=== PATIENT | male | born 1950 | race Caucasian/White ===

== ENCOUNTER 2017-07-15 14:45 | Inpatient (IN) ==
[2017-07-15] MEDS ORDERED: 0.9 % Sodium Chloride 1,000 ML IVC ONE (15:07)
[2017-07-15 15:27] LABS: Basophils % 0.2 %; Eosinophils % 0.3 %; Immature Granulocytes % 1.1 % (0-4); Lymphocytes % 7.1 %; Mean Corpuscular HGB Conc 30.9 g/dL (31.6-35.5); Mean Corpuscular Hemoglobin 27.1 pg (28.0-33.3); Mean Corpuscular Volume 87.8 fL (83.0-100.0); Monocytes % 4.8 %; Platelet Count 250 K/mcL (140-400); Red Blood Count 2.62 M/mcL (4.19-5.50); Red Cell Distribution Width 17.2 % (11.5-14.5); Segmented Neutrophils % 86.5 %
[2017-07-15 15:28] LABS: Lymphocytes # 0.9 K/mcL (0.6-4.6); Monocytes # 0.6 K/mcL (0.0-1.3); Neutrophils # 10.6 K/mcL (1.6-8.9)
[2017-07-15 15:43] LABS: Albumin/Globulin Ratio 0.3 (1.1-2.2); Bilirubin,Direct 0.5 mg/dL (0.0-0.5); Bilirubin,Indirect 0.4 mg/dL (0.0-1.2); Bilirubin,Total 0.9 mg/dL (0.2-1.2); Globulin 4.5 g/dL (2.4-3.5); Magnesium 1.4 mg/dL (1.6-2.6); Phosphorous 5.3 mg/dL (2.3-4.7); Total Protein 5.9 g/dL (6.0-8.3)
[2017-07-15 15:45] LABS: Albumin 1.4 g/dL (3.5-5.0)
[2017-07-15 15:52] LABS: Hemoglobin 7.1 g/dL (12.9-16.9)
[2017-07-15 15:53] LABS: Prothrombin Time 59.4 Seconds (9.4-12.1)
[2017-07-15 15:54] LABS: INR 5.3
[2017-07-15] MEDS ORDERED: *HR* Phytonadione 10 MG/ML AMPUL SQ ONE (16:07)
[2017-07-15] MEDS ORDERED: *HR* Phytonadione 5 MG TABLET PO ONE (16:12)
--- NOTE | 2017-07-15 16:27 | Emergency Department Note ---
Disposition Clinical Impression: [id number] (acute kidney injury), HCC (hepatocellular carcinoma), Elevated INR Hypotension Qualifiers: Hypotension type: other hypotension type Qualified Code(s): I95.89 - Other hypotension Anemia Qualifiers: Anemia type: unspecified type Qualified Code(s): D64.9 - Anemia, unspecified Disposition: Admitted As Inpatient Condition: Fair Time of Disposition: 18:34 General Adult HPI - General Chief complaint: ED General Medical Stated complaint: Hypotension Time Seen by Provider: 07/15/17 14:51 Source: patient, family, EMS Mode of arrival: EMS Limitations: no limitations Nursing Notes Reviewed: Yes Vital Signs Reviewed: Yes - History of Present Illness HPI Narrative: 66-year-old male presented to the emergency department complaining of hypotension. Patient was recently discharged from [facility] after being in [facility] ICU for 3 weeks of being transferred there for follow-up care for hepatocellular carcinoma. When patient was originally admitted he had acute renal failure and dialysis was started and he currently has a port on the right side. He has multiple healing sacral decubiti as well. This morning he was at home and had taken his lisinopril. He noticed he felt somewhat weak and his blood pressure was taken and systolic was in the upper 80s and low 90s. He spoke with his physician who told him to come to the emergency department. Patient denies any complaints including shortness of breath, chest pain or abdominal pain. Patient denies any fevers at home. According to family at bedside his blood pressure was 130 systolic the other day when he was discharged from [facility]. Patient was scheduled to have a paracentesis but was unable to due to an increased INR greater than 3. Pain Scale: 0 - Related Data Home Medications Medication Instructions Recorded Confirmed Lisinopril [Zestril] 40 mg PO DAILY 02/17/17 07/15/17 Simvastatin [Zocor] 40 mg PO 1800 02/17/17 07/15/17 Ascorbic Acid [Vitamin C] 500 mg PO BID 07/15/17 07/15/17 B Complex W-C No.20/Folic Acid 1 mg PO DAILY 07/15/17 07/15/17 [Nephrocaps Softgel] Calcium Carbonate 650 - 1,300 mg PO QID PRN 07/15/17 07/15/17 Docusate [Colace] 100 mg PO BID PRN 07/15/17 07/15/17 Loperamide [Imodium] 2 mg PO PER PKG DI PRN MDD 16 mg 07/15/17 07/15/17 Nystatin POWDER [Nystop] 1 appl TP QID 07/15/17 07/15/17 Oxycodone HCl 10 - 20 tab PO Q4H PRN 07/15/17 07/15/17 Rifaximin [Xifaxan] 550 mg PO BID 07/15/17 07/15/17 Saliva Stimulant [Biotene 5 ml MM Q2H PRN 07/15/17 07/15/17 Moisturizing Rinse] Sennosides [Senna] 8.6 mg PO DAILY PRN 07/15/17 07/15/17 Triamcinolone Acet 0.1% CRM 1 appl TP BID 07/15/17 07/15/17 [Kenalog] Warfarin [Coumadin] 7.5 mg PO 1800 07/15/17 07/15/17 Zinc Sulfate 220 mg PO QAM 07/15/17 07/15/17 Previous Rx's Medication Instructions Recorded Promethazine [Phenergan] 25 mg PO Q6HR PRN #60 tablet 05/19/17 Allergies Allergy/AdvReac Type Severity Reaction Status Date / Time Hydromorphone [From Dilaudid] Allergy Itching Verified 07/15/17 14:47 heparin AdvReac See Verified 07/15/17 14:51 Comments All systems ED: reviewed and negative except as stated. Constitutional: Denies: fever, chills Eyes: Reports: as per HPI ENT ED: Reports: as per HPI Cardiovascular: Denies: chest pain, palpitations Respiratory: Denies: cough, dyspnea, wheezes Gastrointestinal: Reports: as per HPI Genitourinary: Reports: as per HPI Musculoskeletal: Reports: as per HPI Integumentary: Reports: other (Sacral decubiti) Neurological: Reports: as per HPI Psychiatric: Reports: as per HPI Endocrine: Reports: as per HPI Hematological/Lymphatic: Reports: as per HPI Allergic/Immunologic: Reports: as per HPI Past Medical History - Past Medical History Attestation: Yes The following information was validated with the patient. Medical history: Reports: cancer, diabetes, dialysis, other Surgical history: Reports: hip replacement, other (liver biopsy. hepatic artery embolization) Psychiatric history: Reports: no psych history - Social History Smoking Status: Former smoker Smokeless Tobacco Status: No Alcohol use: Reports: none Drug use: Reports: none Physical Exam - General Limitations: no limitations General appearance: alert, in no apparent distress - Head Head exam: atraumatic, normocephalic, normal inspection - Eye Eye exam: Present: normal appearance. Absent: scleral icterus, conjunctival injection - ENT ENT exam: mucous membranes dry - Chest Chest inspection: Present: normal inspection, symmetric chest wall rise. Absent : tenderness, rash - Respiratory Respiratory exam: Present: other (Decreased breath sounds bilaterally) - Cardiovascular Cardiovascular exam: Present: regular rate, normal rhythm, normal heart sounds - Abdominal Exam Abdominal exam: Present: distention. Absent: tenderness, guarding, rebound, rigidity - Rectal Exam Lead C Developer present during exam: Yes Rectal exam: Present: normal inspection, normal rectal tone, heme (+) stool. Absent: fecal impaction, hemorrhoids, tenderness - Extremities Exam Extremities exam: Present: normal inspection, full ROM - Neurological Exam Neurological exam: Present: alert, oriented X3 - Psychiatric Psychiatric exam: Present: normal affect, normal mood - Skin Skin exam: Present: warm Course Course Narrative: 66-year-old male presenting to the emergency department with chief complaint of hypotension. He has no other complaints at this time. He patient most likely hypotensive due to the blood pressure medication given to him. We will perform a sepsis workup and fluid bolus him with 1 L. At the fluid bolus does not increase his Mavik to [address] a central line and start pressors. Disposition will be admission to the ICU. Patient's alert and oriented 3 in room. He is hypotensive. Systolic in the upper 80s and lower 90s but otherwise vital signs are stable at this time. Family is at bedside. - Reevaluation(s) Reevaluation #1: Patient around 60 at this time. After fluid bolus. We will place a right femoral line at this time and begin his admission to the ICU. Multiple abnormalities noted on blood work and hyponatremia and chronic kidney disease. Patient's INR is elevated greater than 5. Patient's lactic acid is within normal limits. White count 12. Femoral line was placed in no significant complications. The will admit the patient to the hospitalist Dr. Sanders who accepts the patient at this time. Spoke with family who agrees with this plan. Patient is hypotensive with systolic in the mid 90s at this time otherwise stable. Time: 18:33 Vital Signs Temperature 97.4 F L 07/15/17 14:47 Pulse Rate 85 07/15/17 14:47 Respiratory Rate 20 07/15/17 14:47 Blood Pressure 95/57 07/15/17 14:47 O2 Sat by Pulse Oximetry 95 07/15/17 14:47 Temperature 97.6 F 07/15/17 20:08 Pulse Rate 86 07/15/17 20:08 Respiratory Rate 16 07/15/17 20:08 Blood Pressure 126/56 07/15/17 20:08 O2 Sat by Pulse Oximetry 98 07/15/17 20:08 Oxygen Delivery Oxygen Delivery Nasal Cannula Procedures - Central Line Placement Right Femoral Central Line Inserted*: Yes Central Line Catheter Replacement*: No Central Line Insertion: emergent Consent Obtained: verbal consent Procedural Pause: verify patient name and date of , timeout performed per policy, jared and assess the site, assemble equipment and verify supplies, perform hand hygiene Patient Placed on Monitor/Pulse Ox: Yes During the Procedure: clinician is wearing sterile gloves, cap, mask,& gown during insertion, sterile field and sterile technique are maintained, patient's face is covered with drape or mask and wearing a cap, everyone in room is wearing a mask Central Line Prep: Chlorhexidine scrub Prep the Procedure Site: apply chloraprep to the skin using a back and forth scrubbing motion, apply chloraprep for 30 seconds (upper body), 1-2 min ( femoral sites), allow prep to dry, drape the patient with a full body drape Local Anesthetic: lidocaine 1% Amount of anesthesia used (mL): 5 Ultrasound Used for Placement: Yes Central Line Lumen Inserted: triple Post Procedure: sutured in place, good blood return, all ports aspirated, flushed, capped, sterile dressing applied, guide wire removed and visualized, dressing is dated Patient Tolerated Procedure: well Complications: none Medical Decision Making - Lab Data Result diagrams: 07/15/17 15:21 07/15/17 15:21 Lab Results 07/15/17 07/15/17 07/15/17 Range/Units 15:21 15:21 15:21 WBC 12.3 H (4.3-11.1) K/mcL RBC 2.62 L (4.19-5.50) M/mcL Hgb 7.1 L (12.9-16.9) g/dL Hct 23.0 L (37.5-50.1) % MCV 87.8 D (83.0-100.0) fL MCH 27.1 L (28.0-33.3) pg MCHC 30.9 L (31.6-35.5) g/dL RDW 17.2 H (11.5-14.5) % Plt Count 250 (140-400) K/mcL MPV 9.0 L (9.4-12.4) fL Immature Gran % 1.1 (0-4) % Seg Neutrophils % 86.5 % Lymphocytes % 7.1 % Monocytes % 4.8 % Eosinophils % 0.3 % Basophils % 0.2 % Neutrophils # 10.6 H (1.6-8.9) K/mcL Lymphocytes # 0.9 (0.6-4.6) K/mcL Monocytes # 0.6 (0.0-1.3) K/mcL Eosinophils # 0.0 (0.0-0.6) K/mcL Basophils # 0.0 (0.0-0.2) K/mcL PT 59.4 H* (9.4-12.1) Seconds INR 5.3 H* VBG pH (7.32-7.42) pH Units VBG pCO2 (41-51) mmHg VBG pO2 (25-50) mmHg VBG HCO3 (21-27) mEq/L Sodium 130 L (136-145) mEq/L Potassium 4.0 (3.5-4.5) mEq/L Chloride 97 L (98-109) mEq/L Carbon Dioxide 21 (19-29) mEq/L BUN 37 H (8-26) mg/dL Creatinine 3.90 H (0.72-1.25) mg/dL Est GFR ( Amer) 19 L (> 60) Est GFR (Non-Af Amer) 16 L (> 60) BUN/Creatinine Ratio 9 (6-26) Glucose 163 H (70-99) mg/dL Calculated Osmolality 282 (280-300) Lactic Acid (0.5-2.2) mmol/L Calcium 8.0 L (8.6-10.8) mg/dL Phosphorus 5.3 H (2.3-4.7) mg/dL Magnesium 1.4 L (1.6-2.6) mg/dL Total Bilirubin 0.9 (0.2-1.2) mg/dL Direct Bilirubin 0.5 (0.0-0.5) mg/dL Indirect Bilirubin 0.4 (0.0-1.2) mg/dL AST 44 H (5-34) Units/L ALT 20 (0-55) Units/L Alkaline Phosphatase 159 H (38-126) Units/L Troponin I (0-0.03) ng/mL Serum Total Protein 5.9 L (6.0-8.3) g/dL Albumin 1.4 L (3.5-5.0) g/dL Globulin 4.5 H (2.4-3.5) g/dL Albumin/Globulin Ratio 0.3 L (1.1-2.2) 07/15/17 07/15/17 07/15/17 Range/Units 15:21 15:21 18:54 WBC (4.3-11.1) K/mcL RBC (4.19-5.50) M/mcL Hgb (12.9-16.9) g/dL Hct (37.5-50.1) % MCV (83.0-100.0) fL MCH (28.0-33.3) pg MCHC (31.6-35.5) g/dL RDW (11.5-14.5) % Plt Count (140-400) K/mcL MPV (9.4-12.4) fL Immature Gran % (0-4) % Seg Neutrophils % % Lymphocytes % % Monocytes % % Eosinophils % % Basophils % % Neutrophils # (1.6-8.9) K/mcL Lymphocytes # (0.6-4.6) K/mcL Monocytes # (0.0-1.3) K/mcL Eosinophils # (0.0-0.6) K/mcL Basophils # (0.0-0.2) K/mcL PT (9.4-12.1) Seconds INR VBG pH 7.34 (7.32-7.42) pH Units VBG pCO2 40 L (41-51) mmHg VBG pO2 75 H (25-50) mmHg VBG HCO3 22 (21-27) mEq/L Sodium (136-145) mEq/L Potassium (3.5-4.5) mEq/L Chloride (98-109) mEq/L Carbon Dioxide (19-29) mEq/L BUN (8-26) mg/dL Creatinine (0.72-1.25) mg/dL Est GFR ( Amer) (> 60) Est GFR (Non-Af Amer) (> 60) BUN/Creatinine Ratio (6-26) Glucose (70-99) mg/dL Calculated Osmolality (280-300) Lactic Acid 1.7 (0.5-2.2) mmol/L Calcium (8.6-10.8) mg/dL Phosphorus (2.3-4.7) mg/dL Magnesium (1.6-2.6) mg/dL Total Bilirubin (0.2-1.2) mg/dL Direct Bilirubin (0.0-0.5) mg/dL Indirect Bilirubin (0.0-1.2) mg/dL AST (5-34) Units/L ALT (0-55) Units/L Alkaline Phosphatase (38-126) Units/L Troponin I 0.00 (0-0.03) ng/mL Serum Total Protein (6.0-8.3) g/dL Albumin (3.5-5.0) g/dL Globulin (2.4-3.5) g/dL Albumin/Globulin Ratio (1.1-2.2) Attestation Statement - Attestation Attestation: I, Yaw Tijerina, examined this patient and my medical decision-making was reviewed with the CONCRETE SWIMMING POOL INSTALLER/PA/Advanced Practice Nurse/Resident Physician. I agree with the documented findings, disposition and treatment plan as described except to the extent set forth below. 66-year-old male presents emergency Department with concerns of hypotension. Patient had a complicated hospital history over the past 2 months in that he originally had a an embolized, became septic while in [facility], was then transferred to [facility] for treatment of sepsis while in the ICU as well as for evaluation of liver cancer. Patient was then transferred to [facility] upon patient requests for further treatment as it was closer for family to be able to visit. Patient was discharged yesterday and was told to have his first outpatient dialysis performed today. Family restarted home medications upon request of discharge paperwork from [facility]. Daughter then noticed patient was hypotensive. Patient feels well although he had significant amount of bilateral pedal edema. Patient's abdomen is distended upon exam and they state that he has had a need for paracentesis in the past secondary to his liver disease. I am patient exam the abdomen is distended but is not taut. Patient given a liter of IV fluids but his BP did not improve significantly. A right for moral central venous catheter was placed after a discussion of the risks and benefits and written and verbal consent obtained. The placement of the central venous catheter was performed by myself and the resident and was technically difficult. Manuel who will admit to the ICU for further care and evaluation. Please oppressive agents were about to be started however patient's repeat blood pressures were now improving. Patient is comfortable with the plan for admission to the hospital for further care and evaluation
[2017-07-15 18:57] LABS: VBG HCO3 22 mEq/L (21-27); VBG PCO2 40 mmHg (41-51); VBG PH 7.34 pH Units (7.32-7.42); VBG PO2 75 mmHg (25-50)
[2017-07-15] MEDS ORDERED: *HR* Morphine 2 MG/ML SYRINGE IVP PRN (19:48)
[2017-07-15] MEDS ORDERED: Ondansetron 4 MG/2 ML VIAL IVP PRN (19:48)
[2017-07-15] MEDS ORDERED: Naloxone 0.4 MG/ML INJ IVP PRN ×2 (19:48)
[2017-07-15] MEDS ORDERED: Acetaminophen 325 MG TABLET PO PRN ×2 (19:48)
[2017-07-15] MEDS ORDERED: Levofloxacin 750 MG/150 ML 750 MG/150 ML BAG IVPB SCH (20:00)
[2017-07-15] MEDS ORDERED: Cefepime HCl 1,000 MG in D5% in Water (Mini-Bag+) 100 ML IVPB SCH (20:00)
--- NOTE | 2017-07-15 20:00 | Internal Med History&Physical ---
Date of Encounter: 07/15/17 Time of Encounter: 19:58 Assessment and Plan (1) Shock Current visit: Yes Status: Acute Possible hypovolemic shock, consider retroperitoneal hematoma, possible septic shock/bibasilar airspace disease with possible healthcare associated pneumonia present upon admission Reverse INR with FFP, vitamin K given Order 2 units of blood, may continue IV fluids. Order CT scan of the abdomen and pelvis stat. Start Levaquin and cefepime, consider starting vancomycin Protonix IV for GI prophylaxis and sequential compression devices for DVT prophylaxis. The patient will be admitted as inpatient, expected to stay more than 2 minutes. Full code. Time spent on this critical care assessment: 40 minutes. (2) Hepatocellular carcinoma Current visit: No Status: Acute (3) Type 2 diabetes mellitus Current visit: No Status: Chronic Insulin sliding scale Qualifiers: Diabetes mellitus complication status: with unspecified complications Diabetes mellitus longterm insulin use: with termite control servicer use Qualified Code(s) : E11.8 - Type 2 diabetes mellitus with unspecified complications; Z79.4 - terminal clerk (current) use of insulin (4) Cirrhosis of liver with ascites Current visit: No Status: Chronic Could not have paracentesis today Qualifiers: Hepatic cirrhosis type: unspecified hepatic cirrhosis Qualified Code(s): K74.60 - Unspecified cirrhosis of liver (5) Hypotension Current visit: Yes Status: Acute Consider pressors, hold lisinopril Nephrology will be consulted for dialysis Qualifiers: Hypotension type: other hypotension type Qualified Code(s): I95.89 - Other hypotension (6) Elevated INR Current visit: Yes Status: Acute (7) Anemia Current visit: Yes Status: Acute Possible acute blood loss anemia, Hemoccult is negative, continue Protonix IV, await report of CT scan of the abdomen and pelvis Qualifiers: Anemia type: unspecified type Qualified Code(s): D64.9 - Anemia, unspecified Internal Medicine - H&P: HPI Chief complaint: Low blood pressure Admitted From: Emergency Dept History of present illness: Mr. Dixon is a 66 year old male with a past medical history of hepatocellular carcinoma status post right embolization of the hepatic artery, A. fib on Coumadin, diastolic CHF, diabetes type 2 insulin-dependent, cirrhosis, ascites, prior septic shock, came to the emergency room complaining of severe weakness and low blood pressure, she is blood pressure dropped down to 54/42, it was noticed that his hemoglobin has dropped from 10.3 down to 7.1 since the last measurement. White blood cell count is 12.3 INR is 5.3, heart rate is increased at 110, sodium was 130s creatinine 3.9, the patient did not have dialysis today. Hemoccult was negative in the emergency room. Chest x-ray shows bilateral airspace disease possibly atelectases, the patient is very poor historian, denies any abdominal pain or other complaints other than weakness. He received vitamin K and had a central line placed in the right femoral vein. Past Med Surg Social Fam HX - Past Medical History Medical history: cancer (Hepatocellular carcinoma status post right hepatic artery embolization, UTI with pseudomonas in the past which was pansensitive, A. fib on Coumadin, septic shock, diastolic dysfunction, cirrhosis and ascites, diabetes type 2 insulin-dependent, GERD, neuropathy, depression, heparin- induced thrombocytopenia ), diabetes, dialysis, other Psychiatric history: no psych history - Past Surgical History Surgical History: cholecystectomy, hip replacement, other (liver biopsy. hepatic artery embolization, cardioversion) - Social History Smoking Status: Former smoker Smokeless Tobacco Status: No Alcohol use: none Drug use: none - Family History Father Living Status: Hx Family Cardiac Disorders: Yes Mother Living Status: Hx Family Cancer: Yes - Additional Family History Additional family history: Father and mother with heart disease Internal Medicine - H&P: Meds Lisinopril [Zestril] 40 mg PO DAILY 02/17/17 [History] Simvastatin [Zocor] 40 mg PO 1800 02/17/17 [History] Promethazine [Phenergan] 25 mg PO Q6HR PRN #60 tablet 05/19/17 [Rx] Ascorbic Acid [Vitamin C] 500 mg PO BID 07/15/17 [History] B Complex W-C No.20/Folic Acid [Nephrocaps Softgel] 1 mg PO DAILY 07/15/17 [ History] Calcium Carbonate 650 - 1,300 mg PO QID PRN 07/15/17 [History] Docusate [Colace] 100 mg PO BID PRN 07/15/17 [History] Loperamide [Imodium] 2 mg PO PER PKG DI PRN MDD 16 mg 07/15/17 [History] Nystatin POWDER [Nystop] 1 appl TP QID 07/15/17 [History] Oxycodone HCl 10 - 20 tab PO Q4H PRN 07/15/17 [History] Rifaximin [Xifaxan] 550 mg PO BID 07/15/17 [History] Saliva Stimulant [Biotene Moisturizing Rinse] 5 ml MM Q2H PRN 07/15/17 [History] Sennosides [Senna] 8.6 mg PO DAILY PRN 07/15/17 [History] Triamcinolone Acet 0.1% CRM [Kenalog] 1 appl TP BID 07/15/17 [History] Warfarin [Coumadin] 7.5 mg PO 1800 07/15/17 [History] Zinc Sulfate 220 mg PO QAM 07/15/17 [History] 3 Allergy/AdvReac Type Severity Reaction Status Date / Time Hydromorphone [From Dilaudid] Allergy Itching Verified 07/15/17 14:47 heparin AdvReac See Verified 07/15/17 14:51 Comments All Systems PM: A 10-system review of systems was performed and is negative for pertinent findings except as documented above in the HPI. Review of systems: No chest pain, no shortness of breath, complains of abdominal discomfort due to severe ascites, other systems out of the 10 reviewed were negative - Constitutional Vitals: Temp Pulse Resp BP Pulse Ox 97.4 F L 87 20 93/47 99 07/15/17 14:47 07/15/17 18:15 07/15/17 18:45 07/15/17 18:45 07/15/17 18:15 General appearance: Present: A&O X 3 - Head Head exam: Present: atraumatic, normocephalic - Eye Eye exam: Present: PERRL, conjuntiva pink, sclera anicteric Pupils: Present: PERRL - Neck Neck exam general surgery: Present: supple, trachea midline. Absent: lymphadenopathy - Respiratory Respiratory exam: Present: CTAB. Absent: accessory muscle use, rales, rhonchi, wheezes - Cardiovascular Cardiovascular exam: Present: RRR, +S1, +S2. Absent: diastolic murmur, gallop, rubs, systolic murmur - GI/Abdominal GI/Abdominal exam: Present: distended (Severe ascites), normal bowel sounds, soft, no peritoneal signs. Absent: tenderness - Extremities Exam Extremities exam: Present: pedal edema, warm, radial pulses palpable and symmetrical. Absent: calf tenderness, cyanotic - Neurological Exam Neurological exam: Present: CN II-XII intact, oriented X3, no focal deficits. Absent: pronater drift, facial droop, speech deficit Additional comments: +2 pitting edema in both lower extremities, right femoral central line - Skin Skin exam: Present: dry, intact Internal Med - H&P Results - Labs CBC & Chem 7: 07/15/17 15:21 07/15/17 15:21 - ABG Interpretation ABG results: 07/15/17 18:54 VBG pH 7.34 VBG pCO2 40 L VBG pO2 75 H VBG HCO3 22
[2017-07-15] MEDS ORDERED: RIFAXIMIN 550 MG PO SCH (21:00)
[2017-07-15] MEDS: Pantoprazole 40 MG VIAL IVPB SCH (21:51)
[2017-07-15] MEDS: Cefepime HCl 1,000 MG in Water for inj. (sterile) 10 ML IVP SCH (21:53)
[2017-07-15] MEDS ORDERED: 0.9 % Sodium Chloride 500 ML ONE (22:04)
[2017-07-15] MEDS ORDERED: 0.9 % Sodium Chloride 2,000 ML IVC ONE (22:31)
[2017-07-15] MEDS ORDERED: 0.9 % Sodium Chloride 1,000 ML ONE (22:35)
[2017-07-15] MEDS: Phenylephrine 10 MG in D5% in Water 250 ML IVC SCH (22:44)
[2017-07-15 23:22] LABS: Bilirubin,Urine Small (Negative); Blood,Urine Moderate (Negative); Clarity,Urine Cloudy (Clear); Color,Urine Yellow (Yellow); Glucose,Urine (UA) Normal (Normal); Ketones,Urine Trace mg/dL (Negative); Leukocyte Esterase,Urine Large (Negative); Nitrite,Urine Negative (Negative); PH,Urine 6.5 pH Units (5.0-8.0); Protein,Urine >=300 mg/dL (Neg-Trace); Specific Gravity,Urine >= 1.030 (1.010-1.025)
[2017-07-15 23:28] LABS: RBC,Urine 30-50 per hpf (0-3); WBC,Urine TNTC per hpf (0-3)
[2017-07-15 23:29] LABS: Bacteria,Urine Moderate per hpf (None-Few); Yeast,Urine Many per hpf (None Seen)
[2017-07-16] MEDS ORDERED: *HR* Dextrose 50 % in Water (Syg) 50 ML SYRINGE IVP PRN (01:43)
[2017-07-16] MEDS ORDERED: Dextrose Gel 15 GM PO PRN ×2 (01:43)
[2017-07-16] MEDS ORDERED: D5% in Water 1,000 ML IVC PRN (01:43)
[2017-07-16] MEDS: Phenylephrine 10 MG in D5% in Water 250 ML IVC SCH (01:47)
[2017-07-16] MEDS: Insulin LISPRO 300 UNITS/3 ML VIAL SQ SCH ×4 (02:09→16:09)
[2017-07-16] MEDS: Phenylephrine 50 MG in D5% in Water 250 ML IVC SCH ×4 (03:05→21:10)
[2017-07-16 04:02] LABS: Hematocrit 27.5 % (37.5-50.1); Hemoglobin 8.6 g/dL (12.9-16.9); Mean Corpuscular HGB Conc 31.3 g/dL (31.6-35.5); Mean Platelet Volume 8.4 fL (9.4-12.4); Platelet Count 230 K/mcL (140-400); Red Blood Count 3.19 M/mcL (4.19-5.50); Red Cell Distribution Width 17.2 % (11.5-14.5)
[2017-07-16 04:06] LABS: Mean Corpuscular Volume 86.2 fL (83.0-100.0)
[2017-07-16 04:07] LABS: INR 2.9; Prothrombin Time 32.1 Seconds (9.4-12.1)
[2017-07-16 04:23] LABS: Albumin/Globulin Ratio 0.4 (1.1-2.2); Calcium 7.9 mg/dL (8.6-10.8); Globulin 4.2 g/dL (2.4-3.5); Potassium 3.8 mEq/L (3.5-4.5); Total Protein 5.7 g/dL (6.0-8.3)
[2017-07-16 04:26] LABS: Albumin 1.5 g/dL (3.5-5.0)
[2017-07-16] MEDS: Pantoprazole 40 MG VIAL IVPB SCH (05:36)
[2017-07-16] MEDS: Cefepime HCl 1,000 MG in Water for inj. (sterile) 10 ML IVP SCH (09:27)
--- NOTE | 2017-07-16 09:42 | Pulmonology Consult Note ---
Date of Encounter: 07/16/17 Time of Encounter: 09:42 Assessment and Plan (1) Septic shock Current Visit: No Status: Acute Labs, radiology, chart personally reviewed. Management was reviewed during multidisciplinary critical care rounds. In conclusion this is a 66-year-old gentleman with a past medical history of recently diagnosed hepatocellular carcinoma status post RFA complicated by septic shock and respiratory failure along with acute kidney injury who presented with evidence of vasodilatory shock likely secondary to sepsis of unclear etiology he is being monitored in the ICU for need of vasopressors and has a high risk of clinical deterioration and hypoperfusion. Neuropsych: Awake and alert follows all commands no focal neurological deficit we will continue to monitor this Pulm: Mild hypoxemia that has improved with 2 L nasal cannula this is likely secondary to pulmonary edema and atelectasis no clear evidence of respiratory infection based upon chest x-ray Cards: Vasodilatory shock which is likely secondary to sepsis complicated by end -stage renal disease and possible recent readmission of antihypertensives. He is being maintained on phenylephrine since this was started overnight and has been able to be titrated down I do not see an acute need to transition to leave that especially given underlying history of supraventricular tachyarrhythmias and this is being titrated down for goal map of 65. Troponin normal A. fib rate controlled. FEN-GI: Advance diet as tolerated after speech and swallow evaluation. History of cirrhosis with ascites he has evidence of abdominal distention and dullness which is likely secondary to ascites but is not tense and he is not describing any abdominal pain. Could consider therapeutic paracentesis as needed. There are no significant change in his liver function tests. Given the severity of anasarca I will schedule albumin every 8 hours today and effort to mobilize fluid and potentially increase intravascular volume Renal: ESRD on dialysis nephrology has been consulted consider dialysis today for volume management starting Midrin for some component of hypotension related to ESRD ID: Sepsis with shock of unclear etiology possible intra-abdominal source of the CT scan was not notable for any acute changes versus UTI versus much less likely pneumonia although patient is at aspiration risk. We are covering broadly for healthcare associated organisms including gram-negative and gram- positive (including MRSA and Pseudomonas) he is also at risk for CLABSI. We will de-escalate antimicrobials based upon culture sensitivities as able Heme/Onc: Atrial fibrillation anticoagulated on warfarin supratherapeutic INR chronic anemia do not feel he has evidence of acute hemorrhage was transfused overnight repeat H&H showed near appropriate increment. Repeat H&H pending he was given FFP INR now is at 2.0 I feel that the risk of further administration of FFP given tenuous volume status is not warranted at this time guaiac stool was negative. There is no evidence of thrombocytopenia Endo: Glucose Monitored and stable Integ/MSK: Skin Care per routine ICU Nursing Protocol to prevent ulcers. Lines: All lines examined without evidence of infection Dispo: Remain in the ICU for vasopressor requirements CODE: I spent 25 minutes in aggregate speaking with the patient and his family regarding overall goals of care given prior poor prognosis from liver cancer along with prolonged hospitalization and other multiple medical comorbidities including end-stage renal disease and hepatic cirrhosis. The patient was very clear that he did not want to be in the hospital setting any longer wanted to transition to comfort measures only understanding that that would result in his demise. His main goals were to "go home and watch the animals outside of his window" and "i dont want to be in any more pain" the family (including his his adult children his brother and their spouses) was accepting of his decision and I have contacted the on-call hospice nurse for further evaluation. Patient's CODE STATUS was changed to reflect this DNR CC (2) Goals of care, counseling/discussion Current Visit: Yes Status: Acute (3) ESRD (end stage renal disease) on dialysis Current Visit: Yes Status: Acute (4) Hepatocellular carcinoma Current Visit: No Status: Acute (5) DVT prophylaxis Current Visit: No Status: Acute (6) Cirrhosis of liver with ascites Current Visit: No Status: Chronic Qualifiers: Hepatic cirrhosis type: unspecified hepatic cirrhosis Qualified Code(s): K74.60 - Unspecified cirrhosis of liver (7) HCC (hepatocellular carcinoma) Current Visit: Yes Status: Chronic (8) Elevated INR Current Visit: Yes Status: Acute (9) Anemia Current Visit: Yes Status: Acute Qualifiers: Anemia type: unspecified type Qualified Code(s): D64.9 - Anemia, unspecified (10) Atrial fibrillation Current Visit: Yes Status: Acute Qualifiers: Atrial fibrillation type: paroxysmal Qualified Code(s): I48.0 - Paroxysmal atrial fibrillation History of Present Illness Consult date: 07/16/17 Requesting physician: Boone Castillo Reason for consult: other (Septic Shock ) Chief complaint: Low blood pressure History of present illness: This 66-year-old gentleman with a past medical history of hepatocellular carcinoma recently diagnosed as his advanced age and incurable. He is well known to me as I had the privilege of taking care of him at last hospitalization and [facility] in May or he presented with septic shock leading to multiple organ system failure. On that admission he was transferred to [facility] for further evaluation of hepatocellular carcinoma and was told her that we will prognosis is poor. After discharge from [facility] he went to [facility] for convalescence he was discharged from there the day before yesterday to home yesterday felt weak and home health nurse took his blood pressure and it was quite low and he went to the ED as a result. In the ED systolic blood pressures are consistently in the 80s lactate was normal but despite central line placement and fluid resuscitation blood pressure did not increase he was treated for septic shock started on broad-spectrum antimicrobials after obtaining blood cultures as well as culture from dialysis catheter.. Additionally patient is noted to have elevated INR greater than 5 in the context of use of warfarin for atrial fibrillation. H&H showed chronic anemia not too far from baseline guaiac stool was negative no overt clinical evidence of bleeding despite this the patient was transfused 2 units PRBCs and 2 units FFP. There has been no other clinical evidence of hemorrhage. A CT scan of the abdomen and pelvis was performed which was notable for moderate to large volume ascites and multiple low attenuation lesions throughout the liver which had progressed since he was here previously consistent with known hepatocellular carcinoma. Chest x-ray did not show any clear evidence of new infiltrate. Overnight the patient has done relatively well his first requiring persistent infusion of vasopressor in this case phenylephrine was restarted by the overnight hospitalist service presumably for concern of underlying atrial fibrillation and use of norepinephrine although initially at high doses as has been able to be weaned down over the course of the morning. Past Med Surg Social Fam HX - Past Medical History Medical history: cancer, diabetes, dialysis, other Psychiatric history: no psych history - Past Surgical History Surgical History: hip replacement, other (liver biopsy. hepatic artery embolization) - Social History Smoking Status: Former smoker Smokeless Tobacco Status: No Alcohol use: none Drug use: none - Family History Father Living Status: Hx Family Cardiac Disorders: Yes Mother Living Status: Hx Family Cancer: Yes Medications and Allergies Lisinopril [Zestril] 40 mg PO DAILY 02/17/17 [History] Simvastatin [Zocor] 40 mg PO 1800 02/17/17 [History] Promethazine [Phenergan] 25 mg PO Q6HR PRN #60 tablet 05/19/17 [Rx] Ascorbic Acid [Vitamin C] 500 mg PO BID 07/15/17 [History] B Complex W-C No.20/Folic Acid [Nephrocaps Softgel] 1 mg PO DAILY 07/15/17 [ History] Calcium Carbonate 650 - 1,300 mg PO QID PRN 07/15/17 [History] Docusate [Colace] 100 mg PO BID PRN 07/15/17 [History] Loperamide [Imodium] 2 mg PO PER PKG DI PRN MDD 16 mg 07/15/17 [History] Nystatin POWDER [Nystop] 1 appl TP QID 07/15/17 [History] Oxycodone HCl 10 - 20 tab PO Q4H PRN 07/15/17 [History] Rifaximin [Xifaxan] 550 mg PO BID 07/15/17 [History] Saliva Stimulant [Biotene Moisturizing Rinse] 5 ml MM Q2H PRN 07/15/17 [History] Sennosides [Senna] 8.6 mg PO DAILY PRN 07/15/17 [History] Triamcinolone Acet 0.1% CRM [Kenalog] 1 appl TP BID 07/15/17 [History] Warfarin [Coumadin] 7.5 mg PO 1800 07/15/17 [History] Zinc Sulfate 220 mg PO QAM 07/15/17 [History] 3 Allergy/AdvReac Type Severity Reaction Status Date / Time Hydromorphone [From Dilaudid] Allergy Itching Verified 07/15/17 14:47 heparin AdvReac See Verified 07/15/17 14:51 Comments All Systems: A 10-system review of systems was performed and is negative for pertinent findings except as documented above in the HPI. Physical Examination Vital Signs: Vital Signs, Last 4 Hours Temp Pulse Resp BP Pulse Ox 07/16/17 09:00 86 18 113/58 95 07/16/17 08:00 97.7 F 88 18 121/58 96 07/16/17 07:00 97.7 F 88 14 118/61 95 07/16/17 06:00 88 14 139/63 95 General appearance: no acute distress Eyes: nonicteric ENT: oropharynx moist Neck: supple Effort: normal Auscultation: bilateral: diminished breath sounds, rales Cardiovascular: irregular rhythm Gastrointestinal: normoactive bowel sounds (The abdomen is distended and dull to percussion with fluid wave form positive consistent with known ascites the bili is not tense bowel sounds are present but reduced) Integumentary: normal Extremities: no cyanosis, no clubbing, anasarca normal mental status, non-focal exam, pupils equal and round, CN II-XII normal mood appropriate Results - Laboratory Findings CBC and BMP: 07/16/17 03:48 07/16/17 03:48 PT/INR, D-dimer PT 32.1 Seconds (9.4-12.1) H 07/16/17 03:48 Abnormal lab findings: Abnormal lab results WBC 16.5 K/mcL (4.3-11.1) H 07/16/17 03:48 RBC 3.19 M/mcL (4.19-5.50) L 07/16/17 03:48 Hgb 8.6 g/dL (12.9-16.9) L D 07/16/17 03:48 Hct 27.5 % (37.5-50.1) L 07/16/17 03:48 MCH 27.0 pg (28.0-33.3) L 07/16/17 03:48 MCHC 31.3 g/dL (31.6-35.5) L 07/16/17 03:48 RDW 17.2 % (11.5-14.5) H 07/16/17 03:48 MPV 8.4 fL (9.4-12.4) L 07/16/17 03:48 Neutrophils # 10.6 K/mcL (1.6-8.9) H 07/15/17 15:21 PT 32.1 Seconds (9.4-12.1) H 07/16/17 03:48 VBG pCO2 40 mmHg (41-51) L 07/15/17 18:54 VBG pO2 75 mmHg (25-50) H 07/15/17 18:54 Sodium 129 mEq/L (136-145) L 07/16/17 03:48 Chloride 97 mEq/L (98-109) L 07/16/17 03:48 BUN 39 mg/dL (8-26) H 07/16/17 03:48 Creatinine 3.99 mg/dL (0.72-1.25) H 07/16/17 03:48 Est GFR ( Amer) 18 (> 60) L 07/16/17 03:48 Est GFR (Non-Af Amer) 15 (> 60) L 07/16/17 03:48 Glucose 170 mg/dL (70-99) H 07/16/17 03:48 POC Glucose 141 (58-89) H 07/16/17 07:08 Calcium 7.9 mg/dL (8.6-10.8) L 07/16/17 03:48 Phosphorus 5.3 mg/dL (2.3-4.7) H 07/15/17 15:21 Magnesium 1.4 mg/dL (1.6-2.6) L 07/15/17 15:21 AST 45 Units/L (5-34) H 07/16/17 03:48 Alkaline Phosphatase 147 Units/L (38-126) H 07/16/17 03:48 Serum Total Protein 5.7 g/dL (6.0-8.3) L 07/16/17 03:48 Albumin 1.5 g/dL (3.5-5.0) L 07/16/17 03:48 Globulin 4.2 g/dL (2.4-3.5) H 07/16/17 03:48 Albumin/Globulin Ratio 0.4 (1.1-2.2) L 07/16/17 03:48 Ur Specimen Adequacy See below A 07/15/17 23:04 Urine Clarity Cloudy (Clear) A 07/15/17 23:04 Ur Specific [place] >= 1.030 (1.010-1.025) H 07/15/17 23:04 Urine Protein >=300 mg/dL (Neg-Trace) H 07/15/17 23:04 Urine Ketones Trace mg/dL (Negative) H 07/15/17 23:04 Urine Blood Moderate (Negative) H 07/15/17 23:04 Urine Bilirubin Small (Negative) H 07/15/17 23:04 Urine Urobilinogen 2.0 mg/dL (Normal) H 07/15/17 23:04 Ur Leukocyte Esterase Large (Negative) H 07/15/17 23:04 Urine Microscopic RBC 30-50 per hpf (0-3) H 07/15/17 23:04 Urine Microscopic WBC TNTC per hpf (0-3) H 07/15/17 23:04 Urine Bacteria Moderate per hpf (None-Few) H 07/15/17 23:04 Urine Yeast Many per hpf (None Seen) H 07/15/17 23:04 Ur Culture Indicated? YES (NO) A 07/15/17 23:04 - Diagnostic Findings Chest x-ray: report reviewed, image reviewed (CT abdomen/pelvis) - Clinical Findings Intake & Output: Intake & Output 07/15/17 07/16/17 07/16/17 23:59 07:59 15:59 Intake Total 160 / 1160 2987.0 / 2987.0 105 / 105 Output Total 3 / 3 Balance 160 / 1160 2984.0 / 2984.0 105 / 105 Weight 185.5 kg Consult Discharge Plan - Plan Referrals: Alicia Pastrana MD [Primary Care Provider] -
[2017-07-16] MEDS ORDERED: Vancomycin 2,000 MG in D5% in Water 250 ML IVPB SCH (10:00)
--- NOTE | 2017-07-16 10:50 | Nephrology Consult Note ---
Date of Encounter: 07/16/17 Time of Encounter: 10:10 Assessment and Plan (1) KRZYSZTOF (acute kidney injury) Current Visit: Yes Status: Acute KRZYSZTOF without recovery, now ESRD in setting of hepatcellular carcinoma, hypotension. Will attempt HD today having missed treatment yesterday, noting on one pressor and liver cancer/disease and ascites and tendency to run low BP in general. Orders given. (2) HCC (hepatocellular carcinoma) Current Visit: Yes Status: Chronic History of Present Illness - Reason for Consult Acute Kidney Injury - History of Present Illness Mr. Dixon is a 66 year old male with history of hepatocellular carcinoma. S/P right embolization of hepatic artery. Other PMH-A. fib on Coumadin, diastolic CHF, diabetes type 2 insulin-dependent, cirrhosis, ascites, prior septic shock. Mr. Dixon is known from a prior admission in May in setting of hepatocellular carcinoma. S/P right embolization of hepatic artery that developed prerenal KRZYSZTOF/ATN in the setting of poor intake, lasix, aldactone, lisinopril, NSAIDS and contrast. Renal US at that time showed no evidence of hydronephosis. At that time he was intubated, on pressors and CVVH was started. Renal fct normal prior to this admission creat 1.12-1.15. He was subsequently transferred to [facility] for further hepatic workup and then transferred to [facility] for greater convenience of family to be able to visit. He was discharged home for one day when BP became low and presented to [facility]. Currently is in the ICU, alert and oriented. O2 per NC, on one pressor, Sys BP 110. Mr. Dixon states continueed on with HD on MWF schedule. This was confirmed with his . He was to dialyze at [facility] per [facility] home discharge, but did not realize not same Nephrology group and requested Dr. Gaitan to remain Sales Project Coordinator. The patient and state he missed HD yesterday. He is quite edematous/anasarca. Positive ascites. Oliguric. Creat 3.99 today. Past Med Surg Social Fam HX - Past Medical History Medical history: cancer, diabetes, dialysis, other Psychiatric history: no psych history - Past Surgical History Surgical History: hip replacement, other (liver biopsy. hepatic artery embolization) - Social History Smoking Status: Former smoker Smokeless Tobacco Status: No Alcohol use: none Drug use: none - Family History Father Living Status: Hx Family Cardiac Disorders: Yes Mother Living Status: Hx Family Cancer: Yes Medications and Allergies Lisinopril [Zestril] 40 mg PO DAILY 02/17/17 [History] Simvastatin [Zocor] 40 mg PO 1800 02/17/17 [History] Promethazine [Phenergan] 25 mg PO Q6HR PRN #60 tablet 05/19/17 [Rx] Ascorbic Acid [Vitamin C] 500 mg PO BID 07/15/17 [History] B Complex W-C No.20/Folic Acid [Nephrocaps Softgel] 1 mg PO DAILY 07/15/17 [ History] Calcium Carbonate 650 - 1,300 mg PO QID PRN 07/15/17 [History] Docusate [Colace] 100 mg PO BID PRN 07/15/17 [History] Loperamide [Imodium] 2 mg PO PER PKG DI PRN MDD 16 mg 07/15/17 [History] Nystatin POWDER [Nystop] 1 appl TP QID 07/15/17 [History] Oxycodone HCl 10 - 20 tab PO Q4H PRN 07/15/17 [History] Rifaximin [Xifaxan] 550 mg PO BID 07/15/17 [History] Saliva Stimulant [Biotene Moisturizing Rinse] 5 ml MM Q2H PRN 07/15/17 [History] Sennosides [Senna] 8.6 mg PO DAILY PRN 07/15/17 [History] Triamcinolone Acet 0.1% CRM [Kenalog] 1 appl TP BID 07/15/17 [History] Warfarin [Coumadin] 7.5 mg PO 1800 07/15/17 [History] Zinc Sulfate 220 mg PO QAM 07/15/17 [History] 3 Allergy/AdvReac Type Severity Reaction Status Date / Time Hydromorphone [From Dilaudid] Allergy Itching Verified 07/15/17 14:47 heparin AdvReac See Verified 07/15/17 14:51 Comments Review of Systems All Systems: reviewed and no additional remarkable complaints except as stated Exam - Vital Signs Vital signs: Initial Vital Signs Temp Pulse Resp BP Pulse Ox 97.4 F L 85 20 95/57 95 07/15/17 14:47 07/15/17 14:47 07/15/17 14:47 07/15/17 14:47 07/15/17 14:47 Vital Signs - Last 8 Hours Temp Pulse Resp BP Pulse Ox 07/16/17 10:00 90 18 106/63 96 07/16/17 09:00 86 18 113/58 95 07/16/17 08:00 97.7 F 89 18 121/58 96 07/16/17 07:00 97.7 F 88 14 118/61 95 07/16/17 06:00 88 14 139/63 95 07/16/17 05:00 87 16 131/69 94 07/16/17 04:46 97.7 F 89 17 132/58 94 07/16/17 04:20 97.8 F 16 133/62 95 07/16/17 04:00 88 12 110/61 95 07/16/17 03:31 97.7 F 07/16/17 03:25 89 16 80/54 94 Intake and Output 07/15/17 07/16/17 07/16/17 23:59 07:59 15:59 Intake Total 160 / 1160 2987.0 / 2987.0 105 / 105 Output Total 3 / 3 Balance 160 / 1160 2984.0 / 2984.0 105 / 105 Intake: IV Fluids 160 / 160 1662.0 / 1662.0 105 / 105 0.9 % Sodium Chloride 2,000 ML 1000 / 1000 @ 500 mls/hr IVC .Q4H ONE Rx#: [id number] Phenylephrine 50 MG In Dextrose 662.0 / 662.0 95 / 95 5% 250 ML @ 40 MCG/MIN 12.24 mls/hr IVC CONT [facility]A Rx#: [id number] Maxipime 1,000 MG In Water for inj. (sterile) 10 ML @ 150 mls/ hr IVP Q12H [facility] Rx#:[id number] Levaquin Premix 750mg/150 mL 150 / 150 750 mg In 150 ml @ 100 mls/hr IVPB Q24H [facility] Rx#:[id number] Blood Product 0 / 0 1325 / 1325 Plasma Unit [id number] 0 / 0 250 / 250 Plasma Unit [id number] 375 / 375 Rbcs Leuko Poor As-3 2nd Unit 350 / 350 [id number] Rbcs Leuko Poor As-3 2nd Unit 0 / 0 350 / 350 [id number] Output: Catheter 3 / 3 Other: Stool Size Small Stool Consistency soft Stool Color Brown Weight 185.5 kg Blood Glucose* 141 Patient Weight 07/16/17 23:59 Weight 185.5 kg - General Appearance General appearance: well-developed, well-nourished, appears started age, obese EENT: mucous membranes moist Neck: no JVD, no carotid bruit Respiratory: clear Cardiology: edema, regular rate, regular rhythm Additional Comments: anasarca, ascites - Dialysis Access Dialysis Vascular Access: Venous Catheter Gastrointestinal: normoactive bowel sounds, distended Integumentary: warm and dry Neurologic: alert and oriented x3 Psychiatric: mood/affect appropriate, cooperative Results - Lab Results 07/16/17 03:48 07/16/17 03:48 Most recent lab results Calcium 7.9 mg/dL (8.6-10.8) L 07/16/17 03:48 Phosphorus 5.3 mg/dL (2.3-4.7) H 07/15/17 15:21 Magnesium 1.4 mg/dL (1.6-2.6) L 07/15/17 15:21 Consult Discharge Plan - Plan Referrals: Alicia Pastrana MD [Primary Care Provider] -
[2017-07-16] MEDS ORDERED: Vancomycin 2,000 MG in D5% in Water 500 ML IVPB ONE (11:00)
[2017-07-16] MEDS ORDERED: Vancomycin 1 EACH in EMPTY BAG 1 EACH IVPB SCH (11:00)
[2017-07-16] MEDS ORDERED: 0.9 % Sodium Chloride 250 ML IVC PRN (11:49)
[2017-07-16] MEDS ORDERED: 0.9 % Sodium Chloride 1,000 ML PRIME SCH (12:00)
[2017-07-16] MEDS ORDERED: *HR* OxyCODONE/APAP 5/325 TABLET PO PRN (13:39)
[2017-07-16] MEDS: *HR* OxyCODONE Immed Rel 5 MG TABLET PO PRN ×2 (14:26→21:18)
[2017-07-16] MEDS: Levofloxacin 500 MG/100 ML 500 MG/100 ML BAG IVPB SCH (14:30)
[2017-07-16] MEDS: Albumin 25% 25gram/100mL 25 GM/100 ML IV.SOLN IVPB SCH ×2 (16:12→23:49)
[2017-07-16 16:25] LABS: Hematocrit 27.5 % (37.5-50.1); Mean Corpuscular HGB Conc 32.7 g/dL (31.6-35.5); Mean Corpuscular Hemoglobin 27.4 pg (28.0-33.3); Mean Corpuscular Volume 83.6 fL (83.0-100.0); Mean Platelet Volume 8.3 fL (9.4-12.4); Platelet Count 247 K/mcL (140-400); Red Blood Count 3.29 M/mcL (4.19-5.50); Red Cell Distribution Width 17.6 % (11.5-14.5)
[2017-07-16 16:58] LABS: Hepatitis B Surface Antigen Nonreactive (Nonreactive)
[2017-07-17] MEDS: *HR* OxyCODONE Immed Rel 5 MG TABLET PO PRN ×3 (03:26→20:03)
[2017-07-17] MEDS: Phenylephrine 50 MG in D5% in Water 250 ML IVC SCH ×2 (03:55→16:54)
[2017-07-17] MEDS: Pantoprazole 40 MG VIAL IVPB SCH (06:02)
--- NOTE | 2017-07-17 07:39 | Palliative - Consult Note ---
<Kp Mccauley - Last Filed: 07/17/17 08:02> Date of Encounter: 07/17/17 Time of Encounter: 07:30 - Assessment and Plan (1) Shock Current Visit: Yes Status: Acute Assessment and plan: 61-year-old male with history of hepatocellular carcinoma, cirrhosis with ascites, atrial fibrillation presented after being found to have a blood pressure 5442 by home health nurse. On presentation patient's blood pressure was in the systolic 80s, and patient's hemoglobin had dropped from 10.3 to 7.1 Patient was started on phenylephrine He did not require aggressive respiratory support and was not intubated. Patient is on 2 L oxygen. Shock secondary to unknown etiology: Patient is treated for hypovolemic shock and septic shock. Received 2 PBRC, and INR which is often too was reversed with FFP and vitamin K. Currently patient blood pressure continues to require pressors. (2) Goals of care, counseling/discussion Current Visit: Yes Status: Acute Assessment and plan: This patient has history of ulcer carcinoma, cirrhosis with ascites Patient a previous admission in May for septic shock with multiorgan failure. Patient stated that he would like to go home and transition to comfort care. He understands that without aggressive measures including continue pressors is likely to pass. Patient family and the same page. Currently patient is requiring pressors to maintain adequate blood pressure. Furthermore, patient would like to continue dialysis with hospice. Plan will be to discuss this with family. (3) Acute respiratory failure with hypoxia Current Visit: Yes Status: Acute Assessment and plan: Patient denies shortness of breath. Requiring 2 L oxygen and maintaining adequate oxygenation. Continue supplemental oxygen. (4) Anemia Current Visit: Yes Status: Acute Assessment and plan: Patient presented with a 3 g drop in his hemoglobin. INR was also elevated. Stool occult blood was negative. Currently ideologies unknown. Status post 2 PBRC hgb 9.0 today Qualifiers: Anemia type: unspecified type Qualified Code(s): D64.9 - Anemia, unspecified; D63.1 - Anemia in chronic kidney disease; D63.1 - Anemia in chronic kidney disease; Z99.2 - Dependence on renal dialysis; Z99.2 - Dependence on renal dialysis; Z99.2 - Dependence on renal dialysis; Z99.2 - Dependence on renal dialysis (5) Cirrhosis of liver with ascites Current Visit: Yes Status: Chronic Qualifiers: Hepatic cirrhosis type: unspecified hepatic cirrhosis Qualified Code(s): K74.60 - Unspecified cirrhosis of liver (6) ESRD (end stage renal disease) on dialysis Current Visit: Yes Status: Acute Assessment and plan: dialysis dependent at this point patient would like to transition to hospice and also continue dialysis. (7) HCC (hepatocellular carcinoma) Current Visit: Yes Status: Chronic Palliative-CN HPI - Data of Consult Patient: new to practice Consult date: 07/17/17 Requesting Physician: Jamir Sanders MD Primary Care Provider: Alicia Pastrana, - Consult Narrative Palliative Care/Comfort Measures: Hospice care Reason for consult: transition to hospice History of present illness: Mr. Dixon is a 66 year old male presented to ER with cc of weakness and low blood pressure measured by home health nurse. Patient has hx of hepatocelluar carcinoma and was admitted to [facility] in may for septic shock. Patients BP was in the 80s systolic. His hgb had decreased from 10.3 to 7.1. He had b/l airspace disease seen on cxr. Patient had INR of 5.3 (on Coumadin for afib). Patient was admittd fro shock. Started on vasopressor and transfused 2 units PBRC. His respiratory status is stable and did not require intubation. He has ESRD and on dialysis. Hx of cirrhosis as well. Patient stated that he did not want to be in the hospital and wanted to transition to comfort care. CC: Jamir Sanders MD Past Med Surg Social Fam HX - Past Medical History Medical history: cancer, diabetes, dialysis, other Psychiatric history: no psych history - Past Surgical History Surgical History: hip replacement, other (liver biopsy. hepatic artery embolization) - Social History Smoking Status: Former smoker Smokeless Tobacco Status: No Alcohol use: none Drug use: none - Family History Father Living Status: Hx Family Cardiac Disorders: Yes Mother Living Status: Hx Family Cancer: Yes Medications and Allergies Lisinopril [Zestril] 40 mg PO DAILY 02/17/17 [History] Simvastatin [Zocor] 40 mg PO 1800 02/17/17 [History] Promethazine [Phenergan] 25 mg PO Q6HR PRN #60 tablet 05/19/17 [Rx] Ascorbic Acid [Vitamin C] 500 mg PO BID 07/15/17 [History] B Complex W-C No.20/Folic Acid [Nephrocaps Softgel] 1 mg PO DAILY 07/15/17 [ History] Calcium Carbonate 650 - 1,300 mg PO QID PRN 07/15/17 [History] Docusate [Colace] 100 mg PO BID PRN 07/15/17 [History] Loperamide [Imodium] 2 mg PO PER PKG DI PRN MDD 16 mg 07/15/17 [History] Nystatin POWDER [Nystop] 1 appl TP QID 07/15/17 [History] Oxycodone HCl 10 - 20 tab PO Q4H PRN 07/15/17 [History] Rifaximin [Xifaxan] 550 mg PO BID 07/15/17 [History] Saliva Stimulant [Biotene Moisturizing Rinse] 5 ml MM Q2H PRN 07/15/17 [History] Sennosides [Senna] 8.6 mg PO DAILY PRN 07/15/17 [History] Triamcinolone Acet 0.1% CRM [Kenalog] 1 appl TP BID 07/15/17 [History] Warfarin [Coumadin] 7.5 mg PO 1800 07/15/17 [History] Zinc Sulfate 220 mg PO QAM 07/15/17 [History] 3 Allergy/AdvReac Type Severity Reaction Status Date / Time Hydromorphone [From Dilaudid] Allergy Itching Verified 07/15/17 14:47 heparin AdvReac See Verified 07/15/17 14:51 Comments Review of systems: Constitutional: Denies fever, chills. Reports weakness HEENT: Denies headache, vision changes, neck pain, sore throat, rhinorrhea Heart: Denies chest pain palpitations Lungs: Shortness of breath, denies cough. Abdomen: Denies abdominal pain nausea vomiting diarrhea Back: Denies back pain Kidney: Denies dysuria, hematuria Skin: warm and dry Extremities: Reports lower extremity swelling, denies pain Neuro: Denies numbness, and tingling Palliative Care-Exam - Constitutional Vitals: Temp Pulse Resp BP Pulse Ox 98.3 F 80 20 95/55 98 07/17/17 03:00 07/17/17 06:00 07/17/17 06:00 07/17/17 06:00 07/17/17 06:00 - Other Additional findings: General: Pleasant without distress HEENT: Head atraumatic, normocephalic, EOMI, PERRL, neck nontender to palpation , absent lymphadenopathy, Moist Mucous Membranes, Heart: Regular rate and rhythm with no murmur Lungs: Clear to auscultation anteriorly, bilaterally Abdomen: Soft nontender, distended, positive fluid wave distant bowel sounds Skin: warm and dry Extremities: 3+ pedal edema Neuro: Alert and oriented 3 Vascular: Pedal and radial pulses 2 out of 4 Internal Medicine - CN: Reslt - Labs CBC & Chem 7: 07/16/17 16:18 07/16/17 03:48 Labs: Short CBC 07/16/17 Range/Units 16:18 WBC 19.6 H (4.3-11.1) K/mcL Hgb 9.0 L (12.9-16.9) g/dL Hct 27.5 L (37.5-50.1) % Plt Count 247 (140-400) K/mcL - ABG Interpretation ABG results: PT/INR, D-dimer PT 32.1 Seconds (9.4-12.1) H 07/16/17 03:48 Consult Discharge Plan - Plan Referrals: Alicia Pastrana MD [Primary Care Provider] - Palliative Quality Palliative Quality: Screen for Code Status: Yes, Screen for Goals of Care: Yes, Screen for Pain: Yes, If Pain Regimen Started, Initiate Bowel Regimen: Yes, Screen for Nausea/Vomitting: Yes Code Status: 07/16/17 12:50 CODE [Resuscitation Status: Active] [RES] Routine Comment: Resuscitation Status: DNR-Comfort Care <Harry Barron - Last Filed: 07/17/17 08:42> Date of Encounter: 07/17/17 Palliative-CN HPI - Data of Consult Requesting Physician: Jamir Sanders MD Primary Care Provider: Alicia Pastrana, - Consult Narrative History of present illness: Mr. Dixon is a 66 year old male CC: Jamir Sanders MD Palliative Care-Exam - Constitutional Vitals: Temp Pulse Resp BP Pulse Ox 97.8 F 86 20 89/46 95 07/17/17 07:50 07/17/17 07:50 07/17/17 07:50 07/17/17 07:50 07/17/17 07:50 Internal Medicine - CN: Reslt - Labs CBC & Chem 7: 07/16/17 16:18 07/16/17 03:48 Labs: Short CBC 07/16/17 Range/Units 16:18 WBC 19.6 H (4.3-11.1) K/mcL Hgb 9.0 L (12.9-16.9) g/dL Hct 27.5 L (37.5-50.1) % Plt Count 247 (140-400) K/mcL - ABG Interpretation ABG results: PT/INR, D-dimer PT 32.1 Seconds (9.4-12.1) H 07/16/17 03:48 - Attending Attestation I examined this patient and my medical decision-making was reviewed with the Resident Physician. I agree with the documented findings, disposition and treatment plan as described except to the extent set forth below. On my discussion with patient initially ascribes stopping "everything" and then just comfort medications. And I did tell the patient this included dialysis. At point the patient did tell me that he wished to continue his dialysis and then we had a further discussion area during this discussion I emphasized to him if he wanted to keep his dialysis that he should do so but that would not be compatible with hospice. At this moment the patient would like to have his dialysis. We are trying to find a way for him to be a little go home and still have his dialysis. However I do not believe this is appropriate with hospice care. I believe this in that I believe his kidneys and his liver are tied together, do not in full conscience believe it is CTI could be written out the 2. I further believe the patient's prognosis is horrible with or without dialysis. Further conversation with family and with die finisher forging is to be taking place shortly. If the patient decides ultimately he does want hospice then dialysis will be discontinued, and we transition to 2A 45 get him signed up and will see about getting him home. If the patient does not wish to have hospice at this time and palliative we will continue to follow. Palliative Quality Code Status: 07/16/17 12:50 CODE [Resuscitation Status: Active] [RES] Routine Comment: Resuscitation Status: DNR-Comfort Care
[2017-07-17] MEDS: Insulin LISPRO 300 UNITS/3 ML VIAL SQ SCH ×3 (07:57→17:55)
[2017-07-17] MEDS: Albumin 25% 25gram/100mL 25 GM/100 ML IV.SOLN IVPB SCH ×2 (09:53→16:01)
[2017-07-17] MEDS: Cefepime HCl 1,000 MG in Water for inj. (sterile) 10 ML IVP SCH (09:54)
--- NOTE | 2017-07-17 09:58 | Pulmonology Progress Note ---
Date of Encounter: 07/17/17 Time of Encounter: 09:58 Assessment and Plan (1) Septic shock Current Visit: No Status: Acute Vasodiliatory secondary to sepsis complicated by cirrhosis and ESRD remains on phenylephrine at a intermediate dose this is being titrated down he is receiving albumin to help him improve oncotic pressure antimicrobials have been administered source of sepsis remains occult cultures pending de-escalate antibiotics as able (2) ESRD (end stage renal disease) on dialysis Current Visit: Yes Status: Acute Underwent dialysis yesterday no plan to resume dialysis until tomorrow continue Midodrine (3) Hepatocellular carcinoma Current Visit: No Status: Acute This is advanced and incurable palliative measures have been instituted (4) DVT prophylaxis Current Visit: No Status: Acute He is supratherapeutic on warfarin at present (5) Cirrhosis of liver with ascites Current Visit: Yes Status: Chronic Plan for therapeutic paracentesis when INR below 2.0 vitamin k given today Qualifiers: Hepatic cirrhosis type: unspecified hepatic cirrhosis Qualified Code(s): K74.60 - Unspecified cirrhosis of liver (6) HCC (hepatocellular carcinoma) Current Visit: Yes Status: Chronic (7) Elevated INR Current Visit: Yes Status: Acute vitamin K given holding warfarin (8) Anemia Current Visit: Yes Status: Acute chronic in nature recieved PRBcs yesterday Qualifiers: Anemia type: due to chronic kidney disease Chronic kidney disease stage: on chronic dialysis Qualified Code(s): N18.6 - End stage renal disease; D63.1 - Anemia in chronic kidney disease; D63.1 - Anemia in chronic kidney disease; Z99.2 - Dependence on renal dialysis; Z99.2 - Dependence on renal dialysis; Z99.2 - Dependence on renal dialysis; Z99.2 - Dependence on renal dialysis (9) Atrial fibrillation Current Visit: Yes Status: Acute PAF rate controlled Qualifiers: Atrial fibrillation type: paroxysmal Qualified Code(s): I48.0 - Paroxysmal atrial fibrillation (10) Goals of care, counseling/discussion Current Visit: Yes Status: Acute I spent 20 minutes if time in aggregate discussing goals of care again with the family today this time with the help of the palliative care service in the family meeting at which the patient his daughter and brother were all present and the consensus was to continue current therapies for the next 24 hours as it would not likely be unsafe for him to travel home with blood pressure off vasopressors lows it is with the possibility of an ambulance transport. Plan as it is right now is no escalation of care continue current therapies plan to wean vasopressors as able vitamin K given for therapeutic. Paracentesis planned for tomorrow dialysis tomorrow and hopefully home with hospice subsequently I change the patient's CODE STATUS to more clearly reflect this and the most appropriate appropriate CODE STATUS at this time would be the DNAR/DNI. Subjective Principal diagnosis: Vasodilatory Shock Interval history: Mr. Howard remained on phenylephrine overnight although there was able to be cut in half. Pressure is noted to drop when this is removed. His abdomen is more taught today and is complaining of more abdominal pain asking to have a paracentesis performed. Objective PUL Vital signs: Last Vital Signs Temp 97.8 F 07/17/17 07:50 Pulse 87 07/17/17 09:00 Resp 20 07/17/17 09:00 BP 106/54 07/17/17 09:00 Pulse Ox 98 07/17/17 09:00 General appearance: no acute distress Auscultation: bilateral: diminished breath sounds (in lung bases ) Cardiovascular: regular rate and rhythm Gastrointestinal: tender (Distended and dull to percussion) Extremities: anasarca normal mental status, non-focal exam Results - Laboratory Findings CBC and BMP: 07/16/17 16:18 07/16/17 03:48 PT/INR, D-dimer PT 32.1 Seconds (9.4-12.1) H 07/16/17 03:48 Abnormal lab findings: Abnormal lab results WBC 19.6 K/mcL (4.3-11.1) H 07/16/17 16:18 RBC 3.29 M/mcL (4.19-5.50) L 07/16/17 16:18 Hgb 9.0 g/dL (12.9-16.9) L 07/16/17 16:18 Hct 27.5 % (37.5-50.1) L 07/16/17 16:18 MCH 27.4 pg (28.0-33.3) L 07/16/17 16:18 RDW 17.6 % (11.5-14.5) H 07/16/17 16:18 MPV 8.3 fL (9.4-12.4) L 07/16/17 16:18 Neutrophils # 10.6 K/mcL (1.6-8.9) H 07/15/17 15:21 PT 32.1 Seconds (9.4-12.1) H 07/16/17 03:48 VBG pCO2 40 mmHg (41-51) L 07/15/17 18:54 VBG pO2 75 mmHg (25-50) H 07/15/17 18:54 Sodium 129 mEq/L (136-145) L 07/16/17 03:48 Chloride 97 mEq/L (98-109) L 07/16/17 03:48 BUN 39 mg/dL (8-26) H 07/16/17 03:48 Creatinine 3.99 mg/dL (0.72-1.25) H 07/16/17 03:48 Est GFR ( Amer) 18 (> 60) L 07/16/17 03:48 Est GFR (Non-Af Amer) 15 (> 60) L 07/16/17 03:48 Glucose 170 mg/dL (70-99) H 07/16/17 03:48 POC Glucose 172 (58-89) H 07/16/17 20:12 Calcium 7.9 mg/dL (8.6-10.8) L 07/16/17 03:48 Phosphorus 5.3 mg/dL (2.3-4.7) H 07/15/17 15:21 Magnesium 1.4 mg/dL (1.6-2.6) L 07/15/17 15:21 AST 45 Units/L (5-34) H 07/16/17 03:48 Alkaline Phosphatase 147 Units/L (38-126) H 07/16/17 03:48 Serum Total Protein 5.7 g/dL (6.0-8.3) L 07/16/17 03:48 Albumin 1.5 g/dL (3.5-5.0) L 07/16/17 03:48 Globulin 4.2 g/dL (2.4-3.5) H 07/16/17 03:48 Albumin/Globulin Ratio 0.4 (1.1-2.2) L 07/16/17 03:48 Ur Specimen Adequacy See below A 07/15/17 23:04 Urine Clarity Cloudy (Clear) A 07/15/17 23:04 Ur Specific [place] >= 1.030 (1.010-1.025) H 07/15/17 23:04 Urine Protein >=300 mg/dL (Neg-Trace) H 07/15/17 23:04 Urine Ketones Trace mg/dL (Negative) H 07/15/17 23:04 Urine Blood Moderate (Negative) H 07/15/17 23:04 Urine Bilirubin Small (Negative) H 07/15/17 23:04 Urine Urobilinogen 2.0 mg/dL (Normal) H 07/15/17 23:04 Ur Leukocyte Esterase Large (Negative) H 07/15/17 23:04 Urine Microscopic RBC 30-50 per hpf (0-3) H 07/15/17 23:04 Urine Microscopic WBC TNTC per hpf (0-3) H 07/15/17 23:04 Urine Bacteria Moderate per hpf (None-Few) H 07/15/17 23:04 Urine Yeast Many per hpf (None Seen) H 07/15/17 23:04 Ur Culture Indicated? YES (NO) A 07/15/17 23:04 - Microbiology Findings Microbiology Findings: Microbiology, Last 48 Hours 07/15/17 23:04 Urine Culture - Preliminary Urine,[place] Yeast Species - Clinical Findings Intake & Output: Intake & Output 07/17/17 07/17/17 07/17/17 00:59 07:59 15:59 Intake Total Output Total Balance Weight Consult Discharge Plan - Plan Referrals: Alicia Pastrana MD [Primary Care Provider] -
--- NOTE | 2017-07-17 10:25 | Nephrology Progress Note ---
Date of Encounter: 07/17/17 Time of Encounter: 09:00 - Assessment and Plan (1) KRZYSZTOF (acute kidney injury) Current Visit: Yes Status: Acute KRZYSZTOF without recovery, now ESRD in setting of hepatcellular carcinoma, hypotension. No HD today. (2) HCC (hepatocellular carcinoma) Current Visit: Yes Status: Chronic Subjective Interval history: Family/patient conference with Flume Worker, Palliative care and Myself. Patient wishes to go home on hospice but wants to continue dailysis. All options given and poor prognosis reviewed. Ultimately patient decided to stay for additional day with the thought of HD tomorrow, with possible therapeutic paracentesis and then discharged home under hospice care. Objective - Vital Signs Vital signs: Vital Signs Temp Pulse Resp BP Pulse Ox 07/17/17 10:00 90 16 93/53 98 07/17/17 09:00 87 20 106/54 98 07/17/17 07:50 97.8 F 86 20 89/46 95 07/17/17 07:00 97.8 F 90 20 82/46 98 07/17/17 06:00 80 20 95/55 98 07/17/17 05:00 78 18 92/48 97 07/17/17 04:38 89 22 99/49 96 07/17/17 03:45 93 07/17/17 03:00 98.3 F 91 16 103/50 96 07/17/17 02:00 93 20 109/56 95 07/17/17 01:00 EDT 79 12 88/46 97 07/17/17 00:00 90 18 102/53 95 07/16/17 23:49 98.1 F 07/16/17 23:00 90 21 102/71 95 07/16/17 22:00 87 16 85/49 96 07/16/17 21:30 91 18 85/45 96 07/16/17 20:30 101 20 108/56 95 07/16/17 20:00 98.1 F 07/16/17 19:45 101 20 107/67 95 07/16/17 18:40 98.1 F 20 121/54 07/16/17 18:20 113/60 07/16/17 18:05 117/64 07/16/17 18:00 92 16 121/54 97 07/16/17 17:50 115/63 07/16/17 17:35 115/59 07/16/17 17:20 109/64 07/16/17 17:05 118/68 07/16/17 17:00 92 16 115/69 97 07/16/17 16:50 105/57 07/16/17 16:35 103/57 07/16/17 16:20 91/52 07/16/17 16:05 115/61 07/16/17 16:00 98.4 F 89 16 115/61 96 07/16/17 15:50 116/61 07/16/17 15:35 121/63 07/16/17 15:20 92/67 07/16/17 15:05 106/50 07/16/17 15:00 93 16 114/60 96 07/16/17 14:55 114/60 07/16/17 14:40 97.7 F 20 109/66 07/16/17 14:00 93 16 119/60 95 07/16/17 13:00 93 16 74/53 95 07/16/17 12:00 97.4 F L 93 16 93/53 95 Intake and Output 07/17/17 07/17/17 07/17/17 00:59 07:59 15:59 Intake Total Output Total Balance Intake: IV Fluids Phenylephrine 50 MG In Dextrose 5% 250 ML @ 40 MCG/MIN 12.24 mls/hr IVC CONT [facility]OLA Rx#: [id number] Flexbumin 25 gm In 100 ml @ 60 mls/hr IVPB Q8HR [facility] Rx#: [id number] Oral Output: Urine Total Dialysis (HD) Output Catheter Other: Stool Size Stool Consistency Stool Characteristics Stool Color # Bowel Movements Weight Blood Glucose* Hemodialysis Net Fluid Removed (mL) Patient Weight 07/17/17 22:59 Weight 185.4 kg - General Appearance General appearance: Present: well-developed, well-nourished, appears started age EENT: Present: mucous membranes moist Neck: Present: no JVD Respiratory: Present: clear Cardiology: Present: edema, regular rate, regular rhythm Additional Comments: anasarca Dialysis Vascular Access: Venous Catheter Gastrointestinal: Present: hypoactive bowel sounds, distended Integumentary: Present: warm and dry Neurologic: Present: alert and oriented x3 Psychiatric: Present: mood/affect appropriate, cooperative - Lab 07/16/17 16:18 07/16/17 03:48 Most recent lab results Calcium 7.9 mg/dL (8.6-10.8) L 07/16/17 03:48 Phosphorus 5.3 mg/dL (2.3-4.7) H 07/15/17 15:21 Magnesium 1.4 mg/dL (1.6-2.6) L 07/15/17 15:21 Consult Discharge Plan - Plan Referrals: Alicia Pastrana MD [Primary Care Provider] -
[2017-07-17 13:07] LABS: Basophils % 0.2 %; Eosinophils # 0.1 K/mcL (0.0-0.6); Eosinophils % 0.5 %; Hematocrit 25.2 % (37.5-50.1); Hemoglobin 8.1 g/dL (12.9-16.9); Immature Granulocytes % 1.5 % (0-4); Lymphocytes # 0.7 K/mcL (0.6-4.6); Lymphocytes % 5.6 %; Mean Corpuscular HGB Conc 32.1 g/dL (31.6-35.5); Mean Corpuscular Hemoglobin 27.6 pg (28.0-33.3); Mean Corpuscular Volume 85.7 fL (83.0-100.0); Mean Platelet Volume 7.9 fL (9.4-12.4); Monocytes # 0.6 K/mcL (0.0-1.3); Monocytes % 4.6 %; Neutrophils # 11.4 K/mcL (1.6-8.9); Platelet Count 167 K/mcL (140-400); Red Blood Count 2.94 M/mcL (4.19-5.50); Red Cell Distribution Width 17.5 % (11.5-14.5); Segmented Neutrophils % 87.6 %
[2017-07-17 13:22] LABS: Albumin 2.2 g/dL (3.5-5.0); Albumin/Globulin Ratio 0.6 (1.1-2.2); Bilirubin,Total 1.1 mg/dL (0.2-1.2); Calcium 8.1 mg/dL (8.6-10.8); Potassium 3.5 mEq/L (3.5-4.5); Total Protein 6.2 g/dL (6.0-8.3)
[2017-07-17] MEDS ORDERED: Vancomycin 1,500 MG in D5% in Water 250 ML IVPB ONE (15:00)
[2017-07-17] MEDS: Ipratropium/Albuterol Neb 3 ML IH PRN (17:45)
[2017-07-18] MEDS: Phenylephrine 50 MG in D5% in Water 250 ML IVC SCH ×2 (00:53→09:29)
[2017-07-18] MEDS: Albumin 25% 25gram/100mL 25 GM/100 ML IV.SOLN IVPB SCH ×3 (00:56→15:52)
[2017-07-18] MEDS: *HR* OxyCODONE Immed Rel 5 MG TABLET PO PRN ×2 (00:56→15:51)
[2017-07-18] MEDS: Ipratropium/Albuterol Neb 3 ML IH PRN (01:12)
[2017-07-18 04:31] LABS: INR 1.6; Prothrombin Time 17.7 Seconds (9.4-12.1)
[2017-07-18] MEDS: Pantoprazole 40 MG VIAL IVPB SCH (06:00)
--- NOTE | 2017-07-18 06:48 | Electrocardiograph Report ---
[address] [place], [place] [address] Test Date: 2017-07-15 Pat Name: John Paul Dixon Department: 103 Room: 01 Gender: M Electrotype Molder: EKP : 1950 Requested By: Dilma Barlow Order Number: [id number] Reading MD: Giacomo Shirley DO Measurements Intervals [place] Rate: 82 P: 67 AL: 184 QRS: 6 QRSD: 117 T: 44 QT: 393 QTc: 432 Interpretive Statements SINUS RHYTHM LOW QRS VOLTAGE IN PRECORDIAL LEADS POSSIBLE INFERIOR MYOCARDIAL INFARCTION, PROBABLY OLD Electronically Signed On 07-18-2017 6:46:56 EST by Giacomo Shirley DO
--- NOTE | 2017-07-18 08:10 | Pulmonology Progress Note ---
Date of Encounter: 07/18/17 Time of Encounter: 08:08 Assessment and Plan (1) Septic shock Current Visit: No Status: Acute (2) ESRD (end stage renal disease) on dialysis Current Visit: Yes Status: Acute (3) Hepatocellular carcinoma Current Visit: No Status: Acute (4) Cirrhosis of liver with ascites Current Visit: Yes Status: Chronic Qualifiers: Hepatic cirrhosis type: unspecified hepatic cirrhosis Qualified Code(s): K74.60 - Unspecified cirrhosis of liver (5) Elevated INR Current Visit: Yes Status: Acute (6) Anemia Current Visit: Yes Status: Acute Qualifiers: Anemia type: due to chronic kidney disease Chronic kidney disease stage: on chronic dialysis Qualified Code(s): N18.6 - End stage renal disease; D63.1 - Anemia in chronic kidney disease; D63.1 - Anemia in chronic kidney disease; Z99.2 - Dependence on renal dialysis; Z99.2 - Dependence on renal dialysis; Z99.2 - Dependence on renal dialysis; Z99.2 - Dependence on renal dialysis (7) Atrial fibrillation Current Visit: Yes Status: Acute Qualifiers: Atrial fibrillation type: paroxysmal Qualified Code(s): I48.0 - Paroxysmal atrial fibrillation Subjective Principal diagnosis: Vasodilatory Shock Objective PUL Vital signs: Last Vital Signs Temp 98.0 F 07/18/17 07:00 Pulse 90 07/18/17 07:00 Resp 24 07/18/17 07:00 BP 103/50 07/18/17 07:00 Pulse Ox 96 07/18/17 07:00 Results - Laboratory Findings CBC and BMP: 07/17/17 12:53 07/17/17 12:53 PT/INR, D-dimer PT 17.7 Seconds (9.4-12.1) H 07/18/17 04:10 Abnormal lab findings: Abnormal lab results WBC 12.9 K/mcL (4.3-11.1) H 07/17/17 12:53 RBC 2.94 M/mcL (4.19-5.50) L 07/17/17 12:53 Hgb 8.1 g/dL (12.9-16.9) L 07/17/17 12:53 Hct 25.2 % (37.5-50.1) L 07/17/17 12:53 MCH 27.6 pg (28.0-33.3) L 07/17/17 12:53 RDW 17.5 % (11.5-14.5) H 07/17/17 12:53 MPV 7.9 fL (9.4-12.4) L 07/17/17 12:53 Neutrophils # 11.4 K/mcL (1.6-8.9) H 07/17/17 12:53 PT 17.7 Seconds (9.4-12.1) H 07/18/17 04:10 VBG pCO2 40 mmHg (41-51) L 07/15/17 18:54 VBG pO2 75 mmHg (25-50) H 07/15/17 18:54 Sodium 130 mEq/L (136-145) L 07/17/17 12:53 Chloride 95 mEq/L (98-109) L 07/17/17 12:53 BUN 29 mg/dL (8-26) H D 07/17/17 12:53 Creatinine 3.46 mg/dL (0.72-1.25) H 07/17/17 12:53 Est GFR ( Amer) 22 (> 60) L 07/17/17 12:53 Est GFR (Non-Af Amer) 18 (> 60) L 07/17/17 12:53 Glucose 158 mg/dL (70-99) H 07/17/17 12:53 POC Glucose 137 (58-89) H 07/17/17 23:08 Calculated Osmolality 279 (280-300) L 07/17/17 12:53 Calcium 8.1 mg/dL (8.6-10.8) L 07/17/17 12:53 Phosphorus 5.3 mg/dL (2.3-4.7) H 07/15/17 15:21 Magnesium 1.4 mg/dL (1.6-2.6) L 07/15/17 15:21 AST 36 Units/L (5-34) H 07/17/17 12:53 Alkaline Phosphatase 143 Units/L (38-126) H 07/17/17 12:53 Albumin 2.2 g/dL (3.5-5.0) L D 07/17/17 12:53 Globulin 4.0 g/dL (2.4-3.5) H 07/17/17 12:53 Albumin/Globulin Ratio 0.6 (1.1-2.2) L 07/17/17 12:53 Ur Specimen Adequacy See below A 07/15/17 23:04 Urine Clarity Cloudy (Clear) A 07/15/17 23:04 Ur Specific [place] >= 1.030 (1.010-1.025) H 07/15/17 23:04 Urine Protein >=300 mg/dL (Neg-Trace) H 07/15/17 23:04 Urine Ketones Trace mg/dL (Negative) H 07/15/17 23:04 Urine Blood Moderate (Negative) H 07/15/17 23:04 Urine Bilirubin Small (Negative) H 07/15/17 23:04 Urine Urobilinogen 2.0 mg/dL (Normal) H 07/15/17 23:04 Ur Leukocyte Esterase Large (Negative) H 07/15/17 23:04 Urine Microscopic RBC 30-50 per hpf (0-3) H 07/15/17 23:04 Urine Microscopic WBC TNTC per hpf (0-3) H 07/15/17 23:04 Urine Bacteria Moderate per hpf (None-Few) H 07/15/17 23:04 Urine Yeast Many per hpf (None Seen) H 07/15/17 23:04 Ur Culture Indicated? YES (NO) A 07/15/17 23:04 - Microbiology Findings Microbiology Findings: Microbiology, Last 48 Hours 07/15/17 23:04 Urine Culture - Preliminary Urine,[place] Yeast Species - Clinical Findings Intake & Output: Intake & Output 07/17/17 07/18/17 07/18/17 23:59 07:59 15:59 Intake Total 974.7 / 974.7 477.5 / 477.5 Output Total Balance 949.7 / 949.7 462.5 / 462.5 Weight 194.9 kg Consult Discharge Plan - Plan Referrals: Alicia Pastrana MD [Primary Care Provider] -
[2017-07-18] MEDS: Cefepime HCl 1,000 MG in Water for inj. (sterile) 10 ML IVP SCH (08:29)
[2017-07-18] MEDS: Insulin LISPRO 300 UNITS/3 ML VIAL SQ SCH ×3 (08:30→17:04)
[2017-07-18 09:01] LABS: Hepatitis B Surface Antibody 1.38 mIU/mL
--- NOTE | 2017-07-18 09:14 | Nephrology Progress Note ---
Date of Encounter: 07/18/17 Time of Encounter: 09:12 - Assessment and Plan (1) ESRD (end stage renal disease) on dialysis Current Visit: Yes Status: Acute The patient has a clinical picture of acute kidney injury related to septic shock. The acute kidney injury has not improved and he is now dialysis dependent and end-stage renal disease. The patient and the family requests that they be able to continue outpatient dialysis as well as being rolled into a hospice program. I have taken the liberty of getting the smooth and burr worker composites involved as well. Since the patient is going to undergo a paracentesis today and since his blood pressure remains marginal we will postpone dialysis until tomorrow in an effort to prevent worsening of his hypotension. (2) Hepatocellular carcinoma Current Visit: No Status: Acute (3) Cirrhosis of liver with ascites Current Visit: Yes Status: Chronic Qualifiers: Hepatic cirrhosis type: unspecified hepatic cirrhosis Qualified Code(s): K74.60 - Unspecified cirrhosis of liver Subjective Principal diagnosis: Vasodilatory Shock Interval history: Patient's main complaint is that of abdominal distention and discomfort related to ascites from his hepatocellular carcinoma. He remains virtually anuric and dialysis dependent. He is scheduled for paracentesis later today. I had a long discussion with the patient and family. Their wishes are that the patient be entered into a hospice program but also continue outpatient dialysis. Objective - Vital Signs Vital signs: Vital Signs Temp Pulse Resp BP Pulse Ox 07/18/17 08:00 82 20 72/41 97 07/18/17 07:00 98.0 F 90 24 103/50 96 07/18/17 06:00 89 22 112/57 95 07/18/17 05:30 87 20 106/54 94 07/18/17 04:45 98.1 F 90 16 111/56 94 07/18/17 03:15 86 18 108/55 95 07/18/17 02:15 91 16 97/48 93 07/18/17 01:12 18 93 07/18/17 01:00 93 18 93/54 94 07/18/17 00:15 92 22 87/53 92 07/17/17 23:45 97.6 F 07/17/17 23:00 96 18 85/46 94 07/17/17 22:00 96 20 91/58 94 07/17/17 21:30 92 18 92/56 95 07/17/17 20:33 98.0 F 07/17/17 20:00 101 22 126/68 95 07/17/17 19:45 91 20 121/66 95 07/17/17 18:00 98.3 F 98 20 131/60 94 07/17/17 17:45 20 94 07/17/17 17:00 100 16 121/61 96 07/17/17 16:00 99 16 114/57 96 07/17/17 15:00 93 16 101/57 96 07/17/17 14:00 97 16 99/61 96 07/17/17 13:00 97 16 97/57 94 07/17/17 12:00 98.3 F 102 16 122/63 94 07/17/17 11:00 100 16 111/95 94 07/17/17 10:00 90 16 93/53 98 Intake and Output 07/17/17 07/18/17 07/18/17 23:59 07:59 15:59 Intake Total 974.7 / 974.7 477.5 / 477.5 Output Total Balance 949.7 / 949.7 462.5 / 462.5 Intake: IV Fluids 704.7 / 704.7 207.5 / 207.5 Phenylephrine 50 MG In Dextrose 354.7 / 354.7 107.5 / 107.5 5% 250 ML @ 40 MCG/MIN 12.24 mls/hr IVC CONT [facility] Rx#: [id number] Flexbumin 25 gm In 100 ml @ 60 100 / 100 100 / 100 mls/hr IVPB Q8HR [facility] Rx#: [id number] Vancocin 1,500 MG In Dextrose 5 250 / 250 % 250 ML @ 166.667 mls/hr IVPB ONCE ONE Rx#:[id number] Oral 270 / 270 270 / 270 Output: Urine Catheter 0 / 0 Other: Stool Size Moderate Stool Consistency loose Stool Characteristics Normal for Patient Stool Color Brown # Bowel Movements 2 Weight 194.9 kg Blood Glucose* 137 157 - General Appearance Exam: Patient is alert and oriented. He is in no acute distress. He does confirm that he would like to continue with outpatient dialysis as well as be in the hospice program. Lungs symmetric breath sounds. Heart regular rate and rhythm. Abdomen is distended from ascites. This 4+ lower extremity swelling. A tunneled dialysis catheters in place. A [place] catheter is in place. - Lab 07/17/17 12:53 07/17/17 12:53 Most recent lab results Calcium 8.1 mg/dL (8.6-10.8) L 07/17/17 12:53 Phosphorus 5.3 mg/dL (2.3-4.7) H 07/15/17 15:21 Magnesium 1.4 mg/dL (1.6-2.6) L 07/15/17 15:21 Consult Discharge Plan - Plan Referrals: Alicia Pastrana MD [Primary Care Provider] -
--- NOTE | 2017-07-18 09:30 | Pulmonology Progress Note ---
Date of Encounter: 07/18/17 Time of Encounter: 09:30 Assessment and Plan (1) Septic shock Current Visit: No Status: Acute Vasodiliatory secondary to sepsis complicated by cirrhosis and ESRD remains on phenylephrine at a relatively low dose this is being titrated down he is receiving albumin to help him improve oncotic pressure antimicrobials have been administered source of sepsis remains occult cultures pending de-escalate antibiotics as able (2) ESRD (end stage renal disease) on dialysis Current Visit: Yes Status: Acute Underwent dialysis yesterday no plan to resume dialysis (for comfort) per Nephrology Recs. We will continue Midodrine (3) Hepatocellular carcinoma Current Visit: No Status: Acute This is advanced and incurable palliative measures have been instituted (4) DVT prophylaxis Current Visit: No Status: Acute He is supratherapeutic on warfarin at present (5) Cirrhosis of liver with ascites Current Visit: Yes Status: Chronic Plan for therapeutic paracentesis today with IR Qualifiers: Hepatic cirrhosis type: unspecified hepatic cirrhosis Qualified Code(s): K74.60 - Unspecified cirrhosis of liver (6) HCC (hepatocellular carcinoma) Current Visit: Yes Status: Chronic (7) Elevated INR Current Visit: Yes Status: Acute vitamin K given now INR is 1.5. (8) Anemia Current Visit: Yes Status: Acute chronic in nature recheck CBC today may benefit from PRBC transfusion if low for comfort prior to d/c to hospice. Qualifiers: Anemia type: due to chronic kidney disease Chronic kidney disease stage: on chronic dialysis Qualified Code(s): N18.6 - End stage renal disease; D63.1 - Anemia in chronic kidney disease; D63.1 - Anemia in chronic kidney disease; Z99.2 - Dependence on renal dialysis; Z99.2 - Dependence on renal dialysis; Z99.2 - Dependence on renal dialysis; Z99.2 - Dependence on renal dialysis (9) Atrial fibrillation Current Visit: Yes Status: Acute PAF rate controlled Qualifiers: Atrial fibrillation type: paroxysmal Qualified Code(s): I48.0 - Paroxysmal atrial fibrillation (10) Goals of care, counseling/discussion Current Visit: Yes Status: Acute Spoke with Patient and daughter (Susan) along with attending Lens Inspector at bedside. Plan to transition to comfort measures patient would ideally like to go home there are logistical concerns with his size of making sure that he has the physical apparatus at home to be comfortable during this transition the palliative care service and hospice have been consulted to further evaluate this along with the social service staff. There is some question whether or not for comfort measures patient could receive dialysis nephrology and social sciences research scientist are also investigating this. From our standpoint he remains too unstable to transfer given low blood pressure with the removal of vasopressors we are working at improving his blood pressure status while trying to minimize blood draws and invasive procedures/care that may cause discomfort without being absolutely necessary to promote the goal of along the patient to return home. Code= DNAR/DNI. Subjective Principal diagnosis: Vasodilatory Shock Interval history: Mr. Howard remained on phenylephrine overnight at a low dose but BP noted to drop significantly and he becomes symptomatic when he is off of it. He was able to eat pasta last night but feels he may have "eaten too much" and felt full and had difficulty breathing. He feels better today although is abdomen is more distended. Objective PUL Vital signs: Last Vital Signs Temp 98.0 F 07/18/17 07:00 Pulse 92 07/18/17 09:00 Resp 20 07/18/17 09:00 BP 99/53 07/18/17 09:00 Pulse Ox 94 07/18/17 09:00 General appearance: no acute distress Eyes: nonicteric ENT: oropharynx moist Neck: supple Auscultation: bilateral: diminished breath sounds Cardiovascular: regular rate and rhythm Extremities: anasarca normal mental status, non-focal exam mood appropriate Results - Laboratory Findings CBC and BMP: 07/17/17 12:53 07/17/17 12:53 PT/INR, D-dimer PT 17.7 Seconds (9.4-12.1) H 07/18/17 04:10 Abnormal lab findings: Abnormal lab results WBC 12.9 K/mcL (4.3-11.1) H 07/17/17 12:53 RBC 2.94 M/mcL (4.19-5.50) L 07/17/17 12:53 Hgb 8.1 g/dL (12.9-16.9) L 07/17/17 12:53 Hct 25.2 % (37.5-50.1) L 07/17/17 12:53 MCH 27.6 pg (28.0-33.3) L 07/17/17 12:53 RDW 17.5 % (11.5-14.5) H 07/17/17 12:53 MPV 7.9 fL (9.4-12.4) L 07/17/17 12:53 Neutrophils # 11.4 K/mcL (1.6-8.9) H 07/17/17 12:53 PT 17.7 Seconds (9.4-12.1) H 07/18/17 04:10 VBG pCO2 40 mmHg (41-51) L 07/15/17 18:54 VBG pO2 75 mmHg (25-50) H 07/15/17 18:54 Sodium 130 mEq/L (136-145) L 07/17/17 12:53 Chloride 95 mEq/L (98-109) L 07/17/17 12:53 BUN 29 mg/dL (8-26) H D 07/17/17 12:53 Creatinine 3.46 mg/dL (0.72-1.25) H 07/17/17 12:53 Est GFR ( Amer) 22 (> 60) L 07/17/17 12:53 Est GFR (Non-Af Amer) 18 (> 60) L 07/17/17 12:53 Glucose 158 mg/dL (70-99) H 07/17/17 12:53 POC Glucose 137 (58-89) H 07/17/17 23:08 Calculated Osmolality 279 (280-300) L 07/17/17 12:53 Calcium 8.1 mg/dL (8.6-10.8) L 07/17/17 12:53 Phosphorus 5.3 mg/dL (2.3-4.7) H 07/15/17 15:21 Magnesium 1.4 mg/dL (1.6-2.6) L 07/15/17 15:21 AST 36 Units/L (5-34) H 07/17/17 12:53 Alkaline Phosphatase 143 Units/L (38-126) H 07/17/17 12:53 Albumin 2.2 g/dL (3.5-5.0) L D 07/17/17 12:53 Globulin 4.0 g/dL (2.4-3.5) H 07/17/17 12:53 Albumin/Globulin Ratio 0.6 (1.1-2.2) L 07/17/17 12:53 Ur Specimen Adequacy See below A 07/15/17 23:04 Urine Clarity Cloudy (Clear) A 07/15/17 23:[address] [place] [address] [place] >= 1.030 (1.010-1.025) H 07/15/17 23:04 Urine Protein >=300 mg/dL (Neg-Trace) H 07/15/17 23:04 Urine Ketones Trace mg/dL (Negative) H 07/15/17 23:04 Urine Blood Moderate (Negative) H 07/15/17 23:04 Urine Bilirubin Small (Negative) H 07/15/17 23:04 Urine Urobilinogen 2.0 mg/dL (Normal) H 07/15/17 23:04 Ur Leukocyte Esterase Large (Negative) H 07/15/17 23:04 Urine Microscopic RBC 30-50 per hpf (0-3) H 07/15/17 23:04 Urine Microscopic WBC TNTC per hpf (0-3) H 07/15/17 23:04 Urine Bacteria Moderate per hpf (None-Few) H 07/15/17 23:04 Urine Yeast Many per hpf (None Seen) H 07/15/17 23:04 Ur Culture Indicated? YES (NO) A 07/15/17 23:04 - Microbiology Findings Microbiology Findings: Microbiology, Last 48 Hours 07/15/17 23:04 Urine Culture - Preliminary Urine,[place] Yeast Species - Clinical Findings Intake & Output: Intake & Output 07/17/17 07/18/17 07/18/17 23:59 07:59 15:59 Intake Total 974.7 / 974.7 477.5 / 477.5 Output Total Balance 949.7 / 949.7 462.5 / 462.5 Weight 194.9 kg Consult Discharge Plan - Plan Referrals: Alicia Pastrana MD [Primary Care Provider] -
[2017-07-18 09:43] LABS: Basophils % 0.2 %; Eosinophils # 0.1 K/mcL (0.0-0.6); Eosinophils % 0.6 %; Hemoglobin 7.9 g/dL (12.9-16.9); Lymphocytes # 0.7 K/mcL (0.6-4.6); Lymphocytes % 5.7 %; Mean Corpuscular HGB Conc 31.6 g/dL (31.6-35.5); Mean Corpuscular Hemoglobin 27.2 pg (28.0-33.3); Mean Corpuscular Volume 86.2 fL (83.0-100.0); Mean Platelet Volume 7.7 fL (9.4-12.4); Monocytes # 0.5 K/mcL (0.0-1.3); Monocytes % 4.5 %; Neutrophils # 10.2 K/mcL (1.6-8.9); Platelet Count 153 K/mcL (140-400); Red Cell Distribution Width 17.2 % (11.5-14.5)
--- NOTE | 2017-07-18 10:59 | IR Procedure Note ---
Date of procedure: 07/18/17 Consent Obtained: Written consent Timeout: Correct patient and procedure verified, Correct site verified, Time out performed, Skin prep completed Indications: ascites Procedure Performed: paracentesis Site/Technique: left abdomen Results/Findings: moderate ascites Estimated blood loss (cc): 0 Complications: None; Tolerated procedure well Post Procedure Treatment Plan: recovery
[2017-07-18] MEDS ORDERED: Albumin 25% 25gram/100mL 50 GM/200 ML IV.SOLN IVPB ONE (11:45)
[2017-07-18] MEDS ORDERED: 0.9 % Sodium Chloride 250 ML ONE (12:33)
--- NOTE | 2017-07-18 12:34 | Palliative Progress Note ---
Date of Encounter: 07/18/17 Time of Encounter: 09:45 - Assessment and plan (1) Cirrhosis of liver with ascites Current Visit: Yes Status: Chronic Assessment and plan: Patient with hepatocellular carcinoma with end stage ascites. Patient had paracentesis today with removal of 6L. Catheter left in place for future use. Patient tolerated well. Patient enrolled on [facility] and will continue dialysis upon DC. Patient given albumin and PRBCs today. Qualifiers: Hepatic cirrhosis type: unspecified hepatic cirrhosis Qualified Code(s): K74.60 - Unspecified cirrhosis of liver (2) Goals of care, counseling/discussion Current Visit: Yes Status: Acute Assessment and plan: Family meeting with patient and family. Patient enrolled in [facility] care for home DC. Patient still requiring vasopressor support today. Goals is wean off and transition home. Home meds reviewed with pharmacists and family. (3) Hepatocellular carcinoma Current Visit: No Status: Acute (4) ESRD (end stage renal disease) on dialysis Current Visit: Yes Status: Acute - Time Spent With Patient Total time spent is greater than 50% in coordination of care (as documented) at patient's floor/unit and/or counseling patient: Greater than 35 minutes - Subjective Interval history: Patient awake and denies complaints. Awaiting paracentesis later today. Family at bedside. Discussed options for [facility] care and the possibility of continuing dialysis. Family agrees to [facility] care and discussed desires with Dr. Gaitan. - Constitutional Vitals: Abnormal lab results WBC 11.6 K/mcL (4.3-11.1) H 07/18/17 09:20 RBC 2.90 M/mcL (4.19-5.50) L 07/18/17 09:20 Hgb 7.9 g/dL (12.9-16.9) L 07/18/17 09:20 Hct 25.0 % (37.5-50.1) L 07/18/17 09:20 MCH 27.2 pg (28.0-33.3) L 07/18/17 09:20 RDW 17.2 % (11.5-14.5) H 07/18/17 09:20 MPV 7.7 fL (9.4-12.4) L 07/18/17 09:20 Neutrophils # 10.2 K/mcL (1.6-8.9) H 07/18/17 09:20 PT 17.7 Seconds (9.4-12.1) H 07/18/17 04:10 VBG pCO2 40 mmHg (41-51) L 07/15/17 18:54 VBG pO2 75 mmHg (25-50) H 07/15/17 18:54 Sodium 130 mEq/L (136-145) L 07/17/17 12:53 Chloride 95 mEq/L (98-109) L 07/17/17 12:53 BUN 29 mg/dL (8-26) H D 07/17/17 12:53 Creatinine 3.46 mg/dL (0.72-1.25) H 07/17/17 12:53 Est GFR ( Amer) 22 (> 60) L 07/17/17 12:53 Est GFR (Non-Af Amer) 18 (> 60) L 07/17/17 12:53 Glucose 158 mg/dL (70-99) H 07/17/17 12:53 POC Glucose 137 (58-89) H 07/17/17 23:08 Calculated Osmolality 279 (280-300) L 07/17/17 12:53 Calcium 8.1 mg/dL (8.6-10.8) L 07/17/17 12:53 Phosphorus 5.3 mg/dL (2.3-4.7) H 07/15/17 15:21 Magnesium 1.4 mg/dL (1.6-2.6) L 07/15/17 15:21 AST 36 Units/L (5-34) H 07/17/17 12:53 Alkaline Phosphatase 143 Units/L (38-126) H 07/17/17 12:53 Albumin 2.2 g/dL (3.5-5.0) L D 07/17/17 12:53 Globulin 4.0 g/dL (2.4-3.5) H 07/17/17 12:53 Albumin/Globulin Ratio 0.6 (1.1-2.2) L 07/17/17 12:53 Ur Specimen Adequacy See below A 07/15/17 23:04 Urine Clarity Cloudy (Clear) A 07/15/17 23:04 Ur Specific [place] >= 1.030 (1.010-1.025) H 07/15/17 23:04 Urine Protein >=300 mg/dL (Neg-Trace) H 07/15/17 23:04 Urine Ketones Trace mg/dL (Negative) H 07/15/17 23:04 Urine Blood Moderate (Negative) H 07/15/17 23:04 Urine Bilirubin Small (Negative) H 07/15/17 23:04 Urine Urobilinogen 2.0 mg/dL (Normal) H 07/15/17 23:04 Ur Leukocyte Esterase Large (Negative) H 07/15/17 23:04 Urine Microscopic RBC 30-50 per hpf (0-3) H 07/15/17 23:04 Urine Microscopic WBC TNTC per hpf (0-3) H 07/15/17 23:04 Urine Bacteria Moderate per hpf (None-Few) H 07/15/17 23:04 Urine Yeast Many per hpf (None Seen) H 07/15/17 23:04 Ur Culture Indicated? YES (NO) A 07/15/17 23:04 - Head Head exam: Present: atraumatic, normal inspection, normocephalic - Eye Eye exam: Present: PERRL Pupils: Present: PERRL - ENT ENT exam: Present: mucous membranes moist - Neck Neck exam: Present: full ROM - Respiratory Respiratory exam: Present: decreased breath sounds - Expanded Respiratory Exam Location: decreased breath sounds: Left, Right, Lower - Cardiovascular Cardiovascular exam: Present: RRR, +S1, +S2 - Expanded Cardiovascular Exam Peripheral pulses: 1+: Femoral (L) PM, Femoral (R) PM, Posterior Tibialis (L), Posterior Tibialis (R), 2+: Carotid (L) PM, Carotid (R) PM, Radial (L), Radial ( R), Dorsalis Pedis (L) PM, Dorsalis Pedis (R) PM - GI/Abdominal GI/Abdominal exam: Present: distended, firm, hypoactive bowel sounds - Extremities Exam Extremities exam: Present: pedal edema - Neurological Exam Neurological exam: Present: alert, oriented X3 - Psychiatric Psychiatric exam: Present: normal affect - Skin Skin exam: Present: pallor, warm Palliative Quality Palliative Quality: Screen for Code Status: Yes, Screen for Goals of Care: Yes, Screen for Pain: Yes, If Pain Regimen Started, Initiate Bowel Regimen: Yes, Screen for Nausea/Vomitting: Yes Code Status: 07/16/17 12:50 CODE [Resuscitation Status: Active] [RES] Routine Comment: Resuscitation Status: DNR-Comfort Care 07/17/17 10:03 CODE [Resuscitation Status: Active] [RES] Routine Comment: Resuscitation Status: [id number] - Labs CBC & Chem 7: 07/18/17 09:20 07/17/17 12:53 Labs: Laboratory Results - last 24 hr 07/15/17 07/16/17 07/17/17 20:06 16:18 07:14 WBC RBC Hgb Hct MCV MCH MCHC RDW Plt Count MPV Immature Gran % Seg Neutrophils % Lymphocytes % Monocytes % Eosinophils % Basophils % Neutrophils # Lymphocytes # Monocytes # Eosinophils # Basophils # PT INR Sodium Potassium Chloride Carbon Dioxide BUN Creatinine Est GFR ( Amer) Est GFR (Non-Af Amer) BUN/Creatinine Ratio Glucose POC Glucose 173 H Calculated Osmolality Calcium Total Bilirubin AST ALT Alkaline Phosphatase Serum Total Protein Albumin Globulin Albumin/Globulin Ratio Random Cortisol Random Vancomycin Hep Bs Antibody 1.38 Blood Type O POSITIVE Antibody Screen NEGATIVE Crossmatch See Detail 07/17/17 07/17/17 07/17/17 11:18 12:53 12:53 WBC 12.9 H RBC 2.94 L Hgb 8.1 L Hct 25.2 L MCV 85.7 MCH 27.6 L MCHC 32.1 RDW 17.5 H Plt Count 167 MPV 7.9 L Immature Gran % 1.5 Seg Neutrophils % 87.6 Lymphocytes % 5.6 Monocytes % 4.6 Eosinophils % 0.5 Basophils % 0.2 Neutrophils # 11.4 H Lymphocytes # 0.7 Monocytes # 0.6 Eosinophils # 0.1 Basophils # 0.0 PT INR Sodium Potassium Chloride Carbon Dioxide BUN Creatinine Est GFR ( Amer) Est GFR (Non-Af Amer) BUN/Creatinine Ratio Glucose POC Glucose 257 H Calculated Osmolality Calcium Total Bilirubin AST ALT Alkaline Phosphatase Serum Total Protein Albumin Globulin Albumin/Globulin Ratio Random Cortisol Random Vancomycin 12.4 Hep Bs Antibody Blood Type Antibody Screen Crossmatch 07/17/17 07/17/17 07/17/17 12:53 17:53 23:08 WBC RBC Hgb Hct MCV MCH MCHC RDW Plt Count MPV Immature Gran % Seg Neutrophils % Lymphocytes % Monocytes % Eosinophils % Basophils % Neutrophils # Lymphocytes # Monocytes # Eosinophils # Basophils # PT INR Sodium 130 L Potassium 3.5 Chloride 95 L Carbon Dioxide 21 BUN 29 H D Creatinine 3.46 H Est GFR ( Amer) 22 L Est GFR (Non-Af Amer) 18 L BUN/Creatinine Ratio 8 Glucose 158 H POC Glucose 184 H 137 H Calculated Osmolality 279 L Calcium 8.1 L Total Bilirubin 1.1 AST 36 H ALT 23 Alkaline Phosphatase 143 H Serum Total Protein 6.2 Albumin 2.2 L D Globulin 4.0 H Albumin/Globulin Ratio 0.6 L Random Cortisol Random Vancomycin Hep Bs Antibody Blood Type Antibody Screen Crossmatch 07/18/17 07/18/17 07/18/17 04:10 09:20 11:15 WBC 11.6 H RBC 2.90 L Hgb 7.9 L Hct 25.0 L MCV 86.2 MCH 27.2 L MCHC 31.6 RDW 17.2 H Plt Count 153 MPV 7.7 L Immature Gran % 1.0 Seg Neutrophils % 88.0 Lymphocytes % 5.7 Monocytes % 4.5 Eosinophils % 0.6 Basophils % 0.2 Neutrophils # 10.2 H Lymphocytes # 0.7 Monocytes # 0.5 Eosinophils # 0.1 Basophils # 0.0 PT 17.7 H INR 1.6 Sodium Potassium Chloride Carbon Dioxide BUN Creatinine Est GFR ( Amer) Est GFR (Non-Af Amer) BUN/Creatinine Ratio Glucose POC Glucose Calculated Osmolality Calcium Total Bilirubin AST ALT Alkaline Phosphatase Serum Total Protein Albumin Globulin Albumin/Globulin Ratio Random Cortisol 11.7 Random Vancomycin Hep Bs Antibody Blood Type Antibody Screen Crossmatch - Impressions Impressions Paracentesis Ultrasound 07/18/17 06:46 IMPRESSION: Successful ultrasound guided paracentesis. D/ / Bushra Parham MD / Bushra Parham MD Interpreting Provider: Bushra Parham MD - ABG Interpretation ABG results: PT/INR, D-dimer PT 17.7 Seconds (9.4-12.1) H 07/18/17 04:10 Consult Discharge Plan - Plan Referrals: Alicia Pastrana MD [Primary Care Provider] -
[2017-07-18] MEDS ORDERED: Aminoglycoside Consult 1 EACH MC ONE (13:59)
--- NOTE | 2017-07-18 15:39 | Event Note ---
Date of Encounter: 07/18/17 Time of Encounter: 15:00 Conducted bedside discussion of goals of care and home medications. Medication list clarified and reviewed with daughter Susan. Provided copy to chela Chino for DC planning and hospice list.
[2017-07-18] MEDS: Levofloxacin 500 MG/100 ML 500 MG/100 ML BAG IVPB SCH (15:51)
[2017-07-19] MEDS: Albumin 25% 25gram/100mL 25 GM/100 ML IV.SOLN IVPB SCH ×2 (00:07→09:53)
[2017-07-19] MEDS: Pantoprazole 40 MG VIAL IVPB SCH (05:53)
[2017-07-19] MEDS ORDERED: 0.9 % Sodium Chloride 250 ML IVC PRN (08:04)
--- NOTE | 2017-07-19 08:04 | Nephrology Progress Note ---
Date of Encounter: 07/19/17 Time of Encounter: 08:02 - Assessment and Plan (1) ESRD (end stage renal disease) on dialysis Current Visit: Yes Status: Acute The patient has a clinical picture of acute kidney injury related to septic shock. The acute kidney injury has not improved and he is now dialysis dependent and end-stage renal disease. The patient will undergo dialysis today. Volume removal is limited by his blood pressure. Following hospital discharge she will continue with outpatient dialysis in [place]. (2) Hepatocellular carcinoma Current Visit: No Status: Acute (3) Cirrhosis of liver with ascites Current Visit: Yes Status: Chronic Qualifiers: Hepatic cirrhosis type: unspecified hepatic cirrhosis Qualified Code(s): K74.60 - Unspecified cirrhosis of liver Subjective Principal diagnosis: Vasodilatory Shock Interval history: Patient reports she is feeling better since undergoing paracentesis yesterday. His blood pressures improved as well. He remains oliguric. Arrangements have been made for hospice care as well as outpatient dialysis following hospital discharge. Patient will undergo dialysis today. Objective - Vital Signs Vital signs: Vital Signs Temp Pulse Resp BP Pulse Ox 07/19/17 06:06 92 24 111/60 94 07/19/17 05:05 98.0 F 07/19/17 05:00 97 28 133/64 96 07/19/17 04:39 96 07/19/17 04:00 96 39 118/62 94 07/19/17 03:00 88 12 94/47 95 07/19/17 02:00 89 19 141/61 95 07/19/17 01:15 101 19 130/57 94 07/19/17 00:20 98.1 F 07/19/17 00:00 92 19 101/66 95 07/18/17 23:00 97 26 101/62 95 07/18/17 22:00 93 19 116/57 95 07/18/17 21:00 98 19 123/62 92 07/18/17 20:00 101 16 129/62 93 07/18/17 19:40 99 07/18/17 19:00 101 21 121/58 93 07/18/17 18:00 97.7 F 103 22 115/57 93 07/18/17 17:00 96 22 102/43 93 07/18/17 16:06 97.6 F 07/18/17 16:04 97.6 F 102 22 115/57 92 07/18/17 16:00 97.6 F 97 20 105/45 94 07/18/17 15:47 97.7 F 100 20 105/45 94 07/18/17 15:46 97.7 F 96 20 110/47 94 07/18/17 15:00 100 20 107/60 94 07/18/17 14:00 94 20 115/56 93 07/18/17 13:57 97.7 F 94 20 115/56 93 07/18/17 13:42 97.7 F 94 20 100/49 07/18/17 13:00 98.0 F 93 20 104/92 93 07/18/17 12:00 97.7 F 93 20 93/40 93 07/18/17 11:00 84 20 115/40 95 07/18/17 10:00 86 20 102/52 96 07/18/17 09:00 92 20 99/53 94 Intake and Output 07/18/17 07/19/17 07/19/17 23:59 07:59 15:59 Intake Total 465 / 465 130 / 130 Output Total Balance 442 / 442 130 / 130 Intake: IV Fluids 100 / 100 100 / 100 Flexbumin 25 gm In 100 ml @ 60 100 / 100 100 / 100 mls/hr IVPB Q8HR [facility] Rx#: [id number] Oral 30 / 30 Blood Product 365 / 365 Rbcs Leuko Poor As-1 Unit 365 / 365 [id number] Output: Catheter Other: Stool Size Large Stool Consistency soft Stool Color Brown # Bowel Movements 1 Weight 186.2 kg Blood Glucose* 159 Patient Weight 07/19/17 23:59 Weight 186.2 kg - General Appearance Exam: Patient is alert and oriented. He is in no acute distress. Lungs manage breath sounds otherwise clear. Heart regular rate and rhythm. Abdomen is distended from ascites. There is no tenderness. There is 4+ lower extremity swelling. There is a tunnel dialysis catheter present. - Lab 07/18/17 09:20 07/17/17 12:53 Most recent lab results Calcium 8.1 mg/dL (8.6-10.8) L 07/17/17 12:53 Phosphorus 5.3 mg/dL (2.3-4.7) H 07/15/17 15:21 Magnesium 1.4 mg/dL (1.6-2.6) L 07/15/17 15:21 Consult Discharge Plan - Plan Referrals: Alicia Pastrana MD [Primary Care Provider] -
[2017-07-19] MEDS ORDERED: Renal Vitamin 1 MG CAPSULE PO SCH (09:00)
--- NOTE | 2017-07-19 09:25 | Discharge Summary ---
<Benji Mota - Last Filed: 07/19/17 09:19> Date of Encounter: 07/19/17 Time of Encounter: 09:19 - Discharge Diagnosis (1) Septic shock Priority: Primary Status: Acute (2) ESRD (end stage renal disease) on dialysis Priority: Secondary Status: Acute (3) Hepatocellular carcinoma Priority: Primary Status: Acute (4) Cirrhosis of liver with ascites Priority: Primary Status: Chronic Qualifiers: Hepatic cirrhosis type: unspecified hepatic cirrhosis Qualified Code(s): K74.60 - Unspecified cirrhosis of liver (5) Elevated INR Priority: Primary Status: Resolved (6) Anemia Priority: Primary Status: Chronic Qualifiers: Anemia type: due to chronic kidney disease Chronic kidney disease stage: on chronic dialysis Qualified Code(s): N18.6 - End stage renal disease; D63.1 - Anemia in chronic kidney disease; D63.1 - Anemia in chronic kidney disease; Z99.2 - Dependence on renal dialysis; Z99.2 - Dependence on renal dialysis; Z99.2 - Dependence on renal dialysis; Z99.2 - Dependence on renal dialysis (7) Atrial fibrillation Priority: Primary Status: Acute Qualifiers: Atrial fibrillation type: paroxysmal Qualified Code(s): I48.0 - Paroxysmal atrial fibrillation - Discharge Medications Prescriptions: OxyCODONE Immed Rel [Roxicodone 5 MG] 5 mg PO Q4HR PRN #120 tablet PRN Reason: Pain Ammonium Lactate [Lac-Hydrin Five] 113 gm TP DAILY #1 lotion Omeprazole [PriLOSEC] 40 mg PO DAILY #30 cap Ranitidine HCl [Zantac] 150 mg PO BID #60 tablet Home Medications: Promethazine [Phenergan] 25 mg PO Q6HR PRN #60 tablet 05/19/17 [Rx] Ascorbic Acid [Vitamin C] 500 mg PO BID 07/15/17 [History] B Complex W-C No.20/Folic Acid [Nephrocaps Softgel] 1 mg PO DAILY 07/15/17 [ History] Rifaximin [Xifaxan] 550 mg PO BID 07/15/17 [History] Triamcinolone Acet 0.1% CRM [Kenalog] 1 appl TP BID 07/15/17 [History] Ammonium Lactate [Lac-Hydrin Five] 113 gm TP DAILY #1 lotion 07/19/17 [Rx] Omeprazole [PriLOSEC] 40 mg PO DAILY #30 cap 07/19/17 [Rx] OxyCODONE Immed Rel [Roxicodone 5 MG] 5 mg PO Q4HR PRN #120 tablet 07/19/17 [Rx] Ranitidine HCl [Zantac] 150 mg PO BID #60 tablet 07/19/17 [Rx] Allergies/Adverse Reactions: 3 Allergy/AdvReac Type Severity Reaction Status Date / Time Hydromorphone [From Dilaudid] Allergy Itching Verified 07/15/17 14:47 heparin AdvReac See Verified 07/15/17 14:51 Comments Labs on day of discharge: Labs from last 24 hours 07/18/17 07/18/17 07/18/17 19:55 15:58 13:23 WBC RBC Hgb Hct MCV MCH MCHC RDW Plt Count MPV Immature Gran % Seg Neutrophils % Lymphocytes % Monocytes % Eosinophils % Basophils % Neutrophils # Lymphocytes # Monocytes # Eosinophils # Basophils # POC Glucose 159 H 161 H 159 H Random Cortisol Blood Type Antibody Screen Crossmatch 07/18/17 07/18/17 07/18/17 11:15 09:20 07:36 WBC 11.6 H RBC 2.90 L Hgb 7.9 L Hct 25.0 L MCV 86.2 MCH 27.2 L MCHC 31.6 RDW 17.2 H Plt Count 153 MPV 7.7 L Immature Gran % 1.0 Seg Neutrophils % 88.0 Lymphocytes % 5.7 Monocytes % 4.5 Eosinophils % 0.6 Basophils % 0.2 Neutrophils # 10.2 H Lymphocytes # 0.7 Monocytes # 0.5 Eosinophils # 0.1 Basophils # 0.0 POC Glucose 157 H Random Cortisol 11.7 Blood Type Antibody Screen Crossmatch 07/15/17 20:06 WBC RBC Hgb Hct MCV MCH MCHC RDW Plt Count MPV Immature Gran % Seg Neutrophils % Lymphocytes % Monocytes % Eosinophils % Basophils % Neutrophils # Lymphocytes # Monocytes # Eosinophils # Basophils # POC Glucose Random Cortisol Blood Type O POSITIVE Antibody Screen NEGATIVE Crossmatch See Detail Preliminary micro results at discharge 07/15/17 23:04 Urine Culture - Preliminary Urine,[place] Yeast Species - Impressions ITS Impressions Abdomen/Pelvis CT 07/15/17 19:54 IMPRESSION: Moderate to large volume ascites, increased. Multiple low-attenuation lesions throughout the liver, progressed since previous exam. Previously visualized air in the right hepatic lobe has resolved. D/ / Franchesca Tavera MD / Franchesca Tavera MD Interpreting Provider: Franchesca Tavera MD Paracentesis Ultrasound 07/18/17 06:46 IMPRESSION: Successful ultrasound guided paracentesis. D/ / Bushra Parham MD / Bushra Parham MD Interpreting Provider: Bushra Parham MD Date of admission: 07/15/17 19:48 Primary care physician: Alicia Pastrana, Consults: 07/15/17 19:56 Consult to Nephrology [CONS] Routine Consulting Provider: Darell Gaitan Reason for Consult: End-stage renal disease Call Completed: No 07/16/17 12:00 Consult to Dialysis [CONS] ONCE 07/17/17 07:30 Consult to Palliative Care [CONS] Routine Comment: Consulting Provider: Palliative Care [place] Reason for Consult: Debility Time Notified: 07:30 Call Completed: Yes 07/19/17 08:15 Consult to Dialysis [CONS] ONCE Discharging clinician: Benji Mota Anticipated date of discharge: 07/19/17 - Patient Status Disposition: Hospice - Home Condition: Fair Functional capacity at discharge: bed bound Overall status at discharge: patient is not back to baseline - Discharge Instructions Follow Up With: Alicia Pastrana MD [Primary Care Provider] - Additional Instructions: Please continue with hospice care through [facility]. Please continue dialysis. Please continue your medications as directed. Please return for any new or worsening symptoms. - Diet and Activity Activity: increase activity as tolerated Diet: regular diet - Hospital Course Hospital course: Mr. Dixon is a 66 year old male with history of hepatocellular carcinoma, cirrhosis presented with significant hypotension. He was treated for septic shock with presumed intra-abdominal source. Discussion with patient and the family revealed that they are interested in pursuing hospice care. Referral was made and patient was evaluated by [facility] for which she will continue with at home. Patient underwent therapeutic paracentesis while admitted and had great relief from this. Further measures were not escalated at the patient's wishes. He will be discharged home with [facility] and continue dialysis. - Time Spent with Patient Total time spent providing and/or coordinating discharge services: Physical Examination Vital Signs: Vital Signs, Last 4 Hours Temp Pulse Resp BP Pulse Ox 07/19/17 08:27 97.8 F 07/19/17 06:06 92 24 111/60 94 General appearance: no acute distress ENT: oropharynx moist Effort: normal Auscultation: bilateral: diminished breath sounds Cardiovascular: regular rate and rhythm Gastrointestinal: soft, non-tender Extremities: no cyanosis, no clubbing, edema (4+ pitting edema bilaterally) normal mental status, non-focal exam <Miko Calderón - Last Filed: 07/19/17 12:15> Date of Encounter: 07/19/17 - Discharge Diagnosis (1) Septic shock Status: Acute (2) ESRD (end stage renal disease) on dialysis Status: Acute (3) Hepatocellular carcinoma Status: Acute (4) DVT prophylaxis Status: Acute (5) Cirrhosis of liver with ascites Status: Chronic Qualifiers: Hepatic cirrhosis type: unspecified hepatic cirrhosis Qualified Code(s): K74.60 - Unspecified cirrhosis of liver (6) HCC (hepatocellular carcinoma) Status: Chronic (7) Elevated INR Status: Resolved (8) Anemia Status: Chronic Qualifiers: Anemia type: due to chronic kidney disease Chronic kidney disease stage: on chronic dialysis Qualified Code(s): N18.6 - End stage renal disease; D63.1 - Anemia in chronic kidney disease; D63.1 - Anemia in chronic kidney disease; Z99.2 - Dependence on renal dialysis; Z99.2 - Dependence on renal dialysis; Z99.2 - Dependence on renal dialysis; Z99.2 - Dependence on renal dialysis (9) Atrial fibrillation Status: Acute Qualifiers: Atrial fibrillation type: paroxysmal Qualified Code(s): I48.0 - Paroxysmal atrial fibrillation (10) Goals of care, counseling/discussion Status: Acute Labs on day of discharge: Labs from last 24 hours 07/18/17 07/18/17 07/18/17 19:55 15:58 13:23 POC Glucose 159 H 161 H 159 H Blood Type Antibody Screen Crossmatch 07/18/17 07/15/17 07:36 20:06 POC Glucose 157 H Blood Type O POSITIVE Antibody Screen NEGATIVE Crossmatch See Detail Preliminary micro results at discharge 07/15/17 23:04 Urine Culture - Preliminary Urine,[place] Yeast Species - Impressions ITS Impressions Abdomen/Pelvis CT 07/15/17 19:54 IMPRESSION: Moderate to large volume ascites, increased. Multiple low-attenuation lesions throughout the liver, progressed since previous exam. Previously visualized air in the right hepatic lobe has resolved. D/ / Franchesca Tavera MD / Franchesca Tavera MD Interpreting Provider: Franchesca Tavera MD Paracentesis Ultrasound 07/18/17 06:46 IMPRESSION: Successful ultrasound guided paracentesis. D/ / Bushra Parham MD / Bushra Parham MD Interpreting Provider: Bushra Parham MD Date of admission: 07/15/17 19:48 Primary care physician: Alicia Pastrana, Consults: 07/15/17 19:56 Consult to Nephrology [CONS] Routine Consulting Provider: Darell Gaitan Reason for Consult: End-stage renal disease Call Completed: No 07/16/17 12:00 Consult to Dialysis [CONS] ONCE 07/17/17 07:30 Consult to Palliative Care [CONS] Routine Comment: Consulting Provider: Palliative Care [place] Reason for Consult: Debility Time Notified: 07:30 Call Completed: Yes 07/19/17 08:15 Consult to Dialysis [CONS] ONCE 07/19/17 11:50 Consult to Interventional Radiology [CONS] Routine Consulting Provider: Radiology Interventional [place] Reason for Consult: Indwelling abdominal catheter Call Completed: Yes - Hospital Course Hospital course: Mr. Dixon is a 66 year old male - Time Spent with Patient Total time spent providing and/or coordinating discharge services: Physical Examination Vital Signs: Vital Signs, Last 4 Hours Temp Pulse Resp BP Pulse Ox 07/19/17 11:35 20 97 07/19/17 11:00 92 16 117/53 100 07/19/17 09:00 93 22 132/61 94 07/19/17 08:27 97.8 F - Attending Attestation I examined this patient and my medical decision-making was reviewed with the Resident Physician. I agree with the documented findings, disposition and treatment plan as described except to the extent set forth below. We independently had [id number] contact with the patient Patient to transfer to home hospice today blood pressure has normalized All questions from family and patient answered at bedside
--- NOTE | 2017-07-19 09:34 | Physician Discharge Referral ---
<Benji Mota - Last Filed: 07/19/17 09:33> Home Health/Hosp Referral Info Transfer to: Hospice Provider in Charge Post Discharge: Screed Operator - Diagnosis (1) Septic shock Priority: Primary Status: Acute (2) ESRD (end stage renal disease) on dialysis Priority: Primary Status: Acute (3) Hepatocellular carcinoma Priority: Primary Status: Acute (4) Cirrhosis of liver with ascites Priority: Primary Status: Chronic (5) Elevated INR Priority: Primary Status: Resolved (6) Anemia Priority: Primary Status: Chronic (7) Atrial fibrillation Priority: Primary Status: Acute - Respiratory Orders Oxygen / L per min (4) Smoking Cessation: Smoking cessation has been advised. For more information, call the [employer] Tobacco Quit Line at 8-959-ZWEP-NOW. - Diet/Nutrition Diet/Nutrition Orders: Regular - Activity Activity Orders: Bedrest - Services Needed Following services are medically necessary services: Nursing, Home Health Aide, Med Social Work - Transfer Medications Prescriptions: OxyCODONE Immed Rel [Roxicodone 5 MG] 5 mg PO Q4HR PRN #120 tablet PRN Reason: Pain Ammonium Lactate [Lac-Hydrin Five] 113 gm TP DAILY #1 lotion Omeprazole [PriLOSEC] 40 mg PO DAILY #30 cap Ranitidine HCl [Zantac] 150 mg PO BID #60 tablet Home Medications: Promethazine [Phenergan] 25 mg PO Q6HR PRN #60 tablet 05/19/17 [Rx] Ascorbic Acid [Vitamin C] 500 mg PO BID 07/15/17 [History] B Complex W-C No.20/Folic Acid [Nephrocaps Softgel] 1 mg PO DAILY 07/15/17 [ History] Rifaximin [Xifaxan] 550 mg PO BID 07/15/17 [History] Triamcinolone Acet 0.1% CRM [Kenalog] 1 appl TP BID 07/15/17 [History] Ammonium Lactate [Lac-Hydrin Five] 113 gm TP DAILY #1 lotion 07/19/17 [Rx] Omeprazole [PriLOSEC] 40 mg PO DAILY #30 cap 07/19/17 [Rx] OxyCODONE Immed Rel [Roxicodone 5 MG] 5 mg PO Q4HR PRN #120 tablet 07/19/17 [Rx] Ranitidine HCl [Zantac] 150 mg PO BID #60 tablet 07/19/17 [Rx] Allergies/Adverse Reactions: 3 Allergy/AdvReac Type Severity Reaction Status Date / Time Hydromorphone [From Dilaudid] Allergy Itching Verified 07/15/17 14:47 heparin AdvReac See Verified 07/15/17 14:51 Comments Certification: Further, I certify that my clinical findings support that this patient is homebound (i.e. absences from home require considerable and taxing effort and are for medical reasons or confucianist services or infrequently or short duration when for other reasons) because: Homebound Reason: Absences from home are contraindicated except to recieve medical care, Leaving home requires considerable and taxing effort due to condition, Severity of cardiac or pulmonary status limits activity tolerance Attestation: My signature below is to certify that this patient is under my care and that I, or nurse practitioner, or a physician's enrichment assistant working with me, has a face-to -face encounter with this patient. <Miko Calderón W - Last Filed: 07/19/17 12:15> - Diagnosis (1) Septic shock Status: Acute (2) ESRD (end stage renal disease) on dialysis Status: Acute (3) Hepatocellular carcinoma Status: Acute (4) DVT prophylaxis Status: Acute (5) Cirrhosis of liver with ascites Status: Chronic (6) HCC (hepatocellular carcinoma) Status: Chronic (7) Elevated INR Status: Resolved (8) Anemia Status: Chronic (9) Atrial fibrillation Status: Acute (10) Goals of care, counseling/discussion Status: Acute - Respiratory Orders Smoking Cessation: Smoking cessation has been advised. For more information, call the [place] Tobacco Quit Line at 7-641-FLTB-NOW. Certification: Further, I certify that my clinical findings support that this patient is homebound (i.e. absences from home require considerable and taxing effort and are for medical reasons or confucianist services or infrequently or short duration when for other reasons) because: Attestation: My signature below is to certify that this patient is under my care and that I, or nurse practitioner, or a physician's enrichment assistant working with me, has a face-to -face encounter with this patient.
[2017-07-19] MEDS: Cefepime HCl 1,000 MG in Water for inj. (sterile) 10 ML IVP SCH (09:52)
[2017-07-19] MEDS: Insulin LISPRO 300 UNITS/3 ML VIAL SQ SCH ×2 (09:55→12:24)
[2017-07-19] MEDS: Ipratropium/Albuterol Neb 3 ML IH PRN (11:33)
[2017-07-19 12:21] VITALS: BP 132/77
== END 2017-07-19 14:00 | disposition hospice, home (50) | DRG 871 ==
LOC: EMEROO 14:45 → ICNU 14:45
PROVIDERS: ADMIT Hospitalist; ATTEND Hospitalist

== ENCOUNTER 2017-07-22 17:26 | Inpatient (IN) ==
--- NOTE | 2017-07-22 17:34 | Emergency Department Note ---
Disposition Clinical Impression: ESRD (end stage renal disease) on dialysis, HCC (hepatocellular carcinoma) Fluid overload Qualifiers: Hypervolemia type: unspecified Qualified Code(s): E87.70 - Fluid overload, unspecified Ascites Qualifiers: Ascites type: other type Qualified Code(s): R18.8 - Other ascites Sacral decubitus ulcer Qualifiers: Pressure ulcer stage: unspecified pressure ulcer stage Qualified Code(s): L89.159 - Pressure ulcer of sacral region, unspecified stage Disposition: Admitted As Inpatient General Adult HPI - General Chief complaint: ED General Medical Stated complaint: needs paracentesis Time Seen by Provider: 07/22/17 17:31 Nursing Notes Reviewed: Yes Vital Signs Reviewed: Yes - History of Present Illness HPI Narrative: 66-year-old male past medical history of liver cirrhosis and hepatocellular carcinoma requiring paracentesis was sent here to the emergency department for paracentesis as this patient is having abdominal swelling. Patient is complaining of having shortness of breath that he has had before when his abdomen gets distended. Patient does not report any abdominal pain, just swelling and distention. Patient denies any fever. Patient is currently on hospice for his end-stage renal disease and end-stage hepatocellular carcinoma. Patient has had to receive recent blood transfusions. Patient also has sacral decubiti that is being managed outpatient. - Related Data Home Medications Medication Instructions Recorded Confirmed Ascorbic Acid [Vitamin C] 500 mg PO BID 07/15/17 07/22/17 B Complex W-C No.20/Folic Acid 1 mg PO DAILY 07/15/17 07/22/17 [Nephrocaps Softgel] Rifaximin [Xifaxan] 550 mg PO BID 07/15/17 07/22/17 Previous Rx's Medication Instructions Recorded Promethazine [Phenergan] 25 mg PO Q6HR PRN #60 tablet 05/19/17 Omeprazole [PriLOSEC] 40 mg PO DAILY #30 cap 07/19/17 OxyCODONE Immed Rel [Roxicodone 5 5 mg PO Q4HR PRN #120 tablet 07/19/17 MG] Ranitidine HCl [Zantac] 150 mg PO BID #60 tablet 07/19/17 Allergies Allergy/AdvReac Type Severity Reaction Status Date / Time Hydromorphone [From Dilaudid] Allergy Itching Verified 07/15/17 14:47 heparin AdvReac See Verified 07/15/17 14:51 Comments All systems ED: reviewed and negative except as stated. Review of Systems: As Per HPI Constitutional: Denies: fever Cardiovascular: Reports: dyspnea on exertion. Denies: chest pain Respiratory: Reports: dyspnea Gastrointestinal: Denies: abdominal pain, nausea, vomiting Past Medical History - Past Medical History Medical history: Reports: cancer, diabetes, dialysis, other Surgical history: Reports: hip replacement, other (liver biopsy. hepatic artery embolization) Psychiatric history: Reports: no psych history - Social History Smoking Status: Former smoker Smokeless Tobacco Status: No Alcohol use: Reports: none Drug use: Reports: none Physical Exam General: Well Appearing, in no acute distress Head: autraumatic, EOMI, conjunctival pallor, scleral icterus, Mouth: oral mucous membranes moist Neck: neck soft, trachea midline Chest:: Equal chest wall rise Lungs: Normal lungs sounds bilaterally, no wheezes, no respiratory distress Heart: normal heart sounds, normal rate and rhythm, Abdomen: Distended, non-tender, positive fluid wave Sacrum: Sacral decubiti with packing in place, in no obvious erythema. No drainage Lower Extremities: no pedal edema, calves non-tender Integumentary: Skin warm, dry, and intact Neuro: Alert and oriented to person and place, GCS 15, no focal neurologic deficits Psych: normal affect, normal mood Course Vital Signs Temperature 97.6 F 07/22/17 17:31 Pulse Rate 105 07/22/17 17:31 Respiratory Rate 22 07/22/17 17:31 Blood Pressure 95/52 07/22/17 17:31 O2 Sat by Pulse Oximetry 95 07/22/17 17:31 Temperature 98.6 F 07/23/17 09:10 Pulse Rate 88 07/23/17 11:00 Respiratory Rate 18 07/23/17 11:00 Blood Pressure 85/57 07/23/17 11:00 O2 Sat by Pulse Oximetry 100 07/23/17 11:00 Oxygen Delivery Oxygen Delivery Nasal Cannula Medical Decision Making - MDM Narrative Medical decision making narrative: 66-year-old male presents to the emergency department because he requests a therapeutic paracentesis. This is a patient with hepatocellular carcinoma and is on hospice care. He was sent here from his skilled nursing. Patient's family states that there was planned to place a drain in his abdomen. The patient is currently reporting symptoms of shortness of breath and abdominal distention. On physical exam, there was no evidence of fever as temperature here was 97.6 degrees Fahrenheit. Abdomen is distended, but does not have any tenderness to palpation that would make me suspect spontaneous bacterial peritonitis. We obtained a chest x-ray of the patient and the sonogram revealed possible trace bilateral pleural effusions. This x-ray as no different from her previous study performed. At this time, we plan to admit this patient for further evaluation of interventional radiology tomorrow. Patient family agreed with the plan. Spoke with the hospitalist about admission of the patient he agreed to accept the admission. Patient's hemoglobin is higher than it was previously. I suspect that is due to recent blood transfusion. Patient's INR here is 1.4. Platelets are 154. At this time, patient does have sacral decubiti that are evident on exam. They have packing in place. I do not see any signs of infection at this time. Patient does have an elevated ESR. I would suggest further observation of the sacral decubiti after admission. Chest X-Ray 07/22/17 18:34 IMPRESSION: No significant change compared to prior study. Low lung volume study with possible trace bilateral pleural effusions with associated atelectasis or consolidation. D/ / 07/22/2017 18:55:57 Glenn Zendejas MD / [email or web address] Interpreting Provider: Glenn Zendejas MD Vital Signs Temperature 97.6 F 07/22/17 17:31 Pulse Rate 105 07/22/17 17:31 Respiratory Rate 22 07/22/17 17:31 Blood Pressure 95/52 07/22/17 17:31 O2 Sat by Pulse Oximetry 95 07/22/17 17:31 Temperature 97.6 F 07/22/17 17:31 Pulse Rate 105 07/22/17 17:31 Respiratory Rate 18 07/22/17 20:10 Blood Pressure 119/65 07/22/17 20:10 O2 Sat by Pulse Oximetry 96 07/22/17 17:48 Oxygen Delivery Oxygen Delivery Nasal Cannula - Medical Records Medical records reviewed: Yes I reviewed the patient's medical records. - Lab Data Lab results reviewed: Yes I reviewed the patient's lab results. Result diagrams: 07/23/17 05:08 07/23/17 05:08 Lab Results 07/22/17 07/22/17 07/22/17 Range/Units 17:58 17:58 17:58 WBC 10.7 (4.3-11.1) K/mcL RBC 3.42 L (4.19-5.50) M/mcL Hgb 9.4 L D (12.9-16.9) g/dL Hct 29.6 L (37.5-50.1) % MCV 86.5 (83.0-100.0) fL MCH 27.5 L (28.0-33.3) pg MCHC 31.8 (31.6-35.5) g/dL RDW 16.7 H (11.5-14.5) % Plt Count 152 (140-400) K/mcL MPV 8.9 L (9.4-12.4) fL Immature Gran % 0.7 (0-4) % Seg Neutrophils % 85.1 % Lymphocytes % 6.2 % Monocytes % 6.6 % Eosinophils % 1.1 % Basophils % 0.3 % Neutrophils # 9.1 H (1.6-8.9) K/mcL Lymphocytes # 0.7 (0.6-4.6) K/mcL Monocytes # 0.7 (0.0-1.3) K/mcL Eosinophils # 0.1 (0.0-0.6) K/mcL Basophils # 0.0 (0.0-0.2) K/mcL ESR (0-10) mm/hr PT 14.7 H (9.4-12.1) Seconds INR 1.4 APTT 36.1 H (26.0-36.0) Seconds Sodium 135 L (136-145) mEq/L Potassium 3.9 (3.5-4.5) mEq/L Chloride 100 (98-109) mEq/L Carbon Dioxide 23 (19-29) mEq/L BUN 24 (8-26) mg/dL Creatinine 3.10 H (0.72-1.25) mg/dL Est GFR ( Amer) 25 L (> 60) Est GFR (Non-Af Amer) 20 L (> 60) BUN/Creatinine Ratio 8 (6-26) Glucose 122 H (70-99) mg/dL Calculated Osmolality 285 (280-300) Calcium 8.3 L (8.6-10.8) mg/dL Total Bilirubin 1.1 (0.2-1.2) mg/dL AST 44 H (5-34) Units/L ALT 18 (0-55) Units/L Alkaline Phosphatase 142 H (38-126) Units/L C-Reactive Protein (Less than 5) mg/L Serum Total Protein 5.9 L (6.0-8.3) g/dL Albumin 2.0 L (3.5-5.0) g/dL Globulin 3.9 H (2.4-3.5) g/dL Albumin/Globulin Ratio 0.5 L (1.1-2.2) Lipase 31 (8-78) Units/L 07/22/17 07/22/17 Range/Units 17:58 17:58 WBC (4.3-11.1) K/mcL RBC (4.19-5.50) M/mcL Hgb (12.9-16.9) g/dL Hct (37.5-50.1) % MCV (83.0-100.0) fL MCH (28.0-33.3) pg MCHC (31.6-35.5) g/dL RDW (11.5-14.5) % Plt Count (140-400) K/mcL MPV (9.4-12.4) fL Immature Gran % (0-4) % Seg Neutrophils % % Lymphocytes % % Monocytes % % Eosinophils % % Basophils % % Neutrophils # (1.6-8.9) K/mcL Lymphocytes # (0.6-4.6) K/mcL Monocytes # (0.0-1.3) K/mcL Eosinophils # (0.0-0.6) K/mcL Basophils # (0.0-0.2) K/mcL ESR >= 130 H (0-10) mm/hr PT (9.4-12.1) Seconds INR APTT (26.0-36.0) Seconds Sodium (136-145) mEq/L Potassium (3.5-4.5) mEq/L Chloride (98-109) mEq/L Carbon Dioxide (19-29) mEq/L BUN (8-26) mg/dL Creatinine (0.72-1.25) mg/dL Est GFR ( Amer) (> 60) Est GFR (Non-Af Amer) (> 60) BUN/Creatinine Ratio (6-26) Glucose (70-99) mg/dL Calculated Osmolality (280-300) Calcium (8.6-10.8) mg/dL Total Bilirubin (0.2-1.2) mg/dL AST (5-34) Units/L ALT (0-55) Units/L Alkaline Phosphatase (38-126) Units/L C-Reactive Protein 177 H (Less than 5) mg/L Serum Total Protein (6.0-8.3) g/dL Albumin (3.5-5.0) g/dL Globulin (2.4-3.5) g/dL Albumin/Globulin Ratio (1.1-2.2) Lipase (8-78) Units/L - Radiology Data Radiology results reviewed: Yes I reviewed the patient's radiology results. - EKG Data EKG #1 EKG attestation: Yes I reviewed and interpreted this EKG. EKG results narrative: 17:52 Ventricular rate 104 bpm, para 167 ms, QRS duration 87 segs, QT 323 ms, QTC 384 ms, normal axis. Sinus tachycardia with a ventricular rate of 104 bpm. There is no evidence of any ischemic ST changes noted on this electrocardiogram. This study was compared to one performed on July 15, 2017 Attestation Statement - Attestation Attestation: I, Anselmo Villalobos DO, examined this patient [id number] and my medical decision-making was reviewed with Dr. Arturo Nino, Resident Physician. I agree with the documented findings, disposition and treatment plan as described except to the extent set forth below. Please see my progress notes for details. 66-year-old male presents emergency room with complaint of difficulty with breathing while lying flat and standing up. Patient has known liver cancer with metastases. He has progressive ascites in the abdomen. On 07/18/17 patient had approximately 10 L of fluid taken off his abdomen. Since then denying fevers chills nausea vomiting diarrhea. Denies chest pain shortness of breath headache or vision change. Presentation here is for orthopnea and abdominal discomfort and pain. Bedside ultrasound complete showing large volume of fluid in the abdomen. No signs of pericardial effusion. Laboratory workup ordered at this time. Patient did require interventional radiology paracentesis during last treatment course. Patient will screening labs completed at this time. He is currently in hospice and was sent here from the nursing staff with that facility. No other changes in symptoms or presentation this time. Patient will have screening laboratory workup looking for infection chest x-ray and urinalysis ordered. Patient will then be admitted for therapeutic paracentesis at a later date. Clinically no other acute issues now this time. Patient was sent here with the preconceived call process of having a paracentesis performed in the emergency room. No other concerns or issues noted this point. See detailed augmentation and physical exam, medical intervention, medical decision-making and disposition of the resident physician' s note. Patient will most likely admission Patient found a stable laboratory workup. Clinically do not feel comfortable doing the paracentesis here in the emergency room secondary to the patient's medical issues including cancer as well as coagulopathy secondary to liver failure. Patient will be admitted for interventional radiology to complete paracentesis and symptomatic resolution. Patient to require hospitalization and definitive management.
[2017-07-22 18:10] LABS: Basophils % 0.3 %; Eosinophils # 0.1 K/mcL (0.0-0.6); Eosinophils % 1.1 %; Hematocrit 29.6 % (37.5-50.1); Hemoglobin 9.4 g/dL (12.9-16.9); Immature Granulocytes % 0.7 % (0-4); Lymphocytes # 0.7 K/mcL (0.6-4.6); Lymphocytes % 6.2 %; Mean Corpuscular HGB Conc 31.8 g/dL (31.6-35.5); Mean Corpuscular Hemoglobin 27.5 pg (28.0-33.3); Mean Corpuscular Volume 86.5 fL (83.0-100.0); Mean Platelet Volume 8.9 fL (9.4-12.4); Monocytes # 0.7 K/mcL (0.0-1.3); Monocytes % 6.6 %; Neutrophils # 9.1 K/mcL (1.6-8.9); Platelet Count 152 K/mcL (140-400); Red Blood Count 3.42 M/mcL (4.19-5.50); Red Cell Distribution Width 16.7 % (11.5-14.5); Segmented Neutrophils % 85.1 %
[2017-07-22 18:15] LABS: INR 1.4; Prothrombin Time 14.7 Seconds (9.4-12.1)
[2017-07-22 18:18] LABS: Activated Partial Thrombo Time 36.1 Seconds (26.0-36.0)
[2017-07-22 18:23] LABS: Potassium 3.9 mEq/L (3.5-4.5)
[2017-07-22 18:24] LABS: Albumin/Globulin Ratio 0.5 (1.1-2.2); Bilirubin,Total 1.1 mg/dL (0.2-1.2); Calcium 8.3 mg/dL (8.6-10.8); Globulin 3.9 g/dL (2.4-3.5); Total Protein 5.9 g/dL (6.0-8.3)
[2017-07-22 22:04] LABS: ABG Base Excess 0 mEq/L (-2 to 3); ABG HCO3 26 mEq/L (21-27); ABG Oxygen Saturation 98 % (95-98); ABG PCO2 51 mmHg (35-45); ABG PH 7.32 pH Units (7.32-7.45); ABG PO2 120 mmHg (85-104); ABG TCO2 28 mEq/L (20-26); Blood Gas PEEP 6 cm H2O
--- NOTE | 2017-07-22 22:51 | Emergency Department Note ---
Disposition Clinical Impression: ESRD (end stage renal disease) on dialysis, HCC (hepatocellular carcinoma) Fluid overload Qualifiers: Hypervolemia type: unspecified Qualified Code(s): E87.70 - Fluid overload, unspecified Ascites Qualifiers: Ascites type: other type Qualified Code(s): R18.8 - Other ascites Sacral decubitus ulcer Qualifiers: Pressure ulcer stage: unspecified pressure ulcer stage Qualified Code(s): L89.159 - Pressure ulcer of sacral region, unspecified stage Disposition: Admitted As Inpatient General Adult HPI - General Chief complaint: ED General Medical Stated complaint: needs paracentesis Time Seen by Provider: 07/22/17 17:31 Source: EMS Limitations: altered mental status, physical limitation - History of Present Illness Pain Scale: 0 - Related Data Home Medications Medication Instructions Recorded Confirmed Ascorbic Acid [Vitamin C] 500 mg PO BID 07/15/17 07/22/17 B Complex W-C No.20/Folic Acid 1 mg PO DAILY 07/15/17 07/22/17 [Nephrocaps Softgel] Rifaximin [Xifaxan] 550 mg PO BID 07/15/17 07/22/17 Previous Rx's Medication Instructions Recorded Promethazine [Phenergan] 25 mg PO Q6HR PRN #60 tablet 05/19/17 Omeprazole [PriLOSEC] 40 mg PO DAILY #30 cap 07/19/17 OxyCODONE Immed Rel [Roxicodone 5 5 mg PO Q4HR PRN #120 tablet 07/19/17 MG] Ranitidine HCl [Zantac] 150 mg PO BID #60 tablet 07/19/17 Allergies Allergy/AdvReac Type Severity Reaction Status Date / Time Hydromorphone [From Dilaudid] Allergy Itching Verified 07/15/17 14:47 heparin AdvReac See Verified 07/15/17 14:51 Comments Constitutional: Denies: fever Cardiovascular: Reports: dyspnea on exertion. Denies: chest pain Respiratory: Reports: dyspnea Gastrointestinal: Denies: abdominal pain, nausea, vomiting Past Medical History - Past Medical History Medical history: Reports: cancer, diabetes, dialysis, other Surgical history: Reports: hip replacement, other (liver biopsy. hepatic artery embolization) Psychiatric history: Reports: no psych history - Social History Smoking Status: Former smoker Smokeless Tobacco Status: No Alcohol use: Reports: none Drug use: Reports: none Physical Exam - General Limitations: altered mental status, physical limitation General appearance: alert, in no apparent distress Course Course Narrative: Patient was seen in conjunction with Dr. Villalobos and Dr. David at the beginning of his presentation. Patient was complaining of dyspnea with exertion but was not acutely dyspneic while in the emergency department. His stay was uneventful and please see Dr. Villalobos and Dr. David's note for further details. He initially did not receive paracentesis secondary to no respiratory distress as well as history of liver disease and concern for bleading. During reevaluation by the hospitalist he is to Make with a pulse ox of 88%. He states that he is trying to cough something up which is similar to previous mucous plug that caused him to be reintubated during an ICU stay. At this point and bleeding patient cannot cough appropriately secondary to decreased lung volumes from increased intra-abdominal pressure. With his pressure increasing to this point will benefit from an emergent paracentesis. This has been discussed with him and family in regards to the risk and benefits. They understand and are able to verbalize back. Standard paracentesis kit was used. 1% lidocaine, 5 mL used. Z track technique. Ultrasound guidance. Lots of fluid without concern for common location. Site marked. Scalpel used to incise the skin. Needle advanced with clear fluid. Catheter advanced and 4 L of fluid were drained. Not Cloudy. Not bloody. 4 L removed. Catheter removed. Pressure held on site. Band-Aid applied. Patient tolerated the procedure well without complication. The hospitalist was called back and the patient is stable to be transferred to the floor. Vital Signs Temperature 97.6 F 07/22/17 17:31 Pulse Rate 105 07/22/17 17:31 Respiratory Rate 22 07/22/17 17:31 Blood Pressure 95/52 07/22/17 17:31 O2 Sat by Pulse Oximetry 95 07/22/17 17:31 Temperature 97.6 F 07/22/17 17:31 Pulse Rate 105 07/22/17 17:31 Respiratory Rate 37 07/22/17 21:51 Blood Pressure 119/65 07/22/17 20:10 O2 Sat by Pulse Oximetry 99 07/22/17 21:51 Oxygen Delivery Oxygen Delivery Nasal Cannula Procedures - Paracentesis Consent Obtained: verbal consent Time Out Performed: Yes Indication: Ascites Procedure: therapeutic paracentesis Location: RLQ Local Anesthetic: lidocaine 1% Amount of anesthesia used (mL): 5 Bedside Ultrasound Used: yes, Ascites confirmed and location marked Preparation: sterile prep and drape Amount of Fluid Obtained: 4 Fluid: clear Post Procedure Exam: awake, alert, normal BP, normal HR Patient Tolerated Procedure: well, no complications Complications: none Medical Decision Making - Lab Data Result diagrams: 07/22/17 17:58 07/22/17 17:58 Lab Results 07/22/17 07/22/17 07/22/17 Range/Units 17:58 17:58 17:58 WBC 10.7 (4.3-11.1) K/mcL RBC 3.42 L (4.19-5.50) M/mcL Hgb 9.4 L D (12.9-16.9) g/dL Hct 29.6 L (37.5-50.1) % MCV 86.5 (83.0-100.0) fL MCH 27.5 L (28.0-33.3) pg MCHC 31.8 (31.6-35.5) g/dL RDW 16.7 H (11.5-14.5) % Plt Count 152 (140-400) K/mcL MPV 8.9 L (9.4-12.4) fL Immature Gran % 0.7 (0-4) % Seg Neutrophils % 85.1 % Lymphocytes % 6.2 % Monocytes % 6.6 % Eosinophils % 1.1 % Basophils % 0.3 % Neutrophils # 9.1 H (1.6-8.9) K/mcL Lymphocytes # 0.7 (0.6-4.6) K/mcL Monocytes # 0.7 (0.0-1.3) K/mcL Eosinophils # 0.1 (0.0-0.6) K/mcL Basophils # 0.0 (0.0-0.2) K/mcL ESR (0-10) mm/hr PT 14.7 H (9.4-12.1) Seconds INR 1.4 APTT 36.1 H (26.0-36.0) Seconds Sodium 135 L (136-145) mEq/L Potassium 3.9 (3.5-4.5) mEq/L Chloride 100 (98-109) mEq/L Carbon Dioxide 23 (19-29) mEq/L BUN 24 (8-26) mg/dL Creatinine 3.10 H (0.72-1.25) mg/dL Est GFR ( Amer) 25 L (> 60) Est GFR (Non-Af Amer) 20 L (> 60) BUN/Creatinine Ratio 8 (6-26) Glucose 122 H (70-99) mg/dL Calculated Osmolality 285 (280-300) Calcium 8.3 L (8.6-10.8) mg/dL Total Bilirubin 1.1 (0.2-1.2) mg/dL AST 44 H (5-34) Units/L ALT 18 (0-55) Units/L Alkaline Phosphatase 142 H (38-126) Units/L C-Reactive Protein (Less than 5) mg/L Serum Total Protein 5.9 L (6.0-8.3) g/dL Albumin 2.0 L (3.5-5.0) g/dL Globulin 3.9 H (2.4-3.5) g/dL Albumin/Globulin Ratio 0.5 L (1.1-2.2) Lipase 31 (8-78) Units/L 07/22/17 07/22/17 Range/Units 17:58 17:58 WBC (4.3-11.1) K/mcL RBC (4.19-5.50) M/mcL Hgb (12.9-16.9) g/dL Hct (37.5-50.1) % MCV (83.0-100.0) fL MCH (28.0-33.3) pg MCHC (31.6-35.5) g/dL RDW (11.5-14.5) % Plt Count (140-400) K/mcL MPV (9.4-12.4) fL Immature Gran % (0-4) % Seg Neutrophils % % Lymphocytes % % Monocytes % % Eosinophils % % Basophils % % Neutrophils # (1.6-8.9) K/mcL Lymphocytes # (0.6-4.6) K/mcL Monocytes # (0.0-1.3) K/mcL Eosinophils # (0.0-0.6) K/mcL Basophils # (0.0-0.2) K/mcL ESR >= 130 H (0-10) mm/hr PT (9.4-12.1) Seconds INR APTT (26.0-36.0) Seconds Sodium (136-145) mEq/L Potassium (3.5-4.5) mEq/L Chloride (98-109) mEq/L Carbon Dioxide (19-29) mEq/L BUN (8-26) mg/dL Creatinine (0.72-1.25) mg/dL Est GFR ( Amer) (> 60) Est GFR (Non-Af Amer) (> 60) BUN/Creatinine Ratio (6-26) Glucose (70-99) mg/dL Calculated Osmolality (280-300) Calcium (8.6-10.8) mg/dL Total Bilirubin (0.2-1.2) mg/dL AST (5-34) Units/L ALT (0-55) Units/L Alkaline Phosphatase (38-126) Units/L C-Reactive Protein 177 H (Less than 5) mg/L Serum Total Protein (6.0-8.3) g/dL Albumin (3.5-5.0) g/dL Globulin (2.4-3.5) g/dL Albumin/Globulin Ratio (1.1-2.2) Lipase (8-78) Units/L
--- NOTE | 2017-07-22 23:54 | Internal Med History&Physical ---
Date of Encounter: 07/23/17 Time of Encounter: 22:00 Assessment and Plan (1) Ascites Current visit: Yes Status: Acute -Paracentesis was performed by ER physician and respiratory distress resolved. -Will consult interventional radiology for consideration of placement of abdominal catheter for recurrent ascites secondary to end-stage hepatocellular carcinoma. Qualifiers: Ascites type: other type Qualified Code(s): R18.8 - Other ascites (2) Acute respiratory failure with hypoxia Current visit: No Status: Acute -Resolved; secondary to the above. -Continue to monitor in the stepdown ICU as patient is a full code. (3) HCC (hepatocellular carcinoma) Current visit: Yes Status: Chronic -Patient managed at [facility] and has a poor prognosis. -Patient has been made hospice and will obtain abdominal catheter for drainage of recurrent ascites due to liver cirrhosis for supportive care. (4) ESRD (end stage renal disease) on dialysis Current visit: Yes Status: Acute -Continue hemodialysis per nephrology. (5) Anemia Current visit: No Status: Chronic -Stable; secondary to end-stage renal disease. Qualifiers: Anemia type: due to chronic kidney disease Chronic kidney disease stage: on chronic dialysis Qualified Code(s): N18.6 - End stage renal disease; D63.1 - Anemia in chronic kidney disease; D63.1 - Anemia in chronic kidney disease; Z99.2 - Dependence on renal dialysis; Z99.2 - Dependence on renal dialysis; Z99.2 - Dependence on renal dialysis; Z99.2 - Dependence on renal dialysis (6) Sacral decubitus ulcer Current visit: Yes Status: Acute -Will consult wound care for treatment. Qualifiers: Pressure ulcer stage: unspecified pressure ulcer stage Qualified Code(s): L89.159 - Pressure ulcer of sacral region, unspecified stage (7) Goals of care, counseling/discussion Current visit: No Status: Acute Discussed with family at great length about goals of care and family/patient would like to proceed with having an abdominal catheter placed for recurrent drainage for supportive care of recurrent ascites due to end-stage hepatocellular carcinoma. (8) DVT prophylaxis Current visit: No Status: Acute -Subcutaneous heparin. Internal Medicine - H&P: HPI Admitted From: Home Plans for Post Hospital Care: Hospice - Home History of present illness: Patient is a 66-year-old male with past medical history significant for end- stage hepatocellular carcinoma with liver cirrhosis, end-stage renal disease and chronic anemia who presents to the ER on 07/22/17 with shortness of breath secondary to ascites. Per family, since patient was in respiratory distress at time of evaluation in the ER, patient has had his ascites drain at least 2 other times. Apparently, patient has been seen at [facility] and given a poor prognosis for his end-stage hepatocellular carcinoma. Patient has been made hospice but family states that it is an aggressive hospice care. In addition patient also receives hemodialysis for end-stage renal disease. In the ER, patient was found to be in respiratory distress. Discussed with ER physician and paracentesis of ascites was drained in the ER and patients respiratory distress resolved. Discussed with family at great length about goals of care and family/patient would like to proceed with having an abdominal catheter placed for recurrent drainage for supportive care of recurrent ascites due to end-stage hepatocellular carcinoma. Patient will be admitted to the stepdown unit for closer observation, as he is a full code per family request. Interventional radiology will be consulted for placement of abdominal catheter. Past Med Surg Social Fam HX - Past Medical History Medical history: cancer, diabetes, dialysis, other Psychiatric history: no psych history - Past Surgical History Surgical History: hip replacement, other (liver biopsy. hepatic artery embolization) - Social History Smoking Status: Former smoker Smokeless Tobacco Status: No Alcohol use: none Drug use: none - Family History Father Living Status: Hx Family Cardiac Disorders: Yes Mother Living Status: Hx Family Cancer: Yes Internal Medicine - H&P: Meds Promethazine [Phenergan] 25 mg PO Q6HR PRN #60 tablet 05/19/17 [Rx] Ascorbic Acid [Vitamin C] 500 mg PO BID 07/15/17 [History] B Complex W-C No.20/Folic Acid [Nephrocaps Softgel] 1 mg PO DAILY 07/15/17 [ History] Rifaximin [Xifaxan] 550 mg PO BID 07/15/17 [History] Omeprazole [PriLOSEC] 40 mg PO DAILY #30 cap 07/19/17 [Rx] OxyCODONE Immed Rel [Roxicodone 5 MG] 5 mg PO Q4HR PRN #120 tablet 07/19/17 [Rx] Ranitidine HCl [Zantac] 150 mg PO BID #60 tablet 07/19/17 [Rx] 3 Allergy/AdvReac Type Severity Reaction Status Date / Time Hydromorphone [From Dilaudid] Allergy Itching Verified 07/15/17 14:47 heparin AdvReac See Verified 07/15/17 14:51 Comments All Systems PM: A 10-system review of systems was performed and is negative for pertinent findings except as documented above in the HPI. - Constitutional Vitals: Temp Pulse Resp BP Pulse Ox 97.6 F 105 37 119/65 99 07/22/17 17:31 07/22/17 17:31 07/22/17 21:51 07/22/17 20:10 07/22/17 21:51 General appearance: Present: mild distress, A&O X 3 - Head Head exam: Present: atraumatic, normocephalic - Eye Eye exam: Present: scleral icterus - ENT ENT exam: Present: mucous membranes dry - Respiratory Respiratory exam: Present: accessory muscle use, respiratory distress - Cardiovascular Cardiovascular exam: Present: RRR, +S1, +S2. Absent: diastolic murmur, gallop, rubs, systolic murmur - GI/Abdominal GI/Abdominal exam: Present: distended - Expanded Lower Extremities Exam Lower Leg exam: Present: swelling - Neurological Exam Neurological exam: Present: alert - Psychiatric Psychiatric exam: Present: flat affect Internal Med - H&P Results - Labs CBC & Chem 7: 07/22/17 17:58 07/22/17 17:58 - ABG Interpretation ABG results: 07/22/17 22:01 ABG pH 7.32 ABG pCO2 51 H ABG pO2 120 H ABG HCO3 26 ABG Total CO2 28 H ABG O2 Saturation 98 ABG Base Excess 0
[2017-07-23] MEDS ORDERED: Naloxone 0.4 MG/ML INJ IVP PRN (00:08)
[2017-07-23] MEDS ORDERED: *HR* OxyCODONE Immed Rel 5 MG TABLET PO PRN (00:17)
[2017-07-23 04:04] LABS: Basophils % 0.2 %; Eosinophils # 0.1 K/mcL (0.0-0.6); Eosinophils % 0.7 %; Hematocrit 27.7 % (37.5-50.1); Hemoglobin 8.7 g/dL (12.9-16.9); Immature Granulocytes % 0.9 % (0-4); Lymphocytes # 0.6 K/mcL (0.6-4.6); Lymphocytes % 6.4 %; Mean Corpuscular HGB Conc 31.4 g/dL (31.6-35.5); Mean Corpuscular Hemoglobin 27.7 pg (28.0-33.3); Mean Corpuscular Volume 88.2 fL (83.0-100.0); Mean Platelet Volume 8.6 fL (9.4-12.4); Monocytes # 0.6 K/mcL (0.0-1.3); Monocytes % 6.5 %; Platelet Count 133 K/mcL (140-400); Red Blood Count 3.14 M/mcL (4.19-5.50); Red Cell Distribution Width 16.7 % (11.5-14.5); Segmented Neutrophils % 85.3 %
[2017-07-23] MEDS ORDERED: 0.9 % Sodium Chloride 500 ML ONE (04:04)
[2017-07-23 04:19] LABS: Calcium 8.3 mg/dL (8.6-10.8)
[2017-07-23 04:39] LABS: ABG Base Excess -1 mEq/L (-2 to 3); ABG HCO3 26 mEq/L (21-27); ABG Oxygen Saturation 59 % (95-98); ABG PCO2 54 mmHg (35-45); ABG PO2 35 mmHg (85-104); ABG TCO2 28 mEq/L (20-26); Blood Gas Modality BiPAP
[2017-07-23] MEDS ORDERED: *HR* Midazolam HCl 5 MG/5 ML VIAL IVP ONE (05:05)
[2017-07-23] MEDS ORDERED: 0.9 % Sodium Chloride 500 ML IVC ONE (05:05)
--- NOTE | 2017-07-23 05:08 | Event Note ---
Date of Encounter: 07/23/17 Time of Encounter: 04:00 -Rapid response was called at 405. -Upon arriving at the bedside, patient was found to be in respiratory distress by/acute on chronic hypoxic respiratory failure -Blood pressure within normal limits and stat EKG with no acute ST/T-wave changes. -Patient was placed on BiPAP with no improvement in oxygenation; blood gases revealed a pH of 7.29, PCO2 of 54 and PaO2 of 34.8. -A decision was made to intubate the patient and place on ventilator; chest x- ray and labs pending. -A V/Q scan ordered as patient has ESRD. -Patient was then transferred to the ICU for further medical management.
[2017-07-23 05:17] LABS: Basophils % 0.2 %; Eosinophils # 0.1 K/mcL (0.0-0.6); Eosinophils % 0.8 %; Hematocrit 32.2 % (37.5-50.1); Immature Granulocytes % 1.1 % (0-4); Lymphocytes # 0.8 K/mcL (0.6-4.6); Lymphocytes % 6.2 %; Mean Corpuscular HGB Conc 31.1 g/dL (31.6-35.5); Mean Corpuscular Hemoglobin 27.4 pg (28.0-33.3); Mean Corpuscular Volume 88.2 fL (83.0-100.0); Mean Platelet Volume 8.9 fL (9.4-12.4); Monocytes # 0.9 K/mcL (0.0-1.3); Monocytes % 6.5 %; Neutrophils # 11.2 K/mcL (1.6-8.9); Platelet Count 175 K/mcL (140-400); Red Blood Count 3.65 M/mcL (4.19-5.50); Red Cell Distribution Width 16.8 % (11.5-14.5); Segmented Neutrophils % 85.2 %
[2017-07-23 05:24] LABS: INR 1.3; Prothrombin Time 14.5 Seconds (9.4-12.1)
[2017-07-23 05:26] LABS: Activated Partial Thrombo Time 33.7 Seconds (26.0-36.0)
[2017-07-23 05:32] LABS: Albumin/Globulin Ratio 0.5 (1.1-2.2); Bilirubin,Total 0.9 mg/dL (0.2-1.2); Calcium 8.4 mg/dL (8.6-10.8); Globulin 3.9 g/dL (2.4-3.5); Magnesium 1.5 mg/dL (1.6-2.6); Phosphorous 4.9 mg/dL (2.3-4.7); Total Protein 5.8 g/dL (6.0-8.3)
[2017-07-23 05:34] LABS: Albumin 1.9 g/dL (3.5-5.0)
[2017-07-23] MEDS ORDERED: *HR* Midazolam HCl 2 MG/2 ML VIAL IVP ONE (05:47)
[2017-07-23] MEDS: FentaNYL (PF) 1,000 MCG in 0.9 % Sodium Chloride 80 ML IVC SCH ×4 (05:57→20:45)
[2017-07-23] MEDS: Norepinephrine 4 MG in D5% in Water 250 ML IVC SCH ×5 (06:48→21:25)
[2017-07-23] MEDS: (Rifaximin [Xifaxan] 550 MG) PO SCH ×2 (07:26→20:04)
[2017-07-23] MEDS: Renal Vitamin 1 MG CAPSULE PO SCH (07:27)
[2017-07-23] MEDS ORDERED: Lacri-Lube 3.5 GM TUBE BOTH EYES PRN (07:35)
[2017-07-23] MEDS ORDERED: Vancomycin 1,500 MG in D5% in Water 250 ML IVPB ONE (08:00)
[2017-07-23] MEDS ORDERED: Vancomycin 2,000 MG in D5% in Water 500 ML IVPB ONE (08:11)
--- NOTE | 2017-07-23 08:22 | Pulmonology Consult Note ---
<Lolis Ruiz - Last Filed: 07/23/17 12:59> Date of Encounter: 07/23/17 Time of Encounter: 08:22 Assessment and Plan (1) Acute respiratory failure with hypoxia Current Visit: No Status: Acute Pt remains ventilated. Repeat ABG drawn this morning and reviewed with attending. Vent settings adjusted by attending this AM. Patient desatured this AM, with FIO2 now titrated to 40%. CXR demonstrates multifocal airspace consolidation, worse on right, most consistent with multifocal pneumonia. Initiated on broad-specrum Abx. Timed Vanc through ordered. (2) ARDS (adult respiratory distress syndrome) Current Visit: Yes Status: Acute pH 7.36/pCO2 40/pO2 75/HCO3 23/94%. PaO2/FIO2 ratio 150 with bilateral opacities , PEEP currently at 10. Significantly elevated A-a gradient consistent with ARDS. Vent settings: Low-TV strategy and continue adequately high PEEP. (3) HCC (hepatocellular carcinoma) Current Visit: Yes Status: Chronic Pt previous ICU hospitalization Code= DNAR/DNI. Now Full Code, per family's wishes while pt in ED (4) Ascites Current Visit: Yes Status: Acute Paracentesis done in ER IR on consult for placement of abdominal catheter Qualifiers: Ascites type: malignant Qualified Code(s): R18.0 - Malignant ascites (5) ESRD (end stage renal disease) on dialysis Current Visit: Yes Status: Acute Pt had full HD yesterday. Nephro on consult, recommend UF today with midodrine TID. Patient re-evaluated at bedside following initiation of UF, with improved parameters seen on with dialysis. (6) Sacral decubitus ulcer Current Visit: Yes Status: Chronic Stage 3 ulcer seen when re-adjusting patient this AM. RN at bedside appropriately addressed ulcer Wound consult placed Qualifiers: Pressure ulcer stage: stage 3 Qualified Code(s): L89.153 - Pressure ulcer of sacral region, stage 3 History of Present Illness Consult date: 07/23/17 Requesting physician: Calderon Escamilla Reason for consult: dyspnea, other (Acute respiratory failure requiring intubation ) Chief complaint: SOB History of present illness: 66 year old male with hepatocellular carcinoma, chronic ascites with therapeutic scheduled paracentesis and anasarca with ESRD requiring dialysis. Other PMH-A. fib on Coumadin, diastolic CHF, diabetes type 2 insulin-dependent, cirrhosis, ascites, prior septic shock, right embolization of hepatic artery. Patient presented to ER on 07/22/17 with shortness of breath secondary to ascites. The daughter states patient improved and was to be kept overnight for permanent pleural cath to peritoneum so family would be able to drain ascitic fluid at home. Patient was found to be in respiratory distress at approx 4 AM. He was placed on BiPAP with no improvement in oxygenation, with blood gases of pH of 7.29, PCO2 of 54 and PaO2 of 34.8. Patient was subsequently intubated and placed on mechanical ventilation, transferred to ICU. Past Med Surg Social Fam HX - Past Medical History Medical history: cancer, diabetes, dialysis, hyperlipidemia, other Psychiatric history: no psych history - Past Surgical History Surgical History: hip replacement, other - Social History Smoking Status: Former smoker Smokeless Tobacco Status: No Alcohol use: none Drug use: none - Family History Father Living Status: Hx Family Cardiac Disorders: Yes Mother Living Status: Hx Family Cancer: Yes Medications and Allergies Promethazine [Phenergan] 25 mg PO Q6HR PRN #60 tablet 05/19/17 [Rx] Ascorbic Acid [Vitamin C] 500 mg PO BID 07/15/17 [History] B Complex W-C No.20/Folic Acid [Nephrocaps Softgel] 1 mg PO DAILY 07/15/17 [ History] Rifaximin [Xifaxan] 550 mg PO BID 07/15/17 [History] Omeprazole [PriLOSEC] 40 mg PO DAILY #30 cap 07/19/17 [Rx] OxyCODONE Immed Rel [Roxicodone 5 MG] 5 mg PO Q4HR PRN #120 tablet 07/19/17 [Rx] Ranitidine HCl [Zantac] 150 mg PO BID #60 tablet 07/19/17 [Rx] 3 Allergy/AdvReac Type Severity Reaction Status Date / Time Hydromorphone [From Dilaudid] Allergy Itching Verified 07/15/17 14:47 heparin AdvReac See Verified 07/15/17 14:51 Comments ROS unobtainable: due to endotracheal tube Physical Examination Vital Signs: Vital Signs, Last 4 Hours Temp Pulse Resp BP Pulse Ox 07/23/17 08:00 78 18 78/43 98 07/23/17 07:48 98.6 F 07/23/17 07:30 80 07/23/17 07:00 79 18 78/43 98 07/23/17 06:31 18 43/26 91 07/23/17 06:00 103 18 76/40 91 07/23/17 05:00 107 07/23/17 04:41 19 139/57 81 07/23/17 04:38 98.6 F 112 23 139/57 80 General appearance: other (sedated, obese ) Neck: other (Central venous catheter in place, no oozing or marked erythema apreciated ) Auscultation: bilateral: diminished breath sounds Cardiovascular: regular rate and rhythm Gastrointestinal: hypoactive bowel sounds, soft, non-tender, other (obese) Integumentary: other (Stage 4 sacral ulcer, seen at ) Extremities: edema unable to assess due to mental status lines examined, with no evidence for infection appreciated. R permacath in place. Ventilator Settings Ventilator Settings: Ventilator Settings, Last 8 Hours Ventilator Mode VC+ Ventilator Mode VC+ Ventilator Mode VC+ Ventilator Mode VC+ Ventilator Mode VC+ Ventilator Mode VC+ Ventilator Tidal Volume 650 Setting Ventilator Tidal Volume 650 Setting Ventilator Tidal Volume 650 Setting Ventilator Tidal Volume 650 Setting Ventilator Tidal Volume 550 Setting Ventilator Tidal Volume 550 Setting Ventilator Respiratory Rate 18 Setting Ventilator Respiratory Rate 18 Setting Ventilator Respiratory Rate 18 Setting Ventilator Respiratory Rate 18 Setting Ventilator Respiratory Rate 14 Setting Ventilator Respiratory Rate 14 Setting Actual Respiratory Rate 18 Actual Respiratory Rate 18 Actual Respiratory Rate 18 Actual Respiratory Rate 18 Actual Respiratory Rate 19 Actual Respiratory Rate 14 Positive End Expiratory 10 Pressure Positive End Expiratory 10 Pressure Positive End Expiratory 5 Pressure Positive End Expiratory 15 Pressure Positive End Expiratory 10 Pressure Positive End Expiratory 10 Pressure Peak Inspiratory Airway 43 Pressure Peak Inspiratory Airway 45 Pressure Peak Inspiratory Airway 40 Pressure Peak Inspiratory Airway 41 Pressure Peak Inspiratory Airway 37 Pressure Peak Inspiratory Airway 34 Pressure Results - Laboratory Findings CBC and BMP: 07/23/17 05:08 07/23/17 05:08 ABG ABG pH 7.30 pH Units (7.32-7.45) L 07/23/17 04:32 ABG pCO2 54 mmHg (35-45) H 07/23/17 04:32 ABG pO2 35 mmHg (85-104) L* 07/23/17 04:32 ABG O2 Saturation 59 % (95-98) L 07/23/17 04:32 PT/INR, D-dimer PT 14.5 Seconds (9.4-12.1) H 07/23/17 05:08 Abnormal lab findings: Abnormal lab results WBC 13.2 K/mcL (4.3-11.1) H 07/23/17 05:08 RBC 3.65 M/mcL (4.19-5.50) L 07/23/17 05:08 Hgb 10.0 g/dL (12.9-16.9) L 07/23/17 05:08 Hct 32.2 % (37.5-50.1) L 07/23/17 05:08 MCH 27.4 pg (28.0-33.3) L 07/23/17 05:08 MCHC 31.1 g/dL (31.6-35.5) L 07/23/17 05:08 RDW 16.8 % (11.5-14.5) H 07/23/17 05:08 MPV 8.9 fL (9.4-12.4) L 07/23/17 05:08 Neutrophils # 11.2 K/mcL (1.6-8.9) H 07/23/17 05:08 ESR >= 130 mm/hr (0-10) H 07/22/17 17:58 PT 14.5 Seconds (9.4-12.1) H 07/23/17 05:08 ABG pH 7.30 pH Units (7.32-7.45) L 07/23/17 04:32 ABG pCO2 54 mmHg (35-45) H 07/23/17 04:32 ABG pO2 35 mmHg (85-104) L* 07/23/17 04:32 ABG Total CO2 28 mEq/L (20-26) H 07/23/17 04:32 ABG O2 Saturation 59 % (95-98) L 07/23/17 04:32 Sodium 133 mEq/L (136-145) L 07/23/17 05:08 BUN 29 mg/dL (8-26) H 07/23/17 05:08 Creatinine 3.68 mg/dL (0.72-1.25) H 07/23/17 05:08 Est GFR ( Amer) 20 (> 60) L 07/23/17 05:08 Est GFR (Non-Af Amer) 17 (> 60) L 07/23/17 05:08 Glucose 181 mg/dL (70-99) H 07/23/17 05:08 POC Glucose 165 (58-89) H 07/23/17 04:38 Calcium 8.4 mg/dL (8.6-10.8) L 07/23/17 05:08 Ionized Calcium 1.10 mmol/L (1.15-1.35) L 07/23/17 05:08 Phosphorus 4.9 mg/dL (2.3-4.7) H 07/23/17 05:08 Magnesium 1.5 mg/dL (1.6-2.6) L 07/23/17 05:08 AST 71 Units/L (5-34) H 07/23/17 05:08 Alkaline Phosphatase 172 Units/L (38-126) H 07/23/17 05:08 C-Reactive Protein 177 mg/L (Less than 5) H 07/22/17 17:58 Serum Total Protein 5.8 g/dL (6.0-8.3) L 07/23/17 05:08 Albumin 1.9 g/dL (3.5-5.0) L 07/23/17 05:08 Globulin 3.9 g/dL (2.4-3.5) H 07/23/17 05:08 Albumin/Globulin Ratio 0.5 (1.1-2.2) L 07/23/17 05:08 - Diagnostic Findings Chest x-ray: report reviewed, image reviewed Additional studies: KUB X-Ray 07/23/17 04:49 IMPRESSION: The orogastric tube tip is located in the gastric antrum. D/ / Ramírez Vines MD / Ramírez Vines MD Interpreting Provider: Ramírez Vines MD Chest X-Ray 07/23/17 06:32 IMPRESSION: 1. Interval placement of a right internal jugular central venous catheter, in proper position, without evidence of a pneumothorax. 2. Stable appropriate positions of endotracheal tube, orogastric tube, and right internal jugular dialysis catheter. 3. No significant change in appearance of bilateral pleural effusions, right greater than left, with multifocal airspace consolidation, also worse on the right, most consistent with multifocal pneumonia. D/ / 07/23/2017 09:27:19 Leandro Proctor MD / raquel Interpreting Provider: Leandro Proctor MD - Clinical Findings Intake & Output: Intake & Output 07/22/17 07/23/17 07/23/17 23:59 07:59 15:59 Intake Total 46 / 46 Output Total 0 / 0 Balance 46 / 46 Weight 181.3 kg Consult Discharge Plan - Plan Referrals: Alicia Pastrana MD [Primary Care Provider] - <Nixon Cardozo - Last Filed: 07/23/17 19:50> Date of Encounter: 07/23/17 All Systems: A 10-system review of systems was performed and is negative for pertinent findings except as documented above in the HPI. Physical Examination Vital Signs: Vital Signs, Last 4 Hours Pulse Resp BP Pulse Ox 07/23/17 18:36 18 97 07/23/17 18:00 84 18 92/46 97 07/23/17 17:00 80 18 75/41 97 07/23/17 16:17 18 98 07/23/17 16:00 82 18 93/56 98 Ventilator Settings Ventilator Settings: Ventilator Settings, Last 8 Hours Ventilator Mode VC+ Ventilator Mode VC+ Ventilator Mode VC+ Ventilator Mode VC+ Ventilator Mode VC+ Ventilator Mode VC+ Ventilator Mode VC+ Ventilator Mode VC+ Ventilator Mode VC+ Ventilator Mode VC+ Ventilator Tidal Volume 650 Setting Ventilator Tidal Volume 650 Setting Ventilator Tidal Volume 650 Setting Ventilator Tidal Volume 650 Setting Ventilator Tidal Volume 650 Setting Ventilator Tidal Volume 650 Setting Ventilator Tidal Volume 650 Setting Ventilator Tidal Volume 650 Setting Ventilator Tidal Volume 650 Setting Ventilator Tidal Volume 650 Setting Ventilator Respiratory Rate 18 Setting Ventilator Respiratory Rate 18 Setting Ventilator Respiratory Rate 18 Setting Ventilator Respiratory Rate 18 Setting Ventilator Respiratory Rate 18 Setting Ventilator Respiratory Rate 18 Setting Ventilator Respiratory Rate 18 Setting Ventilator Respiratory Rate 18 Setting Ventilator Respiratory Rate 18 Setting Ventilator Respiratory Rate 18 Setting Actual Respiratory Rate 18 Actual Respiratory Rate 18 Actual Respiratory Rate 18 Actual Respiratory Rate 18 Actual Respiratory Rate 18 Actual Respiratory Rate 18 Actual Respiratory Rate 18 Actual Respiratory Rate 18 Actual Respiratory Rate 18 Actual Respiratory Rate 18 Positive End Expiratory 10 Pressure Positive End Expiratory 10 Pressure Positive End Expiratory 10 Pressure Positive End Expiratory 10 Pressure Positive End Expiratory 10 Pressure Positive End Expiratory 10 Pressure Positive End Expiratory 10 Pressure Positive End Expiratory 10 Pressure Positive End Expiratory 10 Pressure Positive End Expiratory 10 Pressure Peak Inspiratory Airway 35 Pressure Peak Inspiratory Airway 35 Pressure Peak Inspiratory Airway 34 Pressure Peak Inspiratory Airway 36 Pressure Peak Inspiratory Airway 36 Pressure Peak Inspiratory Airway 37 Pressure Peak Inspiratory Airway 39 Pressure Peak Inspiratory Airway 32 Pressure Peak Inspiratory Airway 32 Pressure Peak Inspiratory Airway 32 Pressure Results - Laboratory Findings CBC and BMP: 07/23/17 14:25 07/23/17 14:25 ABG ABG pH 7.36 pH Units (7.32-7.45) 07/23/17 08:58 ABG pCO2 40 mmHg (35-45) 07/23/17 08:58 ABG pO2 75 mmHg (85-104) L D 07/23/17 08:58 ABG O2 Saturation 94 % (95-98) L 07/23/17 08:58 PT/INR, D-dimer PT 14.5 Seconds (9.4-12.1) H 07/23/17 05:08 Abnormal lab findings: Abnormal lab results WBC 18.7 K/mcL (4.3-11.1) H 07/23/17 14:25 RBC 3.68 M/mcL (4.19-5.50) L 07/23/17 14:25 Hgb 10.1 g/dL (12.9-16.9) L 07/23/17 14:25 Hct 31.6 % (37.5-50.1) L 07/23/17 14:25 MCH 27.4 pg (28.0-33.3) L 07/23/17 14:25 RDW 16.6 % (11.5-14.5) H 07/23/17 14:25 MPV 8.6 fL (9.4-12.4) L 07/23/17 14:25 Neutrophils # 16.2 K/mcL (1.6-8.9) H 07/23/17 14:25 ESR >= 130 mm/hr (0-10) H 07/22/17 17:58 PT 14.5 Seconds (9.4-12.1) H 07/23/17 05:08 ABG pO2 75 mmHg (85-104) L D 07/23/17 08:58 ABG O2 Saturation 94 % (95-98) L 07/23/17 08:58 ABG Base Excess -3 mEq/L (-2 to 3) L 07/23/17 08:58 Sodium 133 mEq/L (136-145) L 07/23/17 14:25 BUN 31 mg/dL (8-26) H 07/23/17 14:25 Creatinine 3.57 mg/dL (0.72-1.25) H 07/23/17 14:25 Est GFR ( Amer) 21 (> 60) L 07/23/17 14:25 Est GFR (Non-Af Amer) 17 (> 60) L 07/23/17 14:25 Glucose 226 mg/dL (70-99) H 07/23/17 14:25 POC Glucose 194 (58-89) H 07/23/17 17:16 Calcium 8.2 mg/dL (8.6-10.8) L 07/23/17 14:25 Ionized Calcium 1.12 mmol/L (1.15-1.35) L 07/23/17 14:25 Phosphorus 4.9 mg/dL (2.3-4.7) H 07/23/17 05:08 Magnesium 1.3 mg/dL (1.6-2.6) L 07/23/17 14:25 AST 62 Units/L (5-34) H 07/23/17 14:25 Alkaline Phosphatase 167 Units/L (38-126) H 07/23/17 14:25 C-Reactive Protein 177 mg/L (Less than 5) H 07/22/17 17:58 Serum Total Protein 5.7 g/dL (6.0-8.3) L 07/23/17 14:25 Albumin 1.8 g/dL (3.5-5.0) L 07/23/17 14:25 Globulin 3.9 g/dL (2.4-3.5) H 07/23/17 14:25 Albumin/Globulin Ratio 0.5 (1.1-2.2) L 07/23/17 14:25 - Clinical Findings Intake & Output: Intake & Output 07/23/17 07/23/17 07/23/17 07:59 15:59 23:59 Intake Total 658 / 2584 332 / 332 Output Total 2600 / 2600 Balance -1942 / -16 332 / 332 - Attending Attestation I reviewed the documentation i agree with documentation regarding history and physical examination with some additional points , patient is in a nut shell is a end stage Hepatocellular Ca with ascites due to Cirrhosis causing V/Q mismatch due to bilateral pleural effusion and bilateral pneumonia which was present in the CT abdomen and pelvis which was done earlier part of this week. Labs and radiology was reviewed the latest CXR showed all lines in place with bilateral pleural effusion , with bilateral lower lobe consolidative opacity. SURGICAL INSTRUMENT REPAIR SPECIALIST : Patient is intubated and sedated not following commands. RS: Patient has severe hypoxic respiratory failure secondary to V/Q mismatch due to bilateral pleural effusion due to end stage liver and renal disease , ascites causing this bilateral pleural effusion , patient initially had refractory hypoxia required higher PEEP within matter of 2 hours his O2 requirements dropped down to 40% with PEEP of 10 with this ascites and obesity he will need atleast 8 of PEEP , patient lung mechanics was getting better as he was having session of ultrafiltration. CVS : Hemodynamically stable secondary to ?septic shock vs Sedation , patient has new baseline blood pressure due to his advanced end stage liver disease . To continue vasopressors . GI : NPO/PPI , has end stage liver disease with Cirrhosis and Advanced HCC as evidenced by CT abdomen and pelvis which was done earlier this week. Will add midodrine ID : Seymour cultured will continue broad spectrum antibiotics Renal : ESRD has a permacath had a ultrafiltration session. Code status : According to family patient changed to Full code from [id number] when he had the respiratory distress Family : POA daughter spoke with all family progressing in their grief reaction from denial to anger , family stated that this intubation patient wanted it as he is not ready for supportive measures only. I spent 50 minutes of Critical care time in making medical decisions to prevent further decline of his vital organ function and support the care of his vital organs .
[2017-07-23] MEDS ORDERED: 0.9 % Sodium Chloride 2,000 ML ONE (08:38)
[2017-07-23] MEDS: Piperacillin/Tazobactam 3.375 GM in D5% in Water 50 ML IVPB SCH ×2 (08:40→17:00)
[2017-07-23] MEDS: Lacri-Lube 3.5 GM TUBE BOTH EYES SCH ×5 (08:58→23:36)
[2017-07-23] MEDS: Pantoprazole 40 MG VIAL IVP SCH (08:59)
[2017-07-23] MEDS: Chlorhexidine Rinse 15 ML MOUTHWASH MM SCH ×2 (08:59→20:04)
[2017-07-23] MEDS ORDERED: Famotidine 20 MG TABLET PO SCH (09:00)
[2017-07-23 09:01] LABS: ABG Base Excess -3 mEq/L (-2 to 3); ABG HCO3 23 mEq/L (21-27); ABG Oxygen Saturation 94 % (95-98); ABG PCO2 40 mmHg (35-45); ABG PH 7.36 pH Units (7.32-7.45); ABG PO2 75 mmHg (85-104); ABG TCO2 24 mEq/L (20-26); Blood Gas Modality ASSIST CONTROL; Blood Gas PEEP 10 cm H2O; Blood Gas Respiration Rate 18; Blood Gas VT 650 cc
[2017-07-23] MEDS ORDERED: 0.9 % Sodium Chloride 250 ML IVC PRN (09:01)
--- NOTE | 2017-07-23 09:09 | Nephrology Consult Note ---
Date of Encounter: 07/23/17 Time of Encounter: 08:05 Assessment and Plan (1) ESRD (end stage renal disease) on dialysis Current Visit: Yes Status: Acute Had full HD yesterday. Will do UF today for anasarca/ascites/fluid overload, as tolerated given on pressor/midodrine for blood pressure support. Orders given. Will monitor History of Present Illness - Reason for Consult end stage renal disease - History of Present Illness Mr. Dixon is a 66 year old male with hepatocellular carcinoma, chronic ascites with therapeutic scheduled paracentesis and anasarca with ESRD requiring dialysis. Other PMH-A. fib on Coumadin, diastolic CHF, diabetes type 2 insulin-dependent, cirrhosis, ascites, prior septic shock, right embolization of hepatic artery. Mr Dixon was recently discharged from [place] to home with [facility]. Mr. Dixon was to continue outpatient HD which he received his full treatment yesterday and was transferred to [place] following for scheduled paracentesis. Mr. Dixon is currently intubated, sedated and on one pressor. Following events obtained from daughter at bedside. IR was not available for paracentesis, patient subsequently having increased shortness of breath and had paracentesis in ER times 4 liters. The daughter states patient improved and was to be kept overnight for permanent pleural cath to peritoneum so family would be able to drain ascitic fluid at home. During the night patient became SOB and increased distress. Daughter states patient wanted everything done and hospice protocol relinquished, patient intubated and placed in ICU. Past Med Surg Social Fam HX - Past Medical History Medical history: cancer, diabetes, dialysis, hyperlipidemia, other Psychiatric history: no psych history - Past Surgical History Surgical History: hip replacement, other - Social History Smoking Status: Former smoker Smokeless Tobacco Status: No Alcohol use: none Drug use: none - Family History Father Living Status: Hx Family Cardiac Disorders: Yes Mother Living Status: Hx Family Cancer: Yes Medications and Allergies Promethazine [Phenergan] 25 mg PO Q6HR PRN #60 tablet 05/19/17 [Rx] Ascorbic Acid [Vitamin C] 500 mg PO BID 07/15/17 [History] B Complex W-C No.20/Folic Acid [Nephrocaps Softgel] 1 mg PO DAILY 07/15/17 [ History] Rifaximin [Xifaxan] 550 mg PO BID 07/15/17 [History] Omeprazole [PriLOSEC] 40 mg PO DAILY #30 cap 07/19/17 [Rx] OxyCODONE Immed Rel [Roxicodone 5 MG] 5 mg PO Q4HR PRN #120 tablet 07/19/17 [Rx] Ranitidine HCl [Zantac] 150 mg PO BID #60 tablet 07/19/17 [Rx] 3 Allergy/AdvReac Type Severity Reaction Status Date / Time Hydromorphone [From Dilaudid] Allergy Itching Verified 07/15/17 14:47 heparin AdvReac See Verified 07/15/17 14:51 Comments Review of Systems All Systems: reviewed and no additional remarkable complaints except as stated Exam - Vital Signs Vital signs: Initial Vital Signs Temp Pulse Resp BP Pulse Ox 97.6 F 105 22 95/52 95 07/22/17 17:31 07/22/17 17:31 07/22/17 17:31 07/22/17 17:31 07/22/17 17:31 Vital Signs - Last 8 Hours Temp Pulse Resp BP Pulse Ox 07/23/17 08:00 78 18 78/43 98 07/23/17 07:48 98.6 F 07/23/17 07:30 80 07/23/17 07:00 79 18 78/43 98 07/23/17 06:31 18 43/26 91 07/23/17 06:00 103 18 76/40 91 07/23/17 05:00 107 07/23/17 04:41 19 139/57 81 07/23/17 04:38 98.6 F 112 23 139/57 80 07/23/17 03:47 97.6 F 99 19 74/42 96 Intake and Output 07/22/17 07/23/17 07/23/17 23:59 07:59 15:59 Intake Total Output Total 0 / 0 Balance Intake: IV Fluids Levophed 4 MG In Dextrose 5% 250 ML @ 5 MCG/MIN 19.05 mls/hr IVC CONT [facility] Rx#:[id number] Oral 0 / 0 Output: Urine 0 / 0 Other: Weight 181.3 kg Blood Glucose* 165 Patient Weight 07/23/17 23:59 Weight 181.3 kg - General Appearance General appearance: well-developed, well-nourished, appears started age, obese, sedated on ventilator, intubated EENT: mucous membranes moist Neck: no JVD Respiratory: course breath sounds Cardiology: regular rate, regular rhythm Additional Comments: anasarca/ascites - Dialysis Access Dialysis Vascular Access: Venous Catheter Gastrointestinal: hypoactive bowel sounds Integumentary: warm and dry Results - Lab Results 07/23/17 05:08 07/23/17 05:08 Most recent lab results ABG pH 7.30 pH Units (7.32-7.45) L 07/23/17 04:32 ABG pCO2 54 mmHg (35-45) H 07/23/17 04:32 ABG pO2 35 mmHg (85-104) L* 07/23/17 04:32 ABG HCO3 26 mEq/L (21-27) 07/23/17 04:32 ABG O2 Saturation 59 % (95-98) L 07/23/17 04:32 Calcium 8.4 mg/dL (8.6-10.8) L 07/23/17 05:08 Phosphorus 4.9 mg/dL (2.3-4.7) H 07/23/17 05:08 Magnesium 1.5 mg/dL (1.6-2.6) L 07/23/17 05:08 Consult Discharge Plan - Plan Referrals: Alicia Pastrana MD [Primary Care Provider] -
[2017-07-23] MEDS ORDERED: 0.9 % Sodium Chloride 1,000 ML PRIME SCH (09:15)
[2017-07-23 14:35] LABS: Basophils # 0.1 K/mcL (0.0-0.2); Basophils % 0.3 %; Eosinophils # 0.1 K/mcL (0.0-0.6); Eosinophils % 0.4 %; Hematocrit 31.6 % (37.5-50.1); Hemoglobin 10.1 g/dL (12.9-16.9); Immature Granulocytes % 1.2 % (0-4); Lymphocytes # 1.1 K/mcL (0.6-4.6); Lymphocytes % 6.1 %; Mean Corpuscular Hemoglobin 27.4 pg (28.0-33.3); Mean Corpuscular Volume 85.9 fL (83.0-100.0); Mean Platelet Volume 8.6 fL (9.4-12.4); Monocytes # 1.1 K/mcL (0.0-1.3); Monocytes % 5.8 %; Neutrophils # 16.2 K/mcL (1.6-8.9); Platelet Count 196 K/mcL (140-400); Red Blood Count 3.68 M/mcL (4.19-5.50); Red Cell Distribution Width 16.6 % (11.5-14.5); Segmented Neutrophils % 86.2 %
[2017-07-23 14:48] LABS: Albumin/Globulin Ratio 0.5 (1.1-2.2); Bilirubin,Total 0.8 mg/dL (0.2-1.2); Calcium 8.2 mg/dL (8.6-10.8); Globulin 3.9 g/dL (2.4-3.5); Magnesium 1.3 mg/dL (1.6-2.6); Potassium 3.7 mEq/L (3.5-4.5); Total Protein 5.7 g/dL (6.0-8.3)
[2017-07-23 14:49] LABS: Albumin 1.8 g/dL (3.5-5.0)
[2017-07-23] MEDS ORDERED: Dextrose Gel 15 GM PO PRN ×2 (14:54)
[2017-07-23] MEDS ORDERED: *HR* Dextrose 50 % in Water (Syg) 50 ML SYRINGE IVP PRN (14:54)
[2017-07-23] MEDS ORDERED: D5% in Water 1,000 ML IVC PRN (14:54)
[2017-07-23 14:55] LABS: Ionized Calcium 1.12 mmol/L (1.15-1.35)
[2017-07-23] MEDS ORDERED: Potassium Chloride 40 MEQ/200 ML BAG IVPB PRN (14:56)
[2017-07-23] MEDS ORDERED: Potassium Phosphate 44 MEQ in 0.9 % Sodium Chloride 250 ML IVPB PRN (14:56)
[2017-07-23] MEDS: Insulin LISPRO 300 UNITS/3 ML VIAL SQ SCH ×2 (17:18→23:36)
[2017-07-24] MEDS: Norepinephrine 4 MG in D5% in Water 250 ML IVC SCH ×5 (01:42→17:09)
[2017-07-24] MEDS: FentaNYL (PF) 1,000 MCG in 0.9 % Sodium Chloride 80 ML IVC SCH ×4 (02:45→22:32)
[2017-07-24] MEDS: Lacri-Lube 3.5 GM TUBE BOTH EYES SCH ×6 (03:27→23:40)
[2017-07-24 03:58] LABS: ABG Base Excess -2 mEq/L (-2 to 3); ABG HCO3 22 mEq/L (21-27); ABG Oxygen Saturation 96 % (95-98); ABG PCO2 31 mmHg (35-45); ABG PH 7.45 pH Units (7.32-7.45); ABG PO2 77 mmHg (85-104); ABG TCO2 23 mEq/L (20-26); Blood Gas Modality VC; Blood Gas PEEP 10 cm H2O; Blood Gas Respiration Rate 18; Blood Gas VT 650 cc
[2017-07-24 05:43] LABS: Magnesium 1.9 mg/dL (1.6-2.6); Phosphorous 4.6 mg/dL (2.3-4.7); Potassium 3.7 mEq/L (3.5-4.5)
[2017-07-24] MEDS: Piperacillin/Tazobactam 3.375 GM in D5% in Water 50 ML IVPB SCH ×2 (06:17→17:01)
[2017-07-24] MEDS: Insulin LISPRO 300 UNITS/3 ML VIAL SQ SCH ×4 (06:23→23:40)
[2017-07-24] MEDS: Pantoprazole 40 MG VIAL IVP SCH (07:03)
[2017-07-24] MEDS: Renal Vitamin 1 MG CAPSULE PO SCH (07:04)
[2017-07-24] MEDS: (Rifaximin [Xifaxan] 550 MG) PO SCH ×2 (07:04→20:15)
[2017-07-24] MEDS: Chlorhexidine Rinse 15 ML MOUTHWASH MM SCH ×2 (07:04→20:15)
--- NOTE | 2017-07-24 07:34 | Pulmonology Progress Note ---
<JosephLolis - Last Filed: 07/24/17 10:46> Date of Encounter: 07/24/17 Time of Encounter: 07:34 Assessment and Plan (1) Acute respiratory failure with hypoxia Current Visit: No Status: Acute Severe hypoxic respiratory failure secondary to V/Q mismatch due to bilateral pleural effusion, with ESRD and end stage liver disease. ABG and vent settings adjusted with attending. Goal to wean down levophed, goal MAP 50 due to patient's ESRD CXR,ABG in AM (2) HCC (hepatocellular carcinoma) Current Visit: Yes Status: Chronic End stage liver disease. Pt previous ICU hospitalization Code a few days ago= DNAR/DNI. Now Full Code, per family's wishes while pt in ED. (3) Ascites Current Visit: Yes Status: Acute IR consult for palliative permanent catheher placement Nephrology on consult, removed 2 L of fluid via UF yesterday for anasarca/ ascites/fluid overload. Continue On pressor/midodrine TID for blood pressure support. Qualifiers: Ascites type: malignant Qualified Code(s): R18.0 - Malignant ascites (4) ESRD (end stage renal disease) on dialysis Current Visit: Yes Status: Acute Poor urine output, none this AM. Nephrology on consult, completed Ultrafiltration yesterday. (5) Sacral decubitus ulcer Current Visit: Yes Status: Chronic Sacral decubitis ulcer re-examined this morning. Noted appropriate wound care this morning with multiple RNs for care. Pt was additionally re-positioned. Qualifiers: Pressure ulcer stage: stage 3 Qualified Code(s): L89.153 - Pressure ulcer of sacral region, stage 3 (6) DVT prophylaxis Current Visit: No Status: Acute History of thrombocytpenia with heparin administration Intermittent compression devices Subjective Principal diagnosis: Severe hypoxic respiratory failure Interval history: Pt remains intubated, Arouses following movement during changing of re- dressing of sacral ulcer. Objective PUL Vital signs: Last Vital Signs Temp 99.4 F 07/24/17 04:00 Pulse 96 07/24/17 07:15 Resp 18 07/24/17 07:00 BP 84/45 07/24/17 07:00 Pulse Ox 97 07/24/17 07:00 General appearance: other (morbidly obese, remains sedated ) Eyes: nonicteric (opened eyes during re-positioning,) ENT: other (endotracheal tube in place) Neck: supple Auscultation: bilateral: other (coarse breath sounds ) Cardiovascular: regular rate and rhythm Gastrointestinal: hypoactive bowel sounds, soft, other (obese) Extremities: edema (bilateral LE pitting edema, stasis dermatitis on both LE ) unable to assess due to mental status lines reviewed, no evidence of infection Ventilator Settings Ventilator Settings: Ventilator Settings, Last 8 Hours Ventilator Mode VC+ Ventilator Mode VC+ Ventilator Mode VC+ Ventilator Mode VC+ Ventilator Mode VC+ Ventilator Mode VC+ Ventilator Mode VC+ Ventilator Mode VC+ Ventilator Mode VC+ Ventilator Mode VC+ Ventilator Mode VC+ Ventilator Mode VC+ Ventilator Mode VC+ Ventilator Tidal Volume 650 Setting Ventilator Tidal Volume 650 Setting Ventilator Tidal Volume 650 Setting Ventilator Tidal Volume 650 Setting Ventilator Tidal Volume 650 Setting Ventilator Tidal Volume 650 Setting Ventilator Tidal Volume 650 Setting Ventilator Tidal Volume 650 Setting Ventilator Tidal Volume 650 Setting Ventilator Tidal Volume 650 Setting Ventilator Tidal Volume 650 Setting Ventilator Tidal Volume 650 Setting Ventilator Tidal Volume 650 Setting Ventilator Respiratory Rate 18 Setting Ventilator Respiratory Rate 18 Setting Ventilator Respiratory Rate 18 Setting Ventilator Respiratory Rate 18 Setting Ventilator Respiratory Rate 18 Setting Ventilator Respiratory Rate 18 Setting Ventilator Respiratory Rate 18 Setting Ventilator Respiratory Rate 18 Setting Ventilator Respiratory Rate 18 Setting Ventilator Respiratory Rate 18 Setting Ventilator Respiratory Rate 18 Setting Ventilator Respiratory Rate 18 Setting Ventilator Respiratory Rate 18 Setting Actual Respiratory Rate 18 Actual Respiratory Rate 18 Actual Respiratory Rate 18 Actual Respiratory Rate 18 Actual Respiratory Rate 18 Actual Respiratory Rate 18 Actual Respiratory Rate 18 Actual Respiratory Rate 18 Actual Respiratory Rate 18 Actual Respiratory Rate 18 Actual Respiratory Rate 18 Positive End Expiratory 10 Pressure Positive End Expiratory 10 Pressure Positive End Expiratory 10 Pressure Positive End Expiratory 10 Pressure Positive End Expiratory 10 Pressure Positive End Expiratory 10 Pressure Positive End Expiratory 10 Pressure Positive End Expiratory 10 Pressure Positive End Expiratory 10 Pressure Positive End Expiratory 10 Pressure Positive End Expiratory 10 Pressure Positive End Expiratory 10 Pressure Positive End Expiratory 10 Pressure Peak Inspiratory Airway 33 Pressure Peak Inspiratory Airway 33 Pressure Peak Inspiratory Airway 33 Pressure Peak Inspiratory Airway 33 Pressure Peak Inspiratory Airway 35 Pressure Peak Inspiratory Airway 35 Pressure Peak Inspiratory Airway 37 Pressure Peak Inspiratory Airway 33 Pressure Peak Inspiratory Airway 34 Pressure Peak Inspiratory Airway 33 Pressure Peak Inspiratory Airway 32 Pressure Peak Inspiratory Airway 32 Pressure Results - Laboratory Findings CBC and BMP: 07/24/17 07:40 07/24/17 07:40 ABG ABG pH 7.45 pH Units (7.32-7.45) 07/24/17 03:53 ABG pCO2 31 mmHg (35-45) L 07/24/17 03:53 ABG pO2 77 mmHg (85-104) L 07/24/17 03:53 ABG O2 Saturation 96 % (95-98) 07/24/17 03:53 PT/INR, D-dimer PT 14.5 Seconds (9.4-12.1) H 07/23/17 05:08 Abnormal lab findings: Abnormal lab results WBC 18.7 K/mcL (4.3-11.1) H 07/23/17 14:25 RBC 3.68 M/mcL (4.19-5.50) L 07/23/17 14:25 Hgb 10.1 g/dL (12.9-16.9) L 07/23/17 14:25 Hct 31.6 % (37.5-50.1) L 07/23/17 14:25 MCH 27.4 pg (28.0-33.3) L 07/23/17 14:25 RDW 16.6 % (11.5-14.5) H 07/23/17 14:25 MPV 8.6 fL (9.4-12.4) L 07/23/17 14:25 Neutrophils # 16.2 K/mcL (1.6-8.9) H 07/23/17 14:25 ESR >= 130 mm/hr (0-10) H 07/22/17 17:58 PT 14.5 Seconds (9.4-12.1) H 07/23/17 05:08 ABG pCO2 31 mmHg (35-45) L 07/24/17 03:53 ABG pO2 77 mmHg (85-104) L 07/24/17 03:53 Sodium 132 mEq/L (136-145) L 07/24/17 05:28 BUN 34 mg/dL (8-26) H 07/24/17 05:28 Creatinine 3.82 mg/dL (0.72-1.25) H 07/24/17 05:28 Est GFR ( Amer) 19 (> 60) L 07/24/17 05:28 Est GFR (Non-Af Amer) 16 (> 60) L 07/24/17 05:28 Glucose 183 mg/dL (70-99) H 07/24/17 05:28 POC Glucose 184 (58-89) H 07/23/17 23:23 Calcium 8.0 mg/dL (8.6-10.8) L 07/24/17 05:28 Ionized Calcium 1.11 mmol/L (1.15-1.35) L 07/24/17 05:28 AST 62 Units/L (5-34) H 07/23/17 14:25 Alkaline Phosphatase 167 Units/L (38-126) H 07/23/17 14:25 C-Reactive Protein 177 mg/L (Less than 5) H 07/22/17 17:58 Serum Total Protein 5.7 g/dL (6.0-8.3) L 07/23/17 14:25 Albumin 1.8 g/dL (3.5-5.0) L 07/23/17 14:25 Globulin 3.9 g/dL (2.4-3.5) H 07/23/17 14:25 Albumin/Globulin Ratio 0.5 (1.1-2.2) L 07/23/17 14:25 - Microbiology Findings Microbiology Findings: Microbiology, Last 48 Hours 07/23/17 16:50 Sputum Culture - Preliminary Sputum - Clinical Findings Intake & Output: Intake & Output 07/23/17 07/23/17 07/24/17 15:59 23:59 07:59 Intake Total 658 / 2584 932 / 932 1023 / 1023 Output Total 2600 / 2600 0 / 0 0 / 0 Balance -1942 / -16 932 / 932 1023 / 1023 Weight 183.4 kg Consult Discharge Plan - Plan Referrals: Alicia Pastrana MD [Primary Care Provider] - <Nixon Cardozo - Last Filed: 07/24/17 15:18> Date of Encounter: 07/24/17 Objective PUL Vital signs: Last Vital Signs Temp 98.4 F 07/24/17 11:00 Pulse 86 07/24/17 14:00 Resp 18 07/24/17 14:00 BP 64/36 07/24/17 14:00 Pulse Ox 99 07/24/17 14:00 Ventilator Settings Ventilator Settings: Ventilator Settings, Last 8 Hours Ventilator Mode VC+ Ventilator Mode VC+ Ventilator Mode VC+ Ventilator Mode VC+ Ventilator Mode VC+ Ventilator Mode VC+ Ventilator Mode VC+ Ventilator Mode VC+ Ventilator Tidal Volume 600 Setting Ventilator Tidal Volume 600 Setting Ventilator Tidal Volume 600 Setting Ventilator Tidal Volume 600 Setting Ventilator Tidal Volume 18 Setting Ventilator Tidal Volume 600 Setting Ventilator Tidal Volume 600 Setting Ventilator Tidal Volume 600 Setting Ventilator Respiratory Rate 18 Setting Ventilator Respiratory Rate 18 Setting Ventilator Respiratory Rate 18 Setting Ventilator Respiratory Rate 19 Setting Ventilator Respiratory Rate 600 Setting Ventilator Respiratory Rate 18 Setting Ventilator Respiratory Rate 18 Setting Ventilator Respiratory Rate 18 Setting Actual Respiratory Rate 18 Actual Respiratory Rate 18 Actual Respiratory Rate 18 Actual Respiratory Rate 21 Actual Respiratory Rate 617 Actual Respiratory Rate 19 Actual Respiratory Rate 18 Actual Respiratory Rate 18 Positive End Expiratory 8 Pressure Positive End Expiratory 8 Pressure Positive End Expiratory 8 Pressure Positive End Expiratory 8 Pressure Positive End Expiratory 8 Pressure Positive End Expiratory 8 Pressure Positive End Expiratory 8 Pressure Positive End Expiratory 10 Pressure Peak Inspiratory Airway 30 Pressure Peak Inspiratory Airway 30 Pressure Peak Inspiratory Airway 30 Pressure Peak Inspiratory Airway 29 Pressure Peak Inspiratory Airway 29 Pressure Peak Inspiratory Airway 31 Pressure Peak Inspiratory Airway 31 Pressure Peak Inspiratory Airway 29 Pressure Results - Laboratory Findings CBC and BMP: 07/24/17 07:40 07/24/17 07:40 ABG ABG pH 7.45 pH Units (7.32-7.45) 07/24/17 03:53 ABG pCO2 31 mmHg (35-45) L 07/24/17 03:53 ABG pO2 77 mmHg (85-104) L 07/24/17 03:53 ABG O2 Saturation 96 % (95-98) 07/24/17 03:53 PT/INR, D-dimer PT 14.5 Seconds (9.4-12.1) H 07/23/17 05:08 Abnormal lab findings: Abnormal lab results WBC 14.9 K/mcL (4.3-11.1) H 07/24/17 07:40 RBC 3.53 M/mcL (4.19-5.50) L 07/24/17 07:40 Hgb 9.7 g/dL (12.9-16.9) L 07/24/17 07:40 Hct 30.0 % (37.5-50.1) L 07/24/17 07:40 MCH 27.5 pg (28.0-33.3) L 07/24/17 07:40 RDW 16.8 % (11.5-14.5) H 07/24/17 07:40 MPV 8.5 fL (9.4-12.4) L 07/24/17 07:40 Neutrophils # 12.1 K/mcL (1.6-8.9) H 07/24/17 07:40 ESR >= 130 mm/hr (0-10) H 07/22/17 17:58 PT 14.5 Seconds (9.4-12.1) H 07/23/17 05:08 ABG pCO2 31 mmHg (35-45) L 07/24/17 03:53 ABG pO2 77 mmHg (85-104) L 07/24/17 03:53 Sodium 130 mEq/L (136-145) L 07/24/17 07:40 Chloride 96 mEq/L (98-109) L 07/24/17 07:40 BUN 34 mg/dL (8-26) H 07/24/17 07:40 Creatinine 3.89 mg/dL (0.72-1.25) H 07/24/17 07:40 Est GFR ( Amer) 19 (> 60) L 07/24/17 07:40 Est GFR (Non-Af Amer) 16 (> 60) L 07/24/17 07:40 Glucose 190 mg/dL (70-99) H 07/24/17 07:40 POC Glucose 168 (58-89) H 07/24/17 10:52 Calcium 7.9 mg/dL (8.6-10.8) L 07/24/17 07:40 Ionized Calcium 1.11 mmol/L (1.15-1.35) L 07/24/17 05:28 AST 62 Units/L (5-34) H 07/23/17 14:25 Alkaline Phosphatase 167 Units/L (38-126) H 07/23/17 14:25 C-Reactive Protein 177 mg/L (Less than 5) H 07/22/17 17:58 Serum Total Protein 5.7 g/dL (6.0-8.3) L 07/23/17 14:25 Albumin 1.8 g/dL (3.5-5.0) L 07/23/17 14:25 Globulin 3.9 g/dL (2.4-3.5) H 07/23/17 14:25 Albumin/Globulin Ratio 0.5 (1.1-2.2) L 07/23/17 14:25 Vancomycin Trough 22.9 mcg/mL (10-20) H* 07/24/17 07:40 - Microbiology Findings Microbiology Findings: Microbiology, Last 48 Hours 07/23/17 16:50 Sputum Culture - Preliminary Sputum - Clinical Findings Intake & Output: Intake & Output 07/23/17 07/24/17 07/24/17 23:59 07:59 15:59 Intake Total 932 / 932 1183 / 1183 692 / 692 Output Total 0 / 0 0 / 0 Balance 932 / 932 1183 / 1183 692 / 692 Weight 183.4 kg - Attending Attestation I reviewed the documentation i agree with documentation regarding history and physical examination with some additional points , patient is in a nut shell is a end stage Hepatocellular Ca with ascites due to Cirrhosis causing V/Q mismatch due to bilateral pleural effusion and bilateral pneumonia which was present in the CT abdomen and pelvis which was done earlier part of this week. Labs and radiology was reviewed the latest CXR showed all lines in place with bilateral pleural effusion , with bilateral lower lobe consolidative opacity. 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 RS: Patient has hypoxic respiratory failure secondary to V/Q mismatch due to bilateral pleural effusion due to end stage liver and renal disease , ascites causing this bilateral pleural effusion , after yesterday ultrafiltration session O2 requirements stable coming down on PEEP . Will bring down TV for lung protective strategy , gas exchange adequate. CVS : Hemodynamically stable secondary to ?septic shock vs Sedation , patient has new baseline blood pressure due to his advanced end stage liver disease . To continue vasopressors and liberate it with a MAP goal of 50 GI : NPO/PPI , has end stage liver disease with Cirrhosis and Advanced HCC as evidenced by CT abdomen and pelvis which was done earlier this week. Will add midodrine ID : Seymour cultured to follow cultures will continue broad spectrum antibiotics Renal : ESRD has a permacath had a ultrafiltration session yesterday appreciate Nephrology input Code status : According to family patient changed to Full code from DNRADNI when he had the respiratory distress Family : POA daughter spoke with all family progressing in their grief reaction from denial to anger , family stated that this intubation patient wanted it as he is not ready for supportive measures only. Spent 40 minutes of critical care time in making medical decision making to maintain vital organ function and preventing further decline.
[2017-07-24 07:49] LABS: Basophils % 0.2 %; Eosinophils # 0.1 K/mcL (0.0-0.6); Eosinophils % 0.7 %; Hemoglobin 9.7 g/dL (12.9-16.9); Immature Granulocytes % 1.1 % (0-4); Lymphocytes # 1.4 K/mcL (0.6-4.6); Lymphocytes % 9.5 %; Mean Corpuscular HGB Conc 32.3 g/dL (31.6-35.5); Mean Corpuscular Hemoglobin 27.5 pg (28.0-33.3); Mean Platelet Volume 8.5 fL (9.4-12.4); Monocytes % 6.8 %; Neutrophils # 12.1 K/mcL (1.6-8.9); Platelet Count 208 K/mcL (140-400); Red Blood Count 3.53 M/mcL (4.19-5.50); Red Cell Distribution Width 16.8 % (11.5-14.5); Segmented Neutrophils % 81.7 %
[2017-07-24 08:01] LABS: Calcium 7.9 mg/dL (8.6-10.8); Potassium 3.6 mEq/L (3.5-4.5)
[2017-07-24] MEDS: Albumin 25% 25gram/100mL 25 GM/100 ML IV.SOLN IVC SCH ×2 (08:18→08:26)
--- NOTE | 2017-07-24 08:55 | Nephrology Progress Note ---
Date of Encounter: 07/24/17 Time of Encounter: 08:40 - Assessment and Plan (1) ESRD (end stage renal disease) on dialysis Current Visit: Yes Status: Acute UF yesterday for anasarca/ascites/fluid overload. On pressor/midodrine for blood pressure support. No immediate need for HD/UF today. Will monitor Subjective Interval history: Intubated, slightly sedated, on one pressor. Arouses when name called, nods head appropriately to questions. Objective - Vital Signs Vital signs: Vital Signs Temp Pulse Resp BP Pulse Ox 07/24/17 08:04 100.3 F H 07/24/17 07:39 18 97 07/24/17 07:15 96 07/24/17 07:00 98 18 84/45 97 07/24/17 06:00 98 18 96/47 98 07/24/17 05:21 18 83/42 96 07/24/17 05:00 93 18 80/38 96 07/24/17 04:00 99.4 F 96 18 78/48 97 07/24/17 03:37 18 83/48 96 07/24/17 03:00 86 18 80/46 96 07/24/17 02:00 93 18 86/50 95 07/24/17 01:32 18 91/50 96 07/24/17 01:00 91 18 92/46 96 07/24/17 00:00 98.9 F 86 18 85/49 96 07/23/17 23:45 18 76/42 95 07/23/17 23:29 85 07/23/17 23:00 86 18 84/45 94 07/23/17 22:00 83 18 81/39 94 07/23/17 21:45 18 97 07/23/17 21:00 85 18 87/45 97 07/23/17 20:15 18 87/45 98 07/23/17 20:00 83 18 88/45 98 07/23/17 19:46 84 07/23/17 19:00 85 18 89/49 98 07/23/17 18:36 18 97 07/23/17 18:00 84 18 92/46 97 07/23/17 17:00 80 18 75/41 97 07/23/17 16:17 18 98 07/23/17 16:00 82 18 93/56 98 07/23/17 15:00 84 18 82/49 97 07/23/17 13:47 18 91 07/23/17 13:00 86 18 90/51 97 07/23/17 12:20 97.9 F 16 106/50 07/23/17 12:10 82/40 07/23/17 12:00 90 18 92/42 95 07/23/17 11:55 89/41 07/23/17 11:47 18 95 07/23/17 11:40 81/41 07/23/17 11:25 85/43 Intake and Output 07/23/17 07/24/17 07/24/17 23:59 07:59 15:59 Intake Total 932 / 932 1183 / 1183 281 / 281 Output Total 0 / 0 0 / 0 Balance 932 / 932 1183 / 1183 281 / 281 Intake: IV Fluids 932 / 932 1183 / 1183 281 / 281 Flexbumin 25 gm In 100 ml @ 60 200 / 200 mls/hr IVC .Q1H40M [facility] Rx#: [id number] FentaNYL (PF) 1,000 MCG In 0.9 100 / 100 175 / 175 25 / 25 % Sodium Chloride 80 ML @ 50 MCG/HR 5 mls/hr IVC CONT [facility] Rx #:[id number] Levophed 4 MG In Dextrose 5% 432 / 432 758 / 758 56 / 56 250 ML @ 5 MCG/MIN 19.05 mls/hr IVC CONT [facility] Rx#:[id number] Diprivan 1,000 mg In 100 ml @ 300 / 300 200 / 200 10 MCG/KG/MIN 10.878 mls/hr IVC .Q9H12M [facility] Rx#:[id number] Magnesium Sulfate Premix 2gm/ 50 / 50 50 / 50 50mL 2 gm In 50 ml @ 50 mls/hr IVPB Q6H PRN Rx#:[id number] Zosyn 3.375 GM In Dextrose 5% ( 50 / 50 ADD-Henry) 50 ML @ 12.5 mls/ hr IVPB Q12HR [facility] Rx#: [id number] Oral 0 / 0 0 / 0 Output: Urine 0 / 0 0 / 0 Other: Stool Size Large Stool Consistency loose Stool Color Brown # Bowel Movements 1 Weight 183.4 kg Blood Glucose* 184 Patient Weight 07/24/17 23:59 Weight 183.4 kg - General Appearance General appearance: Present: well-developed, well-nourished, appears started age EENT: Present: mucous membranes moist Neck: Present: no JVD Respiratory: Present: clear Cardiology: Present: edema, regular rate, regular rhythm Additional Comments: anasarca, ascites Dialysis Vascular Access: Venous Catheter Gastrointestinal: Present: normoactive bowel sounds, distended Integumentary: Present: warm and dry Psychiatric: Present: mood/affect appropriate, cooperative - Lab 07/24/17 07:40 07/24/17 07:40 Most recent lab results ABG pH 7.45 pH Units (7.32-7.45) 07/24/17 03:53 ABG pCO2 31 mmHg (35-45) L 07/24/17 03:53 ABG pO2 77 mmHg (85-104) L 07/24/17 03:53 ABG HCO3 22 mEq/L (21-27) 07/24/17 03:53 ABG O2 Saturation 96 % (95-98) 07/24/17 03:53 Calcium 7.9 mg/dL (8.6-10.8) L 07/24/17 07:40 Phosphorus 4.6 mg/dL (2.3-4.7) 07/24/17 05:28 Magnesium 1.9 mg/dL (1.6-2.6) 07/24/17 05:28 Consult Discharge Plan - Plan Referrals: Alicia Pastrana MD [Primary Care Provider] -
--- NOTE | 2017-07-24 17:41 | Electrocardiograph Report ---
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
--- NOTE | 2017-07-24 17:53 | Electrocardiograph Report ---
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
[2017-07-25] MEDS: Norepinephrine 4 MG in D5% in Water 250 ML IVC SCH ×5 (01:04→19:24)
[2017-07-25 03:51] LABS: Basophils % 0.4 %; Eosinophils # 0.2 K/mcL (0.0-0.6); Eosinophils % 1.9 %; Hematocrit 26.4 % (37.5-50.1); Hemoglobin 8.5 g/dL (12.9-16.9); Immature Granulocytes % 1.8 % (0-4); Lymphocytes # 1.2 K/mcL (0.6-4.6); Lymphocytes % 10.3 %; Mean Corpuscular HGB Conc 32.2 g/dL (31.6-35.5); Mean Corpuscular Hemoglobin 27.7 pg (28.0-33.3); Mean Platelet Volume 8.7 fL (9.4-12.4); Monocytes # 0.9 K/mcL (0.0-1.3); Neutrophils # 8.9 K/mcL (1.6-8.9); Platelet Count 164 K/mcL (140-400); Red Blood Count 3.07 M/mcL (4.19-5.50); Red Cell Distribution Width 16.7 % (11.5-14.5); Segmented Neutrophils % 77.6 %
[2017-07-25 03:56] LABS: INR 1.4; Prothrombin Time 15.5 Seconds (9.4-12.1)
[2017-07-25 04:01] LABS: Magnesium 1.8 mg/dL (1.6-2.6)
[2017-07-25 04:02] LABS: Potassium 3.8 mEq/L (3.5-4.5)
[2017-07-25 04:03] LABS: Calcium 7.9 mg/dL (8.6-10.8)
[2017-07-25 04:05] LABS: Ionized Calcium 1.08 mmol/L (1.15-1.35)
[2017-07-25] MEDS: Insulin LISPRO 300 UNITS/3 ML VIAL SQ SCH ×3 (04:19→18:15)
[2017-07-25] MEDS: Lacri-Lube 3.5 GM TUBE BOTH EYES SCH ×5 (04:19→19:23)
[2017-07-25 04:51] LABS: ABG Base Excess -3 mEq/L (-2 to 3); ABG HCO3 22 mEq/L (21-27); ABG Oxygen Saturation 95 % (95-98); ABG PCO2 40 mmHg (35-45); ABG PH 7.36 pH Units (7.32-7.45); ABG PO2 77 mmHg (85-104); ABG TCO2 23 mEq/L (20-26); Blood Gas Modality ASSIST CONTROL; Blood Gas PEEP 8 cm H2O; Blood Gas Respiration Rate 18; Blood Gas VT 530 cc
[2017-07-25] MEDS: Piperacillin/Tazobactam 3.375 GM in D5% in Water 50 ML IVPB SCH ×2 (05:04→18:21)
[2017-07-25] MEDS: FentaNYL (PF) 1,000 MCG in 0.9 % Sodium Chloride 80 ML IVC SCH ×3 (05:26→20:18)
[2017-07-25] MEDS ORDERED: *HR* Midazolam HCl 2 MG/2 ML VIAL IV ONE (07:41)
[2017-07-25] MEDS ORDERED: *HR* Succinylcholine 200 MG/10 ML VIAL IVP ONE (07:41)
[2017-07-25] MEDS ORDERED: Aminoglycoside Consult 1 EACH MC ONE (08:06)
[2017-07-25] MEDS: Pantoprazole 40 MG VIAL IVP SCH (08:24)
[2017-07-25] MEDS: Chlorhexidine Rinse 15 ML MOUTHWASH MM SCH ×2 (08:24→19:29)
[2017-07-25] MEDS: (Rifaximin [Xifaxan] 550 MG) PO SCH (08:26)
[2017-07-25] MEDS: Renal Vitamin 1 MG CAPSULE PO SCH (08:29)
--- NOTE | 2017-07-25 08:33 | Pulmonology Progress Note ---
<RussBenji kramer - Last Filed: 07/25/17 11:39> Date of Encounter: 07/25/17 Time of Encounter: 08:33 Assessment and Plan (1) Acute respiratory failure with hypoxia Current Visit: No Status: Acute Etiology unclear at this time however likely multifactorial given his diffuse edema and anasarca on dialysis as well as intra-abdominal pressure due to large volume ascites. Continue mechanical ventilation. Meeting today with family to discuss ultimate goals of care. (2) HCC (hepatocellular carcinoma) Current Visit: Yes Status: Chronic (3) ESRD (end stage renal disease) on dialysis Current Visit: Yes Status: Acute Patient is due for dialysis today however given his hemodynamic instability we will hold off on dialysis at this time. Given the advanced nature of his cancer and poor prognosis as well as his instability it is unclear if the patient would tolerate further dialysis in the future. We will have discussions with family as well as the slip cover estimator regarding future dialysis. (4) Ascites Current Visit: Yes Status: Acute Patient had large-volume paracentesis in the ER on admission. Respiratory status appeared to improve for a short period of time. We will continue to monitor for need of repeat paracentesis or possible indwelling catheter for palliative relief of his ascites at home. Qualifiers: Ascites type: malignant Qualified Code(s): R18.0 - Malignant ascites (5) Sacral decubitus ulcer Current Visit: Yes Status: Chronic Present on admission. Continue daily wound care. Judicious use of patient positioning to prevent worsening of decubitus ulcer. Qualifiers: Pressure ulcer stage: stage 3 Qualified Code(s): L89.153 - Pressure ulcer of sacral region, stage 3 Subjective Principal diagnosis: Severe hypoxic respiratory failure Interval history: Patient seen and examined at bedside. Patient remains intubated and sedated. He does not appear to be in any acute distress. Objective PUL Vital signs: Last Vital Signs Temp 98.5 F 07/25/17 08:00 Pulse 93 07/25/17 08:00 Resp 18 07/25/17 08:00 BP 70/37 07/25/17 08:00 Pulse Ox 99 07/25/17 08:00 General appearance: no acute distress ENT: oropharynx moist Auscultation: bilateral: rhonchi Cardiovascular: regular rate and rhythm Gastrointestinal: hypoactive bowel sounds, soft, non-tender, other (Mildly distended) Extremities: no cyanosis, no clubbing, anasarca unable to assess due to mental status Ventilator Settings Ventilator Settings: Ventilator Settings, Last 8 Hours Ventilator Mode VC+ Ventilator Mode VC+ Ventilator Mode VC+ Ventilator Mode VC+ Ventilator Mode VC+ Ventilator Mode VC+ Ventilator Mode VC+ Ventilator Mode VC+ Ventilator Mode VC+ Ventilator Mode VC+ Ventilator Mode VC+ Ventilator Mode VC+ Ventilator Mode VC+ Ventilator Tidal Volume 530 Setting Ventilator Tidal Volume 530 Setting Ventilator Tidal Volume 530 Setting Ventilator Tidal Volume 530 Setting Ventilator Tidal Volume 530 Setting Ventilator Tidal Volume 530 Setting Ventilator Tidal Volume 530 Setting Ventilator Tidal Volume 530 Setting Ventilator Tidal Volume 530 Setting Ventilator Tidal Volume 530 Setting Ventilator Tidal Volume 530 Setting Ventilator Tidal Volume 530 Setting Ventilator Tidal Volume 530 Setting Ventilator Respiratory Rate 18 Setting Ventilator Respiratory Rate 18 Setting Ventilator Respiratory Rate 18 Setting Ventilator Respiratory Rate 18 Setting Ventilator Respiratory Rate 18 Setting Ventilator Respiratory Rate 18 Setting Ventilator Respiratory Rate 18 Setting Ventilator Respiratory Rate 18 Setting Ventilator Respiratory Rate 18 Setting Ventilator Respiratory Rate 18 Setting Ventilator Respiratory Rate 18 Setting Ventilator Respiratory Rate 18 Setting Ventilator Respiratory Rate 18 Setting Actual Respiratory Rate 18 Actual Respiratory Rate 18 Actual Respiratory Rate 18 Actual Respiratory Rate 18 Actual Respiratory Rate 18 Actual Respiratory Rate 18 Actual Respiratory Rate 18 Actual Respiratory Rate 18 Actual Respiratory Rate 18 Actual Respiratory Rate 18 Actual Respiratory Rate 18 Actual Respiratory Rate 18 Positive End Expiratory 8 Pressure Positive End Expiratory 8 Pressure Positive End Expiratory 8 Pressure Positive End Expiratory 8 Pressure Positive End Expiratory 8 Pressure Positive End Expiratory 8 Pressure Positive End Expiratory 8 Pressure Positive End Expiratory 8 Pressure Positive End Expiratory 8 Pressure Positive End Expiratory 8 Pressure Positive End Expiratory 8 Pressure Positive End Expiratory 8 Pressure Positive End Expiratory 8 Pressure Peak Inspiratory Airway 30 Pressure Peak Inspiratory Airway 31 Pressure Peak Inspiratory Airway 31 Pressure Peak Inspiratory Airway 31 Pressure Peak Inspiratory Airway 31 Pressure Peak Inspiratory Airway 31 Pressure Peak Inspiratory Airway 32 Pressure Peak Inspiratory Airway 34 Pressure Peak Inspiratory Airway 32 Pressure Peak Inspiratory Airway 32 Pressure Peak Inspiratory Airway 32 Pressure Peak Inspiratory Airway 38 Pressure Results - Laboratory Findings CBC and BMP: 07/25/17 03:40 07/25/17 03:40 ABG ABG pH 7.36 pH Units (7.32-7.45) 07/25/17 04:48 ABG pCO2 40 mmHg (35-45) 07/25/17 04:48 ABG pO2 77 mmHg (85-104) L 07/25/17 04:48 ABG O2 Saturation 95 % (95-98) 07/25/17 04:48 PT/INR, D-dimer PT 15.5 Seconds (9.4-12.1) H 07/25/17 03:40 Abnormal lab findings: Abnormal lab results WBC 11.4 K/mcL (4.3-11.1) H 07/25/17 03:40 RBC 3.07 M/mcL (4.19-5.50) L 07/25/17 03:40 Hgb 8.5 g/dL (12.9-16.9) L 07/25/17 03:40 Hct 26.4 % (37.5-50.1) L 07/25/17 03:40 MCH 27.7 pg (28.0-33.3) L 07/25/17 03:40 RDW 16.7 % (11.5-14.5) H 07/25/17 03:40 MPV 8.7 fL (9.4-12.4) L 07/25/17 03:40 ESR >= 130 mm/hr (0-10) H 07/22/17 17:58 PT 15.5 Seconds (9.4-12.1) H 07/25/17 03:40 ABG pO2 77 mmHg (85-104) L 07/25/17 04:48 ABG Base Excess -3 mEq/L (-2 to 3) L 07/25/17 04:48 Sodium 130 mEq/L (136-145) L 07/25/17 03:40 Chloride 96 mEq/L (98-109) L 07/25/17 03:40 BUN 36 mg/dL (8-26) H 07/25/17 03:40 Creatinine 4.31 mg/dL (0.72-1.25) H 07/25/17 03:40 Est GFR ( Amer) 17 (> 60) L 07/25/17 03:40 Est GFR (Non-Af Amer) 14 (> 60) L 07/25/17 03:40 Glucose 122 mg/dL (70-99) H 07/25/17 03:40 POC Glucose 147 (58-89) H 07/24/17 23:39 Calcium 7.9 mg/dL (8.6-10.8) L 07/25/17 03:40 Ionized Calcium 1.08 mmol/L (1.15-1.35) L 07/25/17 03:40 Phosphorus 6.0 mg/dL (2.3-4.7) H 07/25/17 03:40 AST 62 Units/L (5-34) H 07/23/17 14:25 Alkaline Phosphatase 167 Units/L (38-126) H 07/23/17 14:25 C-Reactive Protein 177 mg/L (Less than 5) H 07/22/17 17:58 Serum Total Protein 5.7 g/dL (6.0-8.3) L 07/23/17 14:25 Albumin 1.8 g/dL (3.5-5.0) L 07/23/17 14:25 Globulin 3.9 g/dL (2.4-3.5) H 07/23/17 14:25 Albumin/Globulin Ratio 0.5 (1.1-2.2) L 07/23/17 14:25 Vancomycin Trough 20.9 mcg/mL (10-20) H* 07/25/17 08:00 - Microbiology Findings Microbiology Findings: Microbiology, Last 48 Hours 07/23/17 16:50 Sputum Culture - Preliminary Sputum - Clinical Findings Intake & Output: Intake & Output 07/24/17 07/25/17 07/25/17 23:59 07:59 15:59 Intake Total 627 / 627 863 / 863 100 / 100 Output Total 0 / 0 0 / 0 Balance 627 / 627 863 / 863 100 / 100 Weight 184.2 kg Consult Discharge Plan - Plan Referrals: Alicia Pastrana MD [Primary Care Provider] - <Miko Calderón - Last Filed: 07/25/17 13:29> Date of Encounter: 07/25/17 Objective PUL Vital signs: Last Vital Signs Temp 98.5 F 07/25/17 08:00 Pulse 93 07/25/17 08:00 Resp 18 07/25/17 08:00 BP 70/37 07/25/17 08:00 Pulse Ox 99 07/25/17 08:00 Ventilator Settings Ventilator Settings: Ventilator Settings, Last 8 Hours Ventilator Mode VC+ Ventilator Mode VC+ Ventilator Mode VC+ Ventilator Mode VC+ Ventilator Mode VC+ Ventilator Mode VC+ Ventilator Mode VC+ Ventilator Mode VC+ Ventilator Mode VC+ Ventilator Mode VC+ Ventilator Mode VC+ Ventilator Mode VC+ Ventilator Tidal Volume 530 Setting Ventilator Tidal Volume 530 Setting Ventilator Tidal Volume 530 Setting Ventilator Tidal Volume 530 Setting Ventilator Tidal Volume 530 Setting Ventilator Tidal Volume 530 Setting Ventilator Tidal Volume 530 Setting Ventilator Tidal Volume 530 Setting Ventilator Tidal Volume 530 Setting Ventilator Tidal Volume 530 Setting Ventilator Tidal Volume 530 Setting Ventilator Tidal Volume 530 Setting Ventilator Respiratory Rate 18 Setting Ventilator Respiratory Rate 18 Setting Ventilator Respiratory Rate 18 Setting Ventilator Respiratory Rate 18 Setting Ventilator Respiratory Rate 18 Setting Ventilator Respiratory Rate 18 Setting Ventilator Respiratory Rate 18 Setting Ventilator Respiratory Rate 18 Setting Ventilator Respiratory Rate 18 Setting Ventilator Respiratory Rate 18 Setting Ventilator Respiratory Rate 18 Setting Ventilator Respiratory Rate 18 Setting Actual Respiratory Rate 18 Actual Respiratory Rate 18 Actual Respiratory Rate 18 Actual Respiratory Rate 18 Actual Respiratory Rate 18 Actual Respiratory Rate 18 Actual Respiratory Rate 18 Actual Respiratory Rate 18 Actual Respiratory Rate 18 Actual Respiratory Rate 18 Actual Respiratory Rate 18 Positive End Expiratory 8 Pressure Positive End Expiratory 8 Pressure Positive End Expiratory 8 Pressure Positive End Expiratory 8 Pressure Positive End Expiratory 8 Pressure Positive End Expiratory 8 Pressure Positive End Expiratory 8 Pressure Positive End Expiratory 8 Pressure Positive End Expiratory 8 Pressure Positive End Expiratory 8 Pressure Positive End Expiratory 8 Pressure Positive End Expiratory 8 Pressure Peak Inspiratory Airway 30 Pressure Peak Inspiratory Airway 31 Pressure Peak Inspiratory Airway 31 Pressure Peak Inspiratory Airway 31 Pressure Peak Inspiratory Airway 31 Pressure Peak Inspiratory Airway 31 Pressure Peak Inspiratory Airway 32 Pressure Peak Inspiratory Airway 34 Pressure Peak Inspiratory Airway 32 Pressure Peak Inspiratory Airway 32 Pressure Peak Inspiratory Airway 32 Pressure Results - Laboratory Findings CBC and BMP: 07/25/17 03:40 07/25/17 03:40 ABG ABG pH 7.36 pH Units (7.32-7.45) 07/25/17 04:48 ABG pCO2 40 mmHg (35-45) 07/25/17 04:48 ABG pO2 77 mmHg (85-104) L 07/25/17 04:48 ABG O2 Saturation 95 % (95-98) 07/25/17 04:48 PT/INR, D-dimer PT 15.5 Seconds (9.4-12.1) H 07/25/17 03:40 Abnormal lab findings: Abnormal lab results WBC 11.4 K/mcL (4.3-11.1) H 07/25/17 03:40 RBC 3.07 M/mcL (4.19-5.50) L 07/25/17 03:40 Hgb 8.5 g/dL (12.9-16.9) L 07/25/17 03:40 Hct 26.4 % (37.5-50.1) L 07/25/17 03:40 MCH 27.7 pg (28.0-33.3) L 07/25/17 03:40 RDW 16.7 % (11.5-14.5) H 07/25/17 03:40 MPV 8.7 fL (9.4-12.4) L 07/25/17 03:40 ESR >= 130 mm/hr (0-10) H 07/22/17 17:58 PT 15.5 Seconds (9.4-12.1) H 07/25/17 03:40 ABG pO2 77 mmHg (85-104) L 07/25/17 04:48 ABG Base Excess -3 mEq/L (-2 to 3) L 07/25/17 04:48 Sodium 130 mEq/L (136-145) L 07/25/17 03:40 Chloride 96 mEq/L (98-109) L 07/25/17 03:40 BUN 36 mg/dL (8-26) H 07/25/17 03:40 Creatinine 4.31 mg/dL (0.72-1.25) H 07/25/17 03:40 Est GFR ( Amer) 17 (> 60) L 07/25/17 03:40 Est GFR (Non-Af Amer) 14 (> 60) L 07/25/17 03:40 Glucose 122 mg/dL (70-99) H 07/25/17 03:40 POC Glucose 147 (58-89) H 07/24/17 23:39 Calcium 7.9 mg/dL (8.6-10.8) L 07/25/17 03:40 Ionized Calcium 1.08 mmol/L (1.15-1.35) L 07/25/17 03:40 Phosphorus 6.0 mg/dL (2.3-4.7) H 07/25/17 03:40 AST 62 Units/L (5-34) H 07/23/17 14:25 Alkaline Phosphatase 167 Units/L (38-126) H 07/23/17 14:25 C-Reactive Protein 177 mg/L (Less than 5) H 07/22/17 17:58 Serum Total Protein 5.7 g/dL (6.0-8.3) L 07/23/17 14:25 Albumin 1.8 g/dL (3.5-5.0) L 07/23/17 14:25 Globulin 3.9 g/dL (2.4-3.5) H 07/23/17 14:25 Albumin/Globulin Ratio 0.5 (1.1-2.2) L 07/23/17 14:25 Vancomycin Trough 20.9 mcg/mL (10-20) H* 07/25/17 08:00 - Microbiology Findings Microbiology Findings: Microbiology, Last 48 Hours 07/23/17 16:50 Sputum Culture - Preliminary Sputum - Clinical Findings Intake & Output: Intake & Output 07/24/17 07/25/17 07/25/17 23:59 07:59 15:59 Intake Total 627 / 627 863 / 863 100 / 100 Output Total 0 / 0 0 / 0 Balance 627 / 627 863 / 863 100 / 100 Weight 184.2 kg - Attending Attestation I examined this patient and my medical decision-making was reviewed with the Resident Physician. I agree with the documented findings, disposition and treatment plan as described except to the extent set forth below. We independently had [id number] contact with the patient I spent 35min of Critical Care time with this patient. It involved decision making of high complexity to assess, manipulate, and support vital organ system failure and/or to prevent further life threatening deterioration of the patient' s condition. The time involved in the performance of separately reportable procedures was not counted toward critical care time. Patient seen and examined at bedside Labs, radiology, chart personally reviewed. Management was reviewed during multidisciplinary critical care rounds. MALT SPECIFICATIONS CONTROL ASSISTANT: Intubated sedated. Opens eyes to commands. Wean sedation for goal MANDY 2 Pulm: Acute on chronic respiratory failure on Vent. No candidate for SBT today because of Shock Cards: Vasodiliatory shock s/t to Sepsis complicated by ESRD and Cirrhosis. Cont Vasopressor (increased dose.) FEN-GI: PPi prophylaxis. given. Will need periodic paracentesis for comfort. Renal: ESRD. Nephro following no dialysis planned today. ID: [id number] Antimicrobials for presumed/possible. PSDA or MRSA PNA.Wean based upon Micro S/S Heme/Onc: Chronic Anemia Stable. DVT prophylaxis given Endo: Glucose Monitored Integ/MSK: Skin Care per routine ICU Nursing Protocol to prevent ulcers. Lines: All lines examined without evidence of infection : Dispo: ICU for Vent/Vasopressor support CODE: Full Code Poor prognosis Palliative Care consulted. I spoke with the family the adult daughter Susan and patient's at bedside. They understand that patient's overall prognosis is extremely poor but we will like to continue with aggressive measures at this time in an effort to fulfill patient's wishes. I see from medical standpoint that he does have a terminal illness and that his chance of recovery to return home as he did last time is very unlikely I also expressed that cardiopulmonary resuscitation in this situation would be considered unadvisable. They wanted some time to consider all of this.The patient is unable to participate in giving a history and/or making treatment decisions. The discussion was necessary for determining treatment decision. This discussion took place in the ICU. The total meeting time was 15min
--- NOTE | 2017-07-25 08:35 | Nephrology Progress Note ---
Date of Encounter: 07/25/17 Time of Encounter: 08:33 - Assessment and Plan (1) ESRD (end stage renal disease) on dialysis Current Visit: Yes Status: Acute The patient is scheduled for dialysis today. However he has significant hypotension and is requiring levo fed for blood pressure support. This is occurring in the setting of hepatocellular carcinoma with a poor prognosis. We are going to not proceed with dialysis today because he is hemodynamically unstable. There will be additional discussions with the family regarding whether or not to continue aggressive care. (2) Hepatocellular carcinoma Current Visit: No Status: Acute (3) Cirrhosis of liver with ascites Current Visit: No Status: Chronic Qualifiers: Hepatic cirrhosis type: unspecified hepatic cirrhosis Qualified Code(s): K74.60 - Unspecified cirrhosis of liver (4) Acute respiratory failure with hypoxia Current Visit: No Status: Acute Subjective Principal diagnosis: Severe hypoxic respiratory failure Interval history: The patient remains intubated. He is requiring levo fed at 17 mics per minute for blood pressure support. Blood pressures running around 80/41. Objective - Vital Signs Vital signs: Vital Signs Temp Pulse Resp BP Pulse Ox 07/25/17 08:00 98.5 F 93 18 70/37 99 07/25/17 07:28 18 80/41 96 07/25/17 07:00 93 18 81/41 96 07/25/17 06:24 18 70/36 99 07/25/17 06:00 87 18 63/30 98 07/25/17 05:00 83 18 84/37 96 07/25/17 04:21 18 81/40 94 07/25/17 04:00 98.9 F 89 18 79/35 93 07/25/17 03:16 86 07/25/17 03:00 87 18 86/39 97 07/25/17 02:52 20 87/43 100 07/25/17 02:00 88 18 75/38 85 07/25/17 01:00 83 18 81/40 95 07/25/17 00:21 19 79/37 95 07/25/17 00:00 98.7 F 84 18 76/37 94 07/24/17 23:45 86 07/24/17 23:00 85 18 73/39 98 07/24/17 22:08 18 77/40 98 07/24/17 22:00 84 18 77/40 98 07/24/17 21:00 77 18 78/38 98 07/24/17 20:31 98.5 F 07/24/17 20:00 82 18 88/44 98 07/24/17 19:50 18 74/42 98 07/24/17 19:21 83 07/24/17 19:00 85 18 82/48 98 07/24/17 18:00 74 18 87/48 98 07/24/17 17:52 18 98 07/24/17 17:00 74 15 96/49 97 07/24/17 16:00 82 18 100/50 98 07/24/17 15:26 18 99 07/24/17 15:24 99.1 F 07/24/17 15:00 88 18 79/42 99 07/24/17 14:00 86 18 64/36 99 07/24/17 13:45 18 97 07/24/17 13:00 80 18 89/44 98 07/24/17 12:00 85 18 108/51 989 07/24/17 11:17 18 98 07/24/17 11:00 98.4 F 88 18 88/44 98 07/24/17 10:18 18 97 07/24/17 09:00 94 18 77/42 97 Intake and Output 07/24/17 07/25/17 07/25/17 23:59 07:59 15:59 Intake Total 627 / 627 863 / 863 100 / 100 Output Total 0 / 0 0 / 0 Balance 627 / 627 863 / 863 100 / 100 Intake: IV Fluids 627 / 627 863 / 863 100 / 100 FentaNYL (PF) 1,000 MCG In 0.9 100 / 100 100 / 100 % Sodium Chloride 80 ML @ 50 MCG/HR 5 mls/hr IVC CONT [facility] Rx #:[id number] Levophed 4 MG In Dextrose 5% 277 / 277 453 / 453 250 ML @ 5 MCG/MIN 19.05 mls/hr IVC CONT [facility] Rx#:[id number] Diprivan 1,000 mg In 100 ml @ 200 / 200 200 / 200 100 / 100 10 MCG/KG/MIN 10.878 mls/hr IVC .Q9H12M [facility] Rx#:[id number] Calcium Gluconate 1,000 MG In 0 60 / 60 .9 % Sodium Chloride 50 ML @ 111 mls/hr IVPB Q6HR PRN Rx#: [id number] Magnesium Sulfate Premix 2gm/ 50 / 50 50mL 2 gm In 50 ml @ 50 mls/hr IVPB Q6H PRN Rx#:[id number] Zosyn 3.375 GM In Dextrose 5% ( 50 / 50 ADD-[place]) 50 ML @ 12.5 mls/ hr IVPB Q12HR [facility] Rx#: [id number] Output: Urine 0 / 0 0 / 0 Other: Stool Size Large Stool Consistency loose Stool Color Brown # Bowel Movements 1 Weight 184.2 kg Blood Glucose* 160 147 Patient Weight 07/25/17 23:59 Weight 184.2 kg - General Appearance Exam: The patient does not his head in response to questions. Lungs coarse breath sounds. Heart regular rate and rhythm. Abdomen is distended with ascites. Lower extremities show 3-4+ lower extremity swelling. There is a tunnel dialysis catheter in the right chest. - Lab 07/25/17 03:40 07/25/17 03:40 Most recent lab results ABG pH 7.36 pH Units (7.32-7.45) 07/25/17 04:48 ABG pCO2 40 mmHg (35-45) 07/25/17 04:48 ABG pO2 77 mmHg (85-104) L 07/25/17 04:48 ABG HCO3 22 mEq/L (21-27) 07/25/17 04:48 ABG O2 Saturation 95 % (95-98) 07/25/17 04:48 Calcium 7.9 mg/dL (8.6-10.8) L 07/25/17 03:40 Phosphorus 6.0 mg/dL (2.3-4.7) H 07/25/17 03:40 Magnesium 1.8 mg/dL (1.6-2.6) 07/25/17 03:40 Consult Discharge Plan - Plan Referrals: Alicia Pastrana MD [Primary Care Provider] -
[2017-07-25] MEDS: Albumin 25% 25gram/100mL 25 GM/100 ML IV.SOLN IVPB SCH ×3 (11:22→22:17)
--- NOTE | 2017-07-25 14:42 | Palliative - Consult Note ---
Date of Encounter: 07/25/17 Time of Encounter: 12:20 - Assessment and Plan (1) Cancer associated pain Current Visit: Yes Status: Acute Assessment and plan: Remains on Fentanyl per ICU protocol. Monitor. Daughter states he typically has only been using 1-2 Oxycodone per day at home. (2) Goals of care, counseling/discussion Current Visit: No Status: Acute Assessment and plan: LOng discussion with daughter, Mony and at bedside. Patient's very passive, and does not participate much with discussion. Defers most questions to daughter. Discussed goals of care. Mony wants to honor her father's wishes , but is afraid her father is making decisions "for us and not himself". They both understand that his cancer is terminal, and that his life expectancy is short. Discussed that if he pulls through this event, this scenario is likely to happen again. He did desire to continue dialysis, also discussed that even if he desires it, his body may not tolerate. Also discussed how we are likely prolonging the dying process rather than extending his life, and what quality of life means to him. Remains full code for now. Patient's daughter also had great concerns as she is having trouble caring for him at home, and pt too frail to assist. Xavier Moffett discussing and researching what else they may be eligible for in terms of additional assistance at home. I believe eventually that code status will likely convert back to DNR, and that they will desire to return home with [facility]. Daughter does need education on comfort meds for dyspnea and anxiety at home. - palliative will speak with [facility] nurse prior to discharge to arrange for education. Will continue to follow. (3) Hepatocellular carcinoma Current Visit: No Status: Acute (4) Acute respiratory failure with hypoxia Current Visit: No Status: Acute Assessment and plan: Pulmonology following (5) ESRD (end stage renal disease) on dialysis Current Visit: Yes Status: Acute Assessment and plan: Nephrology following Palliative-CN HPI - Data of Consult Patient: known to practice within the last 3 years Consult date: 07/25/17 Requesting Physician: Dima West MD Primary Care Provider: Alicia Pastrana, - Consult Narrative History of present illness: Mr. Dixon is a 66 year old male known to the palliative care team from previous hospitalization that was admitted after he began to have respiratory difficulties following paracentesis. He was a patient of [facility] and they had arranged draining of fluid. He was admitted with difficulty in breathing and during that night, had severe respiratory distress. At that time , apparently, he rescinded his DNR and desired full code and intubation. He has history of hepatocellular cancer s/p embolization. Not candidate for further cancer treatment. He is ESRD and received dialysis MWF and is cared for by Dr. Gaitan. He remains intubated and lightly sedated. On IV abd/MDI treatments, and remains on one pressor for hypotension. Noted that pt typically has ran low blood pressure in the hospital. Other pertinent medical history includes: chronic ascites and anasarca, A. fib on Coumadin, diastolic CHF, diabetes type 2 insulin-dependent, prior septic shock. Upon my visit, and daughter are at bedside. Patient is awake/alert and can follow simple commands. Denies being anxious or nervous. Shakes head "yes" that he is uncomfortable. He was enrolled at [facility] prior to admission. They have been notified and are aware that he is here and intubated in ICU. Patient was too hypotensive for dialysis today. CC: Dima West MD Past Med Surg Social Fam HX - Past Medical History Medical history: cancer, diabetes, dialysis, hyperlipidemia, other Psychiatric history: no psych history - Past Surgical History Surgical History: hip replacement, other - Social History Smoking Status: Former smoker Smokeless Tobacco Status: No Alcohol use: none Drug use: none - Family History Father Living Status: Hx Family Cardiac Disorders: Yes Mother Living Status: Hx Family Cancer: Yes Medications and Allergies Promethazine [Phenergan] 25 mg PO Q6HR PRN #60 tablet 05/19/17 [Rx] Ascorbic Acid [Vitamin C] 500 mg PO BID 07/15/17 [History] B Complex W-C No.20/Folic Acid [Nephrocaps Softgel] 1 mg PO DAILY 07/15/17 [ History] Rifaximin [Xifaxan] 550 mg PO BID 07/15/17 [History] Omeprazole [PriLOSEC] 40 mg PO DAILY #30 cap 07/19/17 [Rx] OxyCODONE Immed Rel [Roxicodone 5 MG] 5 mg PO Q4HR PRN #120 tablet 07/19/17 [Rx] Ranitidine HCl [Zantac] 150 mg PO BID #60 tablet 07/19/17 [Rx] 3 Allergy/AdvReac Type Severity Reaction Status Date / Time Hydromorphone [From Dilaudid] Allergy Itching Verified 07/15/17 14:47 heparin AdvReac See Verified 07/15/17 14:51 Comments ROS unobtainable: due to endotracheal tube Palliative Care-Exam - Constitutional Vitals: Temp Pulse Resp BP Pulse Ox 98.6 F 76 18 99/50 97 07/25/17 12:02 07/25/17 14:00 07/25/17 14:00 07/25/17 14:00 07/25/17 14:00 General appearance: Present: morbidly obese - Head Head Exam: Present: normal inspection, normocephalic - Eye Eye exam: Present: normal appearance, PERRL - Respiratory Respiratory exam: Present: decreased breath sounds, CTAB Additional comments: Breath sounds course throughout - Cardiovascular Cardiovascular exam: Present: +S1, +S2 - GI/Abdominal Exam GI/Abdominal exam: Present: distended, normal bowel sounds, soft - Extremities Exam Additional comments: lower extremities edematous - Neurological Exam Neurological exam: Present: alert Additional comments: Remains lightly sedated on vent. Can follow commands. Attempts to communicate - Skin Skin exam: Present: dry, pallor, warm Additional comments: Documented pressure ulcer, not inspected at this time. Internal Medicine - CN: Reslt - Labs CBC & Chem 7: 07/25/17 03:40 07/25/17 03:40 Labs: Short CBC 07/25/17 Range/Units 03:40 WBC 11.4 H (4.3-11.1) K/mcL Hgb 8.5 L (12.9-16.9) g/dL Hct 26.4 L (37.5-50.1) % Plt Count 164 (140-400) K/mcL Neutrophils # 8.9 (1.6-8.9) K/mcL BMP 07/25/17 03:40 Sodium 130 L Potassium 3.8 Chloride 96 L Carbon Dioxide 21 BUN 36 H Creatinine 4.31 H Glucose 122 H Calcium 7.9 L - ABG Interpretation ABG results: ABG ABG pH 7.36 pH Units (7.32-7.45) 07/25/17 04:48 ABG pCO2 40 mmHg (35-45) 07/25/17 04:48 ABG pO2 77 mmHg (85-104) L 07/25/17 04:48 ABG O2 Saturation 95 % (95-98) 07/25/17 04:48 PT/INR, D-dimer PT 15.5 Seconds (9.4-12.1) H 07/25/17 03:40 - Impressions Impressions Chest X-Ray 07/25/17 04:00 IMPRESSION: Improved aeration and re-expansion of the right lung compared to prior examination. Small bilateral pleural effusions with mild bibasilar atelectasis. Improvement of the multifocal airspace opacities. D/ / Benedicto Vargas MD / Benedicto Vargas MD Interpreting Provider: Benedicto Vargas MD Consult Discharge Plan - Plan Referrals: Alicia Pastrana MD [Primary Care Provider] - Palliative Quality Palliative Quality: Screen for Code Status: Yes, Screen for Goals of Care: Yes, Screen for Pain: Yes, Screen for Nausea/Vomitting: Yes
[2017-07-25] MEDS: Hydrocortisone Sodium Succ 100 MG/2 ML VIAL IVP SCH (16:23)
[2017-07-25] MEDS: Vasopressin 40 UNIT in D5% in Water 100 ML IV SCH (19:21)
[2017-07-26] MEDS: Lacri-Lube 3.5 GM TUBE BOTH EYES SCH ×6 (00:06→21:25)
[2017-07-26] MEDS: Hydrocortisone Sodium Succ 100 MG/2 ML VIAL IVP SCH ×3 (00:11→18:14)
[2017-07-26] MEDS: Insulin LISPRO 300 UNITS/3 ML VIAL SQ SCH ×4 (00:11→18:38)
[2017-07-26] MEDS: FentaNYL (PF) 1,000 MCG in 0.9 % Sodium Chloride 80 ML IVC SCH ×2 (02:50→10:59)
[2017-07-26] MEDS: Norepinephrine 4 MG in D5% in Water 250 ML IVC SCH (02:53)
[2017-07-26 04:47] LABS: Basophils % 0.1 %; Hematocrit 26.3 % (37.5-50.1); Hemoglobin 8.4 g/dL (12.9-16.9); Immature Granulocytes % 1.9 % (0-4); Lymphocytes # 0.4 K/mcL (0.6-4.6); Lymphocytes % 4.8 %; Mean Corpuscular HGB Conc 31.9 g/dL (31.6-35.5); Mean Corpuscular Hemoglobin 27.1 pg (28.0-33.3); Mean Corpuscular Volume 84.8 fL (83.0-100.0); Mean Platelet Volume 8.7 fL (9.4-12.4); Monocytes # 0.2 K/mcL (0.0-1.3); Monocytes % 2.2 %; Neutrophils # 6.8 K/mcL (1.6-8.9); Platelet Count 158 K/mcL (140-400); Red Cell Distribution Width 16.3 % (11.5-14.5)
[2017-07-26 04:51] LABS: Ionized Calcium 1.11 mmol/L (1.15-1.35)
[2017-07-26 05:03] LABS: Calcium 8.3 mg/dL (8.6-10.8); Magnesium 2.3 mg/dL (1.6-2.6); Phosphorous 7.3 mg/dL (2.3-4.7); Potassium 4.2 mEq/L (3.5-4.5)
[2017-07-26] MEDS: Albumin 25% 25gram/100mL 25 GM/100 ML IV.SOLN IVPB SCH ×3 (05:16→18:14)
[2017-07-26] MEDS: Piperacillin/Tazobactam 3.375 GM in D5% in Water 50 ML IVPB SCH ×2 (05:17→18:15)
[2017-07-26] MEDS ORDERED: 0.9 % Sodium Chloride 250 ML IVC PRN (08:07)
--- NOTE | 2017-07-26 08:07 | Nephrology Progress Note ---
Date of Encounter: 07/26/17 Time of Encounter: 08:05 - Assessment and Plan (1) ESRD (end stage renal disease) on dialysis Current Visit: Yes Status: Acute The patient did not receive dialysis yesterday because of hypotension. Today his levo fed requirements are less than yesterday. He appears to be a bit more stable. We will attempt dialysis today. His overall prognosis remains poor from the standpoint of his hepatocellular carcinoma. (2) Hepatocellular carcinoma Current Visit: No Status: Acute (3) Cirrhosis of liver with ascites Current Visit: No Status: Chronic Qualifiers: Hepatic cirrhosis type: unspecified hepatic cirrhosis Qualified Code(s): K74.60 - Unspecified cirrhosis of liver (4) Acute respiratory failure with hypoxia Current Visit: No Status: Acute Subjective Principal diagnosis: Severe hypoxic respiratory failure Interval history: The patient is sedated and intubated. Blood pressures a bit more stable. He is only requiring 3 mics per minute of levo fed for blood pressure support. The palliative care note has been reviewed. Apparently the patient's family wishes to continue with dialysis for the time being. Objective - Vital Signs Vital signs: Vital Signs Temp Pulse Resp BP Pulse Ox 07/26/17 07:29 97.6 F 07/26/17 06:27 18 105/61 95 07/26/17 06:00 78 18 105/61 96 07/26/17 05:00 72 18 95/48 96 07/26/17 04:48 18 96/49 96 07/26/17 04:00 98.4 F 73 18 96/49 95 07/26/17 03:46 71 07/26/17 03:00 75 19 113/54 96 07/26/17 02:01 19 107/53 96 07/26/17 02:00 75 18 111/54 95 07/26/17 01:00 74 18 92/46 96 07/26/17 00:19 19 98/50 95 07/26/17 00:14 98.2 F 07/26/17 00:00 70 18 110/54 95 07/25/17 23:32 71 07/25/17 23:00 72 20 107/54 95 07/25/17 22:30 20 94 07/25/17 22:00 73 23 121/59 94 07/25/17 21:00 84 20 111/58 92 07/25/17 20:19 18 130/59 98 07/25/17 20:00 82 18 126/60 97 07/25/17 19:59 98.4 F 07/25/17 19:30 84 07/25/17 19:00 84 18 132/58 97 07/25/17 18:00 80 18 133/58 98 07/25/17 17:25 18 118/53 99 07/25/17 17:00 80 18 117/52 99 07/25/17 16:00 98.2 F 80 18 109/50 99 07/25/17 15:23 18 96/47 98 07/25/17 15:00 77 18 94/47 98 07/25/17 14:00 76 18 99/50 97 07/25/17 13:13 18 77/40 98 07/25/17 13:00 92 20 77/49 97 07/25/17 12:02 98.6 F 07/25/17 12:00 98.6 F 80 18 91/46 97 07/25/17 11:11 18 88/44 98 07/25/17 11:00 82 18 99/57 97 07/25/17 10:00 87 18 81/44 98 07/25/17 09:59 18 82/41 99 07/25/17 09:00 86 18 79/43 99 Intake and Output 07/25/17 07/26/17 07/26/17 23:59 07:59 15:59 Intake Total 904 / 904 604 / 604 Output Total 0 / 0 Balance 904 / 904 604 / 604 Intake: IV Fluids 904 / 904 604 / 604 FentaNYL (PF) 1,000 MCG In 0.9 100 / 100 100 / 100 % Sodium Chloride 80 ML @ 50 MCG/HR 5 mls/hr IVC CONT [facility]OLA Rx #:[id number] Levophed 4 MG In Dextrose 5% 254 / 254 304 / 304 250 ML @ 5 MCG/MIN 19.05 mls/hr IVC CONT [facility]A Rx#:[id number] Diprivan 1,000 mg In 100 ml @ 300 / 300 200 / 200 10 MCG/KG/MIN 10.878 mls/hr IVC .Q9H12M [facility] Rx#:[id number] Flexbumin 25 gm In 100 ml @ 60 200 / 200 mls/hr IVPB Q6H [facility] Rx#: [id number] Zosyn 3.375 GM In Dextrose 5% ( 50 / 50 ADD-[place]) 50 ML @ 12.5 mls/ hr IVPB Q12HR [facility]OLA Rx#: [id number] Oral 0 / 0 Output: Urine 0 / 0 Other: Stool Size Large Stool Consistency loose Stool Color Brown # Bowel Movements 1 Weight 186.8 kg Blood Glucose* 156 204 Patient Weight 07/26/17 23:59 Weight 186.8 kg - General Appearance Exam: The patient is sedated on the ventilator. He is in no acute distress. Lungs coarse breath sounds. Heart regular rate and rhythm. Abdomen exhibits diminished bowel sounds. Abdomen is distended with ascites. There is 3-4+ lower extremity swelling. There is a tunnel dialysis catheter in the chest. - Lab 07/26/17 04:33 07/26/17 04:33 Most recent lab results ABG pH 7.36 pH Units (7.32-7.45) 07/25/17 04:48 ABG pCO2 40 mmHg (35-45) 07/25/17 04:48 ABG pO2 77 mmHg (85-104) L 07/25/17 04:48 ABG HCO3 22 mEq/L (21-27) 07/25/17 04:48 ABG O2 Saturation 95 % (95-98) 07/25/17 04:48 Calcium 8.3 mg/dL (8.6-10.8) L 07/26/17 04:33 Phosphorus 7.3 mg/dL (2.3-4.7) H 07/26/17 04:33 Magnesium 2.3 mg/dL (1.6-2.6) 07/26/17 04:33 Consult Discharge Plan - Plan Referrals: Alicia Pastrana MD [Primary Care Provider] -
[2017-07-26] MEDS ORDERED: 0.9 % Sodium Chloride 2,000 ML ONE (08:39)
[2017-07-26] MEDS: Chlorhexidine Rinse 15 ML MOUTHWASH MM SCH ×2 (08:42→21:25)
[2017-07-26] MEDS: Pantoprazole 40 MG VIAL IVP SCH (08:42)
[2017-07-26] MEDS: Renal Vitamin 1 MG CAPSULE PO SCH (08:44)
--- NOTE | 2017-07-26 08:44 | Pulmonology Progress Note ---
<Benji Mota - Last Filed: 07/26/17 08:42> Date of Encounter: 07/26/17 Time of Encounter: 08:42 Assessment and Plan (1) Acute respiratory failure with hypoxia Current Visit: No Status: Acute Etiology unclear at this time however likely multifactorial given his diffuse edema and anasarca on dialysis as well as intra-abdominal pressure due to large volume ascites. Continue mechanical ventilation. Pressure requirements have decreased, we will attempt spontaneous breathing trial today. We will continue to discuss with family regarding ultimate goals of care. (2) HCC (hepatocellular carcinoma) Current Visit: Yes Status: Chronic (3) ESRD (end stage renal disease) on dialysis Current Visit: Yes Status: Acute Patient normally receives dialysis on Tuesday, Tuesday, Tuesday. He did not receive it yesterday due to hemodynamic instability. Patient is improved today so we will attempt dialysis today per nephrology. (4) Ascites Current Visit: Yes Status: Acute Patient had large-volume paracentesis in the ER on admission. Respiratory status appeared to improve. Patient still has ascites present based on physical exam. Hold off on further paracentesis until discuss further with family. Qualifiers: Ascites type: malignant Qualified Code(s): R18.0 - Malignant ascites (5) Sacral decubitus ulcer Current Visit: Yes Status: Chronic Present on admission. Continue daily wound care. Judicious use of patient positioning to prevent worsening of decubitus ulcer. Qualifiers: Pressure ulcer stage: stage 3 Qualified Code(s): L89.153 - Pressure ulcer of sacral region, stage 3 Subjective Principal diagnosis: Severe hypoxic respiratory failure Interval history: Patient seen and examined at bedside. Patient remains intubated and sedated. He is responsive to verbal stimuli at this time. He does not appear to be in any acute distress. Objective PUL Vital signs: Last Vital Signs Temp 97.6 F 07/26/17 07:29 Pulse 69 07/26/17 08:00 Resp 19 07/26/17 08:16 BP 115/61 07/26/17 08:16 Pulse Ox 95 07/26/17 08:16 General appearance: no acute distress ENT: oropharynx moist Auscultation: bilateral: diminished breath sounds, rales Cardiovascular: regular rate and rhythm Gastrointestinal: hypoactive bowel sounds, soft, non-tender, other (Distended, positive fluid wave) Extremities: no cyanosis, no clubbing, anasarca unable to assess due to mental status Ventilator Settings Ventilator Settings: Ventilator Settings, Last 8 Hours Ventilator Mode VC+ Ventilator Mode VC+ Ventilator Mode VC+ Ventilator Mode VC+ Ventilator Mode VC+ Ventilator Mode VC+ Ventilator Mode VC+ Ventilator Mode VC+ Ventilator Mode VC+ Ventilator Mode VC+ Ventilator Mode VC+ Ventilator Tidal Volume 530 Setting Ventilator Tidal Volume 530 Setting Ventilator Tidal Volume 530 Setting Ventilator Tidal Volume 530 Setting Ventilator Tidal Volume 530 Setting Ventilator Tidal Volume 530 Setting Ventilator Tidal Volume 530 Setting Ventilator Tidal Volume 530 Setting Ventilator Tidal Volume 530 Setting Ventilator Tidal Volume 530 Setting Ventilator Tidal Volume 530 Setting Ventilator Respiratory Rate 18 Setting Ventilator Respiratory Rate 18 Setting Ventilator Respiratory Rate 18 Setting Ventilator Respiratory Rate 18 Setting Ventilator Respiratory Rate 18 Setting Ventilator Respiratory Rate 18 Setting Ventilator Respiratory Rate 18 Setting Ventilator Respiratory Rate 18 Setting Ventilator Respiratory Rate 18 Setting Ventilator Respiratory Rate 18 Setting Ventilator Respiratory Rate 18 Setting Actual Respiratory Rate 19 Actual Respiratory Rate 18 Actual Respiratory Rate 18 Actual Respiratory Rate 18 Actual Respiratory Rate 18 Actual Respiratory Rate 18 Actual Respiratory Rate 18 Actual Respiratory Rate 19 Actual Respiratory Rate 19 Actual Respiratory Rate 18 Actual Respiratory Rate 20 Positive End Expiratory 8 Pressure Positive End Expiratory 8 Pressure Positive End Expiratory 8 Pressure Positive End Expiratory 8 Pressure Positive End Expiratory 8 Pressure Positive End Expiratory 8 Pressure Positive End Expiratory 8 Pressure Positive End Expiratory 8 Pressure Positive End Expiratory 8 Pressure Positive End Expiratory 8 Pressure Positive End Expiratory 8 Pressure Peak Inspiratory Airway 30 Pressure Peak Inspiratory Airway 30 Pressure Peak Inspiratory Airway 31 Pressure Peak Inspiratory Airway 32 Pressure Peak Inspiratory Airway 30 Pressure Peak Inspiratory Airway 29 Pressure Peak Inspiratory Airway 29 Pressure Peak Inspiratory Airway 26 Pressure Peak Inspiratory Airway 28 Pressure Peak Inspiratory Airway 28 Pressure Peak Inspiratory Airway 28 Pressure Results - Laboratory Findings CBC and BMP: 07/26/17 04:33 07/26/17 04:33 ABG ABG pH 7.36 pH Units (7.32-7.45) 07/25/17 04:48 ABG pCO2 40 mmHg (35-45) 07/25/17 04:48 ABG pO2 77 mmHg (85-104) L 07/25/17 04:48 ABG O2 Saturation 95 % (95-98) 07/25/17 04:48 PT/INR, D-dimer PT 15.5 Seconds (9.4-12.1) H 07/25/17 03:40 Abnormal lab findings: Abnormal lab results RBC 3.10 M/mcL (4.19-5.50) L 07/26/17 04:33 Hgb 8.4 g/dL (12.9-16.9) L 07/26/17 04:33 Hct 26.3 % (37.5-50.1) L 07/26/17 04:33 MCH 27.1 pg (28.0-33.3) L 07/26/17 04:33 RDW 16.3 % (11.5-14.5) H 07/26/17 04:33 MPV 8.7 fL (9.4-12.4) L 07/26/17 04:33 Lymphocytes # 0.4 K/mcL (0.6-4.6) L 07/26/17 04:33 ESR >= 130 mm/hr (0-10) H 07/22/17 17:58 PT 15.5 Seconds (9.4-12.1) H 07/25/17 03:40 ABG pO2 77 mmHg (85-104) L 07/25/17 04:48 ABG Base Excess -3 mEq/L (-2 to 3) L 07/25/17 04:48 Sodium 126 mEq/L (136-145) L 07/26/17 04:33 Chloride 93 mEq/L (98-109) L 07/26/17 04:33 BUN 41 mg/dL (8-26) H 07/26/17 04:33 Creatinine 4.62 mg/dL (0.72-1.25) H 07/26/17 04:33 Est GFR ( Amer) 16 (> 60) L 07/26/17 04:33 Est GFR (Non-Af Amer) 13 (> 60) L 07/26/17 04:33 Glucose 190 mg/dL (70-99) H 07/26/17 04:33 POC Glucose 204 (58-89) H 07/25/17 23:57 Calculated Osmolality 277 (280-300) L 07/26/17 04:33 Calcium 8.3 mg/dL (8.6-10.8) L 07/26/17 04:33 Ionized Calcium 1.11 mmol/L (1.15-1.35) L 07/26/17 04:33 Phosphorus 7.3 mg/dL (2.3-4.7) H 07/26/17 04:33 AST 62 Units/L (5-34) H 07/23/17 14:25 Alkaline Phosphatase 167 Units/L (38-126) H 07/23/17 14:25 C-Reactive Protein 177 mg/L (Less than 5) H 07/22/17 17:58 Serum Total Protein 5.7 g/dL (6.0-8.3) L 07/23/17 14:25 Albumin 1.8 g/dL (3.5-5.0) L 07/23/17 14:25 Globulin 3.9 g/dL (2.4-3.5) H 07/23/17 14:25 Albumin/Globulin Ratio 0.5 (1.1-2.2) L 07/23/17 14:25 Vancomycin Trough 20.9 mcg/mL (10-20) H* 07/25/17 08:00 - Microbiology Findings Microbiology Findings: Microbiology, Last 48 Hours 07/23/17 16:50 Sputum Culture - Preliminary Sputum Yeast Species - Clinical Findings Intake & Output: Intake & Output 07/25/17 07/26/17 07/26/17 23:59 07:59 15:59 Intake Total 904 / 904 604 / 604 Output Total 0 / 0 Balance 904 / 904 604 / 604 Weight 186.8 kg Consult Discharge Plan - Plan Referrals: Alicia Pastrana MD [Primary Care Provider] - <Miko Calderón - Last Filed: 07/26/17 12:01> Date of Encounter: 07/26/17 Objective PUL Vital signs: Last Vital Signs Temp 97.6 F 07/26/17 07:29 Pulse 69 07/26/17 08:00 Resp 19 07/26/17 08:16 BP 115/61 07/26/17 08:16 Pulse Ox 95 07/26/17 08:16 Ventilator Settings Ventilator Settings: Ventilator Settings, Last 8 Hours Ventilator Mode VC+ Ventilator Mode VC+ Ventilator Mode VC+ Ventilator Mode VC+ Ventilator Mode VC+ Ventilator Mode VC+ Ventilator Mode VC+ Ventilator Mode VC+ Ventilator Mode VC+ Ventilator Mode VC+ Ventilator Mode VC+ Ventilator Tidal Volume 530 Setting Ventilator Tidal Volume 530 Setting Ventilator Tidal Volume 530 Setting Ventilator Tidal Volume 530 Setting Ventilator Tidal Volume 530 Setting Ventilator Tidal Volume 530 Setting Ventilator Tidal Volume 530 Setting Ventilator Tidal Volume 530 Setting Ventilator Tidal Volume 530 Setting Ventilator Tidal Volume 530 Setting Ventilator Tidal Volume 530 Setting Ventilator Respiratory Rate 18 Setting Ventilator Respiratory Rate 18 Setting Ventilator Respiratory Rate 18 Setting Ventilator Respiratory Rate 18 Setting Ventilator Respiratory Rate 18 Setting Ventilator Respiratory Rate 18 Setting Ventilator Respiratory Rate 18 Setting Ventilator Respiratory Rate 18 Setting Ventilator Respiratory Rate 18 Setting Ventilator Respiratory Rate 18 Setting Ventilator Respiratory Rate 18 Setting Actual Respiratory Rate 19 Actual Respiratory Rate 18 Actual Respiratory Rate 18 Actual Respiratory Rate 18 Actual Respiratory Rate 18 Actual Respiratory Rate 18 Actual Respiratory Rate 18 Actual Respiratory Rate 19 Actual Respiratory Rate 19 Actual Respiratory Rate 18 Actual Respiratory Rate 20 Positive End Expiratory 8 Pressure Positive End Expiratory 8 Pressure Positive End Expiratory 8 Pressure Positive End Expiratory 8 Pressure Positive End Expiratory 8 Pressure Positive End Expiratory 8 Pressure Positive End Expiratory 8 Pressure Positive End Expiratory 8 Pressure Positive End Expiratory 8 Pressure Positive End Expiratory 8 Pressure Positive End Expiratory 8 Pressure Peak Inspiratory Airway 30 Pressure Peak Inspiratory Airway 30 Pressure Peak Inspiratory Airway 31 Pressure Peak Inspiratory Airway 32 Pressure Peak Inspiratory Airway 30 Pressure Peak Inspiratory Airway 29 Pressure Peak Inspiratory Airway 29 Pressure Peak Inspiratory Airway 26 Pressure Peak Inspiratory Airway 28 Pressure Peak Inspiratory Airway 28 Pressure Peak Inspiratory Airway 28 Pressure Results - Laboratory Findings CBC and BMP: 07/26/17 04:33 07/26/17 04:33 ABG ABG pH 7.36 pH Units (7.32-7.45) 07/25/17 04:48 ABG pCO2 40 mmHg (35-45) 07/25/17 04:48 ABG pO2 77 mmHg (85-104) L 07/25/17 04:48 ABG O2 Saturation 95 % (95-98) 07/25/17 04:48 PT/INR, D-dimer PT 15.5 Seconds (9.4-12.1) H 07/25/17 03:40 Abnormal lab findings: Abnormal lab results RBC 3.10 M/mcL (4.19-5.50) L 07/26/17 04:33 Hgb 8.4 g/dL (12.9-16.9) L 07/26/17 04:33 Hct 26.3 % (37.5-50.1) L 07/26/17 04:33 MCH 27.1 pg (28.0-33.3) L 07/26/17 04:33 RDW 16.3 % (11.5-14.5) H 07/26/17 04:33 MPV 8.7 fL (9.4-12.4) L 07/26/17 04:33 Lymphocytes # 0.4 K/mcL (0.6-4.6) L 07/26/17 04:33 ESR >= 130 mm/hr (0-10) H 07/22/17 17:58 PT 15.5 Seconds (9.4-12.1) H 07/25/17 03:40 ABG pO2 77 mmHg (85-104) L 07/25/17 04:48 ABG Base Excess -3 mEq/L (-2 to 3) L 07/25/17 04:48 Sodium 126 mEq/L (136-145) L 07/26/17 04:33 Chloride 93 mEq/L (98-109) L 07/26/17 04:33 BUN 41 mg/dL (8-26) H 07/26/17 04:33 Creatinine 4.62 mg/dL (0.72-1.25) H 07/26/17 04:33 Est GFR ( Amer) 16 (> 60) L 07/26/17 04:33 Est GFR (Non-Af Amer) 13 (> 60) L 07/26/17 04:33 Glucose 190 mg/dL (70-99) H 07/26/17 04:33 POC Glucose 204 (58-89) H 07/25/17 23:57 Calculated Osmolality 277 (280-300) L 07/26/17 04:33 Calcium 8.3 mg/dL (8.6-10.8) L 07/26/17 04:33 Ionized Calcium 1.11 mmol/L (1.15-1.35) L 07/26/17 04:33 Phosphorus 7.3 mg/dL (2.3-4.7) H 07/26/17 04:33 AST 62 Units/L (5-34) H 07/23/17 14:25 Alkaline Phosphatase 167 Units/L (38-126) H 07/23/17 14:25 C-Reactive Protein 177 mg/L (Less than 5) H 07/22/17 17:58 Serum Total Protein 5.7 g/dL (6.0-8.3) L 07/23/17 14:25 Albumin 1.8 g/dL (3.5-5.0) L 07/23/17 14:25 Globulin 3.9 g/dL (2.4-3.5) H 07/23/17 14:25 Albumin/Globulin Ratio 0.5 (1.1-2.2) L 07/23/17 14:25 Vancomycin Trough 20.9 mcg/mL (10-20) H* 07/25/17 08:00 - Microbiology Findings Microbiology Findings: Microbiology, Last 48 Hours 07/23/17 16:50 Sputum Culture - Preliminary Sputum Yeast Species - Clinical Findings Intake & Output: Intake & Output 07/25/17 07/26/17 07/26/17 23:59 07:59 15:59 Intake Total 904 / 904 604 / 604 Output Total 0 / 0 Balance 904 / 904 604 / 604 Weight 186.8 kg - Attending Attestation I examined this patient and my medical decision-making was reviewed with the Resident Physician. I agree with the documented findings, disposition and treatment plan as described except to the extent set forth below. We independently had [id number] contact with the patient Patient seen and examined at bedside Labs, radiology, chart personally reviewed. Management was reviewed during multidisciplinary critical care rounds. 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 wean sedation for goal [facility] 2 Pulm: Respiratory failure on Vent. Settings noted. ABG acceptable oxygenation/ ventilation. SBT after Dialysis Cards:breif episode of bradycardia. Weaning down vassopressors for vasodilatory shock Goal MAP 60 FEN-GI: NPO for now. Renal: ESRD dialysis today ID: Septic shock on ABx with plan to deescalate. Heme/Onc: Mechanical DVT prophylaxis ordered but legs are too large. Heparin Allergy. Endo: Glucose Monitored cont stress dose steroid. Integ/MSK: Skin Care per routine ICU Nursing Protocol to prevent ulcers. Lines: All lines examined without evidence of infection : Dispo: Remain in ICU CODE: [id number] Family updated in ICU waiting room.
[2017-07-26] MEDS ORDERED: Vancomycin 1 EACH in EMPTY BAG 1 EACH IVPB SCH (10:00)
[2017-07-26] MEDS: Vasopressin 40 UNIT in D5% in Water 100 ML IV SCH (19:54)
[2017-07-26] MEDS ORDERED: *HR* Morphine 2 MG/ML SYRINGE IVP PRN (21:24)
[2017-07-26] MEDS ORDERED: Ondansetron 4 MG/2 ML VIAL IVP PRN (23:14)
[2017-07-26] MEDS ORDERED: Ondansetron 4 MG/2 ML VIAL ONE (23:16)
[2017-07-27] MEDS: Hydrocortisone Sodium Succ 100 MG/2 ML VIAL IVP SCH ×4 (00:13→23:35)
[2017-07-27] MEDS: Albumin 25% 25gram/100mL 25 GM/100 ML IV.SOLN IVPB SCH ×5 (00:13→22:12)
[2017-07-27] MEDS: Lacri-Lube 3.5 GM TUBE BOTH EYES SCH ×7 (00:14→23:36)
[2017-07-27] MEDS: Insulin LISPRO 300 UNITS/3 ML VIAL SQ SCH ×5 (00:20→23:35)
[2017-07-27 05:28] LABS: Basophils % 0.1 %; Hematocrit 25.6 % (37.5-50.1); Hemoglobin 8.1 g/dL (12.9-16.9); Immature Granulocytes % 0.7 % (0-4); Lymphocytes # 0.3 K/mcL (0.6-4.6); Lymphocytes % 3.3 %; Mean Corpuscular HGB Conc 31.6 g/dL (31.6-35.5); Mean Corpuscular Hemoglobin 27.3 pg (28.0-33.3); Mean Corpuscular Volume 86.2 fL (83.0-100.0); Mean Platelet Volume 8.5 fL (9.4-12.4); Monocytes # 0.3 K/mcL (0.0-1.3); Monocytes % 2.5 %; Neutrophils # 9.4 K/mcL (1.6-8.9); Platelet Count 159 K/mcL (140-400); Red Blood Count 2.97 M/mcL (4.19-5.50); Red Cell Distribution Width 16.4 % (11.5-14.5); Segmented Neutrophils % 93.4 %
[2017-07-27 05:36] LABS: Calcium 8.6 mg/dL (8.6-10.8); Potassium 3.9 mEq/L (3.5-4.5)
[2017-07-27] MEDS: Piperacillin/Tazobactam 3.375 GM in D5% in Water 50 ML IVPB SCH ×2 (06:17→18:32)
[2017-07-27] MEDS: Chlorhexidine Rinse 15 ML MOUTHWASH MM SCH ×2 (08:24→21:10)
[2017-07-27] MEDS: Pantoprazole 40 MG VIAL IVP SCH (08:24)
[2017-07-27] MEDS: Renal Vitamin 1 MG CAPSULE PO SCH ×2 (08:25→11:15)
--- NOTE | 2017-07-27 08:50 | Nephrology Progress Note ---
Date of Encounter: 07/27/17 Time of Encounter: 08:48 - Assessment and Plan (1) ESRD (end stage renal disease) on dialysis Current Visit: Yes Status: Acute The patient continues to be supported with hemodialysis. Last dialysis was yesterday. Volume removal as limited by his low blood pressure. He will have dialysis again tomorrow. (2) Hepatocellular carcinoma Current Visit: No Status: Acute (3) Cirrhosis of liver with ascites Current Visit: No Status: Chronic Qualifiers: Hepatic cirrhosis type: unspecified hepatic cirrhosis Qualified Code(s): K74.60 - Unspecified cirrhosis of liver (4) Acute respiratory failure with hypoxia Current Visit: No Status: Acute Subjective Principal diagnosis: Severe hypoxic respiratory failure Interval history: The patient has been extubated. He is no longer on levo fed. He is alert and oriented. He states his breathing feels shallow otherwise he voices no complaints. He did receive dialysis yesterday. Objective - Vital Signs Vital signs: Vital Signs Temp Pulse Resp BP Pulse Ox 07/27/17 08:11 20 95 07/27/17 08:00 101 18 97/80 93 07/27/17 07:47 96.9 F L 07/27/17 05:56 101 20 81/47 92 07/27/17 05:00 102 20 77/56 93 07/27/17 04:29 97.6 F 07/27/17 04:00 102 20 112/49 93 07/27/17 03:46 19 106/64 93 07/27/17 03:00 103 19 102/64 93 07/27/17 02:00 106 20 103/64 94 07/27/17 01:00 104 19 102/61 94 07/27/17 00:00 97.6 F 109 19 102/49 94 07/26/17 23:43 110 07/26/17 23:21 19 89/54 94 07/26/17 23:00 114 19 91/63 94 07/26/17 22:00 110 18 119/86 89 07/26/17 21:00 113 18 106/70 93 07/26/17 20:00 113 18 115/50 93 07/26/17 19:58 18 114/69 93 07/26/17 19:00 97.8 F 113 18 114/69 93 07/26/17 18:00 111 21 114/69 93 07/26/17 17:00 108 19 108/57 94 07/26/17 16:20 108 18 85/47 93 07/26/17 16:15 14 85/47 93 07/26/17 15:41 10 89/50 92 07/26/17 15:00 99 26 121/69 96 07/26/17 14:44 11 85/47 93 07/26/17 14:00 86 27 95/51 95 07/26/17 13:35 97.5 F L 20 103/55 07/26/17 13:25 101/52 07/26/17 13:21 19 101/52 99 07/26/17 13:10 99/53 07/26/17 13:00 81 20 103/53 97 07/26/17 12:55 103/51 07/26/17 12:40 111/57 07/26/17 12:25 102/53 07/26/17 12:10 103/53 07/26/17 12:04 97.5 F L 07/26/17 12:00 69 19 106/54 98 07/26/17 11:55 109/56 07/26/17 11:42 19 113/78 95 07/26/17 11:40 113/58 07/26/17 11:25 119/57 07/26/17 11:10 129/59 07/26/17 11:00 70 19 91/51 95 07/26/17 10:55 75/43 07/26/17 10:40 95/49 07/26/17 10:25 113/55 07/26/17 10:10 123/59 07/26/17 10:00 77 22 133/64 96 07/26/17 09:55 97.5 F L 19 134/63 07/26/17 09:22 19 113/81 94 07/26/17 09:00 69 19 74/41 94 Intake and Output 07/26/17 07/27/17 07/27/17 23:59 07:59 15:59 Intake Total 414 / 414 100 / 100 100 / 100 Output Total 0 / 0 0 / 0 Balance 414 / 414 100 / 100 100 / 100 Intake: IV Fluids 414 / 414 100 / 100 100 / 100 FentaNYL (PF) 1,000 MCG In 0.9 65 / 65 % Sodium Chloride 80 ML @ 50 MCG/HR 5 mls/hr IVC CONT [facility] Rx #:[id number] Levophed 4 MG In Dextrose 5% 199 / 199 250 ML @ 5 MCG/MIN 19.05 mls/hr IVC CONT [facility] Rx#:[id number] Flexbumin 25 gm In 100 ml @ 60 100 / 100 100 / 100 100 / 100 mls/hr IVPB Q6H [facility] Rx#: [id number] Zosyn 3.375 GM In Dextrose 5% ( 50 / 50 ADD-Gilmer) 50 ML @ 12.5 mls/ hr IVPB Q12HR [facility] Rx#: [id number] Oral 0 / 0 0 / 0 Output: Urine 0 / 0 0 / 0 Other: Stool Size Moderate Stool Consistency loose Stool Color Brown Yellow - General Appearance Exam: Patient is alert and oriented. He is in no acute distress. Lungs diminished breath sounds. Heart regular rate and rhythm. Abdomen is distended from ascites. There is no tenderness. There is 3-4+ lower extremity swelling. - Lab 07/27/17 05:00 07/27/17 05:00 Most recent lab results ABG pH 7.36 pH Units (7.32-7.45) 07/25/17 04:48 ABG pCO2 40 mmHg (35-45) 07/25/17 04:48 ABG pO2 77 mmHg (85-104) L 07/25/17 04:48 ABG HCO3 22 mEq/L (21-27) 07/25/17 04:48 ABG O2 Saturation 95 % (95-98) 07/25/17 04:48 Calcium 8.6 mg/dL (8.6-10.8) 07/27/17 05:00 Phosphorus 7.3 mg/dL (2.3-4.7) H 07/26/17 04:33 Magnesium 2.3 mg/dL (1.6-2.6) 07/26/17 04:33 Consult Discharge Plan - Plan Referrals: Alicia Patsrana MD [Primary Care Provider] -
--- NOTE | 2017-07-27 09:43 | Pulmonology Progress Note ---
<SvetlanaBenji Gumaro - Last Filed: 07/27/17 15:52> Date of Encounter: 07/27/17 Time of Encounter: 09:42 Assessment and Plan (1) Acute respiratory failure with hypoxia Current Visit: No Status: Acute Patient was successfully liberated from the ventilator yesterday. He remained stable from a respiratory standpoint. Patient has elected to not pursue further intubation and his CODE STATUS has been changed from accordingly. Patient will be transitioning to hospice at discharge. (2) HCC (hepatocellular carcinoma) Current Visit: Yes Status: Chronic (3) ESRD (end stage renal disease) on dialysis Current Visit: Yes Status: Acute Continue dialysis per nephrology. Patient is a DNR CCA/DNI. (4) Ascites Current Visit: Yes Status: Acute IR has been consulted for placement of an indwelling peritoneal catheter which would allow the patient to drain his ascites at home. We will keep the patient nothing by mouth at midnight with plan for procedure tomorrow. Qualifiers: Ascites type: malignant Qualified Code(s): R18.0 - Malignant ascites (5) Sacral decubitus ulcer Current Visit: Yes Status: Chronic Present on admission. Continue daily wound care. Judicious use of patient positioning to prevent worsening of decubitus ulcer. Qualifiers: Pressure ulcer stage: stage 3 Qualified Code(s): L89.153 - Pressure ulcer of sacral region, stage 3 Subjective Principal diagnosis: Severe hypoxic respiratory failure Interval history: Patient seen and examined at bedside. He has no specific complaints. He was extubated yesterday successfully. Objective PUL Vital signs: Last Vital Signs Temp 96.9 F L 07/27/17 07:47 Pulse 101 07/27/17 09:00 Resp 18 07/27/17 09:00 BP 106/47 07/27/17 09:00 Pulse Ox 93 07/27/17 09:00 General appearance: no acute distress Effort: normal Auscultation: bilateral: diminished breath sounds Cardiovascular: regular rate and rhythm Gastrointestinal: hypoactive bowel sounds, soft, non-tender, other (Distended with fluid wave ) Extremities: no cyanosis, no clubbing, anasarca normal mental status, non-focal exam Results - Laboratory Findings CBC and BMP: 07/27/17 05:00 07/27/17 05:00 ABG ABG pH 7.36 pH Units (7.32-7.45) 07/25/17 04:48 ABG pCO2 40 mmHg (35-45) 07/25/17 04:48 ABG pO2 77 mmHg (85-104) L 07/25/17 04:48 ABG O2 Saturation 95 % (95-98) 07/25/17 04:48 PT/INR, D-dimer PT 15.5 Seconds (9.4-12.1) H 07/25/17 03:40 Abnormal lab findings: Abnormal lab results RBC 2.97 M/mcL (4.19-5.50) L 07/27/17 05:00 Hgb 8.1 g/dL (12.9-16.9) L 07/27/17 05:00 Hct 25.6 % (37.5-50.1) L 07/27/17 05:00 MCH 27.3 pg (28.0-33.3) L 07/27/17 05:00 RDW 16.4 % (11.5-14.5) H 07/27/17 05:00 MPV 8.5 fL (9.4-12.4) L 07/27/17 05:00 Neutrophils # 9.4 K/mcL (1.6-8.9) H 07/27/17 05:00 Lymphocytes # 0.3 K/mcL (0.6-4.6) L 07/27/17 05:00 ESR >= 130 mm/hr (0-10) H 07/22/17 17:58 PT 15.5 Seconds (9.4-12.1) H 07/25/17 03:40 ABG pO2 77 mmHg (85-104) L 07/25/17 04:48 ABG Base Excess -3 mEq/L (-2 to 3) L 07/25/17 04:48 Sodium 131 mEq/L (136-145) L 07/27/17 05:00 Chloride 96 mEq/L (98-109) L 07/27/17 05:00 BUN 29 mg/dL (8-26) H D 07/27/17 05:00 Creatinine 3.66 mg/dL (0.72-1.25) H 07/27/17 05:00 Est GFR ( Amer) 20 (> 60) L 07/27/17 05:00 Est GFR (Non-Af Amer) 17 (> 60) L 07/27/17 05:00 Glucose 161 mg/dL (70-99) H 07/27/17 05:00 POC Glucose 173 (58-89) H 07/27/17 00:20 Ionized Calcium 1.11 mmol/L (1.15-1.35) L 07/26/17 04:33 Phosphorus 7.3 mg/dL (2.3-4.7) H 07/26/17 04:33 AST 62 Units/L (5-34) H 07/23/17 14:25 Alkaline Phosphatase 167 Units/L (38-126) H 07/23/17 14:25 C-Reactive Protein 177 mg/L (Less than 5) H 07/22/17 17:58 Serum Total Protein 5.7 g/dL (6.0-8.3) L 07/23/17 14:25 Albumin 1.8 g/dL (3.5-5.0) L 07/23/17 14:25 Globulin 3.9 g/dL (2.4-3.5) H 07/23/17 14:25 Albumin/Globulin Ratio 0.5 (1.1-2.2) L 07/23/17 14:25 Vancomycin Trough 20.9 mcg/mL (10-20) H* 07/25/17 08:00 - Microbiology Findings Microbiology Findings: Microbiology, Last 48 Hours 07/23/17 16:50 Sputum Culture - Final Sputum Elisa parapsilosis - Clinical Findings Intake & Output: Intake & Output 07/26/17 07/27/17 07/27/17 23:59 07:59 15:59 Intake Total 414 / 414 100 / 100 100 / 100 Output Total 0 / 0 0 / 0 Balance 414 / 414 100 / 100 100 / 100 Consult Discharge Plan - Plan Referrals: Alicia Pastrana MD [Primary Care Provider] - <Miko Calderón - Last Filed: 07/27/17 16:04> Date of Encounter: 07/27/17 Objective PUL Vital signs: Last Vital Signs Temp 96.9 F L 07/27/17 07:47 Pulse 101 07/27/17 09:00 Resp 18 07/27/17 09:00 BP 106/47 07/27/17 09:00 Pulse Ox 93 07/27/17 09:00 Results - Laboratory Findings CBC and BMP: 07/27/17 05:00 07/27/17 05:00 ABG ABG pH 7.36 pH Units (7.32-7.45) 07/25/17 04:48 ABG pCO2 40 mmHg (35-45) 07/25/17 04:48 ABG pO2 77 mmHg (85-104) L 07/25/17 04:48 ABG O2 Saturation 95 % (95-98) 07/25/17 04:48 PT/INR, D-dimer PT 15.5 Seconds (9.4-12.1) H 07/25/17 03:40 Abnormal lab findings: Abnormal lab results RBC 2.97 M/mcL (4.19-5.50) L 07/27/17 05:00 Hgb 8.1 g/dL (12.9-16.9) L 07/27/17 05:00 Hct 25.6 % (37.5-50.1) L 07/27/17 05:00 MCH 27.3 pg (28.0-33.3) L 07/27/17 05:00 RDW 16.4 % (11.5-14.5) H 07/27/17 05:00 MPV 8.5 fL (9.4-12.4) L 07/27/17 05:00 Neutrophils # 9.4 K/mcL (1.6-8.9) H 07/27/17 05:00 Lymphocytes # 0.3 K/mcL (0.6-4.6) L 07/27/17 05:00 ESR >= 130 mm/hr (0-10) H 07/22/17 17:58 PT 15.5 Seconds (9.4-12.1) H 07/25/17 03:40 ABG pO2 77 mmHg (85-104) L 07/25/17 04:48 ABG Base Excess -3 mEq/L (-2 to 3) L 07/25/17 04:48 Sodium 131 mEq/L (136-145) L 07/27/17 05:00 Chloride 96 mEq/L (98-109) L 07/27/17 05:00 BUN 29 mg/dL (8-26) H D 07/27/17 05:00 Creatinine 3.66 mg/dL (0.72-1.25) H 07/27/17 05:00 Est GFR ( Amer) 20 (> 60) L 07/27/17 05:00 Est GFR (Non-Af Amer) 17 (> 60) L 07/27/17 05:00 Glucose 161 mg/dL (70-99) H 07/27/17 05:00 POC Glucose 173 (58-89) H 07/27/17 00:20 Ionized Calcium 1.11 mmol/L (1.15-1.35) L 07/26/17 04:33 Phosphorus 7.3 mg/dL (2.3-4.7) H 07/26/17 04:33 AST 62 Units/L (5-34) H 07/23/17 14:25 Alkaline Phosphatase 167 Units/L (38-126) H 07/23/17 14:25 C-Reactive Protein 177 mg/L (Less than 5) H 07/22/17 17:58 Serum Total Protein 5.7 g/dL (6.0-8.3) L 07/23/17 14:25 Albumin 1.8 g/dL (3.5-5.0) L 07/23/17 14:25 Globulin 3.9 g/dL (2.4-3.5) H 07/23/17 14:25 Albumin/Globulin Ratio 0.5 (1.1-2.2) L 07/23/17 14:25 Vancomycin Trough 20.9 mcg/mL (10-20) H* 07/25/17 08:00 - Microbiology Findings Microbiology Findings: Microbiology, Last 48 Hours 07/23/17 16:50 Sputum Culture - Final Sputum Elisa parapsilosis - Clinical Findings Intake & Output: Intake & Output 07/26/17 07/27/17 07/27/17 23:59 07:59 15:59 Intake Total 414 / 414 100 / 100 100 / 100 Output Total 0 / 0 0 / 0 Balance 414 / 414 100 / 100 100 / 100 - Attending Attestation I examined this patient and my medical decision-making was reviewed with the Resident Physician. I agree with the documented findings, disposition and treatment plan as described except to the extent set forth below. We independently had [id number] contact with the patient Patient seen and examined at bedside Labs, radiology, chart personally reviewed. Management was reviewed during multidisciplinary critical care rounds. 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 WORKER: Patient awake and alert following commands continue to monitor for delirium Pulm: Acceptable oxygenation status post liberation from ventilator yesterday continue to wean FiO2 as needed Cards: Vasodilatory shock is resolved FEN-GI: Advanced hepatocellular carcinoma poor prognosis recurrent ascites possible placement of Pleurx catheter we have consulted interventional radiology for this speech and swallow evaluation today commendations followed Renal: ESRD dialysis planned for possibly tomorrow as needed ID: Treated for likely aspiration pneumonia plan a de-escalate antimicrobials Heme/Onc: Stable H&H no evidence of coagulopathy Endo: Glucose Monitored wean stress dose hydrocortisone with plan to stop tomorrow Integ/MSK: Skin Care per routine ICU Nursing Protocol to prevent ulcers. Lines: All lines examined without evidence of infection : Dispo: Remain in ICU today likely transition home tomorrow with hospice CODE: DNAR/DNI. With the family at bedside and palliative care services also evaluated patient planned to not reintubate patient in the event of respiratory failure given poor prognosis and plan to transition to more hospice measures. Questions answered at bedside
[2017-07-27] MEDS ORDERED: *HR* HYDROmorphone (PF) 1 MG/ML SYRINGE IVP PRN (11:21)
[2017-07-27] MEDS: *HR* OxyCODONE Immed Rel 5 MG TABLET PO PRN ×2 (12:12→18:32)
[2017-07-27 12:41] LABS: INR 1.3; Prothrombin Time 14.1 Seconds (9.4-12.1)
[2017-07-27] MEDS ORDERED: *HR* FentaNYL (PF) 100 MCG/2 ML VIAL IVP PRN (13:14)
--- NOTE | 2017-07-27 13:20 | Palliative Progress Note ---
Date of Encounter: 07/27/17 Time of Encounter: 13:00 - Assessment and plan (1) Dyspnea Current Visit: Yes Status: Acute Assessment and plan: Extubated - tolerating NC. Patient does not desire reintubation and wants to be comfortable. Discussed that we can use medication to assist with his shortness of breath and air hunger if he experiences this. Try to avoid Morphine r/t renal failure, daughter states allergic to Hydromorphone. Will trial Fentanyl IVP if needed for dyspnea and monitor. (2) Cancer associated pain Current Visit: Yes Status: Acute Assessment and plan: Now able to take po - will restart home dose of Oxycodone and monitor (3) Goals of care, counseling/discussion Current Visit: No Status: Acute Assessment and plan: Spoke with pt at length today - and again discussed re-intubation. He is fearful about becoming short of breath and feeling like he is smothering. Discussed that there are medications we can give to alleviate that sensation, and instead of placing tube and back on ventilator, we could still provide oxygen, nebulizers, and comfort medications that act quickly to assist with the work of breathing. Patient verbalized understanding and does not want further intubation. Code status changed to DNR/DNI, and ICU team updated. Daughter discussed today that she is unable to provide pt care at home, and has to return to work. She is desiring placement. D/W pt who is agreeable. Complicated as he still may need to go as penitentiary care and does not have Medicaid yet in place. D/W [facility], and she is discussing with [employer] open [employer] administrator, and will send someone out to discuss with pt and family transition. D/W pt if he still wants to continue dialysis - he wants to continue to consider. (4) Hepatocellular carcinoma Current Visit: No Status: Acute (5) Acute respiratory failure with hypoxia Current Visit: No Status: Acute (6) ESRD (end stage renal disease) on dialysis Current Visit: Yes Status: Acute - Time Spent With Patient Total time spent is greater than 50% in coordination of care (as documented) at patient's floor/unit and/or counseling patient: Greater than 35 minutes - Subjective Interval history: Patient now extubated - alert and oriented. Worked with speech therapy this am , and able to eat diet with thickened liquids. States he breathing is "OK, but my lungs feel tired sometimes". Has not required bipap. C/o some knee pain. Abd more distended and firm with + fluid wave. Some leaking of fluid from previous paracentesis site. Daughter and at bedside. - Constitutional Vitals: Abnormal lab results RBC 2.97 M/mcL (4.19-5.50) L 07/27/17 05:00 Hgb 8.1 g/dL (12.9-16.9) L 07/27/17 05:00 Hct 25.6 % (37.5-50.1) L 07/27/17 05:00 MCH 27.3 pg (28.0-33.3) L 07/27/17 05:00 RDW 16.4 % (11.5-14.5) H 07/27/17 05:00 MPV 8.5 fL (9.4-12.4) L 07/27/17 05:00 Neutrophils # 9.4 K/mcL (1.6-8.9) H 07/27/17 05:00 Lymphocytes # 0.3 K/mcL (0.6-4.6) L 07/27/17 05:00 ESR >= 130 mm/hr (0-10) H 07/22/17 17:58 PT 14.1 Seconds (9.4-12.1) H 07/27/17 12:17 ABG pO2 77 mmHg (85-104) L 07/25/17 04:48 ABG Base Excess -3 mEq/L (-2 to 3) L 07/25/17 04:48 Sodium 131 mEq/L (136-145) L 07/27/17 05:00 Chloride 96 mEq/L (98-109) L 07/27/17 05:00 BUN 29 mg/dL (8-26) H D 07/27/17 05:00 Creatinine 3.66 mg/dL (0.72-1.25) H 07/27/17 05:00 Est GFR ( Amer) 20 (> 60) L 07/27/17 05:00 Est GFR (Non-Af Amer) 17 (> 60) L 07/27/17 05:00 Glucose 161 mg/dL (70-99) H 07/27/17 05:00 POC Glucose 173 (58-89) H 07/27/17 11:35 Ionized Calcium 1.11 mmol/L (1.15-1.35) L 07/26/17 04:33 Phosphorus 7.3 mg/dL (2.3-4.7) H 07/26/17 04:33 AST 62 Units/L (5-34) H 07/23/17 14:25 Alkaline Phosphatase 167 Units/L (38-126) H 07/23/17 14:25 C-Reactive Protein 177 mg/L (Less than 5) H 07/22/17 17:58 Serum Total Protein 5.7 g/dL (6.0-8.3) L 07/23/17 14:25 Albumin 1.8 g/dL (3.5-5.0) L 07/23/17 14:25 Globulin 3.9 g/dL (2.4-3.5) H 07/23/17 14:25 Albumin/Globulin Ratio 0.5 (1.1-2.2) L 07/23/17 14:25 Vancomycin Trough 20.9 mcg/mL (10-20) H* 07/25/17 08:00 General appearance: Present: no acute distress - Respiratory Respiratory exam: Present: decreased breath sounds, CTAB Additional comments: Occasional rhonchi anteriorally - Cardiovascular Cardiovascular exam: Present: +S1, +S2 - GI/Abdominal GI/Abdominal exam: Present: diminished bowel sounds, distended, firm - Extremities Exam Additional comments: 4+ edema to bilateral lower extremities - Neurological Exam Neurological exam: Present: alert, oriented X3, strengths equal and symetr throughout - Skin Skin exam: Present: dry, pallor, warm Palliative Quality Palliative Quality: Screen for Code Status: Yes, Screen for Goals of Care: Yes, Screen for Pain: Yes, Screen for Nausea/Vomitting: Yes Code Status: 07/25/17 16:28 CODE [Resuscitation Status: Active] [RES] Routine Comment: Resuscitation Status: DNR-Comfort Care-Arrest 07/27/17 11:14 DNR [Resuscitation Status: Active] [RES] Routine Comment: Resuscitation Status: [id number] - Labs CBC & Chem 7: 07/27/17 05:00 07/27/17 05:00 Labs: Laboratory Results - last 24 hr 07/27/17 07/27/17 07/27/17 00:20 05:00 05:00 WBC 10.1 RBC 2.97 L Hgb 8.1 L Hct 25.6 L MCV 86.2 MCH 27.3 L MCHC 31.6 RDW 16.4 H Plt Count 159 MPV 8.5 L Immature Gran % 0.7 Seg Neutrophils % 93.4 Lymphocytes % 3.3 Monocytes % 2.5 Eosinophils % 0.0 Basophils % 0.1 Neutrophils # 9.4 H Lymphocytes # 0.3 L Monocytes # 0.3 Eosinophils # 0.0 Basophils # 0.0 PT INR Sodium 131 L Potassium 3.9 Chloride 96 L Carbon Dioxide 22 BUN 29 H D Creatinine 3.66 H Est GFR ( Amer) 20 L Est GFR (Non-Af Amer) 17 L BUN/Creatinine Ratio 8 Glucose 161 H POC Glucose 173 H Calculated Osmolality 281 Calcium 8.6 07/27/17 07/27/17 11:35 12:17 WBC RBC Hgb Hct MCV MCH MCHC RDW Plt Count MPV Immature Gran % Seg Neutrophils % Lymphocytes % Monocytes % Eosinophils % Basophils % Neutrophils # Lymphocytes # Monocytes # Eosinophils # Basophils # PT 14.1 H INR 1.3 Sodium Potassium Chloride Carbon Dioxide BUN Creatinine Est GFR ( Amer) Est GFR (Non-Af Amer) BUN/Creatinine Ratio Glucose POC Glucose 173 H Calculated Osmolality Calcium - ABG Interpretation ABG results: ABG ABG pH 7.36 pH Units (7.32-7.45) 07/25/17 04:48 ABG pCO2 40 mmHg (35-45) 07/25/17 04:48 ABG pO2 77 mmHg (85-104) L 07/25/17 04:48 ABG O2 Saturation 95 % (95-98) 07/25/17 04:48 PT/INR, D-dimer PT 14.1 Seconds (9.4-12.1) H 07/27/17 12:17 Consult Discharge Plan - Plan Referrals: Alicia Pastrana MD [Primary Care Provider] -
[2017-07-27] MEDS: Vasopressin 40 UNIT in D5% in Water 100 ML IV SCH (14:49)
[2017-07-28] MEDS: Lacri-Lube 3.5 GM TUBE BOTH EYES SCH ×2 (04:27→09:26)
[2017-07-28] MEDS: Piperacillin/Tazobactam 3.375 GM in D5% in Water 50 ML IVPB SCH (05:31)
[2017-07-28] MEDS: Albumin 25% 25gram/100mL 25 GM/100 ML IV.SOLN IVPB SCH ×3 (05:31→23:48)
[2017-07-28] MEDS: Insulin LISPRO 300 UNITS/3 ML VIAL SQ SCH ×3 (05:40→17:04)
--- NOTE | 2017-07-28 07:40 | Pulmonology Progress Note ---
<KaitlynnMiko W - Last Filed: 07/28/17 08:47> Date of Encounter: 07/28/17 Objective PUL Vital signs: Last Vital Signs Temp 97.4 F L 07/28/17 04:13 Pulse 88 07/28/17 06:00 Resp 16 07/28/17 07:56 BP 93/43 07/28/17 06:00 Pulse Ox 96 07/28/17 07:56 Results - Laboratory Findings CBC and BMP: 07/27/17 05:00 07/27/17 05:00 ABG ABG pH 7.36 pH Units (7.32-7.45) 07/25/17 04:48 ABG pCO2 40 mmHg (35-45) 07/25/17 04:48 ABG pO2 77 mmHg (85-104) L 07/25/17 04:48 ABG O2 Saturation 95 % (95-98) 07/25/17 04:48 PT/INR, D-dimer PT 14.1 Seconds (9.4-12.1) H 07/27/17 12:17 Abnormal lab findings: Abnormal lab results RBC 2.97 M/mcL (4.19-5.50) L 07/27/17 05:00 Hgb 8.1 g/dL (12.9-16.9) L 07/27/17 05:00 Hct 25.6 % (37.5-50.1) L 07/27/17 05:00 MCH 27.3 pg (28.0-33.3) L 07/27/17 05:00 RDW 16.4 % (11.5-14.5) H 07/27/17 05:00 MPV 8.5 fL (9.4-12.4) L 07/27/17 05:00 Neutrophils # 9.4 K/mcL (1.6-8.9) H 07/27/17 05:00 Lymphocytes # 0.3 K/mcL (0.6-4.6) L 07/27/17 05:00 ESR >= 130 mm/hr (0-10) H 07/22/17 17:58 PT 14.1 Seconds (9.4-12.1) H 07/27/17 12:17 ABG pO2 77 mmHg (85-104) L 07/25/17 04:48 ABG Base Excess -3 mEq/L (-2 to 3) L 07/25/17 04:48 Sodium 131 mEq/L (136-145) L 07/27/17 05:00 Chloride 96 mEq/L (98-109) L 07/27/17 05:00 BUN 29 mg/dL (8-26) H D 07/27/17 05:00 Creatinine 3.66 mg/dL (0.72-1.25) H 07/27/17 05:00 Est GFR ( Amer) 20 (> 60) L 07/27/17 05:00 Est GFR (Non-Af Amer) 17 (> 60) L 07/27/17 05:00 Glucose 161 mg/dL (70-99) H 07/27/17 05:00 POC Glucose 147 (58-89) H 07/28/17 05:39 Ionized Calcium 1.11 mmol/L (1.15-1.35) L 07/26/17 04:33 Phosphorus 7.3 mg/dL (2.3-4.7) H 07/26/17 04:33 AST 62 Units/L (5-34) H 07/23/17 14:25 Alkaline Phosphatase 167 Units/L (38-126) H 07/23/17 14:25 C-Reactive Protein 177 mg/L (Less than 5) H 07/22/17 17:58 Serum Total Protein 5.7 g/dL (6.0-8.3) L 07/23/17 14:25 Albumin 1.8 g/dL (3.5-5.0) L 07/23/17 14:25 Globulin 3.9 g/dL (2.4-3.5) H 07/23/17 14:25 Albumin/Globulin Ratio 0.5 (1.1-2.2) L 07/23/17 14:25 Vancomycin Trough 20.9 mcg/mL (10-20) H* 07/25/17 08:00 - Microbiology Findings Microbiology Findings: Microbiology, Last 48 Hours 07/23/17 16:50 Sputum Culture - Final Sputum Elisa parapsilosis - Clinical Findings Intake & Output: Intake & Output 07/27/17 07/28/17 07/28/17 23:59 07:59 15:59 Intake Total 520 / 520 Output Total 0 / 0 0 / 0 Balance 520 / 520 0 / 0 Weight 185.4 kg Consult Discharge Plan - Plan Referrals: Alicia Pastrana MD [Primary Care Provider] - - Attending Attestation I examined this patient and my medical decision-making was reviewed with the Resident Physician. I agree with the documented findings, disposition and treatment plan as described except to the extent set forth below. We independently had [id number] contact with the patient Patient seen and examined at bedside Labs, radiology, chart personally reviewed. 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 Patient has recurrent large volume ascites plan for Pleurx catheter in the abdomen for hospice/palliation interventional radiology has been consulted for this Renal: ESRD nephrology following dialysis per protocol electrolytes monitored ID: Continue antibiotics for aspiration pneumonia with planned to stop at 7 days Heme/Onc: DVT prophylaxis given Endo: Glucose Monitored . Stress dose steroids today Integ/MSK: Skin Care per routine ICU Nursing Protocol to prevent ulcers. Lines: All lines examined without evidence of infection : Dispo: Stable for transfer to [facility] for ongoing care CODE: [id number] <Benji Mota - Last Filed: 07/28/17 11:34> Date of Encounter: 07/28/17 Time of Encounter: 07:40 Assessment and Plan (1) Acute respiratory failure with hypoxia Current Visit: Yes Status: Resolved Patient was successfully liberated from the ventilator 2 days ago. He remained stable from a respiratory standpoint. Patient has elected to not pursue further intubation and his CODE STATUS has been changed from accordingly. Patient will be transitioning to hospice at discharge. Patient is stable for transfer out of the ICU to the floor. The admitting hospitalist, Dr. Ortiz, accepted the patient for transfer. (2) HCC (hepatocellular carcinoma) Current Visit: Yes Status: Chronic (3) ESRD (end stage renal disease) on dialysis Current Visit: Yes Status: Acute Continue dialysis per nephrology. Patient is a DNR CCA/DNI. (4) Ascites Current Visit: Yes Status: Acute IR has been consulted for placement of an indwelling peritoneal catheter which would allow the patient to drain his ascites at home. Patient will undergo procedure today. Qualifiers: Ascites type: malignant Qualified Code(s): R18.0 - Malignant ascites (5) Sacral decubitus ulcer Current Visit: Yes Status: Chronic Present on admission. Continue daily wound care. Judicious use of patient positioning to prevent worsening of decubitus ulcer. Qualifiers: Pressure ulcer stage: stage 3 Qualified Code(s): L89.153 - Pressure ulcer of sacral region, stage 3 Subjective Principal diagnosis: Severe hypoxic respiratory failure Interval history: Patient seen and examined at bedside. He has no specific complaints. He was extubated yesterday successfully. Objective PUL Vital signs: Last Vital Signs Temp 97.4 F L 07/28/17 04:13 Pulse 88 07/28/17 06:00 Resp 18 07/28/17 06:00 BP 93/43 07/28/17 06:00 Pulse Ox 95 07/28/17 06:00 Results - Laboratory Findings CBC and BMP: 07/28/17 09:30 07/28/17 09:30 ABG ABG pH 7.36 pH Units (7.32-7.45) 07/25/17 04:48 ABG pCO2 40 mmHg (35-45) 07/25/17 04:48 ABG pO2 77 mmHg (85-104) L 07/25/17 04:48 ABG O2 Saturation 95 % (95-98) 07/25/17 04:48 PT/INR, D-dimer PT 14.1 Seconds (9.4-12.1) H 07/27/17 12:17 Abnormal lab findings: Abnormal lab results RBC 2.97 M/mcL (4.19-5.50) L 07/27/17 05:00 Hgb 8.1 g/dL (12.9-16.9) L 07/27/17 05:00 Hct 25.6 % (37.5-50.1) L 07/27/17 05:00 MCH 27.3 pg (28.0-33.3) L 07/27/17 05:00 RDW 16.4 % (11.5-14.5) H 07/27/17 05:00 MPV 8.5 fL (9.4-12.4) L 07/27/17 05:00 Neutrophils # 9.4 K/mcL (1.6-8.9) H 07/27/17 05:00 Lymphocytes # 0.3 K/mcL (0.6-4.6) L 07/27/17 05:00 ESR >= 130 mm/hr (0-10) H 07/22/17 17:58 PT 14.1 Seconds (9.4-12.1) H 07/27/17 12:17 ABG pO2 77 mmHg (85-104) L 07/25/17 04:48 ABG Base Excess -3 mEq/L (-2 to 3) L 07/25/17 04:48 Sodium 131 mEq/L (136-145) L 07/27/17 05:00 Chloride 96 mEq/L (98-109) L 07/27/17 05:00 BUN 29 mg/dL (8-26) H D 07/27/17 05:00 Creatinine 3.66 mg/dL (0.72-1.25) H 07/27/17 05:00 Est GFR ( Amer) 20 (> 60) L 07/27/17 05:00 Est GFR (Non-Af Amer) 17 (> 60) L 07/27/17 05:00 Glucose 161 mg/dL (70-99) H 07/27/17 05:00 POC Glucose 147 (58-89) H 07/28/17 05:39 Ionized Calcium 1.11 mmol/L (1.15-1.35) L 07/26/17 04:33 Phosphorus 7.3 mg/dL (2.3-4.7) H 07/26/17 04:33 AST 62 Units/L (5-34) H 07/23/17 14:25 Alkaline Phosphatase 167 Units/L (38-126) H 07/23/17 14:25 C-Reactive Protein 177 mg/L (Less than 5) H 07/22/17 17:58 Serum Total Protein 5.7 g/dL (6.0-8.3) L 07/23/17 14:25 Albumin 1.8 g/dL (3.5-5.0) L 07/23/17 14:25 Globulin 3.9 g/dL (2.4-3.5) H 07/23/17 14:25 Albumin/Globulin Ratio 0.5 (1.1-2.2) L 07/23/17 14:25 Vancomycin Trough 20.9 mcg/mL (10-20) H* 07/25/17 08:00 - Microbiology Findings Microbiology Findings: Microbiology, Last 48 Hours 07/23/17 16:50 Sputum Culture - Final Sputum Elisa parapsilosis - Clinical Findings Intake & Output: Intake & Output 07/27/17 07/27/17 07/28/17 15:59 23:59 07:59 Intake Total 490 / 490 520 / 520 Output Total 0 / 0 0 / 0 Balance 490 / 490 520 / 520 0 / 0 Weight 185.4 kg
--- NOTE | 2017-07-28 09:11 | Nephrology Progress Note ---
Date of Encounter: 07/28/17 Time of Encounter: 08:50 - Assessment and Plan (1) ESRD (end stage renal disease) on dialysis Current Visit: Yes Status: Acute HD today for anasarca/ascites/fluid overload. Midodrine for blood pressure support. Will monitor Subjective Principal diagnosis: Severe hypoxic respiratory failure Interval history: Transferred to from ICU. Alert, oriented. Lengthy end of life discussion with patient, Resident and myself. At this point patient wants to continue HD until able to speak with family. Objective - Vital Signs Vital signs: Vital Signs Temp Pulse Resp BP Pulse Ox 07/28/17 07:56 16 96 07/28/17 06:00 88 18 93/43 95 07/28/17 05:00 88 20 89/44 97 07/28/17 04:29 87 07/28/17 04:13 97.4 F L 07/28/17 04:00 90 22 111/59 93 07/28/17 03:56 17 109/60 94 07/28/17 03:00 87 20 108/56 93 07/28/17 02:00 93 21 114/60 92 07/28/17 01:00 92 16 107/48 93 07/28/17 00:53 93 07/28/17 00:00 92 18 94/48 93 07/27/17 23:40 97 07/27/17 23:06 18 99/46 93 07/27/17 23:00 98.0 F 07/27/17 21:17 97 07/27/17 20:00 98.0 F 07/27/17 19:38 18 111/54 92 07/27/17 18:30 18 93 07/27/17 18:00 101 18 106/53 93 07/27/17 17:00 104 18 108/43 92 07/27/17 16:00 99 17 106/65 94 07/27/17 15:00 100 17 92/49 92 07/27/17 14:00 101 18 105/55 93 07/27/17 13:00 102 18 99/51 94 07/27/17 12:02 97.6 F 07/27/17 11:00 103 18 91/59 94 07/27/17 10:00 101 17 92/52 93 Intake and Output 07/27/17 07/28/17 07/28/17 23:59 07:59 15:59 Intake Total 520 / 520 Output Total 0 / 0 0 / 0 Balance 520 / 520 0 / 0 Intake: IV Fluids 250 / 250 Flexbumin 25 gm In 100 ml @ 60 200 / 200 mls/hr IVPB Q6H [facility] Rx#: [id number] Zosyn 3.375 GM In Dextrose 5% ( 50 / 50 ADD-R[place]) 50 ML @ 12.5 mls/ hr IVPB Q12HR [facility] Rx#: [id number] Oral 270 / 270 Output: Urine 0 / 0 0 / 0 Other: Meal Dinner Percent of Meal Consumed 75% Stool Size Moderate Moderate Stool Consistency loose loose soft soft Stool Color Brown Brown Green # Bowel Movements 1 Weight 185.4 kg Blood Glucose* 136 147 Patient Weight 07/28/17 23:59 Weight 185.4 kg - General Appearance General appearance: Present: well-developed, appears started age, obese EENT: Present: mucous membranes moist Neck: Present: no JVD Respiratory: Present: clear Cardiology: Present: edema, regular rate, regular rhythm Additional Comments: Anasarca Dialysis Vascular Access: Venous Catheter Gastrointestinal: Present: hypoactive bowel sounds, distended Integumentary: Present: warm and dry Psychiatric: Present: mood/affect appropriate, cooperative - Lab 07/27/17 05:00 07/27/17 05:00 Most recent lab results ABG pH 7.36 pH Units (7.32-7.45) 07/25/17 04:48 ABG pCO2 40 mmHg (35-45) 07/25/17 04:48 ABG pO2 77 mmHg (85-104) L 07/25/17 04:48 ABG HCO3 22 mEq/L (21-27) 07/25/17 04:48 ABG O2 Saturation 95 % (95-98) 07/25/17 04:48 Calcium 8.6 mg/dL (8.6-10.8) 07/27/17 05:00 Phosphorus 7.3 mg/dL (2.3-4.7) H 07/26/17 04:33 Magnesium 2.3 mg/dL (1.6-2.6) 07/26/17 04:33 Consult Discharge Plan - Plan Referrals: Alicia Pastrana MD [Primary Care Provider] -
[2017-07-28 09:47] LABS: Hematocrit 24.2 % (37.5-50.1); Hemoglobin 7.6 g/dL (12.9-16.9); Mean Corpuscular HGB Conc 31.4 g/dL (31.6-35.5); Mean Corpuscular Hemoglobin 27.4 pg (28.0-33.3); Mean Corpuscular Volume 87.4 fL (83.0-100.0); Mean Platelet Volume 8.3 fL (9.4-12.4); Platelet Count 166 K/mcL (140-400); Red Blood Count 2.77 M/mcL (4.19-5.50); Red Cell Distribution Width 16.5 % (11.5-14.5)
--- NOTE | 2017-07-28 09:58 | Palliative Progress Note ---
Date of Encounter: 07/28/17 Time of Encounter: 09:55 - Assessment and plan (1) Goals of care, counseling/discussion Current Visit: Yes Status: Acute Assessment and plan: DNRCCDNI Patient's goal is delivering his long as possible without pain or suffering. Patient explained that dialysis can help with mobilizing fluid out of her body he is unsure if he wants to discontinue this. Patient states that most pain comes from his abdomen being distended from ascites. Today he will have a Pleurx catheter placed by IR. Patient asked if his abdominal ascites is controlled with a Pleurx catheter which will also control his abdominal pain but he still want dialysis? He would like to think about this question. Currently there is no one at home that can take care of him. Currently [facility] will not accept patient and to service if he continues with dialysis. (2) Dyspnea Current Visit: Yes Status: Acute Assessment and plan: Patient on fentanyl IV push for control air hunger, dyspnea. Qualifiers: Dyspnea type: shortness of breath Qualified Code(s): R06.02 - Shortness of breath; R06.00 - Dyspnea, unspecified; R06.01 - Orthopnea (3) Acute respiratory failure with hypoxia Current Visit: Yes Status: Resolved Assessment and plan: Patient is extubated, moving out of ICU. Has conversational dyspnea Continue supplemental oxygenation. (4) Cancer associated pain Current Visit: Yes Status: Acute Assessment and plan: Continue oxycodone. Reports pain is under control. (5) ESRD (end stage renal disease) on dialysis Current Visit: Yes Status: Acute Assessment and plan: Currently on dialysis and would like to continue. (6) HCC (hepatocellular carcinoma) Current Visit: Yes Status: Chronic Assessment and plan: Metastatic hepatocellular carcinoma. Patient has ascites secondary to this. Plan is to get a Pleurx catheter as a palliative measure. - Time Spent With Patient Total time spent is greater than 50% in coordination of care (as documented) at patient's floor/unit and/or counseling patient: - Subjective Interval history: Patient transferred out of ICU to . Had discussion with patient who states he does not want to be in pain. He also states he wants to also live as long as possible. Patient told that he could not be enrolled in hospice hospice ( [facility]) if he would like to continue dialysis. He reports currently he is unsure of what he wants to. - Constitutional Vitals: Abnormal lab results RBC 2.77 M/mcL (4.19-5.50) L 07/28/17 09:30 Hgb 7.6 g/dL (12.9-16.9) L 07/28/17 09:30 Hct 24.2 % (37.5-50.1) L 07/28/17 09:30 MCH 27.4 pg (28.0-33.3) L 07/28/17 09:30 MCHC 31.4 g/dL (31.6-35.5) L 07/28/17 09:30 RDW 16.5 % (11.5-14.5) H 07/28/17 09:30 MPV 8.3 fL (9.4-12.4) L 07/28/17 09:30 Neutrophils # 9.4 K/mcL (1.6-8.9) H 07/27/17 05:00 Lymphocytes # 0.3 K/mcL (0.6-4.6) L 07/27/17 05:00 ESR >= 130 mm/hr (0-10) H 07/22/17 17:58 PT 14.1 Seconds (9.4-12.1) H 07/27/17 12:17 ABG pO2 77 mmHg (85-104) L 07/25/17 04:48 ABG Base Excess -3 mEq/L (-2 to 3) L 07/25/17 04:48 Sodium 131 mEq/L (136-145) L 07/27/17 05:00 Chloride 96 mEq/L (98-109) L 07/27/17 05:00 BUN 29 mg/dL (8-26) H D 07/27/17 05:00 Creatinine 3.66 mg/dL (0.72-1.25) H 07/27/17 05:00 Est GFR ( Amer) 20 (> 60) L 07/27/17 05:00 Est GFR (Non-Af Amer) 17 (> 60) L 07/27/17 05:00 Glucose 161 mg/dL (70-99) H 07/27/17 05:00 POC Glucose 147 (58-89) H 07/28/17 05:39 Ionized Calcium 1.11 mmol/L (1.15-1.35) L 07/26/17 04:33 Phosphorus 7.3 mg/dL (2.3-4.7) H 07/26/17 04:33 AST 62 Units/L (5-34) H 07/23/17 14:25 Alkaline Phosphatase 167 Units/L (38-126) H 07/23/17 14:25 C-Reactive Protein 177 mg/L (Less than 5) H 07/22/17 17:58 Serum Total Protein 5.7 g/dL (6.0-8.3) L 07/23/17 14:25 Albumin 1.8 g/dL (3.5-5.0) L 07/23/17 14:25 Globulin 3.9 g/dL (2.4-3.5) H 07/23/17 14:25 Albumin/Globulin Ratio 0.5 (1.1-2.2) L 07/23/17 14:25 Vancomycin Trough 20.9 mcg/mL (10-20) H* 07/25/17 08:00 - Additional findings Additional findings: General: Pleasant without distress. Conversational dyspnea Heart: Regular rate and rhythm with no murmur Lungs: Clear to auscultation bilaterally Abdomen: Soft nontender, distended, positive bowel sounds Skin: warm and dry Extremities: 3+ pitting edema Vascular: Difficult to identify due to edema of lower extremities. Radial pulses 2 out of 4 Palliative Quality Palliative Quality: Screen for Code Status: Yes, Screen for Goals of Care: Yes, Screen for Pain: Yes, Screen for Nausea/Vomitting: Yes Code Status: 07/25/17 16:28 CODE [Resuscitation Status: Active] [RES] Routine Comment: Resuscitation Status: DNR-Comfort Care-Arrest 07/27/17 11:14 DNR [Resuscitation Status: Active] [RES] Routine Comment: Resuscitation Status: [id number] - Labs CBC & Chem 7: 07/28/17 09:30 07/27/17 05:00 Labs: Laboratory Results - last 24 hr 07/27/17 07/27/17 07/27/17 11:35 12:17 18:42 WBC RBC Hgb Hct MCV MCH MCHC RDW Plt Count MPV PT 14.1 H INR 1.3 POC Glucose 173 H 104 H 07/27/17 07/28/17 07/28/17 23:32 05:39 09:30 WBC 8.6 RBC 2.77 L Hgb 7.6 L Hct 24.2 L MCV 87.4 MCH 27.4 L MCHC 31.4 L RDW 16.5 H Plt Count 166 MPV 8.3 L PT INR POC Glucose 136 H 147 H - ABG Interpretation ABG results: ABG ABG pH 7.36 pH Units (7.32-7.45) 07/25/17 04:48 ABG pCO2 40 mmHg (35-45) 07/25/17 04:48 ABG pO2 77 mmHg (85-104) L 07/25/17 04:48 ABG O2 Saturation 95 % (95-98) 07/25/17 04:48 PT/INR, D-dimer PT 14.1 Seconds (9.4-12.1) H 07/27/17 12:17 Consult Discharge Plan - Plan Referrals: Alicia Pastrana MD [Primary Care Provider] -
[2017-07-28 09:59] LABS: Calcium 8.8 mg/dL (8.6-10.8); Potassium 3.9 mEq/L (3.5-4.5)
[2017-07-28] MEDS: Pantoprazole 40 MG VIAL IVP SCH (10:01)
[2017-07-28] MEDS ORDERED: 0.9 % Sodium Chloride 250 ML IVC PRN ×2 (10:07→10:57)
[2017-07-28] MEDS ORDERED: *HR* Heparin 10,000 UNIT/10 ML VIAL IV PRN (10:07)
[2017-07-28] MEDS ORDERED: 0.9 % Sodium Chloride 500 ML ONE ×2 (10:13→22:45)
[2017-07-28] MEDS ORDERED: *HR* FentaNYL (PF) 100 MCG/2 ML VIAL IVP ONE (10:23)
[2017-07-28] MEDS ORDERED: *HR* Midazolam HCl 2 MG/2 ML VIAL IVP ONE (10:23)
[2017-07-28] MEDS ORDERED: Clindamycin 600 MG/50 ML 600 MG/50 ML IV.SOLN IVPB ONE (10:23)
--- NOTE | 2017-07-28 10:23 | Pre-Sedation Evaluation ---
Pre-sedation evaluation - Pre-sedation checklist Procedure: embolization of liver Recent Vitals: Last Vital Signs Temp 97.4 F L 07/28/17 04:13 Pulse 88 07/28/17 06:00 Resp 16 07/28/17 07:56 BP 93/43 07/28/17 06:00 Pulse Ox 96 07/28/17 07:56 H&P (including ROS) documented in medical record: Yes Previous reaction to sedatives/anesthetics: No Dietary Status: NPO after Midnight Airway Assessment: Patient can open mouth completely, TMJ function normal, Micrognathia (under-bite, receding chin) absent, Neck with adequate range of motion Dentition: No loose teeth or bridges, dentures removed Possible difficult airway: No ASA Classification *see protocol: CLASS III-Severe systemic disease Plan of Care: Pt appropriate candidate for procedure/moderate/conscious sedation , Risks/benefits of procedure/sedation discussed w/ patient/family
[2017-07-28] MEDS ORDERED: D5% in Water 1,000 ML IVC PRN (10:57)
[2017-07-28] MEDS ORDERED: Dextrose Gel 15 GM PO PRN ×2 (10:57)
[2017-07-28] MEDS ORDERED: *HR* Dextrose 50 % in Water (Syg) 50 ML SYRINGE IVP PRN (10:57)
[2017-07-28] MEDS: Renal Vitamin 1 MG CAPSULE PO SCH (13:00)
[2017-07-29] MEDS: Insulin LISPRO 300 UNITS/3 ML VIAL SQ SCH ×5 (00:09→21:43)
[2017-07-29] MEDS: Ondansetron 4 MG/2 ML VIAL IVP PRN (02:16)
[2017-07-29] MEDS: *HR* OxyCODONE Immed Rel 5 MG TABLET PO PRN ×4 (04:07→23:47)
[2017-07-29] MEDS: *HR* Promethazine 25 MG/ML VIAL IVP PRN (04:09)
[2017-07-29] MEDS: Albumin 25% 25gram/100mL 25 GM/100 ML IV.SOLN IVPB SCH ×4 (05:32→23:26)
[2017-07-29] MEDS: Pantoprazole 40 MG VIAL IVP SCH (08:20)
[2017-07-29] MEDS: Renal Vitamin 1 MG CAPSULE PO SCH (08:20)
[2017-07-29] MEDS ORDERED: 0.9 % Sodium Chloride 250 ML IVC PRN (08:42)
[2017-07-29] MEDS ORDERED: *HR* Heparin 10,000 UNIT/10 ML VIAL IV PRN (08:42)
[2017-07-29 08:56] LABS: Basophils % 0.1 %; Eosinophils % 0.3 %; Hematocrit 27.7 % (37.5-50.1); Hemoglobin 8.5 g/dL (12.9-16.9); Lymphocytes # 0.9 K/mcL (0.6-4.6); Lymphocytes % 8.8 %; Mean Corpuscular HGB Conc 30.7 g/dL (31.6-35.5); Mean Corpuscular Hemoglobin 27.1 pg (28.0-33.3); Mean Corpuscular Volume 88.2 fL (83.0-100.0); Mean Platelet Volume 8.4 fL (9.4-12.4); Monocytes # 0.6 K/mcL (0.0-1.3); Monocytes % 5.9 %; Neutrophils # 8.5 K/mcL (1.6-8.9); Platelet Count 175 K/mcL (140-400); Red Blood Count 3.14 M/mcL (4.19-5.50); Red Cell Distribution Width 16.7 % (11.5-14.5); Segmented Neutrophils % 83.9 %
--- NOTE | 2017-07-29 08:56 | Nephrology Progress Note ---
Date of Encounter: 07/29/17 Time of Encounter: 08:25 - Assessment and Plan (1) ESRD (end stage renal disease) on dialysis Current Visit: Yes Status: Acute HD today, keeping MWF schedule. Orders given. Midodrine for blood pressure support. Will monitor Subjective Principal diagnosis: Severe hypoxic respiratory failure Interval history: Transferred from to . Alert, oriented. Objective - Vital Signs Vital signs: Vital Signs Temp Pulse Resp BP Pulse Ox 07/29/17 08:01 97.5 F L 116 18 127/64 94 07/29/17 06:45 114 122/66 07/29/17 06:15 117 112/63 07/29/17 06:00 123 100/46 07/29/17 05:55 115 104/51 07/29/17 05:50 117 106/59 07/29/17 05:45 112 80/56 07/29/17 05:20 114 119/64 07/29/17 04:45 113 90/33 07/29/17 04:15 117 91/55 07/29/17 04:05 98.4 F 118 15 95/52 92 07/29/17 03:45 119 106/53 07/29/17 03:15 112 118/61 07/29/17 02:45 118 99/50 07/29/17 02:25 100 115/35 07/29/17 02:20 97.7 F 113 18 106/58 88 07/29/17 02:15 110 116/73 07/29/17 02:10 99 105/40 07/29/17 02:08 98 88/52 07/29/17 01:50 113 07/28/17 23:56 98.0 F 100 18 69/35 90 07/28/17 22:36 69/37 07/28/17 21:58 77/42 07/28/17 21:29 73/49 07/28/17 20:58 81/43 07/28/17 20:29 83/48 07/28/17 18:58 97.3 F L 102 18 90/55 90 07/28/17 15:48 97.5 F L 104 17 95/38 92 07/28/17 15:09 97 F L 18 110/55 07/28/17 15:05 94/51 07/28/17 14:50 107/60 07/28/17 14:35 111/55 07/28/17 14:20 101/54 07/28/17 14:05 99/55 07/28/17 13:50 103/58 07/28/17 13:35 104/57 07/28/17 13:20 121/78 07/28/17 13:05 115/57 07/28/17 12:50 97/53 07/28/17 12:35 111/54 07/28/17 12:20 119/61 07/28/17 12:05 100/57 07/28/17 11:50 118/66 07/28/17 11:35 97.4 F L 24 122/60 07/28/17 11:08 97.5 F L 97 18 104/65 91 Intake and Output 07/28/17 07/29/17 07/29/17 23:59 07:59 15:59 Intake Total 100 / 100 219 / 219 151 / 151 Output Total 100 / 100 Balance 0 / 0 219 / 219 151 / 151 Intake: IV Fluids 100 / 100 219 / 219 131 / 131 DOPamine Premix 400mg/250mL 400 119 / 119 131 / 131 mg In 250 ml @ 5 MCG/KG/MIN 34 .763 mls/hr IVC .Q7H12M [facility] Rx# :[id number] Flexbumin 25 gm In 100 ml @ 60 100 / 100 100 / 100 mls/hr IVPB Q6H [facility] Rx#: [id number] Oral 0 / 0 Intake, Autotransfusion Amount 20 / 20 Output: Urine 100 / 100 Other: Stool Size Moderate Moderate Stool Consistency loose loose liquid soft Stool Characteristics Pasty Stool Color Brown Brown Yellow # Bowel Movements 1 Weight 188.4 kg Blood Glucose* 127 145 132 Patient Weight 07/29/17 23:59 Weight 188.4 kg - General Appearance General appearance: Present: well-developed, well-nourished, appears started age EENT: Present: mucous membranes moist Neck: Present: no JVD Respiratory: Present: clear Cardiology: Present: edema, regular rate, regular rhythm Additional Comments: anasarca Gastrointestinal: Present: hypoactive bowel sounds, distended Integumentary: Present: warm and dry Neurologic: Present: alert and oriented x3 Psychiatric: Present: mood/affect appropriate, cooperative - Lab 07/28/17 09:30 07/28/17 09:30 Most recent lab results ABG pH 7.36 pH Units (7.32-7.45) 07/25/17 04:48 ABG pCO2 40 mmHg (35-45) 07/25/17 04:48 ABG pO2 77 mmHg (85-104) L 07/25/17 04:48 ABG HCO3 22 mEq/L (21-27) 07/25/17 04:48 ABG O2 Saturation 95 % (95-98) 07/25/17 04:48 Calcium 8.8 mg/dL (8.6-10.8) 07/28/17 09:30 Phosphorus 7.3 mg/dL (2.3-4.7) H 07/26/17 04:33 Magnesium 2.3 mg/dL (1.6-2.6) 07/26/17 04:33 Consult Discharge Plan - Plan Referrals: Alicia Pastrana MD [Primary Care Provider] - (Patient going home with hospice)
[2017-07-29 09:12] LABS: Albumin 3.4 g/dL (3.5-5.0); Albumin/Globulin Ratio 1.1 (1.1-2.2); Bilirubin,Total 0.7 mg/dL (0.2-1.2); Calcium 8.8 mg/dL (8.6-10.8); Potassium 3.5 mEq/L (3.5-4.5); Total Protein 6.4 g/dL (6.0-8.3)
--- NOTE | 2017-07-29 10:46 | Palliative Progress Note ---
Date of Encounter: 07/29/17 Time of Encounter: 09:40 - Assessment and plan (1) Dyspnea Current Visit: Yes Status: Acute Assessment and plan: Paracentesis/pleurx to be placed today. This typically gives pt relief with his breathing. Continues on supportive oxygen. Currently no opioids in place for dyspnea - had significant hypotension last pm and currently on dopamine. Will monitor. Qualifiers: Dyspnea type: shortness of breath Qualified Code(s): R06.02 - Shortness of breath; R06.00 - Dyspnea, unspecified; R06.01 - Orthopnea (2) Cancer associated pain Current Visit: Yes Status: Acute Assessment and plan: Continue Oxycodone PRN. Utilized x2 last 24 hours. Monitor (3) Goals of care, counseling/discussion Current Visit: Yes Status: Acute Assessment and plan: dry drug worker currently meeting with family. Awaiting Medicaid. Complex situation as daughter does not want to place in ECF, but requires additional help at home to provide care. Patient still wants HD and daughter wants to honor his decision. Discussed that without hospice - it will be difficult to manage his symptoms, and that he will be difficult to keep out of the hospital. Daughter upset that he was taken to dialysis prior to IR. I called IR and they stated they may see pt in dialysis, but may not place pleurx r/t pt still on dopamine drip. Daughter expressed frustration over care that he has received here at [facility], and states that his wounds are much worse. Offered to provide her number for pt advocate, she states she has already spoke with her. Provided emotional support, she is struggling over trying to keep pt comfortable , and still abide by his wishes. I did explain that if he ever transitioned to comfort care, no resuscitative measures are given, and he could recieve comfort medications despite hypotension. She verbalized understanding. (4) Hepatocellular carcinoma Current Visit: No Status: Acute (5) Acute respiratory failure with hypoxia Current Visit: Yes Status: Resolved (6) ESRD (end stage renal disease) on dialysis Current Visit: Yes Status: Acute Assessment and plan: Last HD was yesterday. Nephrology continues to follow. - Time Spent With Patient Total time spent is greater than 50% in coordination of care (as documented) at patient's floor/unit and/or counseling patient: Greater than 35 minutes - Subjective Interval history: Patient with hypotension on 2A last pm and transferred to . Currently on Dopamine. Has been started on Midodrine by nephrology. Patient c/o shortness of breath and abd pain. Having drainage from previous paracentesis site. He is hoping to have pleurx cath placed today. Tolerated HD yesterday. and daughter present. - Constitutional Vitals: Abnormal lab results RBC 3.14 M/mcL (4.19-5.50) L 07/29/17 08:47 Hgb 8.5 g/dL (12.9-16.9) L 07/29/17 08:47 Hct 27.7 % (37.5-50.1) L 07/29/17 08:47 MCH 27.1 pg (28.0-33.3) L 07/29/17 08:47 MCHC 30.7 g/dL (31.6-35.5) L 07/29/17 08:47 RDW 16.7 % (11.5-14.5) H 07/29/17 08:47 MPV 8.4 fL (9.4-12.4) L 07/29/17 08:47 ESR >= 130 mm/hr (0-10) H 07/22/17 17:58 PT 14.1 Seconds (9.4-12.1) H 07/27/17 12:17 ABG pO2 77 mmHg (85-104) L 07/25/17 04:48 ABG Base Excess -3 mEq/L (-2 to 3) L 07/25/17 04:48 Chloride 97 mEq/L (98-109) L 07/29/17 08:47 BUN 30 mg/dL (8-26) H D 07/29/17 08:47 Creatinine 3.28 mg/dL (0.72-1.25) H 07/29/17 08:47 Est GFR ( Amer) 23 (> 60) L 07/29/17 08:47 Est GFR (Non-Af Amer) 19 (> 60) L 07/29/17 08:47 Glucose 131 mg/dL (70-99) H 07/29/17 08:47 POC Glucose 127 (58-89) H 07/29/17 00:08 Ionized Calcium 1.11 mmol/L (1.15-1.35) L 07/26/17 04:33 Phosphorus 7.3 mg/dL (2.3-4.7) H 07/26/17 04:33 AST 43 Units/L (5-34) H 07/29/17 08:47 Alkaline Phosphatase 135 Units/L (38-126) H 07/29/17 08:47 C-Reactive Protein 177 mg/L (Less than 5) H 07/22/17 17:58 Albumin 3.4 g/dL (3.5-5.0) L 07/29/17 08:47 Vancomycin Trough 20.9 mcg/mL (10-20) H* 07/25/17 08:00 General appearance: Present: mild distress - Respiratory Respiratory exam: Present: decreased breath sounds, CTAB - Cardiovascular Cardiovascular exam: Present: tachycardia - GI/Abdominal GI/Abdominal exam: Present: diminished bowel sounds, distended, firm - Extremities Exam Additional comments: 4+ edema bilateral upper and lower extremities - Neurological Exam Neurological exam: Present: alert, oriented X3 - Skin Skin exam: Present: dry, pallor, warm Additional comments: stage 4 pressure ulcer not examined during my visit. Palliative Quality Palliative Quality: Screen for Code Status: Yes, Screen for Goals of Care: Yes, Screen for Pain: Yes, Screen for Nausea/Vomitting: Yes Code Status: 07/25/17 16:28 CODE [Resuscitation Status: Active] [RES] Routine Comment: Resuscitation Status: DNR-Comfort Care-Arrest 07/27/17 11:14 DNR [Resuscitation Status: Active] [RES] Routine Comment: Resuscitation Status: [id number] - Labs CBC & Chem 7: 07/29/17 08:47 07/29/17 08:47 Labs: Laboratory Results - last 24 hr 07/28/17 07/28/17 07/29/17 14:19 20:28 00:08 WBC RBC Hgb Hct MCV MCH MCHC RDW Plt Count MPV Immature Gran % Seg Neutrophils % Lymphocytes % Monocytes % Eosinophils % Basophils % Neutrophils # Lymphocytes # Monocytes # Eosinophils # Basophils # Sodium Potassium Chloride Carbon Dioxide BUN Creatinine Est GFR ( Amer) Est GFR (Non-Af Amer) BUN/Creatinine Ratio Glucose POC Glucose 116 H 246 H 127 H Calculated Osmolality Calcium Total Bilirubin AST ALT Alkaline Phosphatase Serum Total Protein Albumin Globulin Albumin/Globulin Ratio 07/29/17 07/29/17 08:47 08:47 WBC 10.1 RBC 3.14 L Hgb 8.5 L Hct 27.7 L MCV 88.2 MCH 27.1 L MCHC 30.7 L RDW 16.7 H Plt Count 175 MPV 8.4 L Immature Gran % 1.0 Seg Neutrophils % 83.9 Lymphocytes % 8.8 Monocytes % 5.9 Eosinophils % 0.3 Basophils % 0.1 Neutrophils # 8.5 Lymphocytes # 0.9 Monocytes # 0.6 Eosinophils # 0.0 Basophils # 0.0 Sodium 136 Potassium 3.5 Chloride 97 L Carbon Dioxide 25 BUN 30 H D Creatinine 3.28 H Est GFR ( Amer) 23 L Est GFR (Non-Af Amer) 19 L BUN/Creatinine Ratio 9 Glucose 131 H POC Glucose Calculated Osmolality 290 Calcium 8.8 Total Bilirubin 0.7 AST 43 H ALT 21 Alkaline Phosphatase 135 H Serum Total Protein 6.4 Albumin 3.4 L Globulin 3.0 Albumin/Globulin Ratio 1.1 - ABG Interpretation ABG results: ABG ABG pH 7.36 pH Units (7.32-7.45) 07/25/17 04:48 ABG pCO2 40 mmHg (35-45) 07/25/17 04:48 ABG pO2 77 mmHg (85-104) L 07/25/17 04:48 ABG O2 Saturation 95 % (95-98) 07/25/17 04:48 PT/INR, D-dimer PT 14.1 Seconds (9.4-12.1) H 07/27/17 12:17 Consult Discharge Plan - Plan Referrals: Alicia Pastrana MD [Primary Care Provider] - 08/03/17 11:20 am (Patient going home with hospice)
[2017-07-29] MEDS ORDERED: 0.9 % Sodium Chloride 1,000 ML ONE (11:24)
[2017-07-29] MEDS ORDERED: CeFAZolin Premix DUPLEX 2,000 MG/50 ML BAG IVPB ONE (15:11)
--- NOTE | 2017-07-29 15:46 | IR Procedure Note ---
Date of procedure: 07/29/17 Consent Obtained: Written consent Timeout: Correct patient and procedure verified, Correct site verified, Time out performed, Skin prep completed Indications: ascites, malignant Procedure Performed: Abdominal Pleurx Site/Technique: rt abdomen Results/Findings: adequate placement Estimated blood loss (cc): 0 Complications: None; Tolerated procedure well Post Procedure Treatment Plan: KUB
--- NOTE | 2017-07-29 15:57 | Internal Med Progress Note ---
<Luis Armando Domingo - Last Filed: 07/29/17 18:20> Date of Encounter: 07/29/17 Time of Encounter: 11:00 - Assessment and plan (1) Acute respiratory failure with hypoxia Current Visit: Yes Status: Resolved Assessment and plan: Extubated 07/26; tolerating 12L NC Dyspnea likely multifactorial, bilateal pleural effusion, ESRD, end stage liver disease, intra-abdominal pressure from ascitic fluid. IR today to insert Pleurix cath for drainage. (2) Ascites Current Visit: Yes Status: Acute Assessment and plan: As above IR to insert Pleurix cath. Albumin 3.4 End stage liver disease with HCC. Qualifiers: Ascites type: malignant Qualified Code(s): R18.0 - Malignant ascites (3) HCC (hepatocellular carcinoma) Current Visit: Yes Status: Chronic Assessment and plan: End stage liver disease. Hospice qualified, diagnosis and management ordoñez been with [facility]. (4) ESRD (end stage renal disease) on dialysis Current Visit: Yes Status: Acute Assessment and plan: Continue with scheduled HD. Volume removal limited by hypotension, currently on dopamine (alpha1 and nonselective beta agonist) and midodrine (alpha 1). (5) Sacral decubitus ulcer Current Visit: Yes Status: Chronic Assessment and plan: Wound care daily. ILLUSTRATOR SET careful transfer and positioning. Qualifiers: Pressure ulcer stage: stage 3 Qualified Code(s): L89.153 - Pressure ulcer of sacral region, stage 3 (6) DVT prophylaxis Current Visit: No Status: Acute Assessment and plan: Intermittent pneumatic compression. - Subjective Interval history: PMH: liver cirrhosis, heatocellular carcinoma managed at [facility], [facility] resident, hospice qualified Interval: ED 07/22/17 - presented for therapeutic paracentesis, chief complaint of shortness of breath, abdominal swelling. CXR also revealed bilateral pleural effusions. 4L fluid drained during ED course, respiratory distress improved. 2N 07/22/17 - Admitted as inpatient, consult with IR for abdominal catheter placement. Rapid response at 0405 07/23, found to be in acute on chronic hypoxic resp failure. Pt placed on BiPAP, no improvement, proceeded to intubate , transfered to ICU. ICU 07/23/17 - Resp failure secondary to V/Q mismatch due to bilateral pleural efusion with ESRD and end stage liver disease. On single pressor. Palliative 07/25/17 - Dr. Barron and SW Mr. Xavier Moffett on service. Daughter Mony desires assitance at home. 07/27/17 - Extubated, tolerating NC. Patient modified code to DNR-CCA-DNI. 07/28/17 - Nephro adding Midodrine for blood pressure support. On dopamine drip. IR Pleurix catheter 07/29 in the afternoon. Today: Patient to receive IR catheter. Dialysis received prior to IR schedule, patient's daughter wishes Pleurix performed before HD. - Constitutional Vitals: Temp Pulse Resp BP Pulse Ox 97.2 F L 107 18 123/49 94 07/29/17 15:15 07/29/17 11:16 07/29/17 15:15 07/29/17 15:15 07/29/17 08:01 General appearance: Present: mild distress, A&O X 3 - Head Head exam: Present: atraumatic - Neck Neck exam general surgery: Present: full ROM. Absent: lymphadenopathy - Cardiovascular Cardiovascular exam: Present: RRR, +S1, +S2 - GI/Abdominal Additional comments: ascitic, Pleurix cath planned - Extremities Exam Additional comments: pitting edema Internal Medicine: Result - Labs CBC & Chem 7: 07/29/17 08:47 07/29/17 08:47 Labs: Short CBC 07/29/17 Range/Units 08:47 WBC 10.1 (4.3-11.1) K/mcL Hgb 8.5 L (12.9-16.9) g/dL Hct 27.7 L (37.5-50.1) % Plt Count 175 (140-400) K/mcL Neutrophils # 8.5 (1.6-8.9) K/mcL BMP 07/29/17 08:47 Sodium 136 Potassium 3.5 Chloride 97 L Carbon Dioxide 25 BUN 30 H D Creatinine 3.28 H Glucose 131 H Calcium 8.8 Liver Function 07/29/17 Range/Units 08:47 Total Bilirubin 0.7 (0.2-1.2) mg/dL AST 43 H (5-34) Units/L ALT 21 (0-55) Units/L Alkaline Phosphatase 135 H (38-126) Units/L Albumin 3.4 L (3.5-5.0) g/dL - ABG Interpretation ABG results: ABG ABG pH 7.36 pH Units (7.32-7.45) 07/25/17 04:48 ABG pCO2 40 mmHg (35-45) 07/25/17 04:48 ABG pO2 77 mmHg (85-104) L 07/25/17 04:48 ABG O2 Saturation 95 % (95-98) 07/25/17 04:48 PT/INR, D-dimer PT 14.1 Seconds (9.4-12.1) H 07/27/17 12:17 Consult Discharge Plan - Plan Referrals: Alicia Pastrana MD [Primary Care Provider] - 08/03/17 11:20 am (Patient going home with hospice) <Joshua Ortiz - Last Filed: 07/29/17 18:58> Date of Encounter: 07/29/17 - Assessment and plan (1) Acute respiratory failure with hypoxia Current Visit: Yes Status: Resolved (2) Ascites Current Visit: Yes Status: Acute Qualifiers: Ascites type: malignant Qualified Code(s): R18.0 - Malignant ascites (3) HCC (hepatocellular carcinoma) Current Visit: Yes Status: Chronic (4) Hypotension Current Visit: No Status: Acute Qualifiers: Hypotension type: other hypotension type Qualified Code(s): I95.89 - Other hypotension (5) Type 2 diabetes mellitus Current Visit: No Status: Chronic Qualifiers: Diabetes mellitus complication status: with unspecified complications Diabetes mellitus snf insulin use: with lobsterman use Qualified Code(s) : E11.8 - Type 2 diabetes mellitus with unspecified complications; Z79.4 - group home (current) use of insulin - Constitutional Vitals: Temp Pulse Resp BP Pulse Ox 97.2 F L 107 18 123/49 94 07/29/17 15:15 07/29/17 11:16 07/29/17 15:15 07/29/17 15:15 07/29/17 08:01 Internal Medicine: Result - Labs CBC & Chem 7: 07/29/17 08:47 07/29/17 08:47 Labs: Short CBC 07/29/17 Range/Units 08:47 WBC 10.1 (4.3-11.1) K/mcL Hgb 8.5 L (12.9-16.9) g/dL Hct 27.7 L (37.5-50.1) % Plt Count 175 (140-400) K/mcL Neutrophils # 8.5 (1.6-8.9) K/mcL BMP 07/29/17 08:47 Sodium 136 Potassium 3.5 Chloride 97 L Carbon Dioxide 25 BUN 30 H D Creatinine 3.28 H Glucose 131 H Calcium 8.8 Liver Function 07/29/17 Range/Units 08:47 Total Bilirubin 0.7 (0.2-1.2) mg/dL AST 43 H (5-34) Units/L ALT 21 (0-55) Units/L Alkaline Phosphatase 135 H (38-126) Units/L Albumin 3.4 L (3.5-5.0) g/dL - ABG Interpretation ABG results: ABG ABG pH 7.36 pH Units (7.32-7.45) 07/25/17 04:48 ABG pCO2 40 mmHg (35-45) 07/25/17 04:48 ABG pO2 77 mmHg (85-104) L 07/25/17 04:48 ABG O2 Saturation 95 % (95-98) 07/25/17 04:48 PT/INR, D-dimer PT 14.1 Seconds (9.4-12.1) H 07/27/17 12:17 - Impressions Impressions KUB X-Ray 07/29/17 15:10 IMPRESSION: PleurX catheter in place in the right lower quadrant. D/ / Leandro Goyal MD / Leandro Goyal MD Interpreting Provider: Leandro Goyal MD - Attending Attestation I examined this patient and my medical decision-making was reviewed with the Resident Physician on 07/29/17. I agree with the documented findings, disposition and treatment plan as described except to the extent set forth below. Mr. Dixon is currently admitted for end stage HCC and renal failure. He remains moderate to high risk due to potential for worsening respiratory status. Mr Dixon is comfortable at this time. No fever or chills. Remains on dopamine. Had catheter drain placed today. Working with palliative for discharge planning. Exam alert. Comfortable In dialysis Heart reg Lungs diminished Abd distended Edema present I/P 1. HCC 2. Ascites 3. Renal failure Further diagnoses and plan as above.
[2017-07-29] MEDS ORDERED: Dextrose Gel 15 GM PO PRN ×2 (18:02)
[2017-07-29] MEDS ORDERED: *HR* Dextrose 50 % in Water (Syg) 50 ML SYRINGE IVP PRN (18:02)
[2017-07-29] MEDS ORDERED: D5% in Water 1,000 ML IVC PRN (18:02)
--- NOTE | 2017-07-29 18:23 | Event Note ---
Date of Encounter: 07/29/17 Time of Encounter: 18:00 I was requested by the daughter to come by and meet with herself and Mr. Dixon. He has returned to the hospital secondary to worsening shortness of breath and ascites. He was extubated and underwent Pleurx catheter placement today. He was on hospice at home previously. He was receiving dialysis with the permission of hospice. Currently, he is laying in bed trying to eat dinner with the aid of his daughter. He has multiple medical comorbid conditions including end-stage liver disease in the setting of a cc, end-stage renal disease on hemodialysis, stage IV decubitus ulcer, a perform status of 4. I spoke with the daughter previously last week and explained there is no potential options for treating his cancer moving forward. I asked her to focus on quality of life and not quantity of life. We discussed cessation of dialysis and potential locations for such during that phone call. The patient, per the daughter, was inclined to continue on dialysis and try to push for further therapy moving forward. Given his current clinical state, I recommend against pursuing further aggressive measures. I think to be the patient's best interest to discontinue dialysis and proceed home as he currently wishes so he can spend time with family members. I asked the patient what he thought about being off dialysis and returning home. The blood once. He stated he would think about this and was seriously considering this. However, the daughter chimed in and stated that she thought he should continue to have a better quality of life. I then met with the daughter individually. I think she wants to pursue more aggressive measures and keep him on dialysis. It was explained to the daughter that being off dialysis usually enables an expeditious and painless . This was not explained in great detail. I also encouraged the daughter to take opportunity such as those I witnessed to consider opening up in [place] to get the patient home secondary with his loved ones and family not delaying the inevitable. I think is important to focus on quality not quantity of life. She voiced understanding. I will touch base with palliative care to moving forward. In my opinion, going home off dialysis and is in this patient's best interest to enable entity around friends and family and not further suffer. Summary decision made by the patient and his family. I will be available to discuss this further if desired. Do not hesitate to call my cell phone at [phone] I spent 45 minutes counseling the family tonight.
[2017-07-29] MEDS ORDERED: *HR* Morphine 2 MG/ML SYRINGE IVP ONE (21:02)
[2017-07-30] MEDS: *HR* Morphine 2 MG/ML SYRINGE IVP PRN (04:55)
[2017-07-30] MEDS: Albumin 25% 25gram/100mL 25 GM/100 ML IV.SOLN IVPB SCH ×4 (04:56→23:33)
[2017-07-30 05:36] LABS: Eosinophils # 0.1 K/mcL (0.0-0.6); Eosinophils % 0.8 %; Hematocrit 27.5 % (37.5-50.1); Hemoglobin 8.5 g/dL (12.9-16.9); Immature Granulocytes % 0.9 % (0-4); Lymphocytes # 0.8 K/mcL (0.6-4.6); Lymphocytes % 8.7 %; Mean Corpuscular HGB Conc 30.9 g/dL (31.6-35.5); Mean Corpuscular Hemoglobin 27.3 pg (28.0-33.3); Mean Corpuscular Volume 88.4 fL (83.0-100.0); Mean Platelet Volume 8.5 fL (9.4-12.4); Monocytes # 0.5 K/mcL (0.0-1.3); Monocytes % 5.5 %; Neutrophils # 7.5 K/mcL (1.6-8.9); Nucleated Red Blood Cells 0.2 /100 WBC (0); Platelet Count 174 K/mcL (140-400); Red Blood Count 3.11 M/mcL (4.19-5.50); Red Cell Distribution Width 16.6 % (11.5-14.5); Segmented Neutrophils % 84.1 %
[2017-07-30 05:49] LABS: Calcium 8.4 mg/dL (8.6-10.8); Potassium 3.5 mEq/L (3.5-4.5)
[2017-07-30] MEDS: Renal Vitamin 1 MG CAPSULE PO SCH (08:59)
[2017-07-30] MEDS: Insulin LISPRO 300 UNITS/3 ML VIAL SQ SCH ×4 (09:00→20:20)
--- NOTE | 2017-07-30 09:13 | Nephrology Progress Note ---
Date of Encounter: 07/30/17 Time of Encounter: 09:10 - Assessment and Plan (1) ESRD (end stage renal disease) on dialysis Current Visit: Yes Status: Chronic Pt had dialysis yesterday. Next dialysis not due until Tuesday. There is ongoing discussion among team and family about hospice care with or without dialysis. Before next dialysis Tuesday hopefully decision will be made. From discussion with pt and one daughter present, it seems he wants to continue dialysis even with hospice plan (2) Hepatocellular carcinoma Current Visit: No Status: Chronic Not treatable. Hospice is reasonable option (3) Acute respiratory failure with hypoxia Current Visit: Yes Status: Acute Improved. Breathing fair now. But stil have lots of edema. UF during dialysis difficult due to hypotension Subjective Principal diagnosis: Severe hypoxic respiratory failure ESRD Interval history: Pt with ESRD.Also with large ascites. Had dialysis yesterday. Noted the discussion about changing care to hospice. But talking to patient this morning and the other daughter suggests that even with hospice they want to continue dialysis. No dialysis planned until Tuesday (He is MWF pt ). By Tuesday hopefully the team will clarify whether dialysis to be continued or not. Objective - Vital Signs Vital signs: Vital Signs Temp Pulse Resp BP Pulse Ox 07/30/17 07:58 97.6 F 63 16 97/47 92 07/30/17 06:15 106 117/54 07/30/17 05:15 106 105/62 07/30/17 04:15 110 110/51 07/30/17 03:15 107 105/39 07/30/17 02:42 97.3 F L 109 18 112/54 100 07/30/17 02:15 109 113/58 07/30/17 01:15 109 118/47 07/30/17 00:15 112 113/54 07/29/17 23:55 98.0 F 108 15 103/53 100 07/29/17 23:40 112 07/29/17 22:15 114 99/47 07/29/17 21:15 110 108/50 07/29/17 20:15 104 118/58 07/29/17 19:51 102 16 106/51 99 07/29/17 15:15 97.2 F L 18 110/57 07/29/17 15:00 115/80 07/29/17 14:45 104/78 07/29/17 14:30 104/57 07/29/17 14:15 100/53 07/29/17 14:00 108/57 07/29/17 13:45 97/44 07/29/17 13:30 89/44 07/29/17 13:15 92/52 07/29/17 13:00 93/51 07/29/17 12:45 104/50 07/29/17 12:30 103/51 07/29/17 12:15 97 F L 18 90/50 07/29/17 11:16 97.6 F 107 16 79/35 Intake and Output 07/29/17 07/30/17 07/30/17 23:59 07:59 15:59 Intake Total 160 / 160 350 / 350 Output Total 0 / 0 Balance 160 / 160 350 / 350 Intake: IV Fluids 100 / 100 350 / 350 DOPamine Premix 400mg/250mL 400 250 / 250 mg In 250 ml @ 5 MCG/KG/MIN 34 .763 mls/hr IVC .Q7H12M [facility] Rx# :[id number] Flexbumin 25 gm In 100 ml @ 60 100 / 100 100 / 100 mls/hr IVPB Q6H [facility] Rx#: [id number] Oral 60 / 60 Output: Urine 0 / 0 Other: Meal Dinner Percent of Meal Consumed 10% Blood Glucose* 138 164 - General Appearance General appearance: Present: well-nourished, obese, chronically ill, fatigue EENT: Present: ATNC, PERRL, mucous membranes moist, hearing intact, vision intact Neck: Present: JVD, no thyromegaly, no carotid bruit, supple Respiratory: Present: no kyphosis, no scoliosis, course breath sounds Cardiology: Present: no murmurs, no rub, no gallops, edema, regular rate, regular rhythm Dialysis Vascular Access: Venous Catheter thrill: No bruit: No Additional Comments: IJ cathter on right side Gastrointestinal: Present: normoactive bowel sounds, no tenderness, no guarding , distended Additional Comments: Got a Catheter for ascites drain Integumentary: Present: no rash, warm and dry, chronic venous stasis Neurologic: Present: no focal deficit, no asterixis, asterixis, alert and oriented x3 Musculoskeletal: Present: no deformities, no cyanosis, no clubbing Psychiatric: Present: mood/affect appropriate - Lab 07/30/17 05:15 07/30/17 05:15 Most recent lab results ABG pH 7.36 pH Units (7.32-7.45) 07/25/17 04:48 ABG pCO2 40 mmHg (35-45) 07/25/17 04:48 ABG pO2 77 mmHg (85-104) L 07/25/17 04:48 ABG HCO3 22 mEq/L (21-27) 07/25/17 04:48 ABG O2 Saturation 95 % (95-98) 07/25/17 04:48 Calcium 8.4 mg/dL (8.6-10.8) L 07/30/17 05:15 Phosphorus 7.3 mg/dL (2.3-4.7) H 07/26/17 04:33 Magnesium 2.3 mg/dL (1.6-2.6) 07/26/17 04:33 Consult Discharge Plan - Plan Referrals: Alicia Pastrana MD [Primary Care Provider] - 08/03/17 11:20 am (Patient going home with hospice)
[2017-07-30] MEDS: Pantoprazole 40 MG VIAL IVP SCH (09:21)
[2017-07-30] MEDS: *HR* OxyCODONE Immed Rel 5 MG TABLET PO PRN (10:52)
--- NOTE | 2017-07-30 11:13 | Palliative Progress Note ---
Date of Encounter: 07/30/17 Time of Encounter: 10:30 - Assessment and plan (1) Dyspnea Current Visit: Yes Status: Acute Qualifiers: Dyspnea type: shortness of breath Qualified Code(s): R06.02 - Shortness of breath; R06.00 - Dyspnea, unspecified; R06.01 - Orthopnea (2) Cancer associated pain Current Visit: Yes Status: Acute Assessment and plan: Will begin low dose Fentanyl patch at 12mcg and titrate up slowly to assist with pain management. Continue Oxycodone for breakthrough pain - received x1 last 24 hours. Patient also has Morphine ordered and did receive 4 mg during the night. Monitor. May titrate patch on Tuesday if well tolerated (3) Goals of care, counseling/discussion Current Visit: Yes Status: Acute Assessment and plan: Long discussion again with daughter - she is going to try and talk to her dad this weekend to see if he will be agreeable to stop dialysis and go home with hospice care. She understands that it will be almost impossible to manage him at home without hospice. She had questions r/t stopping dialysis and the dying process and we discussed at length. Discussed if we transition to comfort care , we can also be more aggressive with his comfort management. Will f/u in am. (4) Hepatocellular carcinoma Current Visit: No Status: Chronic (5) Acute respiratory failure with hypoxia Current Visit: Yes Status: Acute (6) ESRD (end stage renal disease) on dialysis Current Visit: Yes Status: Chronic - Time Spent With Patient Total time spent is greater than 50% in coordination of care (as documented) at patient's floor/unit and/or counseling patient: Greater than 35 minutes - Subjective Interval history: Patient awake and alert, pleasant and conversive this am. States not sleeping well, and c/o abd pain. Pleurx cath placed yesterday afternoon. Slightly short of breath this am but states its improved. Daughter and at bedside. - Constitutional Vitals: Abnormal lab results RBC 3.11 M/mcL (4.19-5.50) L 07/30/17 05:15 Hgb 8.5 g/dL (12.9-16.9) L 07/30/17 05:15 Hct 27.5 % (37.5-50.1) L 07/30/17 05:15 MCH 27.3 pg (28.0-33.3) L 07/30/17 05:15 MCHC 30.9 g/dL (31.6-35.5) L 07/30/17 05:15 RDW 16.6 % (11.5-14.5) H 07/30/17 05:15 MPV 8.5 fL (9.4-12.4) L 07/30/17 05:15 Nucleated RBCs/100 WBC 0.2 /100 WBC (0) H 07/30/17 05:15 ESR >= 130 mm/hr (0-10) H 07/22/17 17:58 PT 14.1 Seconds (9.4-12.1) H 07/27/17 12:17 ABG pO2 77 mmHg (85-104) L 07/25/17 04:48 ABG Base Excess -3 mEq/L (-2 to 3) L 07/25/17 04:48 Sodium 135 mEq/L (136-145) L 07/30/17 05:15 Chloride 97 mEq/L (98-109) L 07/30/17 05:15 Creatinine 2.88 mg/dL (0.72-1.25) H 07/30/17 05:15 Est GFR ( Amer) 27 (> 60) L 07/30/17 05:15 Est GFR (Non-Af Amer) 22 (> 60) L 07/30/17 05:15 Glucose 175 mg/dL (70-99) H 07/30/17 05:15 POC Glucose 138 (58-89) H 07/29/17 20:56 Calcium 8.4 mg/dL (8.6-10.8) L 07/30/17 05:15 Ionized Calcium 1.11 mmol/L (1.15-1.35) L 07/26/17 04:33 Phosphorus 7.3 mg/dL (2.3-4.7) H 07/26/17 04:33 AST 43 Units/L (5-34) H 07/29/17 08:47 Alkaline Phosphatase 135 Units/L (38-126) H 07/29/17 08:47 C-Reactive Protein 177 mg/L (Less than 5) H 07/22/17 17:58 Albumin 3.4 g/dL (3.5-5.0) L 07/29/17 08:47 Vancomycin Trough 20.9 mcg/mL (10-20) H* 07/25/17 08:00 General appearance: Present: morbidly obese - Respiratory Respiratory exam: Present: decreased breath sounds, CTAB Additional comments: Shallow breathing - Cardiovascular Cardiovascular exam: Present: +S1, +S2 - GI/Abdominal GI/Abdominal exam: Present: distended, normal bowel sounds, soft Additional comments: pleurx cath present to RLQ - Extremities Exam Additional comments: 4+ edema bilaterally to lower extremities - Neurological Exam Neurological exam: Present: alert, oriented X3 Additional comments: Generalized weakness - Skin Skin exam: Present: dry, warm Additional comments: Dressing to pressure ulcers Palliative Quality Palliative Quality: Screen for Code Status: Yes, Screen for Goals of Care: Yes, Screen for Pain: Yes, Screen for Nausea/Vomitting: Yes Code Status: 07/25/17 16:28 CODE [Resuscitation Status: Active] [RES] Routine Comment: Resuscitation Status: DNR-Comfort Care-Arrest 07/27/17 11:14 DNR [Resuscitation Status: Active] [RES] Routine Comment: Resuscitation Status: [id number] - Labs CBC & Chem 7: 07/30/17 05:15 07/30/17 05:15 Labs: Laboratory Results - last 24 hr 07/28/17 07/29/17 07/29/17 16:42 05:48 08:02 WBC RBC Hgb Hct MCV MCH MCHC RDW Plt Count MPV Immature Gran % Seg Neutrophils % Lymphocytes % Monocytes % Eosinophils % Basophils % Neutrophils # Lymphocytes # Monocytes # Eosinophils # Basophils # Nucleated RBCs/100 WBC Sodium Potassium Chloride Carbon Dioxide BUN Creatinine Est GFR ( Amer) Est GFR (Non-Af Amer) BUN/Creatinine Ratio Glucose POC Glucose 130 H 145 H 132 H Calculated Osmolality Calcium 07/29/17 07/29/17 07/29/17 12:04 17:11 20:56 WBC RBC Hgb Hct MCV MCH MCHC RDW Plt Count MPV Immature Gran % Seg Neutrophils % Lymphocytes % Monocytes % Eosinophils % Basophils % Neutrophils # Lymphocytes # Monocytes # Eosinophils # Basophils # Nucleated RBCs/100 WBC Sodium Potassium Chloride Carbon Dioxide BUN Creatinine Est GFR ( Amer) Est GFR (Non-Af Amer) BUN/Creatinine Ratio Glucose POC Glucose 136 H 123 H 138 H Calculated Osmolality Calcium 07/30/17 07/30/17 05:15 05:15 WBC 8.9 RBC 3.11 L Hgb 8.5 L Hct 27.5 L MCV 88.4 MCH 27.3 L MCHC 30.9 L RDW 16.6 H Plt Count 174 MPV 8.5 L Immature Gran % 0.9 Seg Neutrophils % 84.1 Lymphocytes % 8.7 Monocytes % 5.5 Eosinophils % 0.8 Basophils % 0.0 Neutrophils # 7.5 Lymphocytes # 0.8 Monocytes # 0.5 Eosinophils # 0.1 Basophils # 0.0 Nucleated RBCs/100 WBC 0.2 H Sodium 135 L Potassium 3.5 Chloride 97 L Carbon Dioxide 27 BUN 24 Creatinine 2.88 H Est GFR ( Amer) 27 L Est GFR (Non-Af Amer) 22 L BUN/Creatinine Ratio 8 Glucose 175 H POC Glucose Calculated Osmolality 288 Calcium 8.4 L - Impressions Impressions [facility] X-Ray 07/29/17 15:10 IMPRESSION: PleurX catheter in place in the right lower quadrant. D/ / Leandro Goyal MD / Leandro Goyal MD Interpreting Provider: Leandro Goyal MD - ABG Interpretation ABG results: ABG ABG pH 7.36 pH Units (7.32-7.45) 07/25/17 04:48 ABG pCO2 40 mmHg (35-45) 07/25/17 04:48 ABG pO2 77 mmHg (85-104) L 07/25/17 04:48 ABG O2 Saturation 95 % (95-98) 07/25/17 04:48 PT/INR, D-dimer PT 14.1 Seconds (9.4-12.1) H 07/27/17 12:17 Consult Discharge Plan - Plan Referrals: Alicia Pastrana MD [Primary Care Provider] - 08/03/17 11:20 am (Patient going home with hospice)
[2017-07-30] MEDS: *HR* FentaNYL PATCH 12 MCG PATCH TD SCH (11:59)
--- NOTE | 2017-07-30 17:11 | Internal Med Progress Note ---
Date of Encounter: 07/30/17 Time of Encounter: 13:00 - Assessment and plan (1) Acute respiratory failure with hypoxia Current Visit: Yes Status: Acute Assessment and plan: Remains on high flow oxygen with support. Weaning as able. (2) Ascites Current Visit: Yes Status: Acute Assessment and plan: Pleuryx cath placed yesterday. Will drain intermittently for comfort. Qualifiers: Ascites type: malignant Qualified Code(s): R18.0 - Malignant ascites (3) HCC (hepatocellular carcinoma) Current Visit: Yes Status: Chronic Assessment and plan: Supportive and comfort care.. (4) Hypotension Current Visit: No Status: Acute Assessment and plan: Remains on dopamine and has not been able to wean without hypotension. Continue for now. Will be an issue for discharge if unable to stop this medication. Qualifiers: Hypotension type: other hypotension type Qualified Code(s): I95.89 - Other hypotension (5) Type 2 diabetes mellitus Current Visit: No Status: Chronic Assessment and plan: Continue accuchecks and coverage. Qualifiers: Diabetes mellitus complication status: with unspecified complications Diabetes mellitus [facility] insulin use: with retirement use Qualified Code(s) : E11.8 - Type 2 diabetes mellitus with unspecified complications; Z79.4 - assisted (current) use of insulin - Subjective Interval history: Mr Dixon is currently admitted for volume overload and ascites. He remains moderate to high risk due to potential for worsenign resp status. Mr. Dixon is eating a little lunch. He has not had much appetite. No fever or chills. No issues with catheter. Family at bedside and having lunch with him. He remains on Dopamine and any attempt to wean results in significant hypotension. - Constitutional Vitals: Temp Pulse Resp BP Pulse Ox 98.2 F 107 20 131/62 96 07/30/17 15:47 07/30/17 15:47 07/30/17 15:47 07/30/17 15:47 07/30/17 15:47 General appearance: Present: mild distress, A&O X 3 - Head Head exam: Present: normocephalic - Eye Eye exam: Present: EOMI, conjuntiva pink - ENT ENT exam: Present: mucous membranes dry - Respiratory Respiratory exam: Present: decreased breath sounds. Absent: wheezes - Cardiovascular Cardiovascular exam: Present: RRR. Absent: tachycardia - GI/Abdominal GI/Abdominal exam: Present: distended, soft - Extremities Exam Extremities exam: Present: warm - Neurological Exam Neurological exam: Present: alert, oriented X3 - Skin Skin exam: Present: dry, warm. Absent: rash Internal Medicine: Result - Labs CBC & Chem 7: 07/30/17 05:15 07/30/17 05:15 Labs: Short CBC 07/30/17 Range/Units 05:15 WBC 8.9 (4.3-11.1) K/mcL Hgb 8.5 L (12.9-16.9) g/dL Hct 27.5 L (37.5-50.1) % Plt Count 174 (140-400) K/mcL Neutrophils # 7.5 (1.6-8.9) K/mcL BMP 07/30/17 05:15 Sodium 135 L Potassium 3.5 Chloride 97 L Carbon Dioxide 27 BUN 24 Creatinine 2.88 H Glucose 175 H Calcium 8.4 L - ABG Interpretation ABG results: ABG ABG pH 7.36 pH Units (7.32-7.45) 07/25/17 04:48 ABG pCO2 40 mmHg (35-45) 07/25/17 04:48 ABG pO2 77 mmHg (85-104) L 07/25/17 04:48 ABG O2 Saturation 95 % (95-98) 07/25/17 04:48 PT/INR, D-dimer PT 14.1 Seconds (9.4-12.1) H 07/27/17 12:17 Consult Discharge Plan - Plan Referrals: Alicia Pastrana MD [Primary Care Provider] - 08/03/17 11:20 am (Patient going home with hospice)
[2017-07-31] MEDS: *HR* Promethazine 25 MG/ML VIAL IVP PRN (00:43)
[2017-07-31] MEDS: Ondansetron 4 MG/2 ML VIAL IVP PRN (02:05)
[2017-07-31] MEDS: *HR* Morphine 2 MG/ML SYRINGE IVP PRN ×3 (04:35→15:30)
[2017-07-31] MEDS: Albumin 25% 25gram/100mL 25 GM/100 ML IV.SOLN IVPB SCH ×3 (04:57→17:12)
[2017-07-31] MEDS: Renal Vitamin 1 MG CAPSULE PO SCH (08:01)
[2017-07-31] MEDS: Insulin LISPRO 300 UNITS/3 ML VIAL SQ SCH ×4 (08:01→21:39)
[2017-07-31] MEDS: Pantoprazole 40 MG VIAL IVP SCH (08:02)
--- NOTE | 2017-07-31 08:17 | Internal Med Progress Note ---
Date of Encounter: 07/31/17 Time of Encounter: 08:14 - Assessment and plan (1) Acute respiratory failure with hypoxia Current Visit: Yes Status: Acute Assessment and plan: Required high flow oxygen again last night as was sedated and unable to wear bipap. Weaning oxygen down this morning. (2) Ascites Current Visit: Yes Status: Acute Assessment and plan: Will attempt to drain some fluid from Pleurx today. Qualifiers: Ascites type: malignant Qualified Code(s): R18.0 - Malignant ascites (3) Hypotension Current Visit: No Status: Acute Assessment and plan: Continues on dopamine. Have been unsuccessful weaning it off. Will increase Midodrine to 10mg TID and hopefully can get it stopped. Qualifiers: Hypotension type: other hypotension type Qualified Code(s): I95.89 - Other hypotension (4) Type 2 diabetes mellitus Current Visit: No Status: Chronic Assessment and plan: Continue accuchecks and coverage. Qualifiers: Diabetes mellitus complication status: with unspecified complications Diabetes mellitus [facility] insulin use: with [facility] use Qualified Code(s) : E11.8 - Type 2 diabetes mellitus with unspecified complications; Z79.4 - snf (current) use of insulin (5) HCC (hepatocellular carcinoma) Current Visit: Yes Status: Chronic Assessment and plan: Supportive and comfort care.. - Subjective Interval history: Mr Dixon is currently admitted for volume overload and ascites. He remains moderate to high risk due to potential for worsenign resp status. Mr. Dixon denies pain at this time. He received Phenergan last night and deeply slept but needed higher levels of oxygen. He said it "felt good." He is now waking up and able to come down on oxygen some. He says he can't get the stuff out of his chest easily. No fever or chills. Has a lot of ascites today as well. Family at bedside side he couldn't wear bipap well last night. - Constitutional Vitals: Temp Pulse Resp BP Pulse Ox 97.4 F L 104 20 91/43 91 07/31/17 07:07 07/31/17 07:07 07/31/17 07:07 07/31/17 07:07 07/31/17 07:07 General appearance: Present: mild distress, A&O X 3 - Head Head exam: Present: atraumatic, normocephalic - Eye Eye exam: Present: EOMI, conjuntiva pink - ENT ENT exam: Present: mucous membranes dry - Respiratory Respiratory exam: Present: decreased breath sounds, rhonchi - Cardiovascular Cardiovascular exam: Present: distant heart sounds, RRR - GI/Abdominal GI/Abdominal exam: Present: distended Additional comments: Fluid wave noted Nontender. - Extremities Exam Extremities exam: Present: warm Additional comments: Significant edema noted. - Neurological Exam Neurological exam: Present: alert, oriented X3 - Skin Skin exam: Present: warm. Absent: rash Internal Medicine: Result - Labs CBC & Chem 7: 07/30/17 05:15 07/30/17 05:15 - ABG Interpretation ABG results: ABG ABG pH 7.36 pH Units (7.32-7.45) 07/25/17 04:48 ABG pCO2 40 mmHg (35-45) 07/25/17 04:48 ABG pO2 77 mmHg (85-104) L 07/25/17 04:48 ABG O2 Saturation 95 % (95-98) 07/25/17 04:48 PT/INR, D-dimer PT 14.1 Seconds (9.4-12.1) H 07/27/17 12:17 Consult Discharge Plan - Plan Referrals: Alicia Pastrana MD [Primary Care Provider] - 08/03/17 11:20 am (Patient going home with hospice)
--- NOTE | 2017-07-31 09:32 | Nephrology Progress Note ---
Date of Encounter: 07/31/17 Time of Encounter: 09:28 - Assessment and Plan (1) ESRD (end stage renal disease) on dialysis Current Visit: Yes Status: Chronic Pt had dialysis Tuesday Next dialysis not due until Tuesday. There is ongoing discussion among team and family about hospice care with or without dialysis. Before next dialysis Tuesday hopefully decision will be made. From discussion with pt and one daughter present, it seems he wants to continue dialysis even with hospice plan No lab done today but expect K to be ok (2) Hepatocellular carcinoma Current Visit: No Status: Chronic Not treatable. Hospice is reasonable option IM team planning to drain ascites fluid again today. On midodrine 10 mg qid and IV albumin Also still on dopamine m mcg which is being weaned off while raising midodrine. If he needs IV sympathomimemtic, Levophed will be better than dopamine. (3) Acute respiratory failure with hypoxia Current Visit: Yes Status: Acute Improved. Breathing fair now. O2 Sat 97%. But still have lots of edema. UF during dialysis was difficult due to hypotension May try take some more fluid off during dialysis tomorrow Subjective Principal diagnosis: Severe hypoxic respiratory failure ESRD Interval history: Pt with ESRD. Also with large ascites. Had dialysis yesterday. Noted the discussion about changing care to hospice. But talking to patientyesterday and the other daughter suggests that even with hospice they want to continue dialysis. No dialysis planned until Tuesday (He is MWF pt ). By Tuesday hopefully the team will clarify whether dialysis to be continued or not. Noted the plan by IM team to draining ascites today. BP fair on dopamine and midodrine. May try to wean off dopamine now that Midodrine is 10 mg qid. But with removal of ascites BP may drop again. On albumin IV already Objective - Vital Signs Vital signs: Vital Signs Temp Pulse Resp BP Pulse Ox 07/31/17 07:07 97.4 F L 104 20 91/43 91 07/31/17 04:50 109 07/31/17 03:33 97.7 F 104 20 99/48 92 07/31/17 01:40 28 124/56 93 07/30/17 23:40 104 07/30/17 23:27 97.9 F 107 24 104/51 92 07/30/17 20:26 107 07/30/17 15:47 98.2 F 107 20 131/62 96 07/30/17 14:00 103 116/58 07/30/17 13:30 110 118/57 07/30/17 13:00 105 77/39 07/30/17 12:00 105 126/66 07/30/17 11:45 97.1 F L 106 18 128/67 95 07/30/17 10:30 108 97/55 07/30/17 09:30 106 92/70 Intake and Output 07/30/17 07/31/17 07/31/17 23:59 07:59 15:59 Intake Total 350 / 350 350 / 350 Balance 350 / 350 350 / 350 Intake: IV Fluids 350 / 350 350 / 350 DOPamine Premix 400mg/250mL 400 250 / 250 250 / 250 mg In 250 ml @ 5 MCG/KG/MIN 34 .763 mls/hr IVC .Q7H12M [facility] Rx# :[id number] Flexbumin 25 gm In 100 ml @ 60 100 / 100 100 / 100 mls/hr IVPB Q6H [facility] Rx#: [id number] Other: Meal Dinner Percent of Meal Consumed 10% Weight 189.7 kg Blood Glucose* 182 173 Patient Weight 07/31/17 23:59 Weight 189.7 kg - General Appearance General appearance: Present: well-nourished, appears started age, obese, chronically ill, fatigue EENT: Present: ATNC, PERRL, mucous membranes moist, hearing intact, vision intact Neck: Present: no JVD, no thyromegaly, no carotid bruit, supple Respiratory: Present: no kyphosis, no scoliosis, clear Cardiology: Present: no murmurs, no rub, no gallops, edema, regular rate, regular rhythm, normal S1, normal S2 Additional Comments: IJ cath on right side , exit site clean Gastrointestinal: Present: hypoactive bowel sounds, no tenderness, no guarding, obese, distended Additional Comments: Got Catheter for Ascites drain Integumentary: Present: no rash, warm and dry Neurologic: Present: no focal deficit, no asterixis, alert and oriented x3 Musculoskeletal: Present: no deformities, no erythema, no cyanosis, no clubbing Psychiatric: Present: mood/affect appropriate - Lab 07/30/17 05:15 07/30/17 05:15 Most recent lab results ABG pH 7.36 pH Units (7.32-7.45) 07/25/17 04:48 ABG pCO2 40 mmHg (35-45) 07/25/17 04:48 ABG pO2 77 mmHg (85-104) L 07/25/17 04:48 ABG HCO3 22 mEq/L (21-27) 07/25/17 04:48 ABG O2 Saturation 95 % (95-98) 07/25/17 04:48 Calcium 8.4 mg/dL (8.6-10.8) L 07/30/17 05:15 Phosphorus 7.3 mg/dL (2.3-4.7) H 07/26/17 04:33 Magnesium 2.3 mg/dL (1.6-2.6) 07/26/17 04:33 Consult Discharge Plan - Plan Referrals: Alicia Pastrana MD [Primary Care Provider] - 08/03/17 11:20 am (Patient going home with hospice)
--- NOTE | 2017-07-31 10:15 | Palliative Progress Note ---
Date of Encounter: 07/31/17 Time of Encounter: 10:15 - Assessment and plan (1) Cancer associated pain Current Visit: Yes Status: Acute Assessment and plan: Began Fentanyl 12mgm patch which he appears to be tolerating well. Utilized Oxycodone x1 last 24 hours, and one dose Morphine. Monitor (2) Anxiety Current Visit: Yes Status: Acute Assessment and plan: Continue low dose Lorazepam PRN. Has not utilized last 24 hours (3) Decreased appetite Current Visit: Yes Status: Acute Assessment and plan: Began Marinol 2.5 BID. Monitor (4) Goals of care, counseling/discussion Current Visit: Yes Status: Acute Assessment and plan: No family present during my visit. This am, he states he still desires to continue this, and knows he is scheduled for tomorrow, although he appears to be slightly confused and anxious during my visit. I attempted to discuss again , that we are unable to fulfill his wish of getting home if he continues to desire aggressive treatment and dialysis, as blood pressure too unstable. Midodrine has been increased, so hopefully he can wean off dopamine. Even is this does occur, I do not think he could stay out of the hospital other than for a very short time, and have discussed this with family multiple times. Daughter Mony stated yesterday she was going to try and continue to talk with pt re: discontinuing dialysis (5) Hepatocellular carcinoma Current Visit: No Status: Chronic (6) Acute respiratory failure with hypoxia Current Visit: Yes Status: Acute (7) ESRD (end stage renal disease) on dialysis Current Visit: Yes Status: Chronic - Time Spent With Patient Total time spent is greater than 50% in coordination of care (as documented) at patient's floor/unit and/or counseling patient: 25 - 35 minutes - Subjective Interval history: Patient awake and alert, pleasant and conversive this am. Does seem a little confused this am. Reviewing record, pt with increased sedation and hypoxia last night after Promethazine given. He is comfortable this am, but anxious, and doesn't want to be left alone. Asking for and daughter. - Constitutional Vitals: Abnormal lab results RBC 3.11 M/mcL (4.19-5.50) L 07/30/17 05:15 Hgb 8.5 g/dL (12.9-16.9) L 07/30/17 05:15 Hct 27.5 % (37.5-50.1) L 07/30/17 05:15 MCH 27.3 pg (28.0-33.3) L 07/30/17 05:15 MCHC 30.9 g/dL (31.6-35.5) L 07/30/17 05:15 RDW 16.6 % (11.5-14.5) H 07/30/17 05:15 MPV 8.5 fL (9.4-12.4) L 07/30/17 05:15 Nucleated RBCs/100 WBC 0.2 /100 WBC (0) H 07/30/17 05:15 ESR >= 130 mm/hr (0-10) H 07/22/17 17:58 PT 14.1 Seconds (9.4-12.1) H 07/27/17 12:17 ABG pO2 77 mmHg (85-104) L 07/25/17 04:48 ABG Base Excess -3 mEq/L (-2 to 3) L 07/25/17 04:48 Sodium 135 mEq/L (136-145) L 07/30/17 05:15 Chloride 97 mEq/L (98-109) L 07/30/17 05:15 Creatinine 2.88 mg/dL (0.72-1.25) H 07/30/17 05:15 Est GFR ( Amer) 27 (> 60) L 07/30/17 05:15 Est GFR (Non-Af Amer) 22 (> 60) L 07/30/17 05:15 Glucose 175 mg/dL (70-99) H 07/30/17 05:15 POC Glucose 182 (58-89) H 07/30/17 20:15 Calcium 8.4 mg/dL (8.6-10.8) L 07/30/17 05:15 Ionized Calcium 1.11 mmol/L (1.15-1.35) L 07/26/17 04:33 Phosphorus 7.3 mg/dL (2.3-4.7) H 07/26/17 04:33 AST 43 Units/L (5-34) H 07/29/17 08:47 Alkaline Phosphatase 135 Units/L (38-126) H 07/29/17 08:47 C-Reactive Protein 177 mg/L (Less than 5) H 07/22/17 17:58 Albumin 3.4 g/dL (3.5-5.0) L 07/29/17 08:47 Vancomycin Trough 20.9 mcg/mL (10-20) H* 07/25/17 08:00 General appearance: Present: morbidly obese - Respiratory Respiratory exam: Present: decreased breath sounds, CTAB - Cardiovascular Cardiovascular exam: Present: +S1, +S2 - GI/Abdominal GI/Abdominal exam: Present: diminished bowel sounds, distended, firm Additional comments: Pleurx cath to RLQ - Extremities Exam Additional comments: Generalized edema to all extremities - Neurological Exam Neurological exam: Present: alert Additional comments: Oriented to person and place. - Skin Skin exam: Present: dry, pallor, warm Palliative Quality Palliative Quality: Screen for Code Status: Yes, Screen for Goals of Care: Yes, Screen for Pain: Yes, Screen for Nausea/Vomitting: Yes Code Status: 07/25/17 16:28 CODE [Resuscitation Status: Active] [RES] Routine Comment: Resuscitation Status: DNR-Comfort Care-Arrest 07/27/17 11:14 DNR [Resuscitation Status: Active] [RES] Routine Comment: Resuscitation Status: [id number] - Labs CBC & Chem 7: 07/30/17 05:15 07/30/17 05:15 Labs: Laboratory Results - last 24 hr 07/30/17 07/30/17 07/30/17 11:49 15:28 20:15 POC Glucose 168 H 186 H 182 H - ABG Interpretation ABG results: ABG ABG pH 7.36 pH Units (7.32-7.45) 07/25/17 04:48 ABG pCO2 40 mmHg (35-45) 07/25/17 04:48 ABG pO2 77 mmHg (85-104) L 07/25/17 04:48 ABG O2 Saturation 95 % (95-98) 07/25/17 04:48 PT/INR, D-dimer PT 14.1 Seconds (9.4-12.1) H 07/27/17 12:17 Consult Discharge Plan - Plan Referrals: Alicia Pastrana MD [Primary Care Provider] - 08/03/17 11:20 am (Patient going home with hospice)
[2017-07-31] MEDS: GuaiFENesin Liq 200 MG/10 ML UDC PO PRN (11:22)
[2017-08-01] MEDS: Albumin 25% 25gram/100mL 25 GM/100 ML IV.SOLN IVPB SCH ×2 (00:28→03:47)
[2017-08-01] MEDS: *HR* OxyCODONE Immed Rel 5 MG TABLET PO PRN ×2 (00:51→05:23)
[2017-08-01] MEDS: *HR* Morphine 2 MG/ML SYRINGE IVP PRN ×2 (03:48→18:40)
--- NOTE | 2017-08-01 07:58 | Oncology Inp Progress Note ---
Date of Encounter: 08/01/17 Time of Encounter: 07:45 (1) Hepatocellular carcinoma Current Visit: No Status: Chronic Assessment and plan: Mr. Villagomez again today and discussed her current state of his disease. He appears to have poor insight into his current clinical situation. There is no other family available. Again voice is wanting to pursue dialysis. When asked if he wanted to get home to be in the care of his family and friends for the holidays, this is one thing he would like to pursue. When asked if he going to stop dialysis, he states he like to defer this discussion with his daughter. He is otherwise comfortable. I appreciate the care of our consulting physicians. It may be beneficial of nephrology to talk about the potential futility with pursuing further dialysis given his other clinical conditions including untreatable cancer and end stage cirrhosis. At this point, dialysis is delaying the inevitable. Oncology: Subj Interval history: Mr. Razo is doing relatively well. He complained of some mild lower abdominal pain. This improved after drainage of ascites through his Pleurx catheter yesterday. He remained short of breath. We took his auction off to help them talk to us today. His oxygen saturation was down to 80% off oxygen during our conversation. No fever or chills. He is due to receive dialysis today. Patient wants to pursue dialysis today. Dr. Barron and I have reviewed this gentleman's case at length. As of now, the patient wants to pursue dialysis. - Constitutional Vitals: Vital Signs Temp Pulse Resp BP Pulse Ox 08/01/17 07:24 97.6 F 100 15 100/54 93 08/01/17 04:13 97.6 F 101 18 109/47 93 08/01/17 04:00 94 111/45 08/01/17 03:00 98 109/47 08/01/17 02:00 95 96/43 08/01/17 01:00 97 93/40 08/01/17 00:00 98 106/40 07/31/17 23:59 97.8 F 96 18 106/56 93 07/31/17 23:00 97 106/56 07/31/17 20:08 97.4 F L 100 18 111/47 92 07/31/17 15:04 97.2 F L 102 18 105/52 92 07/31/17 12:00 98.9 F 101 16 118/60 95 Intake and Output 07/31/17 08/01/17 08/01/17 16:59 00:59 08:59 Intake Total 350 / 350 220 / 220 120 / 120 Output Total 1999 Balance -1650 / -1650 -1780 / -1780 120 / 120 Intake: IV Fluids 350 / 350 100 / 100 100 / 100 DOPamine Premix 400mg/250mL 400 250 / 250 mg In 250 ml @ 5 MCG/KG/MIN 34 .763 mls/hr IVC .Q7H12M [facility] Rx# :[id number] Flexbumin 25 gm In 100 ml @ 60 100 / 100 100 / 100 100 / 100 mls/hr IVPB Q6H [facility] Rx#: [id number] Oral 120 / 120 Output: Wound Drainage 1999 Right Upper Abdomen 1999 Other: Meal Dinner Percent of Meal Consumed 80% Blood Glucose* 169 131 164 General appearance: mild distress, morbidly obese - Head Head exam: Present: atraumatic, normal inspection, normocephalic - Eye Eye exam: Present: conjuntiva pink, sclera anicteric - ENT ENT exam: Present: mucous membranes moist - Neck Neck exam: Present: full ROM, normal inspection - Respiratory Respiratory exam: Present: decreased breath sounds - Cardiovascular Cardiovascular exam: Present: tachycardia - GI/Abdominal GI/Abdominal exam: Present: distended, normal bowel sounds, tenderness - Extremities Exam Extremities exam: Present: pedal edema - Neurological Exam Neurological exam: Present: alert, CN II-XII intact, oriented X3 Oncology: Obj Data - Labs CBC & Chem 7: 07/30/17 05:15 07/30/17 05:15 Labs: Laboratory Results - last 24 hr 07/31/17 07/31/17 07/31/17 07:06 11:26 16:26 POC Glucose 173 H 153 H 169 H 07/31/17 20:11 POC Glucose 131 H - ABG Interpretation ABG results: ABG ABG pH 7.36 pH Units (7.32-7.45) 07/25/17 04:48 ABG pCO2 40 mmHg (35-45) 07/25/17 04:48 ABG pO2 77 mmHg (85-104) L 07/25/17 04:48 ABG O2 Saturation 95 % (95-98) 07/25/17 04:48 PT/INR, D-dimer PT 14.1 Seconds (9.4-12.1) H 07/27/17 12:17 Consult Discharge Plan - Plan Referrals: Alicia Pastrana MD [Primary Care Provider] - 08/03/17 11:20 am (Patient going home with hospice)
[2017-08-01] MEDS ORDERED: 0.9 % Sodium Chloride 250 ML IVC PRN (08:07)
--- NOTE | 2017-08-01 08:07 | Nephrology Progress Note ---
Date of Encounter: 08/01/17 Time of Encounter: 08:05 - Assessment and Plan (1) ESRD (end stage renal disease) on dialysis Current Visit: Yes Status: Chronic The patient wishes to continue with dialysis. Palliative Care notes have been reviewed. Patient will undergo dialysis this morning. His overall prognosis remains poor. Volume removal is limited by his low blood pressure. (2) Hepatocellular carcinoma Current Visit: No Status: Chronic (3) Cirrhosis of liver with ascites Current Visit: No Status: Chronic Qualifiers: Hepatic cirrhosis type: unspecified hepatic cirrhosis Qualified Code(s): K74.60 - Unspecified cirrhosis of liver (4) Acute respiratory failure with hypoxia Current Visit: Yes Status: Acute Subjective Principal diagnosis: Severe hypoxic respiratory failure ESRD Interval history: The patient is alert and oriented. He voices no new complaints. He denies any shortness of breath or abdominal discomfort. He states that he wishes to continue with dialysis. He is on dopamine at 1 carlos per kilo per minute. His midodrine has been increased. Objective - Vital Signs Vital signs: Vital Signs Temp Pulse Resp BP Pulse Ox 08/01/17 07:24 97.6 F 100 15 100/54 93 08/01/17 04:13 97.6 F 101 18 109/47 93 08/01/17 04:00 94 111/45 08/01/17 03:00 98 109/47 08/01/17 02:00 95 96/43 08/01/17 01:00 97 93/40 08/01/17 00:00 98 106/40 07/31/17 23:59 97.8 F 96 18 106/56 93 07/31/17 23:00 97 106/56 07/31/17 20:08 97.4 F L 100 18 111/47 92 07/31/17 15:04 97.2 F L 102 18 105/52 92 07/31/17 12:00 98.9 F 101 16 118/60 95 Intake and Output 07/31/17 08/01/17 08/01/17 23:59 07:59 15:59 Intake Total 220 / 220 120 / 120 Output Total 1999 Balance -1780 / -1780 120 / 120 Intake: IV Fluids 100 / 100 100 / 100 Flexbumin 25 gm In 100 ml @ 60 100 / 100 100 / 100 mls/hr IVPB Q6H [facility] Rx#: [id number] Oral 120 / 120 Output: Wound Drainage 1999 Right Upper Abdomen 1999 Other: Meal Dinner Percent of Meal Consumed 80% Blood Glucose* 131 164 - General Appearance Exam: Patient appears alert and oriented. He is in no acute distress. Lungs diminished breath sounds. Heart regular rate and rhythm. Abdomen is distended with ascites. There is no tenderness. There is 3-4+ lower extremity swelling. There is a tunnel dialysis catheter in the chest. - Lab 07/30/17 05:15 07/30/17 05:15 Most recent lab results ABG pH 7.36 pH Units (7.32-7.45) 07/25/17 04:48 ABG pCO2 40 mmHg (35-45) 07/25/17 04:48 ABG pO2 77 mmHg (85-104) L 07/25/17 04:48 ABG HCO3 22 mEq/L (21-27) 07/25/17 04:48 ABG O2 Saturation 95 % (95-98) 07/25/17 04:48 Calcium 8.4 mg/dL (8.6-10.8) L 07/30/17 05:15 Phosphorus 7.3 mg/dL (2.3-4.7) H 07/26/17 04:33 Magnesium 2.3 mg/dL (1.6-2.6) 07/26/17 04:33 Consult Discharge Plan - Plan Referrals: Alicia Pastrana MD [Primary Care Provider] - 08/03/17 11:20 am (Patient going home with hospice)
[2017-08-01] MEDS ORDERED: 0.9 % Sodium Chloride 2,000 ML ONE (09:38)
--- NOTE | 2017-08-01 11:27 | Palliative Progress Note ---
Date of Encounter: 08/01/17 Time of Encounter: 07:10 - Assessment and plan (1) Hepatocellular carcinoma Current Visit: No Status: Chronic Assessment and plan: Being followed by oncology, there is no further treatment available per oncology. patient is hospice eligible on this basis if he were to decide against dialysis. (2) Cirrhosis of liver with ascites Current Visit: No Status: Chronic Assessment and plan: Patient has Pleurx catheter and getting active drainage when necessary. Qualifiers: Hepatic cirrhosis type: unspecified hepatic cirrhosis Qualified Code(s): K74.60 - Unspecified cirrhosis of liver (3) Goals of care, counseling/discussion Current Visit: Yes Status: Acute Assessment and plan: Patient's CODE STATUS DNR CCA DNI. Patient's goals are to return home. He would like to be home in time for Thanksgiving at that is at all possible. However he has to be off his pressors before he can go. I am the patient does understand that he can either have hospice or he can have dialysis but not both and he wishes to continue his dialysis. I believe he fully understands the implications and ramifications of both a free decision as there is nobody else here talking to me at this time besides him. (4) ESRD (end stage renal disease) on dialysis Current Visit: Yes Status: Chronic Assessment and plan: Nephrology is following patient has been clear in his wishes to continue dialysis at least at this time. - Time Spent With Patient Total time spent is greater than 50% in coordination of care (as documented) at patient's floor/unit and/or counseling patient: - Subjective Interval history: No complaints of this morning. Although the patient would like to go home fairly soon. The patient tells me that they were able to get off a fair amount of fluid from his Pleurx catheter yesterday and he did feel better, was also able to tell me in no uncertain terms he wishes to continue his dialysis. - Constitutional Vitals: Abnormal lab results RBC 3.11 M/mcL (4.19-5.50) L 07/30/17 05:15 Hgb 8.5 g/dL (12.9-16.9) L 07/30/17 05:15 Hct 27.5 % (37.5-50.1) L 07/30/17 05:15 MCH 27.3 pg (28.0-33.3) L 07/30/17 05:15 MCHC 30.9 g/dL (31.6-35.5) L 07/30/17 05:15 RDW 16.6 % (11.5-14.5) H 07/30/17 05:15 MPV 8.5 fL (9.4-12.4) L 07/30/17 05:15 Nucleated RBCs/100 WBC 0.2 /100 WBC (0) H 07/30/17 05:15 ESR >= 130 mm/hr (0-10) H 07/22/17 17:58 PT 14.1 Seconds (9.4-12.1) H 07/27/17 12:17 ABG pO2 77 mmHg (85-104) L 07/25/17 04:48 ABG Base Excess -3 mEq/L (-2 to 3) L 07/25/17 04:48 Sodium 135 mEq/L (136-145) L 07/30/17 05:15 Chloride 97 mEq/L (98-109) L 07/30/17 05:15 Creatinine 2.88 mg/dL (0.72-1.25) H 07/30/17 05:15 Est GFR ( Amer) 27 (> 60) L 07/30/17 05:15 Est GFR (Non-Af Amer) 22 (> 60) L 07/30/17 05:15 Glucose 175 mg/dL (70-99) H 07/30/17 05:15 POC Glucose 131 (58-89) H 07/31/17 20:11 Calcium 8.4 mg/dL (8.6-10.8) L 07/30/17 05:15 Ionized Calcium 1.11 mmol/L (1.15-1.35) L 07/26/17 04:33 Phosphorus 7.3 mg/dL (2.3-4.7) H 07/26/17 04:33 AST 43 Units/L (5-34) H 07/29/17 08:47 Alkaline Phosphatase 135 Units/L (38-126) H 07/29/17 08:47 C-Reactive Protein 177 mg/L (Less than 5) H 07/22/17 17:58 Albumin 3.4 g/dL (3.5-5.0) L 07/29/17 08:47 Vancomycin Trough 20.9 mcg/mL (10-20) H* 07/25/17 08:00 General appearance: Present: no acute distress - Head Head exam: Present: atraumatic, normal inspection - Eye Eye exam: Present: normal appearance - ENT ENT exam: Present: mucous membranes moist - Respiratory Respiratory exam: Present: decreased breath sounds - Cardiovascular Cardiovascular exam: Present: RRR - GI/Abdominal GI/Abdominal exam: Present: distended, normal bowel sounds, soft. Absent: tenderness - Extremities Exam Extremities exam: Present: pedal edema - Neurological Exam Neurological exam: Present: alert, oriented X3 - Psychiatric Psychiatric exam: Absent: agitated, anxious - Skin Skin exam: Present: dry, warm Palliative Quality Palliative Quality: Screen for Code Status: Yes, Screen for Goals of Care: Yes, Screen for Pain: Yes, Screen for Nausea/Vomitting: Yes Code Status: 07/25/17 16:28 CODE [Resuscitation Status: Active] [RES] Routine Comment: Resuscitation Status: DNR-Comfort Care-Arrest 07/27/17 11:14 DNR [Resuscitation Status: Active] [RES] Routine Comment: Resuscitation Status: [id number]-[id number] - Labs CBC & Chem 7: 07/30/17 05:15 07/30/17 05:15 Labs: Laboratory Results - last 24 hr 07/30/17 07/31/17 07/31/17 08:02 07:06 11:26 POC Glucose 164 H 173 H 153 H 07/31/17 07/31/17 16:26 20:11 POC Glucose 169 H 131 H - ABG Interpretation ABG results: ABG ABG pH 7.36 pH Units (7.32-7.45) 07/25/17 04:48 ABG pCO2 40 mmHg (35-45) 07/25/17 04:48 ABG pO2 77 mmHg (85-104) L 07/25/17 04:48 ABG O2 Saturation 95 % (95-98) 07/25/17 04:48 PT/INR, D-dimer PT 14.1 Seconds (9.4-12.1) H 07/27/17 12:17 Consult Discharge Plan - Plan Referrals: Alicia Pastrana MD [Primary Care Provider] - (Patient going home with hospice)
[2017-08-01] MEDS: Insulin LISPRO 300 UNITS/3 ML VIAL SQ SCH ×4 (14:24→22:26)
[2017-08-01] MEDS: Renal Vitamin 1 MG CAPSULE PO SCH (14:40)
--- NOTE | 2017-08-01 16:40 | Internal Med Progress Note ---
<RussBenji kramer - Last Filed: 08/01/17 16:38> Date of Encounter: 08/01/17 Time of Encounter: 16:38 - Assessment and plan (1) Acute respiratory failure with hypoxia Current Visit: Yes Status: Acute Assessment and plan: Requirements for high flow oxygen has been gradually decreasing. Continue weaning oxygen. (2) HCC (hepatocellular carcinoma) Current Visit: Yes Status: Chronic Assessment and plan: Supportive and comfort care.. (3) ESRD (end stage renal disease) on dialysis Current Visit: Yes Status: Chronic Assessment and plan: Patient wishes to continue with dialysis. Per nephrology. (4) Ascites Current Visit: Yes Status: Acute Assessment and plan: We will attempt to drain fluid as needed. Qualifiers: Ascites type: malignant Qualified Code(s): R18.0 - Malignant ascites (5) Hypotension Current Visit: No Status: Acute Assessment and plan: Continues on dopamine. Have been unsuccessful weaning it off however he is down to 1 g. Will increase Midodrine to 12.5mg TID and hopefully can get it stopped. Qualifiers: Hypotension type: other hypotension type Qualified Code(s): I95.89 - Other hypotension - Subjective Interval history: Patient seen and examined in dialysis. He has no specific complaints. He denies chest pain, shortness of breath, abdominal pain. He states his abdominal distention is improved. - Constitutional Vitals: Temp Pulse Resp BP Pulse Ox 97.8 F 104 20 120/52 92 08/01/17 16:13 08/01/17 16:13 08/01/17 16:13 08/01/17 16:13 08/01/17 16:13 General appearance: Present: A&O X 3, no acute distress - Respiratory Respiratory exam: Present: decreased breath sounds. Absent: rales, rhonchi, wheezes - Cardiovascular Cardiovascular exam: Present: irregular rhythm. Absent: gallop, rubs, systolic murmur - GI/Abdominal GI/Abdominal exam: Present: diminished bowel sounds, distended (Mild), soft. Absent: tenderness - Extremities Exam Extremities exam: Present: pedal edema (4+) - Neurological Exam Neurological exam: Present: alert, CN II-XII intact, oriented X3, no focal deficits Internal Medicine: Result - Labs CBC & Chem 7: 07/30/17 05:15 07/30/17 05:15 - ABG Interpretation ABG results: ABG ABG pH 7.36 pH Units (7.32-7.45) 07/25/17 04:48 ABG pCO2 40 mmHg (35-45) 07/25/17 04:48 ABG pO2 77 mmHg (85-104) L 07/25/17 04:48 ABG O2 Saturation 95 % (95-98) 07/25/17 04:48 PT/INR, D-dimer PT 14.1 Seconds (9.4-12.1) H 07/27/17 12:17 - Impressions Impressions Insertion Tunneled Catheter 07/29/17 00:00 IMPRESSION: Successful ultrasound guided PleurX catheter placement in the abdomen. D/ / 08/01/2017 12:51:27 Bushra Parham MD / [email or web address] Interpreting Provider: Bushra Parham MD Consult Discharge Plan - Plan Referrals: Alicia Pastrana MD [Primary Care Provider] - (Patient going home with hospice) <Joshua Ortiz - Last Filed: 08/01/17 16:59> Date of Encounter: 08/01/17 - Assessment and plan (1) Acute respiratory failure with hypoxia Current Visit: Yes Status: Acute (2) Ascites Current Visit: Yes Status: Acute Qualifiers: Ascites type: malignant Qualified Code(s): R18.0 - Malignant ascites (3) Hypotension Current Visit: No Status: Acute Qualifiers: Hypotension type: other hypotension type Qualified Code(s): I95.89 - Other hypotension (4) Type 2 diabetes mellitus Current Visit: No Status: Chronic Qualifiers: Diabetes mellitus complication status: with unspecified complications Diabetes mellitus mcfp insulin use: with mcfp use Qualified Code(s) : E11.8 - Type 2 diabetes mellitus with unspecified complications; Z79.4 - skilled nursing (current) use of insulin (5) HCC (hepatocellular carcinoma) Current Visit: Yes Status: Chronic - Constitutional Vitals: Temp Pulse Resp BP Pulse Ox 97.8 F 104 20 120/52 92 08/01/17 16:13 08/01/17 16:13 08/01/17 16:13 08/01/17 16:13 08/01/17 16:13 Internal Medicine: Result - Labs CBC & Chem 7: 07/30/17 05:15 07/30/17 05:15 - ABG Interpretation ABG results: ABG ABG pH 7.36 pH Units (7.32-7.45) 07/25/17 04:48 ABG pCO2 40 mmHg (35-45) 07/25/17 04:48 ABG pO2 77 mmHg (85-104) L 07/25/17 04:48 ABG O2 Saturation 95 % (95-98) 07/25/17 04:48 PT/INR, D-dimer PT 14.1 Seconds (9.4-12.1) H 07/27/17 12:17 - Impressions Impressions Insertion Tunneled Catheter 07/29/17 00:00 IMPRESSION: Successful ultrasound guided PleurX catheter placement in the abdomen. D/ / 08/01/2017 12:51:27 Bushra Parham MD / [email or web address] Interpreting Provider: Bushra Parham MD - Attending Attestation I examined this patient and my medical decision-making was reviewed with the Resident Physician on 08/01/17. I agree with the documented findings, disposition and treatment plan as described except to the extent set forth below. Mr Dixon is currently admitted for renal failure, hypotension and resp failure. He remains moderate to high risk due to potential for worsening resp status. Mr Dixon was seen in dialysis. He feels better at this time. He is more alert and breathing. No CP. Less oxygen requirement. Midodrine increased yesterday. Weaning dopamine down. No fever or chills. Exam Alert. Comfortable No wheeze Abd distended No tachycardia Edema present I/P 1. Hypoxia - wean oxygen as able 2. Hypotension - responding to midodrine. D/C albumin. Wean off dopamine 3. Ascites - Pleurx catheter Further diagnoses and plan as above.
--- NOTE | 2017-08-02 07:52 | Nephrology Progress Note ---
Date of Encounter: 08/02/17 Time of Encounter: 07:50 - Assessment and Plan (1) ESRD (end stage renal disease) on dialysis Current Visit: Yes Status: Chronic The patient wishes to continue with dialysis. Palliative Care notes have been reviewed. The patient's blood pressure appears to be a bit better. He is currently off the dopamine. He is wanting to go home later today. (2) Hepatocellular carcinoma Current Visit: No Status: Chronic (3) Cirrhosis of liver with ascites Current Visit: No Status: Chronic Qualifiers: Hepatic cirrhosis type: unspecified hepatic cirrhosis Qualified Code(s): K74.60 - Unspecified cirrhosis of liver (4) Acute respiratory failure with hypoxia Current Visit: Yes Status: Acute Subjective Principal diagnosis: Severe hypoxic respiratory failure ESRD Interval history: The patient denies any complaints. He states he does not feel short of breath. He states his abdomen is not distended. Blood pressure is 103/42. It appears he is off the dopamine. He did receive dialysis yesterday. He continues to want to continue with dialysis. Objective - Vital Signs Vital signs: Vital Signs Temp Pulse Resp BP Pulse Ox 08/02/17 04:28 97.8 F 105 18 103/42 91 08/02/17 00:19 97.9 F 104 17 85/59 91 08/01/17 19:43 97.8 F 104 18 100/50 94 08/01/17 18:00 104 18 108/44 95 08/01/17 17:00 110 20 141/38 94 08/01/17 16:13 97.8 F 104 20 120/52 92 08/01/17 15:14 106 08/01/17 13:15 97.3 F L 20 112/51 08/01/17 12:55 101/51 08/01/17 12:40 96/45 08/01/17 12:25 93/48 08/01/17 12:10 108/54 08/01/17 11:55 93/43 08/01/17 11:40 97/47 08/01/17 11:25 102/47 08/01/17 11:10 108/44 08/01/17 10:55 96/47 08/01/17 10:40 95/52 08/01/17 10:25 96/49 08/01/17 10:10 114/52 08/01/17 09:55 90/46 11/20/17 09:40 104/46 08/01/17 09:25 97.3 F L 22 90/44 Intake and Output 08/01/17 08/01/17 08/02/17 15:59 23:59 07:59 Intake Total 949 / 949 220 / 220 100 / 100 Output Total 2600 / 2600 0 / 0 0 / 0 Balance -1651 / -1651 220 / 220 100 / 100 Intake: IV Fluids 229 / 229 DOPamine Premix 400mg/250mL 400 229 / 229 mg In 250 ml @ 5 MCG/KG/MIN 34 .763 mls/hr IVC .Q7H12M [facility] Rx# :[id number] Oral 120 / 120 220 / 220 100 / 100 Intake, Rinseback and Flushes 600 / 600 Output: Urine 0 / 0 0 / 0 0 / 0 Total Dialysis (HD) Output 2600 / 2600 Wound Drainage 0 / 0 0 / 0 Right Upper Abdomen 0 / 0 0 / 0 Other: Meal Breakfast Dinner Percent of Meal Consumed 100% 100% Weight 189.2 kg Blood Glucose* 142 143 Hemodialysis Net Fluid Removed 2000 (mL) Patient Weight 08/02/17 23:59 Weight 189.2 kg - General Appearance Exam: Patient is alert and oriented. He is in no acute distress. Lung sounds otherwise clear. Heart regular rate and rhythm. Abdomen is distended with ascites. There is no tenderness. There is 3+ lower extremity swelling. There is a tunnel dialysis catheter in the right side of the chest. - Lab 07/30/17 05:15 07/30/17 05:15 Most recent lab results ABG pH 7.36 pH Units (7.32-7.45) 07/25/17 04:48 ABG pCO2 40 mmHg (35-45) 07/25/17 04:48 ABG pO2 77 mmHg (85-104) L 07/25/17 04:48 ABG HCO3 22 mEq/L (21-27) 07/25/17 04:48 ABG O2 Saturation 95 % (95-98) 07/25/17 04:48 Calcium 8.4 mg/dL (8.6-10.8) L 07/30/17 05:15 Phosphorus 7.3 mg/dL (2.3-4.7) H 07/26/17 04:33 Magnesium 2.3 mg/dL (1.6-2.6) 07/26/17 04:33 Consult Discharge Plan - Plan Referrals: Alicia Pastrana MD [Primary Care Provider] - (Patient going home with hospice)
[2017-08-02] MEDS: Renal Vitamin 1 MG CAPSULE PO SCH (08:26)
[2017-08-02] MEDS: Insulin LISPRO 300 UNITS/3 ML VIAL SQ SCH ×4 (09:00→20:47)
--- NOTE | 2017-08-02 09:21 | Internal Med Progress Note ---
<Yemi Covington - Last Filed: 08/02/17 13:07> Date of Encounter: 08/02/17 Time of Encounter: 09:17 - Assessment and plan (1) Acute respiratory failure with hypoxia Current Visit: Yes Status: Acute Assessment and plan: Requirement for high flow oxygen has been gradually decreasing, currently on 10L nasal cannula. O2 sat dropped to 80% off oxygen yesterday. Will continue to attempt weaning oxygen. [employer] is working on getting patient an oxygen concentrating machine approved as well as placement at [facility] (2) HCC (hepatocellular carcinoma) Current Visit: Yes Status: Chronic Assessment and plan: We appreciate oncology input. Continue supportive care (3) Hypotension Current Visit: No Status: Acute Assessment and plan: Has not required dopamine x2 days now. BP stable at 101/57 this AM. Continue Midodrine 12.5mg TID Qualifiers: Hypotension type: other hypotension type Qualified Code(s): I95.89 - Other hypotension (4) ESRD (end stage renal disease) on dialysis Current Visit: Yes Status: Chronic Assessment and plan: Per oncology, dialysis deemed to be delaying the inevitable given his poor prognosis Appreciate Nephrology input, per consult yesterday patient has decided to continue dialysis M,W,F (5) Ascites Current Visit: Yes Status: Acute Assessment and plan: We will attempt to drain fluid as needed. Qualifiers: Ascites type: malignant Qualified Code(s): R18.0 - Malignant ascites - Subjective Interval history: 66-year-old male currently on hospice for end-stage hepatocellula cacinoma. He also has liver cirrhosis, end-stage renal disease. He presented to the ER 06/28 with shortness of breath secondary to ascites which improved following paracentesis. His code status is currently [id number]-DNI Mr. Dixon is resting in bed with his family in the room. This morning patient says he is doing ok, denies abdominal pain, SOB, or new problems. - Constitutional Vitals: Temp Pulse Resp BP Pulse Ox 97.2 F L 103 20 101/57 91 08/02/17 08:00 08/02/17 08:00 08/02/17 08:00 08/02/17 08:00 08/02/17 08:00 General appearance: Present: A&O X 3, morbidly obese, no acute distress - Respiratory Respiratory exam: Present: decreased breath sounds. Absent: rales, rhonchi, wheezes - Cardiovascular Cardiovascular exam: Present: irregular rhythm. Absent: diastolic murmur, gallop, rubs, systolic murmur - GI/Abdominal GI/Abdominal exam: Present: diminished bowel sounds, distended, soft. Absent: tenderness, no peritoneal signs - Neurological Exam Neurological exam: Present: alert, oriented X3, no focal deficits Internal Medicine: Result - Labs CBC & Chem 7: 07/30/17 05:15 07/30/17 05:15 - ABG Interpretation ABG results: ABG ABG pH 7.36 pH Units (7.32-7.45) 07/25/17 04:48 ABG pCO2 40 mmHg (35-45) 07/25/17 04:48 ABG pO2 77 mmHg (85-104) L 07/25/17 04:48 ABG O2 Saturation 95 % (95-98) 07/25/17 04:48 PT/INR, D-dimer PT 14.1 Seconds (9.4-12.1) H 07/27/17 12:17 - Impressions Impressions Insertion Tunneled Catheter 07/29/17 00:00 IMPRESSION: Successful ultrasound guided PleurX catheter placement in the abdomen. D/ / 08/01/2017 12:51:27 Bushra Parham MD / [email or web address] Interpreting Provider: Bushra Parham MD Consult Discharge Plan - Plan Referrals: Alicia Pastrana MD [Primary Care Provider] - (Patient going home with hospice) <Ivana Sandra - Last Filed: 08/02/17 17:14> Date of Encounter: 08/02/17 Time of Encounter: 10:15 - Constitutional Vitals: Temp Pulse Resp BP Pulse Ox 98.4 F 101 20 108/53 92 08/02/17 15:45 08/02/17 15:45 08/02/17 15:45 08/02/17 15:45 08/02/17 15:45 Internal Medicine: Result - Labs CBC & Chem 7: 07/30/17 05:15 07/30/17 05:15 - ABG Interpretation ABG results: ABG ABG pH 7.36 pH Units (7.32-7.45) 07/25/17 04:48 ABG pCO2 40 mmHg (35-45) 07/25/17 04:48 ABG pO2 77 mmHg (85-104) L 07/25/17 04:48 ABG O2 Saturation 95 % (95-98) 07/25/17 04:48 PT/INR, D-dimer PT 14.1 Seconds (9.4-12.1) H 07/27/17 12:17 - Attending Attestation Patient is a 66y/o male with hepatocellular carcinoma, ESRD on HD who is admitted for acute respiratory failure with hypoxia, ESRD on HD. Pt's underlying malignancy has a poor prognosis however patient is not willing to pursue hospice care. He remains heavily depended on O2 support, currently saturating 90% on 10LNC Currently off dopamine and maintaining acceptable BP with Midodrine support Patient seen and examined with family present at bedside. He has two stage 3 sacral decubitus, continue daily wound care Case discussed with resident physician Yemi Covington, I agree with his documented findings, assessment, and plan except as listed above.
--- NOTE | 2017-08-02 11:02 | Palliative Progress Note ---
Date of Encounter: 08/02/17 Time of Encounter: 11:00 - Assessment and plan (1) Cancer associated pain Current Visit: Yes Status: Acute Assessment and plan: Continue with Fentanyl patch and Oxycodone. He has used a couple of doses of Morphine, but this is primarily for pain from pressure ulcers. (2) Anxiety Current Visit: Yes Status: Acute (3) Decreased appetite Current Visit: Yes Status: Acute Assessment and plan: Has improved greatly over the past 48 hours. Continue Marinol (4) Goals of care, counseling/discussion Current Visit: Yes Status: Acute Assessment and plan: Patient is still desiring to go home, however, I still think this is going to be quite difficult without hospice care, but pt still desires to continue dialysis and hospice will not accept him back with this therapy. ECF would be best option, but family has been resistant. Will f/u later today. Social work has been following closely and meeting with and daughter. (5) Hepatocellular carcinoma Current Visit: No Status: Chronic (6) Acute respiratory failure with hypoxia Current Visit: Yes Status: Acute (7) ESRD (end stage renal disease) on dialysis Current Visit: Yes Status: Chronic - Time Spent With Patient Total time spent is greater than 50% in coordination of care (as documented) at patient's floor/unit and/or counseling patient: 25 - 35 minutes - Subjective Interval history: Patient awake and alert, pleasant. and daughter at bedside. c/o buttock pain, now relieved with turning. Off pressors - Midodrine was increased again yesterday. Tolerated dialysis well yesterday. Appears dyspneic, but states breathing ok. Currently on 10 LPM. - Constitutional Vitals: Abnormal lab results RBC 3.11 M/mcL (4.19-5.50) L 07/30/17 05:15 Hgb 8.5 g/dL (12.9-16.9) L 07/30/17 05:15 Hct 27.5 % (37.5-50.1) L 07/30/17 05:15 MCH 27.3 pg (28.0-33.3) L 07/30/17 05:15 MCHC 30.9 g/dL (31.6-35.5) L 07/30/17 05:15 RDW 16.6 % (11.5-14.5) H 07/30/17 05:15 MPV 8.5 fL (9.4-12.4) L 07/30/17 05:15 Nucleated RBCs/100 WBC 0.2 /100 WBC (0) H 07/30/17 05:15 ESR >= 130 mm/hr (0-10) H 07/22/17 17:58 PT 14.1 Seconds (9.4-12.1) H 07/27/17 12:17 ABG pO2 77 mmHg (85-104) L 07/25/17 04:48 ABG Base Excess -3 mEq/L (-2 to 3) L 07/25/17 04:48 Sodium 135 mEq/L (136-145) L 07/30/17 05:15 Chloride 97 mEq/L (98-109) L 07/30/17 05:15 Creatinine 2.88 mg/dL (0.72-1.25) H 07/30/17 05:15 Est GFR ( Amer) 27 (> 60) L 07/30/17 05:15 Est GFR (Non-Af Amer) 22 (> 60) L 07/30/17 05:15 Glucose 175 mg/dL (70-99) H 07/30/17 05:15 POC Glucose 127 (58-89) H 08/02/17 08:18 Calcium 8.4 mg/dL (8.6-10.8) L 07/30/17 05:15 Ionized Calcium 1.11 mmol/L (1.15-1.35) L 07/26/17 04:33 Phosphorus 7.3 mg/dL (2.3-4.7) H 07/26/17 04:33 AST 43 Units/L (5-34) H 07/29/17 08:47 Alkaline Phosphatase 135 Units/L (38-126) H 07/29/17 08:47 C-Reactive Protein 177 mg/L (Less than 5) H 07/22/17 17:58 Albumin 3.4 g/dL (3.5-5.0) L 07/29/17 08:47 Vancomycin Trough 20.9 mcg/mL (10-20) H* 07/25/17 08:00 General appearance: Present: no acute distress - Respiratory Respiratory exam: Present: decreased breath sounds, CTAB - Cardiovascular Cardiovascular exam: Present: +S1, +S2 - GI/Abdominal GI/Abdominal exam: Present: distended, normal bowel sounds, soft Additional comments: Pleurx cath present - Extremities Exam Additional comments: 3+ edema bilateral lower extremities - Neurological Exam Neurological exam: Present: alert, oriented X3, strengths equal and symetr throughout - Skin Skin exam: Present: dry, warm Palliative Quality Palliative Quality: Screen for Code Status: Yes, Screen for Goals of Care: Yes, Screen for Pain: Yes, Screen for Nausea/Vomitting: Yes Code Status: 07/25/17 16:28 CODE [Resuscitation Status: Active] [RES] Routine Comment: Resuscitation Status: DNR-Comfort Care-Arrest 07/27/17 11:14 DNR [Resuscitation Status: Active] [RES] Routine Comment: Resuscitation Status: [id number] - Labs CBC & Chem 7: 07/30/17 05:15 07/30/17 05:15 Labs: Laboratory Results - last 24 hr 08/01/17 08/01/17 08/01/17 07:26 12:22 16:12 POC Glucose 164 H 142 H 171 H 08/01/17 08/02/17 22:01 08:18 POC Glucose 143 H 127 H - Impressions Impressions Insertion Tunneled Catheter 07/29/17 00:00 IMPRESSION: Successful ultrasound guided PleurX catheter placement in the abdomen. D/ / 08/01/2017 12:51:27 Bushra Parham MD / [email or web address] Interpreting Provider: Bushra Parham MD - ABG Interpretation ABG results: ABG ABG pH 7.36 pH Units (7.32-7.45) 07/25/17 04:48 ABG pCO2 40 mmHg (35-45) 07/25/17 04:48 ABG pO2 77 mmHg (85-104) L 07/25/17 04:48 ABG O2 Saturation 95 % (95-98) 07/25/17 04:48 PT/INR, D-dimer PT 14.1 Seconds (9.4-12.1) H 07/27/17 12:17 Consult Discharge Plan - Plan Referrals: Alicia Pastrana MD [Primary Care Provider] - (Patient going home with hospice)
[2017-08-02] MEDS: *HR* FentaNYL PATCH 12 MCG PATCH TD SCH (12:22)
[2017-08-02] MEDS: *HR* OxyCODONE Immed Rel 5 MG TABLET PO PRN (15:20)
[2017-08-03] MEDS: Melatonin 3 MG TABLET PO PRN (02:33)
[2017-08-03] MEDS: *HR* OxyCODONE Immed Rel 5 MG TABLET PO PRN ×2 (02:39→18:07)
[2017-08-03 04:19] LABS: Basophils % 0.1 %; Eosinophils # 0.2 K/mcL (0.0-0.6); Eosinophils % 1.6 %; Hematocrit 27.3 % (37.5-50.1); Hemoglobin 8.3 g/dL (12.9-16.9); Immature Granulocytes % 0.7 % (0-4); Lymphocytes # 0.8 K/mcL (0.6-4.6); Lymphocytes % 6.3 %; Mean Corpuscular HGB Conc 30.4 g/dL (31.6-35.5); Mean Corpuscular Hemoglobin 26.9 pg (28.0-33.3); Mean Corpuscular Volume 88.3 fL (83.0-100.0); Mean Platelet Volume 9.1 fL (9.4-12.4); Monocytes % 7.9 %; Neutrophils # 10.3 K/mcL (1.6-8.9); Platelet Count 245 K/mcL (140-400); Red Blood Count 3.09 M/mcL (4.19-5.50); Red Cell Distribution Width 17.2 % (11.5-14.5); Segmented Neutrophils % 83.4 %
[2017-08-03 04:39] LABS: Calcium 8.6 mg/dL (8.6-10.8); Magnesium 1.6 mg/dL (1.6-2.6); Phosphorous 3.6 mg/dL (2.3-4.7); Potassium 3.3 mEq/L (3.5-4.5)
--- NOTE | 2017-08-03 07:55 | Nephrology Progress Note ---
Date of Encounter: 08/03/17 Time of Encounter: 07:54 - Assessment and Plan (1) ESRD (end stage renal disease) on dialysis Current Visit: Yes Status: Chronic The patient again confirms today that he wishes to continue with dialysis. His blood pressure is relatively stable on midodrine. Will undergo dialysis again today. Volume removal is limited by low blood pressure. (2) Hepatocellular carcinoma Current Visit: No Status: Chronic (3) Cirrhosis of liver with ascites Current Visit: No Status: Chronic Qualifiers: Hepatic cirrhosis type: unspecified hepatic cirrhosis Qualified Code(s): K74.60 - Unspecified cirrhosis of liver (4) Acute respiratory failure with hypoxia Current Visit: Yes Status: Acute Subjective Principal diagnosis: Severe hypoxic respiratory failure ESRD Interval history: The patient reports she had some abdominal pain overnight but that has subsequently resolved. He says his breathing is about the same. He again confirms that he wishes to continue with dialysis. Objective - Vital Signs Vital signs: Vital Signs Temp Pulse Resp BP Pulse Ox 08/03/17 07:35 97.6 F 102 16 106/55 93 08/03/17 04:12 98.4 F 105 14 101/92 91 08/03/17 03:32 103 08/03/17 00:13 98.1 F 105 18 106/89 94 08/02/17 23:25 106 08/02/17 21:02 105 08/02/17 20:32 97.2 F L 107 16 122/47 92 08/02/17 15:45 98.4 F 101 20 108/53 92 08/02/17 15:16 108/53 08/02/17 11:20 96.9 F L 102 20 127/58 91 08/02/17 08:00 97.2 F L 103 20 101/57 91 Intake and Output 08/02/17 08/02/17 08/03/17 15:59 23:59 07:59 Intake Total 0 / 0 150 / 150 250 / 250 Output Total 0 / 0 0 / 0 50 / 50 Balance 0 / 0 150 / 150 200 / 200 Intake: Oral 0 / 0 150 / 150 250 / 250 Output: Urine 0 / 0 Wound Drainage 0 / 0 0 / 0 50 / 50 Right Upper Abdomen 0 / 0 0 / 0 50 / 50 Other: Meal Breakfast Percent of Meal Consumed 5% Weight 189.6 kg Blood Glucose* 249 157 154 Patient Weight 08/03/17 23:59 Weight 189.6 kg - General Appearance Exam: Patient is alert and oriented. Appears chronically ill. He is in no acute distress. Lungs diminished breath sounds. Heart regular rate and rhythm. Abdomen is distended with ascites. It is soft. There is no guarding nor rigidity. A Pleurx catheter is in place. There is 3+ lower extremity swelling. There is a tunnel dialysis catheter in the right chest. - Lab 08/03/17 04:00 08/03/17 04:00 Most recent lab results ABG pH 7.36 pH Units (7.32-7.45) 07/25/17 04:48 ABG pCO2 40 mmHg (35-45) 07/25/17 04:48 ABG pO2 77 mmHg (85-104) L 07/25/17 04:48 ABG HCO3 22 mEq/L (21-27) 07/25/17 04:48 ABG O2 Saturation 95 % (95-98) 07/25/17 04:48 Calcium 8.6 mg/dL (8.6-10.8) 08/03/17 04:00 Phosphorus 3.6 mg/dL (2.3-4.7) 08/03/17 04:00 Magnesium 1.6 mg/dL (1.6-2.6) 08/03/17 04:00 Consult Discharge Plan - Plan Referrals: Alicia Pastrana MD [Primary Care Provider] - (Patient going home with hospice)
[2017-08-03] MEDS ORDERED: 0.9 % Sodium Chloride 250 ML IVC PRN (07:56)
[2017-08-03] MEDS: Renal Vitamin 1 MG CAPSULE PO SCH (08:00)
[2017-08-03] MEDS: Insulin LISPRO 300 UNITS/3 ML VIAL SQ SCH ×4 (08:01→21:08)
[2017-08-03] MEDS ORDERED: 0.9 % Sodium Chloride 2,000 ML ONE (09:23)
--- NOTE | 2017-08-03 10:50 | Event Note ---
Date of Encounter: 08/03/17 Time of Encounter: 10:40 Saw pt briefly in dialysis. Tolerating well - only complaint is some anxiety. D/W Dr. Mota - if he is discharged to nursing facility today, I completed prescriptions for Fentanyl patch, Oxycodone, and Lorazepam and these were place in his disharge packet. If pt remains in hospital, palliative will f/u on Tuesday
[2017-08-03] MEDS: *HR* LORazepam 2 MG/ML VIAL IVP PRN ×2 (12:22→21:07)
--- NOTE | 2017-08-03 15:54 | Internal Med Progress Note ---
<RussBenji kramer - Last Filed: 08/03/17 16:57> Date of Encounter: 08/03/17 Time of Encounter: 15:52 - Assessment and plan (1) Acute respiratory failure with hypoxia Current Visit: Yes Status: Resolved Assessment and plan: Requirement for high flow oxygen has been gradually decreasing, currently on 10L nasal cannula. O2 sat into the 80s off oxygen. Will continue to attempt weaning oxygen. We have obtain the proper equipment for the patient to receive this oxygen supplementation at discharge. (2) HCC (hepatocellular carcinoma) Current Visit: Yes Status: Chronic Assessment and plan: Untreatable per oncology. Continue supportive care (3) ESRD (end stage renal disease) on dialysis Current Visit: Yes Status: Chronic Assessment and plan: Patient wishes to continue with dialysis on Tuesday, Tuesday, and Tuesday. Nephrology is following. (4) Ascites Current Visit: Yes Status: Acute Assessment and plan: Patient has a Pleurx catheter in place. Patient is having drainage from around the pleurx catheter site. Will drain fluid completely, if drainage persist may have to consider removing the catheter. Will cover for possible SBP with cefotaxime 1g q8h. Qualifiers: Ascites type: malignant Qualified Code(s): R18.0 - Malignant ascites (5) Hypotension Current Visit: No Status: Acute Assessment and plan: Has not required dopamine x2 days now. BP improved with addition of midodrine. Continue Midodrine 12.5mg TID Qualifiers: Hypotension type: other hypotension type Qualified Code(s): I95.89 - Other hypotension - Subjective Interval history: Patient seen and examined in dialysis. He has no specific complaints at this time other than feeling slightly tired. He denies chest pain, shortness of breath, abdominal pain. - Constitutional Vitals: Temp Pulse Resp BP Pulse Ox 97.4 F L 102 16 128/60 93 08/03/17 11:55 08/03/17 07:35 08/03/17 11:55 08/03/17 11:55 08/03/17 07:35 General appearance: Present: A&O X 3, morbidly obese, no acute distress - Respiratory Respiratory exam: Present: decreased breath sounds. Absent: rales, rhonchi, wheezes - Cardiovascular Cardiovascular exam: Present: RRR. Absent: gallop, rubs, systolic murmur - GI/Abdominal GI/Abdominal exam: Present: distended (positive fluid wave), normal bowel sounds , soft. Absent: tenderness - Extremities Exam Extremities exam: Present: pedal edema (4+), warm. Absent: tenderness Additional comments: Diffuse anasarca - Neurological Exam Neurological exam: Present: alert, CN II-XII intact, oriented X3, no focal deficits Internal Medicine: Result - Labs CBC & Chem 7: 08/03/17 04:00 08/03/17 04:00 Labs: Short CBC 08/03/17 Range/Units 04:00 WBC 12.3 H (4.3-11.1) K/mcL Hgb 8.3 L (12.9-16.9) g/dL Hct 27.3 L (37.5-50.1) % Plt Count 245 (140-400) K/mcL Neutrophils # 10.3 H (1.6-8.9) K/mcL BMP 08/03/17 04:00 Sodium 139 Potassium 3.3 L Chloride 98 Carbon Dioxide 28 BUN 24 Creatinine 3.56 H Glucose 156 H Calcium 8.6 - ABG Interpretation ABG results: ABG ABG pH 7.36 pH Units (7.32-7.45) 07/25/17 04:48 ABG pCO2 40 mmHg (35-45) 07/25/17 04:48 ABG pO2 77 mmHg (85-104) L 07/25/17 04:48 ABG O2 Saturation 95 % (95-98) 07/25/17 04:48 PT/INR, D-dimer PT 14.1 Seconds (9.4-12.1) H 07/27/17 12:17 Consult Discharge Plan - Plan Referrals: Alicia Pastrana MD [Primary Care Provider] - (Patient going home with hospice) Prescriptions: OxyCODONE Immed Rel [Roxicodone 5 MG] 5 mg PO Q4HR PRN #30 tablet PRN Reason: cancer related pain FentaNYL PATCH [Duragesic] 1 each TD Q72H #10 patch.td72 LORazepam [Ativan] 0.5 mg PO TID PRN #30 tablet PRN Reason: Anxiety <Ivana Sandra - Last Filed: 08/03/17 17:33> Date of Encounter: 08/03/17 - Constitutional Vitals: Temp Pulse Resp BP Pulse Ox 97.2 F L 103 14 95/49 97 08/03/17 16:36 08/03/17 16:36 08/03/17 16:36 08/03/17 16:36 08/03/17 16:36 Internal Medicine: Result - Labs CBC & Chem 7: 08/03/17 04:00 08/03/17 04:00 Labs: Short CBC 08/03/17 Range/Units 04:00 WBC 12.3 H (4.3-11.1) K/mcL Hgb 8.3 L (12.9-16.9) g/dL Hct 27.3 L (37.5-50.1) % Plt Count 245 (140-400) K/mcL Neutrophils # 10.3 H (1.6-8.9) K/mcL BMP 08/03/17 04:00 Sodium 139 Potassium 3.3 L Chloride 98 Carbon Dioxide 28 BUN 24 Creatinine 3.56 H Glucose 156 H Calcium 8.6 - ABG Interpretation ABG results: ABG ABG pH 7.36 pH Units (7.32-7.45) 07/25/17 04:48 ABG pCO2 40 mmHg (35-45) 07/25/17 04:48 ABG pO2 77 mmHg (85-104) L 07/25/17 04:48 ABG O2 Saturation 95 % (95-98) 07/25/17 04:48 PT/INR, D-dimer PT 14.1 Seconds (9.4-12.1) H 07/27/17 12:17 - Attending Attestation Patient is a 66y/o male with hepatocellular carcinoma, ESRD on HD who is admitted for acute respiratory failure with hypoxia, ESRD on HD. Pt's underlying malignancy has a poor prognosis however patient is not willing to pursue hospice care. He remains heavily depended on O2 support, currently saturating 90% on 10LNC Currently off dopamine and maintaining acceptable BP with Midodrine support Patient seen and examined with family present at bedside. He has two stage 3 sacral decubitus, continue daily wound care Noted to have drainage from pleurex catheter, will continue to drain and start empiric treatment for SBP. If over 5L is drained, will start albumin supplementation Case discussed with resident physician Benji Mota, I agree with his documented findings, assessment, and plan, except as listed above
[2017-08-03] MEDS: CEFOTAXIME IVP SCH (19:40)
[2017-08-03] MEDS: WATER FOR INJ IVP SCH (19:40)
[2017-08-03] MEDS: *HR* Morphine 2 MG/ML SYRINGE IVP PRN (21:06)
[2017-08-03] MEDS: *HR* Promethazine 25 MG/ML VIAL IVP PRN (21:07)
[2017-08-04] MEDS ORDERED: WATER IVPB SCH
[2017-08-04] MEDS ORDERED: D5 IVPB SCH
[2017-08-04] MEDS ORDERED: CEFOTAXIME IVPB SCH
[2017-08-04] MEDS: *HR* Morphine 2 MG/ML SYRINGE IVP PRN ×4 (00:30→20:17)
[2017-08-04] MEDS: *HR* LORazepam 2 MG/ML VIAL IVP PRN ×2 (01:26→23:54)
[2017-08-04] MEDS: WATER FOR INJ IVP SCH ×2 (04:20→11:48)
[2017-08-04] MEDS: CEFOTAXIME IVP SCH ×2 (04:20→11:48)
[2017-08-04 06:44] LABS: Calcium 8.4 mg/dL (8.6-10.8); Magnesium 1.7 mg/dL (1.6-2.6); Phosphorous 3.8 mg/dL (2.3-4.7); Potassium 3.5 mEq/L (3.5-4.5)
[2017-08-04 07:01] LABS: Basophils % 0.2 %; Eosinophils # 0.2 K/mcL (0.0-0.6); Eosinophils % 2.1 %; Hematocrit 26.8 % (37.5-50.1); Immature Granulocytes % 0.7 % (0-4); Lymphocytes # 0.9 K/mcL (0.6-4.6); Mean Corpuscular HGB Conc 29.9 g/dL (31.6-35.5); Mean Corpuscular Hemoglobin 27.1 pg (28.0-33.3); Mean Corpuscular Volume 90.8 fL (83.0-100.0); Mean Platelet Volume 9.2 fL (9.4-12.4); Neutrophils # 7.4 K/mcL (1.6-8.9); Platelet Count 235 K/mcL (140-400); Red Blood Count 2.95 M/mcL (4.19-5.50); Red Cell Distribution Width 17.2 % (11.5-14.5)
--- NOTE | 2017-08-04 08:12 | Internal Med Progress Note ---
<Yemi Covington - Last Filed: 08/04/17 08:07> Date of Encounter: 08/04/17 Time of Encounter: 08:07 - Assessment and plan (1) Acute respiratory failure with hypoxia Current Visit: Yes Status: Resolved Assessment and plan: Patient required BiPAP last night, . O2 sat 98%. Will monitor and attempt to wean oxygen as able. We have obtained the proper equipment for the patient to receive oxygen supplementation at discharge. (2) HCC (hepatocellular carcinoma) Current Visit: Yes Status: Chronic Assessment and plan: Untreatable per oncology. Continue supportive care (3) Hypotension Current Visit: No Status: Acute Assessment and plan: Successfully weaned off dopamine. Continue Midodrine 12.5mg TID Qualifiers: Hypotension type: other hypotension type Qualified Code(s): I95.89 - Other hypotension (4) ESRD (end stage renal disease) on dialysis Current Visit: Yes Status: Chronic Assessment and plan: Patient wishes to continue with dialysis on Tuesday, Tuesday, and Tuesday. Nephrology is following. (5) Ascites Current Visit: Yes Status: Acute Assessment and plan: Patient has a Pleurx catheter in place. Patient is having drainage from around the pleurx catheter site. Will drain fluid completely, if drainage persist may have to consider removing the catheter. Will cover for possible SBP with cefotaxime 1g q8h. 2 liters total drainage x24 hours, will give albumin if drainage >5L Qualifiers: Ascites type: malignant Qualified Code(s): R18.0 - Malignant ascites - Subjective Interval history: 66-year-old male currently on hospice for end-stage hepatocellular cacinoma. He also has liver cirrhosis, end-stage renal disease. He presented to the ER 06/28 with shortness of breath secondary to ascites which improved following paracentesis. His code status is currently [id number]-DNI Mr. Dixon was seen and evaluated this morning at bedside. He was sleeping in bed with BiPAP, O2 saturation 97% but was called to arouse. He eventually woke up to tactile stimulus but was unable to answer questions and went back to sleep. I had a discussion with his daughter this morning, she is concerned that he is declining again and wants to be sure that patient is comfortable. We reviewed the meaning of his current CODE STATUS and assured her that we will continue keeping the patient comfortable - Constitutional Vitals: Temp Pulse Resp BP Pulse Ox 97.6 F 89 12 93/50 98 08/04/17 07:39 08/04/17 07:39 08/04/17 07:39 08/04/17 07:39 08/04/17 07:39 General appearance: Present: morbidly obese, no acute distress. Absent: answers questions appropriately - Respiratory Respiratory exam: Present: decreased breath sounds. Absent: rales, rhonchi, wheezes - Cardiovascular Cardiovascular exam: Present: RRR. Absent: diastolic murmur, gallop, rubs, systolic murmur - GI/Abdominal GI/Abdominal exam: Present: distended, normal bowel sounds, soft. Absent: tenderness - Extremities Exam Extremities exam: Present: pedal edema (4+). Absent: tenderness (diffuse anasarca) - Neurological Exam Neurological exam: Absent: alert, oriented X3 (Responds to tactile stimulus, unable to answer questions) Internal Medicine: Result - Labs CBC & Chem 7: 08/04/17 06:20 08/04/17 06:20 Labs: Short CBC 08/04/17 Range/Units 06:20 WBC 9.5 (4.3-11.1) K/mcL Hgb 8.0 L (12.9-16.9) g/dL Hct 26.8 L (37.5-50.1) % Plt Count 235 (140-400) K/mcL Neutrophils # 7.4 (1.6-8.9) K/mcL BMP 08/04/17 06:20 Sodium 139 Potassium 3.5 Chloride 101 Carbon Dioxide 28 BUN 22 Creatinine 3.29 H Glucose 150 H Calcium 8.4 L - ABG Interpretation ABG results: ABG ABG pH 7.36 pH Units (7.32-7.45) 07/25/17 04:48 ABG pCO2 40 mmHg (35-45) 07/25/17 04:48 ABG pO2 77 mmHg (85-104) L 07/25/17 04:48 ABG O2 Saturation 95 % (95-98) 07/25/17 04:48 PT/INR, D-dimer PT 14.1 Seconds (9.4-12.1) H 07/27/17 12:17 Consult Discharge Plan - Plan Referrals: Alicia Pastrana MD [Primary Care Provider] - (Patient going home with hospice) Prescriptions: OxyCODONE Immed Rel [Roxicodone 5 MG] 5 mg PO Q4HR PRN #30 tablet PRN Reason: cancer related pain FentaNYL PATCH [Duragesic] 1 each TD Q72H #10 patch.td72 LORazepam [Ativan] 0.5 mg PO TID PRN #30 tablet PRN Reason: Anxiety <Raghavendra Mittal - Last Filed: 08/04/17 13:23> Date of Encounter: 08/04/17 - Constitutional Vitals: Temp Pulse Resp BP Pulse Ox 97.4 F L 90 10 99/59 100 08/04/17 11:21 08/04/17 11:21 08/04/17 11:21 08/04/17 11:21 08/04/17 11:21 Internal Medicine: Result - Labs CBC & Chem 7: 08/04/17 06:20 08/04/17 06:20 Labs: Short CBC 08/04/17 Range/Units 06:20 WBC 9.5 (4.3-11.1) K/mcL Hgb 8.0 L (12.9-16.9) g/dL Hct 26.8 L (37.5-50.1) % Plt Count 235 (140-400) K/mcL Neutrophils # 7.4 (1.6-8.9) K/mcL BMP 08/04/17 06:20 Sodium 139 Potassium 3.5 Chloride 101 Carbon Dioxide 28 BUN 22 Creatinine 3.29 H Glucose 150 H Calcium 8.4 L - ABG Interpretation ABG results: ABG ABG pH 7.36 pH Units (7.32-7.45) 07/25/17 04:48 ABG pCO2 40 mmHg (35-45) 07/25/17 04:48 ABG pO2 77 mmHg (85-104) L 07/25/17 04:48 ABG O2 Saturation 95 % (95-98) 07/25/17 04:48 PT/INR, D-dimer PT 14.1 Seconds (9.4-12.1) H 07/27/17 12:17 - Attending Attestation I independently interviewed and examined this pt. Presently pt resting on bipap. I discussed the case with Dr. Covington, Folder Gl[employer] Operator and agree with his findings, assessment and plan. I also spent 20 min discussing Hospice with the pts family and they may headed that way. Encouraged them to discuss together when pt is more awake, and get a better sense of what he would want given his current situation.
[2017-08-04] MEDS: Insulin LISPRO 300 UNITS/3 ML VIAL SQ SCH ×4 (11:18→20:17)
[2017-08-04] MEDS: Renal Vitamin 1 MG CAPSULE PO SCH (11:35)
[2017-08-05] MEDS: Ipratropium/Albuterol Neb 3 ML IH PRN ×2 (00:20→07:18)
[2017-08-05 03:47] LABS: Basophils % 0.2 %; Eosinophils # 0.2 K/mcL (0.0-0.6); Eosinophils % 2.1 %; Hematocrit 27.4 % (37.5-50.1); Hemoglobin 8.4 g/dL (12.9-16.9); Immature Granulocytes % 0.5 % (0-4); Immature Platelets 1.7 % (1.1-6.1); Lymphocytes # 0.9 K/mcL (0.6-4.6); Lymphocytes % 7.8 %; Mean Corpuscular HGB Conc 30.7 g/dL (31.6-35.5); Mean Corpuscular Hemoglobin 27.6 pg (28.0-33.3); Mean Corpuscular Volume 90.1 fL (83.0-100.0); Mean Platelet Volume 8.7 fL (9.4-12.4); Monocytes # 1.2 K/mcL (0.0-1.3); Monocytes % 10.3 %; Platelet Count 273 K/mcL (140-400); Red Blood Count 3.04 M/mcL (4.19-5.50); Red Cell Distribution Width 17.1 % (11.5-14.5); Segmented Neutrophils % 79.1 %
[2017-08-05 04:00] LABS: Calcium 8.7 mg/dL (8.6-10.8); Potassium 3.6 mEq/L (3.5-4.5)
--- NOTE | 2017-08-05 06:33 | Internal Med Progress Note ---
<Yemi Covington - Last Filed: 08/05/17 13:40> Date of Encounter: 08/05/17 Time of Encounter: 06:30 - Assessment and plan (1) Acute respiratory failure with hypoxia Current Visit: Yes Status: Chronic Assessment and plan: Patient requiring BiPAP alternating with high flow nasal cannula. O2 sat 97% on NC this morning. Will monitor and attempt to wean oxygen as able although patient seems to be declining. He is DNR-CCA-DNI He was evaluated by nephrology this morning who plans for dialysis today which will hopefully help with his breathing issues although we will have to balance this with his hypotension We will also reengage his Pleurx to drain more of his ascites (2) HCC (hepatocellular carcinoma) Current Visit: Yes Status: Chronic Assessment and plan: Untreatable with poor prognosis per oncology. Continue supportive care (3) Hypotension Current Visit: No Status: Acute Assessment and plan: Weaned off dopamine several days ago. Currently on Midodrine 12.5mg TID, BP this AM on low side at 97/56. Will monitor closely Qualifiers: Hypotension type: other hypotension type Qualified Code(s): I95.89 - Other hypotension (4) ESRD (end stage renal disease) on dialysis Current Visit: Yes Status: Chronic Assessment and plan: Patient wishes to continue with dialysis on Tuesday, Tuesday, and Tuesday. Nephrology is following (5) Ascites Current Visit: Yes Status: Acute Assessment and plan: Drainage from around the pleurx catheter site in patient's right abdomen is minimal today. Will drain fluid completely, if drainage persist may have to consider removing the catheter. 4 liters total drainage yesterday, will give albumin if drainage >5L Qualifiers: Ascites type: malignant Qualified Code(s): R18.0 - Malignant ascites - Subjective Interval history: 66-year-old male currently on hospice for end-stage hepatocellular cacinoma. He also has liver cirrhosis, end-stage renal disease. He presented to the ER 06/28 with shortness of breath secondary to ascites which improved following paracentesis. His code status is currently DNR-CCA-DNI Mr. Dixon was seen and evaluated this morning at bedside. He was sleeping in bed on high flow NC, O2 saturation 97%. Mental status improved from yesterday as he was easily aroused and engaged in conversation. He is complaining of some difficulty breathing - Constitutional Vitals: Temp Pulse Resp BP Pulse Ox 97.1 F L 106 16 97/56 97 08/05/17 03:20 08/05/17 03:20 08/05/17 03:20 08/05/17 03:20 08/05/17 03:20 General appearance: Present: mild distress, A&O X 3, morbidly obese. Absent: answers questions appropriately - Respiratory Respiratory exam: Present: rhonchi. Absent: accessory muscle use, tachypnea Additional comments: Diffuse rhonchi and transmitted upper airway sounds - Cardiovascular Cardiovascular exam: Present: RRR, +S1, +S2. Absent: diastolic murmur, gallop, rubs, systolic murmur - GI/Abdominal GI/Abdominal exam: Present: distended. Absent: tenderness - Extremities Exam Extremities exam: Present: pedal edema, warm. Absent: tenderness - Neurological Exam Neurological exam: Present: alert, oriented X3 Internal Medicine: Result - Labs CBC & Chem 7: 08/05/17 03:40 08/05/17 03:40 Labs: Short CBC 08/04/17 08/05/17 Range/Units 06:20 03:40 WBC 9.5 11.3 H (4.3-11.1) K/mcL Hgb 8.0 L 8.4 L (12.9-16.9) g/dL Hct 26.8 L 27.4 L (37.5-50.1) % Plt Count 235 273 (140-400) K/mcL Neutrophils # 7.4 9.0 H (1.6-8.9) K/mcL BMP 08/04/17 08/05/17 06:20 03:40 Sodium 139 139 Potassium 3.5 3.6 Chloride 101 100 Carbon Dioxide 28 28 BUN 22 27 H Creatinine 3.29 H 3.87 H Glucose 150 H 162 H Calcium 8.4 L 8.7 - ABG Interpretation ABG results: ABG ABG pH 7.36 pH Units (7.32-7.45) 07/25/17 04:48 ABG pCO2 40 mmHg (35-45) 07/25/17 04:48 ABG pO2 77 mmHg (85-104) L 07/25/17 04:48 ABG O2 Saturation 95 % (95-98) 07/25/17 04:48 PT/INR, D-dimer PT 14.1 Seconds (9.4-12.1) H 07/27/17 12:17 Consult Discharge Plan - Plan Referrals: Alicia Pastrana MD [Primary Care Provider] - (Patient going home with hospice) Prescriptions: OxyCODONE Immed Rel [Roxicodone 5 MG] 5 mg PO Q4HR PRN #30 tablet PRN Reason: cancer related pain FentaNYL PATCH [Duragesic] 1 each TD Q72H #10 patch.td72 LORazepam [Ativan] 0.5 mg PO TID PRN #30 tablet PRN Reason: Anxiety <MittalRaghavendra - Last Filed: 08/05/17 15:27> Date of Encounter: 08/05/17 - Constitutional Vitals: Temp Pulse Resp BP Pulse Ox 98.2 F 104 20 90/59 99 08/05/17 11:34 08/05/17 11:34 08/05/17 11:34 08/05/17 11:34 08/05/17 11:34 Internal Medicine: Result - Labs CBC & Chem 7: 08/05/17 03:40 08/05/17 03:40 Labs: Short CBC 08/05/17 Range/Units 03:40 WBC 11.3 H (4.3-11.1) K/mcL Hgb 8.4 L (12.9-16.9) g/dL Hct 27.4 L (37.5-50.1) % Plt Count 273 (140-400) K/mcL Neutrophils # 9.0 H (1.6-8.9) K/mcL BMP 08/05/17 03:40 Sodium 139 Potassium 3.6 Chloride 100 Carbon Dioxide 28 BUN 27 H Creatinine 3.87 H Glucose 162 H Calcium 8.7 - ABG Interpretation ABG results: ABG ABG pH 7.36 pH Units (7.32-7.45) 07/25/17 04:48 ABG pCO2 40 mmHg (35-45) 07/25/17 04:48 ABG pO2 77 mmHg (85-104) L 07/25/17 04:48 ABG O2 Saturation 95 % (95-98) 07/25/17 04:48 PT/INR, D-dimer PT 14.1 Seconds (9.4-12.1) H 07/27/17 12:17 - Attending Attestation I performed an independent interview and exam of this patient. I agree with the findings, assessment, and plan of Dr. Covington, medicine purchasing intern. We discussed his case in detail. Patient has just seemed to have some benefit from approximately a liter and a half of peritoneal fluid removal. He is also receiving hemodialysis today. His creatinine has not improved. If allergy and palliative care input is greatly appreciated. Patient has a very poor prognosis. All else as per Dr. Covington's progress note. I input is reflected in his discussion.
[2017-08-05] MEDS: Renal Vitamin 1 MG CAPSULE PO SCH (07:46)
[2017-08-05] MEDS ORDERED: 0.9 % Sodium Chloride 250 ML IVC PRN (08:02)
--- NOTE | 2017-08-05 08:02 | Nephrology Progress Note ---
Date of Encounter: 08/05/17 Time of Encounter: 08:00 - Assessment and Plan (1) ESRD (end stage renal disease) on dialysis Current Visit: Yes Status: Chronic The patient will undergo dialysis today. Volume removal as tolerated based on the patient's blood pressure. He is on midodrine for blood pressure support. Hopefully if volume removal on dialysis will help alleviate some of his shortness of breath. (2) Hepatocellular carcinoma Current Visit: No Status: Chronic (3) Cirrhosis of liver with ascites Current Visit: No Status: Chronic Qualifiers: Hepatic cirrhosis type: unspecified hepatic cirrhosis Qualified Code(s): K74.60 - Unspecified cirrhosis of liver (4) Acute respiratory failure with hypoxia Current Visit: Yes Status: Resolved Subjective Principal diagnosis: Severe hypoxic respiratory failure ESRD Interval history: The patient is complaining of some increasing shortness of breath which began earlier today. He is going to undergo drainage of his ascites. He also undergo dialysis later this morning. Vital signs are relatively stable. Blood pressure is running 90/53 which is usual for the patient. Objective - Vital Signs Vital signs: Vital Signs Temp Pulse Resp BP Pulse Ox 08/05/17 07:22 97.8 F 106 15 90/53 100 08/05/17 07:20 16 97 08/05/17 03:20 97.1 F L 106 16 97/56 97 08/05/17 00:20 14 99 08/04/17 22:51 96.4 F L 108 14 106/52 96 08/04/17 20:15 109 08/04/17 19:26 97.3 F L 105 14 119/58 96 08/04/17 16:14 97.6 F 102 14 126/77 96 08/04/17 11:21 97.4 F L 90 10 99/59 100 Intake and Output 08/04/17 08/05/17 08/05/17 23:59 07:59 15:59 Intake Total 0 / 0 Balance 0 / 0 Intake: Oral 0 / 0 Other: Weight 167.1 kg Blood Glucose* 312 147 Patient Weight 08/05/17 23:59 Weight 167.1 kg - General Appearance Exam: Patient is alert and oriented. He does appear to be in some respiratory distress. Lungs his breath sounds. Abdomen is distended with ascites. A Pleurx catheter is present. He has 3-4+ lower extremity swelling. There is a tunnel dialysis catheter in the right chest. - Lab 08/05/17 03:40 08/05/17 03:40 Most recent lab results ABG pH 7.36 pH Units (7.32-7.45) 07/25/17 04:48 ABG pCO2 40 mmHg (35-45) 07/25/17 04:48 ABG pO2 77 mmHg (85-104) L 07/25/17 04:48 ABG HCO3 22 mEq/L (21-27) 07/25/17 04:48 ABG O2 Saturation 95 % (95-98) 07/25/17 04:48 Calcium 8.7 mg/dL (8.6-10.8) 08/05/17 03:40 Phosphorus 3.8 mg/dL (2.3-4.7) 08/04/17 06:20 Magnesium 1.7 mg/dL (1.6-2.6) 08/04/17 06:20 Consult Discharge Plan - Plan Referrals: Alicia Pastrana MD [Primary Care Provider] - (Patient going home with hospice) Prescriptions: OxyCODONE Immed Rel [Roxicodone 5 MG] 5 mg PO Q4HR PRN #30 tablet PRN Reason: cancer related pain FentaNYL PATCH [Duragesic] 1 each TD Q72H #10 patch.td72 LORazepam [Ativan] 0.5 mg PO TID PRN #30 tablet PRN Reason: Anxiety
[2017-08-05] MEDS: *HR* LORazepam 2 MG/ML VIAL IVP PRN (08:51)
[2017-08-05] MEDS: Insulin LISPRO 300 UNITS/3 ML VIAL SQ SCH ×4 (08:52→20:58)
--- NOTE | 2017-08-05 09:25 | Palliative Progress Note ---
<Leandro Kimble - Last Filed: 08/05/17 09:47> Date of Encounter: 08/05/17 Time of Encounter: 09:21 - Assessment and plan (1) Goals of care, counseling/discussion Current Visit: Yes Status: Acute Assessment and plan: - Pt has discharge planning set up for [place] with O2, BiPAP, prescriptions for fentanyl patch, oxycodone, lorazepam printed. - Pt remains DNR- CCA- DNI - Awaiting discharge once primary team determines he is medically stable. (2) Acute respiratory failure with hypoxia Current Visit: Yes Status: Chronic Assessment and plan: - Pt is requiring intermittent BiPAP for desaturation into 80s. - O2, prescriptions set up for discharge to [place]. - Scheduled to receive dialysis today for fluid removal. (3) Hepatocellular carcinoma Current Visit: Yes Status: Chronic Assessment and plan: - Non operable per heme onc. - Pt received pleurx catheter for ascites removal. (4) Cirrhosis of liver with ascites Current Visit: Yes Status: Chronic Assessment and plan: - S/p pleuryx catheter. Qualifiers: Hepatic cirrhosis type: unspecified hepatic cirrhosis Qualified Code(s): K74.60 - Unspecified cirrhosis of liver (5) ESRD (end stage renal disease) on dialysis Current Visit: Yes Status: Chronic Assessment and plan: HD today for fluid removal. (6) Anxiety Current Visit: Yes Status: Acute Assessment and plan: - Stable. Prescriptions for ativan. - has used 1 dose yesterday (7) Cancer associated pain Current Visit: Yes Status: Acute Assessment and plan: - Fentanyl patch and oxycodone prescriptions printed. - Has used 2 doses of morphine yesterday. - Time Spent With Patient Total time spent is greater than 50% in coordination of care (as documented) at patient's floor/unit and/or counseling patient: less than 15 minutes - Subjective Interval history: Pt was seen and examined at bedside. Family not present during time of interview. He is lethargic at time of interview. Pt states that he is not doing as well today. He states his breathing is worse and his chest feels congested. He has required BiPAP during the night and is currently SOB on 13L NC. He is scheduled to receive dialysis today for fluid removal. - Constitutional Vitals: Abnormal lab results WBC 11.3 K/mcL (4.3-11.1) H 08/05/17 03:40 RBC 3.04 M/mcL (4.19-5.50) L 08/05/17 03:40 Hgb 8.4 g/dL (12.9-16.9) L 08/05/17 03:40 Hct 27.4 % (37.5-50.1) L 08/05/17 03:40 MCH 27.6 pg (28.0-33.3) L 08/05/17 03:40 MCHC 30.7 g/dL (31.6-35.5) L 08/05/17 03:40 RDW 17.1 % (11.5-14.5) H 08/05/17 03:40 MPV 8.7 fL (9.4-12.4) L 08/05/17 03:40 Neutrophils # 9.0 K/mcL (1.6-8.9) H 08/05/17 03:40 Nucleated RBCs/100 WBC 0.2 /100 WBC (0) H 07/30/17 05:15 ESR >= 130 mm/hr (0-10) H 07/22/17 17:58 PT 14.1 Seconds (9.4-12.1) H 07/27/17 12:17 ABG pO2 77 mmHg (85-104) L 07/25/17 04:48 ABG Base Excess -3 mEq/L (-2 to 3) L 07/25/17 04:48 BUN 27 mg/dL (8-26) H 08/05/17 03:40 Creatinine 3.87 mg/dL (0.72-1.25) H 08/05/17 03:40 Est GFR ( Amer) 19 (> 60) L 08/05/17 03:40 Est GFR (Non-Af Amer) 16 (> 60) L 08/05/17 03:40 Glucose 162 mg/dL (70-99) H 08/05/17 03:40 POC Glucose 133 (58-89) H 08/04/17 16:13 Ionized Calcium 1.11 mmol/L (1.15-1.35) L 07/26/17 04:33 AST 43 Units/L (5-34) H 07/29/17 08:47 Alkaline Phosphatase 135 Units/L (38-126) H 07/29/17 08:47 C-Reactive Protein 177 mg/L (Less than 5) H 07/22/17 17:58 Albumin 3.4 g/dL (3.5-5.0) L 07/29/17 08:47 Vancomycin Trough 20.9 mcg/mL (10-20) H* 07/25/17 08:00 General appearance: Present: cooperative, mild distress, morbidly obese - Respiratory Respiratory exam: Present: decreased breath sounds, rales - Cardiovascular Cardiovascular exam: Present: +S1, +S2 - Neurological Exam Neurological exam: Absent: alert - Psychiatric Psychiatric exam: Present: normal affect, normal mood Palliative Quality Palliative Quality: Screen for Code Status: Yes, Screen for Goals of Care: Yes, Screen for Pain: Yes, If Pain Regimen Started, Initiate Bowel Regimen: NA, Screen for Nausea/Vomitting: Yes Code Status: 07/25/17 16:28 CODE [Resuscitation Status: Active] [RES] Routine Comment: Resuscitation Status: DNR-Comfort Care-Arrest 07/27/17 11:14 DNR [Resuscitation Status: Active] [RES] Routine Comment: Resuscitation Status: [id number] - Labs CBC & Chem 7: 08/05/17 03:40 08/05/17 03:40 Labs: Laboratory Results - last 24 hr 08/04/17 08/04/17 08/05/17 11:21 16:13 03:40 WBC 11.3 H RBC 3.04 L Hgb 8.4 L Hct 27.4 L MCV 90.1 MCH 27.6 L MCHC 30.7 L RDW 17.1 H Plt Count 273 MPV 8.7 L Immature Gran % 0.5 Seg Neutrophils % 79.1 Lymphocytes % 7.8 Monocytes % 10.3 Eosinophils % 2.1 Basophils % 0.2 Neutrophils # 9.0 H Lymphocytes # 0.9 Monocytes # 1.2 Eosinophils # 0.2 Basophils # 0.0 Immature Plt Fraction 1.7 Sodium Potassium Chloride Carbon Dioxide BUN Creatinine Est GFR ( Amer) Est GFR (Non-Af Amer) BUN/Creatinine Ratio Glucose POC Glucose 149 H 133 H Calculated Osmolality Calcium 08/05/17 03:40 WBC RBC Hgb Hct MCV MCH MCHC RDW Plt Count MPV Immature Gran % Seg Neutrophils % Lymphocytes % Monocytes % Eosinophils % Basophils % Neutrophils # Lymphocytes # Monocytes # Eosinophils # Basophils # Immature Plt Fraction Sodium 139 Potassium 3.6 Chloride 100 Carbon Dioxide 28 BUN 27 H Creatinine 3.87 H Est GFR ( Amer) 19 L Est GFR (Non-Af Amer) 16 L BUN/Creatinine Ratio 7 Glucose 162 H POC Glucose Calculated Osmolality 297 Calcium 8.7 - ABG Interpretation ABG results: ABG ABG pH 7.36 pH Units (7.32-7.45) 07/25/17 04:48 ABG pCO2 40 mmHg (35-45) 07/25/17 04:48 ABG pO2 77 mmHg (85-104) L 07/25/17 04:48 ABG O2 Saturation 95 % (95-98) 07/25/17 04:48 PT/INR, D-dimer PT 14.1 Seconds (9.4-12.1) H 07/27/17 12:17 Consult Discharge Plan - Plan Referrals: Alicia Pastrana MD [Primary Care Provider] - (Patient going home with hospice) Prescriptions: OxyCODONE Immed Rel [Roxicodone 5 MG] 5 mg PO Q4HR PRN #30 tablet PRN Reason: cancer related pain FentaNYL PATCH [Duragesic] 1 each TD Q72H #10 patch.td72 LORazepam [Ativan] 0.5 mg PO TID PRN #30 tablet PRN Reason: Anxiety <Harry Barron - Last Filed: 08/05/17 14:02> Date of Encounter: 08/05/17 - Assessment and plan (1) Hepatocellular carcinoma Current Visit: Yes Status: Chronic (2) Cirrhosis of liver with ascites Current Visit: Yes Status: Chronic Qualifiers: Hepatic cirrhosis type: unspecified hepatic cirrhosis Qualified Code(s): K74.60 - Unspecified cirrhosis of liver (3) Goals of care, counseling/discussion Current Visit: Yes Status: Acute (4) ESRD (end stage renal disease) on dialysis Current Visit: Yes Status: Chronic - Time Spent With Patient Total time spent is greater than 50% in coordination of care (as documented) at patient's floor/unit and/or counseling patient: - Constitutional Vitals: Abnormal lab results WBC 11.3 K/mcL (4.3-11.1) H 08/05/17 03:40 RBC 3.04 M/mcL (4.19-5.50) L 08/05/17 03:40 Hgb 8.4 g/dL (12.9-16.9) L 08/05/17 03:40 Hct 27.4 % (37.5-50.1) L 08/05/17 03:40 MCH 27.6 pg (28.0-33.3) L 08/05/17 03:40 MCHC 30.7 g/dL (31.6-35.5) L 08/05/17 03:40 RDW 17.1 % (11.5-14.5) H 08/05/17 03:40 MPV 8.7 fL (9.4-12.4) L 08/05/17 03:40 Neutrophils # 9.0 K/mcL (1.6-8.9) H 08/05/17 03:40 Nucleated RBCs/100 WBC 0.2 /100 WBC (0) H 07/30/17 05:15 ESR >= 130 mm/hr (0-10) H 07/22/17 17:58 PT 14.1 Seconds (9.4-12.1) H 07/27/17 12:17 ABG pO2 77 mmHg (85-104) L 07/25/17 04:48 ABG Base Excess -3 mEq/L (-2 to 3) L 07/25/17 04:48 BUN 27 mg/dL (8-26) H 08/05/17 03:40 Creatinine 3.87 mg/dL (0.72-1.25) H 08/05/17 03:40 Est GFR ( Amer) 19 (> 60) L 08/05/17 03:40 Est GFR (Non-Af Amer) 16 (> 60) L 08/05/17 03:40 Glucose 162 mg/dL (70-99) H 08/05/17 03:40 POC Glucose 177 (58-89) H 08/05/17 11:37 Ionized Calcium 1.11 mmol/L (1.15-1.35) L 07/26/17 04:33 AST 43 Units/L (5-34) H 07/29/17 08:47 Alkaline Phosphatase 135 Units/L (38-126) H 07/29/17 08:47 C-Reactive Protein 177 mg/L (Less than 5) H 07/22/17 17:58 Albumin 3.4 g/dL (3.5-5.0) L 07/29/17 08:47 Vancomycin Trough 20.9 mcg/mL (10-20) H* 07/25/17 08:00 - Attending Attestation I examined this patient and my medical decision-making was reviewed with the Resident Physician. I agree with the documented findings, disposition and treatment plan as described except to the extent set forth below. Palliative Quality Code Status: 07/25/17 16:28 CODE [Resuscitation Status: Active] [RES] Routine Comment: Resuscitation Status: DNR-Comfort Care-Arrest 07/27/17 11:14 DNR [Resuscitation Status: Active] [RES] Routine Comment: Resuscitation Status: [id number] - Labs CBC & Chem 7: 08/05/17 03:40 08/05/17 03:40 Labs: Laboratory Results - last 24 hr 08/04/17 08/04/17 08/05/17 11:21 16:13 03:40 WBC 11.3 H RBC 3.04 L Hgb 8.4 L Hct 27.4 L MCV 90.1 MCH 27.6 L MCHC 30.7 L RDW 17.1 H Plt Count 273 MPV 8.7 L Immature Gran % 0.5 Seg Neutrophils % 79.1 Lymphocytes % 7.8 Monocytes % 10.3 Eosinophils % 2.1 Basophils % 0.2 Neutrophils # 9.0 H Lymphocytes # 0.9 Monocytes # 1.2 Eosinophils # 0.2 Basophils # 0.0 Immature Plt Fraction 1.7 Sodium Potassium Chloride Carbon Dioxide BUN Creatinine Est GFR ( Amer) Est GFR (Non-Af Amer) BUN/Creatinine Ratio Glucose POC Glucose 149 H 133 H Calculated Osmolality Calcium 08/05/17 08/05/17 03:40 11:37 WBC RBC Hgb Hct MCV MCH MCHC RDW Plt Count MPV Immature Gran % Seg Neutrophils % Lymphocytes % Monocytes % Eosinophils % Basophils % Neutrophils # Lymphocytes # Monocytes # Eosinophils # Basophils # Immature Plt Fraction Sodium 139 Potassium 3.6 Chloride 100 Carbon Dioxide 28 BUN 27 H Creatinine 3.87 H Est GFR ( Amer) 19 L Est GFR (Non-Af Amer) 16 L BUN/Creatinine Ratio 7 Glucose 162 H POC Glucose 177 H Calculated Osmolality 297 Calcium 8.7 - ABG Interpretation ABG results: ABG ABG pH 7.36 pH Units (7.32-7.45) 07/25/17 04:48 ABG pCO2 40 mmHg (35-45) 07/25/17 04:48 ABG pO2 77 mmHg (85-104) L 07/25/17 04:48 ABG O2 Saturation 95 % (95-98) 07/25/17 04:48 PT/INR, D-dimer PT 14.1 Seconds (9.4-12.1) H 07/27/17 12:17
[2017-08-05] MEDS: *HR* FentaNYL PATCH 12 MCG PATCH TD SCH (12:15)
[2017-08-05] MEDS: GuaiFENesin Liq 200 MG/10 ML UDC PO PRN (12:55)
[2017-08-05] MEDS: *HR* OxyCODONE Immed Rel 5 MG TABLET PO PRN (12:55)
[2017-08-05] MEDS ORDERED: 0.9 % Sodium Chloride 2,000 ML ONE (18:44)
[2017-08-05] MEDS: *HR* LORazepam 0.5 MG TABLET PO PRN (22:45)
[2017-08-05] MEDS: Melatonin 3 MG TABLET PO PRN (22:45)
[2017-08-06 04:34] LABS: Basophils % 0.2 %; Eosinophils # 0.2 K/mcL (0.0-0.6); Eosinophils % 1.5 %; Hematocrit 27.6 % (37.5-50.1); Hemoglobin 8.5 g/dL (12.9-16.9); Immature Granulocytes % 0.5 % (0-4); Lymphocytes # 0.8 K/mcL (0.6-4.6); Lymphocytes % 8.2 %; Mean Corpuscular HGB Conc 30.8 g/dL (31.6-35.5); Mean Corpuscular Hemoglobin 27.4 pg (28.0-33.3); Mean Platelet Volume 9.1 fL (9.4-12.4); Monocytes # 1.1 K/mcL (0.0-1.3); Monocytes % 10.7 %; Neutrophils # 7.9 K/mcL (1.6-8.9); Nucleated Red Blood Cells 0.2 /100 WBC (0); Platelet Count 209 K/mcL (140-400); Red Cell Distribution Width 17.1 % (11.5-14.5); Segmented Neutrophils % 78.9 %
[2017-08-06 04:48] LABS: Calcium 8.5 mg/dL (8.6-10.8); Potassium 3.7 mEq/L (3.5-4.5)
--- NOTE | 2017-08-06 08:04 | Nephrology Progress Note ---
Date of Encounter: 08/06/17 Time of Encounter: 08:02 - Assessment and Plan (1) ESRD (end stage renal disease) on dialysis Current Visit: Yes Status: Chronic The patient was offered additional ultrafiltration today to try and improve his swelling is well is reduce his dyspnea. He states that he does not feel like having another dialysis session today and would prefer not to do it. (2) Hepatocellular carcinoma Current Visit: Yes Status: Chronic (3) Cirrhosis of liver with ascites Current Visit: Yes Status: Chronic Qualifiers: Hepatic cirrhosis type: unspecified hepatic cirrhosis Qualified Code(s): K74.60 - Unspecified cirrhosis of liver (4) Acute respiratory failure with hypoxia Current Visit: Yes Status: Chronic Subjective Principal diagnosis: Severe hypoxic respiratory failure ESRD Interval history: The patient reports his breathing is better today. However he does continue to exhibit some conversational dyspnea. Objective - Vital Signs Vital signs: Vital Signs Temp Pulse Resp BP Pulse Ox 08/06/17 06:48 97.5 F L 107 20 106/76 90 08/06/17 04:20 108 08/06/17 03:30 99.3 F 106 22 103/40 93 08/05/17 23:16 97.4 F L 106 18 107/65 96 08/05/17 21:07 109 08/05/17 20:48 97.9 F 108 20 106/57 95 08/05/17 19:00 97.1 F L 16 130/92 08/05/17 18:45 113/54 08/05/17 18:15 101/52 08/05/17 17:45 96/54 08/05/17 17:15 121/94 08/05/17 16:45 110/88 08/05/17 16:15 129/54 08/05/17 15:45 121/60 08/05/17 15:15 97.6 F 18 125/63 08/05/17 12:30 98.2 F 104 20 90/59 99 08/05/17 11:34 98.2 F 104 20 90/59 99 Intake and Output 08/05/17 08/06/17 08/06/17 23:59 07:59 15:59 Intake Total 650 / 650 0 / 0 Output Total 4600 / 4600 0 / 0 Balance -3950 / -3950 0 / 0 Intake: Oral 650 / 650 0 / 0 Output: Urine 0 / 0 0 / 0 Total Dialysis (HD) Output 4600 / 4600 Wound Drainage 0 / 0 0 / 0 Right Upper Abdomen 0 / 0 0 / 0 Other: Meal Dinner Percent of Meal Consumed 50% Blood Glucose* 143 149 Hemodialysis Net Fluid Removed 4000 (mL) - General Appearance Exam: The patient appears alert and oriented. He is in no acute distress. However he does drift off to sleep easily. Lungs diminished breath sounds. Heart regular rate and rhythm. Abdomen was distended with ascites. There is no tenderness. There is 3-4+ lower extremity swelling. - Lab 08/06/17 04:20 08/06/17 04:20 Most recent lab results ABG pH 7.36 pH Units (7.32-7.45) 07/25/17 04:48 ABG pCO2 40 mmHg (35-45) 07/25/17 04:48 ABG pO2 77 mmHg (85-104) L 07/25/17 04:48 ABG HCO3 22 mEq/L (21-27) 07/25/17 04:48 ABG O2 Saturation 95 % (95-98) 07/25/17 04:48 Calcium 8.5 mg/dL (8.6-10.8) L 08/06/17 04:20 Phosphorus 3.8 mg/dL (2.3-4.7) 08/04/17 06:20 Magnesium 1.7 mg/dL (1.6-2.6) 08/04/17 06:20 Consult Discharge Plan - Plan Referrals: Alicia Pastrana MD [Primary Care Provider] - (Patient going home with hospice) Prescriptions: OxyCODONE Immed Rel [Roxicodone 5 MG] 5 mg PO Q4HR PRN #30 tablet PRN Reason: cancer related pain FentaNYL PATCH [Duragesic] 1 each TD Q72H #10 patch.td72 LORazepam [Ativan] 0.5 mg PO TID PRN #30 tablet PRN Reason: Anxiety
[2017-08-06] MEDS: Insulin LISPRO 300 UNITS/3 ML VIAL SQ SCH ×4 (08:15→20:48)
[2017-08-06] MEDS: GuaiFENesin Liq 200 MG/10 ML UDC PO PRN ×2 (08:15→12:38)
[2017-08-06] MEDS: Renal Vitamin 1 MG CAPSULE PO SCH (08:16)
[2017-08-06] MEDS: *HR* OxyCODONE Immed Rel 5 MG TABLET PO PRN ×2 (08:16→17:27)
--- NOTE | 2017-08-06 09:58 | Internal Med Progress Note ---
<Yemi Covington - Last Filed: 08/06/17 09:56> Date of Encounter: 08/06/17 Time of Encounter: 09:56 - Assessment and plan (1) Acute respiratory failure with hypoxia Current Visit: Yes Status: Chronic Assessment and plan: Patient's breathing improved somewhat, has stayed off BiPAP and O2 sat in low- mid 90s on high flow NC. Will monitor and attempt to wean oxygen as able although patient seems to be declining. He is DNR-CCA-DNI Has PleurX in place (2) HCC (hepatocellular carcinoma) Current Visit: Yes Status: Chronic Assessment and plan: Untreatable with poor prognosis per oncology. Continue supportive care. (3) Hypotension Current Visit: No Status: Acute Assessment and plan: Weaned off dopamine several days ago. Currently on Midodrine 12.5mg TID, BP this AM is very good relative to patient's baseline at 106/76 Qualifiers: Hypotension type: other hypotension type Qualified Code(s): I95.89 - Other hypotension (4) ESRD (end stage renal disease) on dialysis Current Visit: Yes Status: Chronic Assessment and plan: Patient wishes to continue with dialysis on Tuesday, Tuesday, and Tuesday. Nephrology is following. Patient declined additional dialysis today (5) Ascites Current Visit: Yes Status: Acute Assessment and plan: 1650 mL drained from Pleurx 24 hours. will give albumin if drainage >5L Qualifiers: Ascites type: malignant Qualified Code(s): R18.0 - Malignant ascites - Subjective Interval history: 66-year-old male currently on hospice for end-stage hepatocellular cacinoma. He also has liver cirrhosis, end-stage renal disease. He presented to the ER 06/28 with shortness of breath secondary to ascites which improved following paracentesis. His code status is currently DNR-CCA-DNI Mr. Dixon was seen and evaluated this morning at bedside. He was awake and alert on high flow NC, O2 saturation 94%. Mental status remains improved. He is still complaining of some shortness of breath - Constitutional Vitals: Temp Pulse Resp BP Pulse Ox 97.5 F L 107 20 106/76 90 08/06/17 08:15 08/06/17 08:15 08/06/17 08:15 08/06/17 08:15 08/06/17 08:15 General appearance: Present: A&O X 3, morbidly obese, no acute distress - Respiratory Respiratory exam: Present: rhonchi. Absent: accessory muscle use, tachypnea - Cardiovascular Cardiovascular exam: Present: RRR, +S1, +S2. Absent: diastolic murmur, gallop, rubs, systolic murmur - GI/Abdominal GI/Abdominal exam: Present: distended. Absent: tenderness - Neurological Exam Neurological exam: Present: alert, oriented X3 Internal Medicine: Result - Labs CBC & Chem 7: 08/06/17 04:20 08/06/17 04:20 Labs: Short CBC 08/06/17 Range/Units 04:20 WBC 10.0 (4.3-11.1) K/mcL Hgb 8.5 L (12.9-16.9) g/dL Hct 27.6 L (37.5-50.1) % Plt Count 209 (140-400) K/mcL Neutrophils # 7.9 (1.6-8.9) K/mcL BMP 08/06/17 04:20 Sodium 135 L Potassium 3.7 Chloride 98 Carbon Dioxide 26 BUN 18 Creatinine 2.86 H Glucose 155 H Calcium 8.5 L - ABG Interpretation ABG results: ABG ABG pH 7.36 pH Units (7.32-7.45) 07/25/17 04:48 ABG pCO2 40 mmHg (35-45) 07/25/17 04:48 ABG pO2 77 mmHg (85-104) L 07/25/17 04:48 ABG O2 Saturation 95 % (95-98) 07/25/17 04:48 PT/INR, D-dimer PT 14.1 Seconds (9.4-12.1) H 07/27/17 12:17 Consult Discharge Plan - Plan Referrals: Alicia Pastrana MD [Primary Care Provider] - (Patient going home with hospice) Prescriptions: OxyCODONE Immed Rel [Roxicodone 5 MG] 5 mg PO Q4HR PRN #30 tablet PRN Reason: cancer related pain FentaNYL PATCH [Duragesic] 1 each TD Q72H #10 patch.td72 LORazepam [Ativan] 0.5 mg PO TID PRN #30 tablet PRN Reason: Anxiety <Raghavendra Mittal - Last Filed: 08/06/17 16:17> Date of Encounter: 08/06/17 - Constitutional Vitals: Temp Pulse Resp BP Pulse Ox 98.0 F 98 20 128/70 92 08/06/17 12:30 08/06/17 12:30 08/06/17 12:30 08/06/17 12:30 08/06/17 12:30 Internal Medicine: Result - Labs CBC & Chem 7: 08/06/17 04:20 08/06/17 04:20 Labs: Short CBC 08/06/17 Range/Units 04:20 WBC 10.0 (4.3-11.1) K/mcL Hgb 8.5 L (12.9-16.9) g/dL Hct 27.6 L (37.5-50.1) % Plt Count 209 (140-400) K/mcL Neutrophils # 7.9 (1.6-8.9) K/mcL BMP 08/06/17 04:20 Sodium 135 L Potassium 3.7 Chloride 98 Carbon Dioxide 26 BUN 18 Creatinine 2.86 H Glucose 155 H Calcium 8.5 L - ABG Interpretation ABG results: ABG ABG pH 7.36 pH Units (7.32-7.45) 07/25/17 04:48 ABG pCO2 40 mmHg (35-45) 07/25/17 04:48 ABG pO2 77 mmHg (85-104) L 07/25/17 04:48 ABG O2 Saturation 95 % (95-98) 07/25/17 04:48 PT/INR, D-dimer PT 14.1 Seconds (9.4-12.1) H 07/27/17 12:17 - Attending Attestation I performed an independent interview and exam of this patient. I discussed the case with Dr. Covington. Medicine resident. I agree with his findings, assessment and plan. Nephrology input appreciated as well. We did remove an additional 1.5 L of peritoneal fluid today patient otherwise maintaining the course, not improving significantly but now worsening either. I had another discussion with the patient and the family about goals of care, currently the patient wishes to proceed with dialysis and ongoing treatment as we are doing. His prognosis is poor.
[2017-08-06] MEDS: *HR* LORazepam 0.5 MG TABLET PO PRN (12:36)
[2017-08-06] MEDS: Ipratropium/Albuterol Neb 3 ML IH PRN ×2 (12:42→19:27)
[2017-08-06] MEDS: Atropine Sulfate 1% 40 DROP/2 ML BOTTLE SL PRN ×2 (15:28→19:27)
[2017-08-07 03:56] LABS: Basophils % 0.2 %; Eosinophils # 0.2 K/mcL (0.0-0.6); Hematocrit 25.6 % (37.5-50.1); Hemoglobin 7.7 g/dL (12.9-16.9); Immature Granulocytes % 0.5 % (0-4); Lymphocytes % 10.7 %; Mean Corpuscular HGB Conc 30.1 g/dL (31.6-35.5); Mean Corpuscular Hemoglobin 27.1 pg (28.0-33.3); Mean Corpuscular Volume 90.1 fL (83.0-100.0); Mean Platelet Volume 8.7 fL (9.4-12.4); Monocytes % 10.7 %; Neutrophils # 7.1 K/mcL (1.6-8.9); Platelet Count 178 K/mcL (140-400); Red Blood Count 2.84 M/mcL (4.19-5.50); Segmented Neutrophils % 75.9 %
[2017-08-07 04:07] LABS: Calcium 8.3 mg/dL (8.6-10.8); Potassium 3.9 mEq/L (3.5-4.5)
--- NOTE | 2017-08-07 05:59 | Internal Med Progress Note ---
<Yemi Covington - Last Filed: 08/07/17 08:53> Date of Encounter: 08/07/17 Time of Encounter: 05:58 - Assessment and plan (1) Acute respiratory failure with hypoxia Current Visit: Yes Status: Chronic Assessment and plan: Patient alternating between high flow oxygen and this morning is back on BiPAP, O2 sat in mid 90s. Will monitor and attempt to wean oxygen as able. He is DNR- CCA-DNI Has PleurX in place (2) HCC (hepatocellular carcinoma) Current Visit: Yes Status: Chronic Assessment and plan: Untreatable with poor prognosis per oncology. Continue supportive care. (3) Hypotension Current Visit: No Status: Acute Assessment and plan: Weaned off dopamine several days ago. Currently on Midodrine 12.5mg TID, BP this AM is stable Qualifiers: Hypotension type: other hypotension type Qualified Code(s): I95.89 - Other hypotension (4) ESRD (end stage renal disease) on dialysis Current Visit: Yes Status: Chronic Assessment and plan: Patient wishes to continue with dialysis on Tuesday, Tuesday, and Tuesday. Creatinine elevated today as he has not had dialysis in 2 days. Nephrology is following (5) Ascites Current Visit: Yes Status: Acute Assessment and plan: 450 mL drained from Pleurx 24 hours. Will give albumin if drainage >5L Qualifiers: Ascites type: malignant Qualified Code(s): R18.0 - Malignant ascites (6) Anemia Current Visit: Yes Status: Chronic Assessment and plan: H&H 7.7/25.6. Patient has ESRD on chronic dialysis, will continue to monitor Qualifiers: Anemia type: due to chronic kidney disease Chronic kidney disease stage: on chronic dialysis Qualified Code(s): N18.6 - End stage renal disease; D63.1 - Anemia in chronic kidney disease; D63.1 - Anemia in chronic kidney disease; Z99.2 - Dependence on renal dialysis; Z99.2 - Dependence on renal dialysis; Z99.2 - Dependence on renal dialysis; Z99.2 - Dependence on renal dialysis - Subjective Interval history: 66-year-old male currently on hospice for end-stage hepatocellular cacinoma. He also has liver cirrhosis, end-stage renal disease. He presented to the ER 06/28 with shortness of breath secondary to ascites which improved following paracentesis. His code status is currently DNR-CCA-DNI Mr. Dixon was seen and evaluated this morning at bedside. His mental status has once again deteriorated somewhat, although he is arouseable to verbal stimulation. He is on BiPAP this morning - Constitutional Vitals: Temp Pulse Resp BP Pulse Ox 98.6 F 94 19 100/57 97 08/07/17 03:56 08/07/17 03:56 08/07/17 03:56 08/07/17 03:56 08/07/17 03:56 General appearance: Present: A&O X 3, morbidly obese, no acute distress - Respiratory Respiratory exam: Present: rhonchi ( Possible). Absent: tachypnea (C a large) - Cardiovascular Cardiovascular exam: Present: bradycardia (large bullae.), RRR, +S1, +S2. Absent: diastolic murmur, gallop, rubs, systolic murmur - GI/Abdominal GI/Abdominal exam: Present: distended (this point,). Absent: tenderness ( resume yearly.) - Neurological Exam Neurological exam: Absent: alert, oriented X3 ( patient is) Internal Medicine: Result - Labs CBC & Chem 7: 08/07/17 03:35 08/07/17 03:35 Labs: Short CBC 08/07/17 Range/Units 03:35 WBC 9.4 (4.3-11.1) K/mcL Hgb 7.7 L (12.9-16.9) g/dL Hct 25.6 L (37.5-50.1) % Plt Count 178 (140-400) K/mcL Neutrophils # 7.1 (1.6-8.9) K/mcL BMP 08/07/17 03:35 Sodium 137 Potassium 3.9 Chloride 99 Carbon Dioxide 27 BUN 25 Creatinine 3.67 H Glucose 138 H Calcium 8.3 L - ABG Interpretation ABG results: ABG ABG pH 7.36 pH Units (7.32-7.45) 07/25/17 04:48 ABG pCO2 40 mmHg (35-45) 07/25/17 04:48 ABG pO2 77 mmHg (85-104) L 07/25/17 04:48 ABG O2 Saturation 95 % (95-98) 07/25/17 04:48 PT/INR, D-dimer PT 14.1 Seconds (9.4-12.1) H 07/27/17 12:17 - VTE Documentation of Mechanical Device: Graduated compression elastic hosiery Consult Discharge Plan - Plan Referrals: Alicia Pastrana MD [Primary Care Provider] - (Patient going home with hospice) Prescriptions: OxyCODONE Immed Rel [Roxicodone 5 MG] 5 mg PO Q4HR PRN #30 tablet PRN Reason: cancer related pain FentaNYL PATCH [Duragesic] 1 each TD Q72H #10 patch.td72 LORazepam [Ativan] 0.5 mg PO TID PRN #30 tablet PRN Reason: Anxiety <MittalRaghavendra - Last Filed: 08/07/17 12:31> Date of Encounter: 08/07/17 - Constitutional Vitals: Temp Pulse Resp BP Pulse Ox 98.2 F 101 16 121/74 99 08/07/17 08:30 08/07/17 10:05 08/07/17 08:30 08/07/17 10:05 08/07/17 08:30 Internal Medicine: Result - Labs CBC & Chem 7: 08/07/17 03:35 08/07/17 03:35 Labs: Short CBC 08/07/17 Range/Units 03:35 WBC 9.4 (4.3-11.1) K/mcL Hgb 7.7 L (12.9-16.9) g/dL Hct 25.6 L (37.5-50.1) % Plt Count 178 (140-400) K/mcL Neutrophils # 7.1 (1.6-8.9) K/mcL BMP 08/07/17 03:35 Sodium 137 Potassium 3.9 Chloride 99 Carbon Dioxide 27 BUN 25 Creatinine 3.67 H Glucose 138 H Calcium 8.3 L - ABG Interpretation ABG results: ABG ABG pH 7.36 pH Units (7.32-7.45) 07/25/17 04:48 ABG pCO2 40 mmHg (35-45) 07/25/17 04:48 ABG pO2 77 mmHg (85-104) L 07/25/17 04:48 ABG O2 Saturation 95 % (95-98) 07/25/17 04:48 PT/INR, D-dimer PT 14.1 Seconds (9.4-12.1) H 07/27/17 12:17 - Impressions Impressions Chest X-Ray 08/07/17 09:01 IMPRESSION: Now complete opacification of left hemithorax likely related to large pleural effusion. D/ / Mery Landaverde MD / Mery Landaverde MD Interpreting Provider: Mery Landaverde MD - Attending Attestation I performed an independent history and examination of this patient. I agree with the findings, assessment and plan of Dr. Covington, director medical writing. The exception now however is that patient has increased work of breathing, worsening hypoxemic respiratory failure and now complete opacification of his left hemithorax on chest x-ray, felt to be due to large pleural effusion. We will consult pulmonary medicine. Patient may benefit from a therapeutic thoracentesis. We will continue supportive care, BiPAP. Given his borderline and sometimes low blood pressure, large dose diuretics and/or dialysis would be tenuous. Nephrology is following and he continues to receive dialysis. Patient 's prognosis is very poor. He is aware and we have had numerous discussions with them.
--- NOTE | 2017-08-07 07:46 | Nephrology Progress Note ---
Date of Encounter: 08/07/17 Time of Encounter: 07:44 - Assessment and Plan (1) ESRD (end stage renal disease) on dialysis Current Visit: Yes Status: Chronic The patient's overall condition appears to be deteriorating. Patient will undergo dialysis again tomorrow if he wishes to continue with that therapy. Overall prognosis is poor. The patient is on palliative care. (2) Hepatocellular carcinoma Current Visit: Yes Status: Chronic (3) Cirrhosis of liver with ascites Current Visit: Yes Status: Chronic Qualifiers: Hepatic cirrhosis type: unspecified hepatic cirrhosis Qualified Code(s): K74.60 - Unspecified cirrhosis of liver (4) Acute respiratory failure with hypoxia Current Visit: Yes Status: Chronic Subjective Principal diagnosis: Severe hypoxic respiratory failure ESRD Interval history: The patient is requiring BiPAP to help maintain his oxygenation. He appears to be more confused today. Objective - Vital Signs Vital signs: Vital Signs Temp Pulse Resp BP Pulse Ox 08/07/17 03:56 98.6 F 94 19 100/57 97 08/07/17 03:30 92 08/07/17 00:06 104 08/06/17 23:49 98.9 F 103 20 96/52 95 08/06/17 20:20 98.7 F 105 22 112/55 95 08/06/17 16:45 98.7 F 103 20 111/89 94 08/06/17 16:16 98.7 F 103 20 111/89 94 08/06/17 12:30 98.0 F 98 20 128/70 92 08/06/17 11:23 98.0 F 98 20 128/70 92 08/06/17 10:02 93 08/06/17 08:15 97.5 F L 107 20 106/76 90 Intake and Output 08/06/17 08/06/17 08/07/17 15:59 23:59 07:59 Intake Total 240 / 240 60 / 60 0 / 0 Output Total 450 / 450 0 / 0 Balance -210 / -210 60 / 60 0 / 0 Intake: Oral 240 / 240 60 / 60 0 / 0 Output: Urine 0 / 0 0 / 0 Wound Drainage 450 / 450 0 / 0 Right Upper Abdomen 450 / 450 0 / 0 Other: Meal Breakfast Percent of Meal Consumed 5% Blood Glucose* 179 146 - General Appearance Exam: Patient is confused. He is in no acute distress. Lungs diminished breath sounds. Heart regular rate and rhythm. Abdomen is distended with ascites. There is 3-4+ lower extremity swelling. - Lab 08/07/17 03:35 08/07/17 03:35 Most recent lab results ABG pH 7.36 pH Units (7.32-7.45) 07/25/17 04:48 ABG pCO2 40 mmHg (35-45) 07/25/17 04:48 ABG pO2 77 mmHg (85-104) L 07/25/17 04:48 ABG HCO3 22 mEq/L (21-27) 07/25/17 04:48 ABG O2 Saturation 95 % (95-98) 07/25/17 04:48 Calcium 8.3 mg/dL (8.6-10.8) L 08/07/17 03:35 Phosphorus 3.8 mg/dL (2.3-4.7) 08/04/17 06:20 Magnesium 1.7 mg/dL (1.6-2.6) 08/04/17 06:20 - VTE Documentation of Mechanical Device: Graduated compression elastic hosiery Consult Discharge Plan - Plan Referrals: Alicia Pastrana MD [Primary Care Provider] - (Patient going home with hospice) Prescriptions: OxyCODONE Immed Rel [Roxicodone 5 MG] 5 mg PO Q4HR PRN #30 tablet PRN Reason: cancer related pain FentaNYL PATCH [Duragesic] 1 each TD Q72H #10 patch.td72 LORazepam [Ativan] 0.5 mg PO TID PRN #30 tablet PRN Reason: Anxiety
[2017-08-07] MEDS: Renal Vitamin 1 MG CAPSULE PO SCH (09:00)
[2017-08-07] MEDS: Insulin LISPRO 300 UNITS/3 ML VIAL SQ SCH ×4 (09:26→21:23)
--- NOTE | 2017-08-07 13:30 | Event Note ---
Date of Encounter: 08/07/17 Time of Encounter: 13:23 Mr. Dixon's chest x-ray recently resulted with complete opacification of the left lung field, with apparent pleural effusion. I went to the patient's room to discuss these findings and his daughter who states she is the patient's medical POA and several other family members were present. Mr. Dixon stated in their presence that he does not want to have his lung drained or have a chest tube placed. Patient verified his full name, location, and current date in the presence of his other family members and I do believe he is able to make this decision for himself. I discussed what a thoracentesis/chest tube procedure entails as well as the risks/benefits of having the procedure performed and the risks/benefits of not having the procedure performed including worsening of his breathing, discomfort and pain, and possibly . The patient affirms he does not want the procedure performed
[2017-08-07] MEDS: Atropine Sulfate 1% 40 DROP/2 ML BOTTLE SL PRN ×2 (14:13→21:23)
[2017-08-07] MEDS: *HR* LORazepam 0.5 MG TABLET PO PRN (21:39)
[2017-08-08 03:49] LABS: Basophils % 0.3 %; Eosinophils # 0.2 K/mcL (0.0-0.6); Eosinophils % 1.3 %; Hemoglobin 8.2 g/dL (12.9-16.9); Immature Granulocytes % 0.7 % (0-4); Lymphocytes # 0.9 K/mcL (0.6-4.6); Lymphocytes % 7.3 %; Mean Corpuscular HGB Conc 30.4 g/dL (31.6-35.5); Mean Corpuscular Hemoglobin 27.6 pg (28.0-33.3); Mean Corpuscular Volume 90.9 fL (83.0-100.0); Mean Platelet Volume 9.1 fL (9.4-12.4); Monocytes # 1.1 K/mcL (0.0-1.3); Monocytes % 8.8 %; Neutrophils # 10.6 K/mcL (1.6-8.9); Platelet Count 197 K/mcL (140-400); Red Blood Count 2.97 M/mcL (4.19-5.50); Segmented Neutrophils % 81.6 %
[2017-08-08 04:07] LABS: Calcium 8.9 mg/dL (8.6-10.8); Potassium 4.3 mEq/L (3.5-4.5)
--- NOTE | 2017-08-08 06:28 | Internal Med Progress Note ---
Date of Encounter: 08/08/17 Time of Encounter: 06:26 - Assessment and plan (1) Acute respiratory failure with hypoxia Current Visit: Yes Status: Chronic Assessment and plan: Patient alternating between high flow oxygen and this morning is back on BiPAP, O2 sat in mid 90s. He has complete opacification of his left lung field thought to be pleural effusion, after long conversation with patient and family the patient refused intervention for this issue. He is DNR-CCA-DNI Has abdominal PleurX in place (2) HCC (hepatocellular carcinoma) Current Visit: Yes Status: Chronic Assessment and plan: Untreatable with poor prognosis per oncology. Continue supportive care. (3) Hypotension Current Visit: No Status: Acute Assessment and plan: Weaned off dopamine several days ago. Currently on Midodrine 12.5mg TID, BP this AM is stable, low but near patient's baseline Qualifiers: Hypotension type: other hypotension type Qualified Code(s): I95.89 - Other hypotension (4) ESRD (end stage renal disease) on dialysis Current Visit: Yes Status: Chronic Assessment and plan: Patient wishes to continue with dialysis on Tuesday, Tuesday, and Tuesday. Creatinine elevated today at 4.54 as he has not had dialysis in 3 days. Nephrology is following and patient may have dialysis today if he so desires (5) Ascites Current Visit: Yes Status: Acute Assessment and plan: Will continue to drain ascites via Pleurx as needed. Will give albumin if drainage >5L Qualifiers: Ascites type: malignant Qualified Code(s): R18.0 - Malignant ascites (6) Anemia Current Visit: Yes Status: Chronic Assessment and plan: Stable. Patient has ESRD on chronic dialysis, will continue to monitor Qualifiers: Anemia type: due to chronic kidney disease Chronic kidney disease stage: on chronic dialysis Qualified Code(s): N18.6 - End stage renal disease; D63.1 - Anemia in chronic kidney disease; D63.1 - Anemia in chronic kidney disease; Z99.2 - Dependence on renal dialysis; Z99.2 - Dependence on renal dialysis; Z99.2 - Dependence on renal dialysis; Z99.2 - Dependence on renal dialysis - Subjective Interval history: 66-year-old male currently on hospice for end-stage hepatocellular cacinoma. He also has liver cirrhosis, end-stage renal disease. He presented to the ER 06/28 with shortness of breath secondary to ascites. His code status is currently DNR-CCA-DNI Mr. Dixon was seen and evaluated this morning at bedside. He is resting comfortably in bed with BiPAP this morning in no distress - Constitutional Vitals: Temp Pulse Resp BP Pulse Ox 99.3 F 104 18 88/49 95 08/08/17 03:39 08/08/17 03:39 08/08/17 03:39 08/08/17 03:39 08/08/17 03:39 General appearance: Present: A&O X 3, morbidly obese, no acute distress - Respiratory Respiratory exam: Present: decreased breath sounds, rhonchi, wheezes. Absent: respiratory distress, tachypnea - Cardiovascular Cardiovascular exam: Present: RRR, +S1, +S2. Absent: diastolic murmur, gallop, rubs, systolic murmur - GI/Abdominal GI/Abdominal exam: Present: distended. Absent: guarding, tenderness - Extremities Exam Extremities exam: Present: pedal edema (4+), warm. Absent: cyanotic, tenderness Internal Medicine: Result - Labs CBC & Chem 7: 08/08/17 03:40 08/08/17 03:40 Labs: Short CBC 08/08/17 Range/Units 03:40 WBC 12.9 H (4.3-11.1) K/mcL Hgb 8.2 L (12.9-16.9) g/dL Hct 27.0 L (37.5-50.1) % Plt Count 197 (140-400) K/mcL Neutrophils # 10.6 H (1.6-8.9) K/mcL BMP 08/08/17 03:40 Sodium 137 Potassium 4.3 Chloride 98 Carbon Dioxide 30 H BUN 33 H Creatinine 4.54 H Glucose 163 H Calcium 8.9 - ABG Interpretation ABG results: ABG ABG pH 7.36 pH Units (7.32-7.45) 07/25/17 04:48 ABG pCO2 40 mmHg (35-45) 07/25/17 04:48 ABG pO2 77 mmHg (85-104) L 07/25/17 04:48 ABG O2 Saturation 95 % (95-98) 07/25/17 04:48 PT/INR, D-dimer PT 14.1 Seconds (9.4-12.1) H 07/27/17 12:17 - Impressions Impressions Chest X-Ray 08/07/17 09:01 IMPRESSION: Now complete opacification of left hemithorax likely related to large pleural effusion. D/ / Mery Landaverde MD / Mery Landaverde MD Interpreting Provider: Mery Landaverde MD - VTE Documentation of Mechanical Device: Graduated compression elastic hosiery Consult Discharge Plan - Plan Referrals: Alicia Pastrana MD [Primary Care Provider] - (Patient going home with hospice) Prescriptions: OxyCODONE Immed Rel [Roxicodone 5 MG] 5 mg PO Q4HR PRN #30 tablet PRN Reason: cancer related pain FentaNYL PATCH [Duragesic] 1 each TD Q72H #10 patch.td72 LORazepam [Ativan] 0.5 mg PO TID PRN #30 tablet PRN Reason: Anxiety
--- NOTE | 2017-08-08 10:43 | Palliative Progress Note ---
Date of Encounter: 08/08/17 Time of Encounter: 09:50 - Assessment and plan (1) Cancer associated pain Current Visit: Yes Status: Acute Assessment and plan: Continue current comfort meds and monitor. Has not required last 24 hours. (2) Anxiety Current Visit: Yes Status: Acute Assessment and plan: Continue Lorazepam - will transition to IV as unable to take po today. (3) Decreased appetite Current Visit: Yes Status: Acute (4) Goals of care, counseling/discussion Current Visit: Yes Status: Acute Assessment and plan: D/W daughter and . Patient with marked deterioration again and minimally responsive. Family discussed with myself, Dr. Le. Desires to speak with nephrology prior to making decision to stop dialysis. Will F/u this afternoon (5) Hepatocellular carcinoma Current Visit: Yes Status: Chronic (6) Acute respiratory failure with hypoxia Current Visit: Yes Status: Chronic (7) ESRD (end stage renal disease) on dialysis Current Visit: Yes Status: Chronic - Time Spent With Patient Total time spent is greater than 50% in coordination of care (as documented) at patient's floor/unit and/or counseling patient: - Subjective Interval history: Patient with continued decline - increased resp distress over weekend. CXR with complete right opacification. Has been on bipap, but currently on nasal cannula. Somulent - awakens with stimulation, but cannot remain alert. Does shake his head "no" when asked if he is uncomfortable, but will not respond to other questions. Daughter and tearful at bedside. Dr. Le in as well to discuss coarse of care. He refused thoracentesis yesterday. - Constitutional Vitals: Abnormal lab results WBC 12.9 K/mcL (4.3-11.1) H 08/08/17 03:40 RBC 2.97 M/mcL (4.19-5.50) L 08/08/17 03:40 Hgb 8.2 g/dL (12.9-16.9) L 08/08/17 03:40 Hct 27.0 % (37.5-50.1) L 08/08/17 03:40 MCH 27.6 pg (28.0-33.3) L 08/08/17 03:40 MCHC 30.4 g/dL (31.6-35.5) L 08/08/17 03:40 RDW 17.0 % (11.5-14.5) H 08/08/17 03:40 MPV 9.1 fL (9.4-12.4) L 08/08/17 03:40 Neutrophils # 10.6 K/mcL (1.6-8.9) H 08/08/17 03:40 Nucleated RBCs/100 WBC 0.2 /100 WBC (0) H 08/06/17 04:20 ESR >= 130 mm/hr (0-10) H 07/22/17 17:58 PT 14.1 Seconds (9.4-12.1) H 07/27/17 12:17 ABG pO2 77 mmHg (85-104) L 07/25/17 04:48 ABG Base Excess -3 mEq/L (-2 to 3) L 07/25/17 04:48 Carbon Dioxide 30 mEq/L (19-29) H 08/08/17 03:40 BUN 33 mg/dL (8-26) H 08/08/17 03:40 Creatinine 4.54 mg/dL (0.72-1.25) H 08/08/17 03:40 Est GFR ( Amer) 16 (> 60) L 08/08/17 03:40 Est GFR (Non-Af Amer) 13 (> 60) L 08/08/17 03:40 Glucose 163 mg/dL (70-99) H 08/08/17 03:40 POC Glucose 155 (58-89) H 08/07/17 16:42 Ionized Calcium 1.11 mmol/L (1.15-1.35) L 07/26/17 04:33 AST 43 Units/L (5-34) H 07/29/17 08:47 Alkaline Phosphatase 135 Units/L (38-126) H 07/29/17 08:47 C-Reactive Protein 177 mg/L (Less than 5) H 07/22/17 17:58 Albumin 3.4 g/dL (3.5-5.0) L 07/29/17 08:47 Vancomycin Trough 20.9 mcg/mL (10-20) H* 07/25/17 08:00 General appearance: Present: mild distress - Respiratory Additional comments: Rhonchi throughout anterior chest - Cardiovascular Cardiovascular exam: Present: +S1, +S2, tachycardia - GI/Abdominal GI/Abdominal exam: Present: distended, soft Additional comments: Pleurx cath present RLQ - Extremities Exam Additional comments: 4+ bilateral lower extremity edema - Neurological Exam Additional comments: Opens eyes when name called - no verbal response. Did shake head "no" when asked if in pain. Drifts back to sleep. - Skin Skin exam: Present: dry, pallor, warm Palliative Quality Palliative Quality: Screen for Code Status: Yes, Screen for Goals of Care: Yes, Screen for Pain: Yes, If Pain Regimen Started, Initiate Bowel Regimen: NA, Screen for Nausea/Vomitting: Yes Code Status: 07/25/17 16:28 CODE [Resuscitation Status: Active] [RES] Routine Comment: Resuscitation Status: DNR-Comfort Care-Arrest 07/27/17 11:14 DNR [Resuscitation Status: Active] [RES] Routine Comment: Resuscitation Status: [id number] - Labs CBC & Chem 7: 08/08/17 03:40 08/08/17 03:40 Labs: Laboratory Results - last 24 hr 08/07/17 08/07/17 08/07/17 08:30 11:45 16:42 WBC RBC Hgb Hct MCV MCH MCHC RDW Plt Count MPV Immature Gran % Seg Neutrophils % Lymphocytes % Monocytes % Eosinophils % Basophils % Neutrophils # Lymphocytes # Monocytes # Eosinophils # Basophils # Sodium Potassium Chloride Carbon Dioxide BUN Creatinine Est GFR ( Amer) Est GFR (Non-Af Amer) BUN/Creatinine Ratio Glucose POC Glucose 154 H 156 H 155 H Calculated Osmolality Calcium 08/08/17 08/08/17 03:40 03:40 WBC 12.9 H RBC 2.97 L Hgb 8.2 L Hct 27.0 L MCV 90.9 MCH 27.6 L MCHC 30.4 L RDW 17.0 H Plt Count 197 MPV 9.1 L Immature Gran % 0.7 Seg Neutrophils % 81.6 Lymphocytes % 7.3 Monocytes % 8.8 Eosinophils % 1.3 Basophils % 0.3 Neutrophils # 10.6 H Lymphocytes # 0.9 Monocytes # 1.1 Eosinophils # 0.2 Basophils # 0.0 Sodium 137 Potassium 4.3 Chloride 98 Carbon Dioxide 30 H BUN 33 H Creatinine 4.54 H Est GFR ( Amer) 16 L Est GFR (Non-Af Amer) 13 L BUN/Creatinine Ratio 7 Glucose 163 H POC Glucose Calculated Osmolality 295 Calcium 8.9 - ABG Interpretation ABG results: ABG ABG pH 7.36 pH Units (7.32-7.45) 07/25/17 04:48 ABG pCO2 40 mmHg (35-45) 07/25/17 04:48 ABG pO2 77 mmHg (85-104) L 07/25/17 04:48 ABG O2 Saturation 95 % (95-98) 07/25/17 04:48 PT/INR, D-dimer PT 14.1 Seconds (9.4-12.1) H 07/27/17 12:17 Consult Discharge Plan - Plan Referrals: Alicia Pastrana MD [Primary Care Provider] - (Patient going home with hospice) Prescriptions: OxyCODONE Immed Rel [Roxicodone 5 MG] 5 mg PO Q4HR PRN #30 tablet PRN Reason: cancer related pain FentaNYL PATCH [Duragesic] 1 each TD Q72H #10 patch.td72 LORazepam [Ativan] 0.5 mg PO TID PRN #30 tablet PRN Reason: Anxiety
[2017-08-08] MEDS: Insulin LISPRO 300 UNITS/3 ML VIAL SQ SCH ×2 (11:10→14:10)
[2017-08-08] MEDS: Renal Vitamin 1 MG CAPSULE PO SCH (11:11)
--- NOTE | 2017-08-08 11:16 | Internal Med Progress Note ---
Date of Encounter: 08/08/17 Time of Encounter: 10:00 - Assessment and plan (1) Hepatocellular carcinoma Current Visit: Yes Status: Chronic (2) Type 2 diabetes mellitus Current Visit: No Status: Chronic Qualifiers: Diabetes mellitus complication status: with unspecified complications Diabetes mellitus manager terminal insulin use: with manager terminal use Qualified Code(s) : E11.8 - Type 2 diabetes mellitus with unspecified complications; Z79.4 - [facility] (current) use of insulin (3) Cirrhosis of liver with ascites Current Visit: Yes Status: Chronic Qualifiers: Hepatic cirrhosis type: unspecified hepatic cirrhosis Qualified Code(s): K74.60 - Unspecified cirrhosis of liver (4) Encephalopathy acute Current Visit: No Status: Acute (5) Acute respiratory failure with hypoxia Current Visit: Yes Status: Chronic (6) ESRD (end stage renal disease) on dialysis Current Visit: Yes Status: Chronic (7) Fluid overload Current Visit: Yes Status: Acute Qualifiers: Hypervolemia type: unspecified Qualified Code(s): E87.70 - Fluid overload, unspecified - Time Spent With Patient I had family meeting at bedside with family as well as palliative care.patient was alert last night and he stated that he does not want to go with invasive procedure . Discussed with family. Family wanted to proceed and on his wishes. Discussed with family about different options including aggressive measurement with his very poor prognosis including ABG urgent dialysis thoracocentesis. Discussed about patient critical condition and his wishes. Family wanted to proceed with comfort care. We will consult hospice team. Appreciate palliative care input. Family want to discuss with his pulmonary. Palliative Care will notify pulmonary . For now his CODE STATUS DNR CC, may need to have inpatient hospice was discussed with hospitalist team 25 - 35 minutes - Subjective Interval history: Patient is so lethargic, he is not responding to command, currently on high flow oxygen. Patient refused thoracocentesis over to him by physician last night. - Constitutional Vitals: Temp Pulse Resp BP Pulse Ox 98.3 F 98 10 91/55 94 08/08/17 07:00 08/08/17 07:00 08/08/17 07:00 08/08/17 07:00 08/08/17 07:00 General appearance: Present: mild distress - Neck Neck exam general surgery: Present: supple, trachea midline. Absent: lymphadenopathy - Cardiovascular Cardiovascular exam: Present: diastolic murmur, +S1, +S2. Absent: gallop, rubs , systolic murmur - GI/Abdominal GI/Abdominal exam: Present: distended, hypoactive bowel sounds, soft, no peritoneal signs. Absent: tenderness - Extremities Exam Extremities exam: Present: warm, radial pulses palpable and symmetrical. Absent : cyanotic, pedal edema Internal Medicine: Result - Labs CBC & Chem 7: 08/08/17 03:40 08/08/17 03:40 Labs: Short CBC 08/08/17 Range/Units 03:40 WBC 12.9 H (4.3-11.1) K/mcL Hgb 8.2 L (12.9-16.9) g/dL Hct 27.0 L (37.5-50.1) % Plt Count 197 (140-400) K/mcL Neutrophils # 10.6 H (1.6-8.9) K/mcL BMP 08/08/17 03:40 Sodium 137 Potassium 4.3 Chloride 98 Carbon Dioxide 30 H BUN 33 H Creatinine 4.54 H Glucose 163 H Calcium 8.9 - ABG Interpretation ABG results: ABG ABG pH 7.36 pH Units (7.32-7.45) 07/25/17 04:48 ABG pCO2 40 mmHg (35-45) 07/25/17 04:48 ABG pO2 77 mmHg (85-104) L 07/25/17 04:48 ABG O2 Saturation 95 % (95-98) 07/25/17 04:48 PT/INR, D-dimer PT 14.1 Seconds (9.4-12.1) H 07/27/17 12:17 - VTE Documentation of Mechanical Device: Graduated compression elastic hosiery Consult Discharge Plan - Plan Referrals: Alicia Pastrana MD [Primary Care Provider] - (Patient going home with hospice) Prescriptions: OxyCODONE Immed Rel [Roxicodone 5 MG] 5 mg PO Q4HR PRN #30 tablet PRN Reason: cancer related pain FentaNYL PATCH [Duragesic] 1 each TD Q72H #10 patch.td72 LORazepam [Ativan] 0.5 mg PO TID PRN #30 tablet PRN Reason: Anxiety
--- NOTE | 2017-08-08 11:28 | Event Note ---
Date of Encounter: 08/08/17 Time of Encounter: 11:15 Family at bedside. Wants patient comfortable. Discussed at length pros/cons of HD at this standpoint. Daughter and agreed that patient will not have HD. Discussed with Magui Monsivais-palliative care. Nephrology will sign off.
[2017-08-08] MEDS ORDERED: Scopolamine Patch 1.5 MG PATCH.TD72 TD SCH (11:30)
[2017-08-08] MEDS: *HR* FentaNYL PATCH 12 MCG PATCH TD SCH (11:43)
--- NOTE | 2017-08-08 12:59 | Event Note ---
Date of Encounter: 08/08/17 Time of Encounter: 12:50 Spoke with Vera Vang, ANTHONY, nephrology. She stated family had decided no further dialysis. Revisited them and discussed plan of care going forward. They would like to transition to general inpt hospice and remain here for symptom management. D/W Dr. Le. Patient will be discharged and re- admitted as inpt hospice.
[2017-08-08] MEDS ORDERED: *HR* LORazepam 2 MG/ML VIAL IVP PRN (13:05)
--- NOTE | 2017-08-08 13:19 | Discharge Summary ---
Date of Encounter: 08/08/17 Time of Encounter: 11:00 - Discharge Diagnosis (1) Hepatocellular carcinoma Priority: Secondary Status: Chronic (2) Type 2 diabetes mellitus Priority: Secondary Status: Chronic Qualifiers: Diabetes mellitus complication status: with unspecified complications Diabetes mellitus alf insulin use: with long term care social worker use Qualified Code(s) : E11.8 - Type 2 diabetes mellitus with unspecified complications; Z79.4 - [facility] (current) use of insulin (3) Cirrhosis of liver with ascites Priority: Secondary Status: Chronic Qualifiers: Hepatic cirrhosis type: unspecified hepatic cirrhosis Qualified Code(s): K74.60 - Unspecified cirrhosis of liver (4) Encephalopathy acute Priority: Primary Status: Acute (5) Acute respiratory failure with hypoxia Priority: Primary Status: Chronic (6) ESRD (end stage renal disease) on dialysis Priority: Secondary Status: Chronic (7) Fluid overload Priority: Primary Status: Acute Qualifiers: Hypervolemia type: unspecified Qualified Code(s): E87.70 - Fluid overload, unspecified - Discharge Medications Prescriptions: OxyCODONE Immed Rel [Roxicodone 5 MG] 5 mg PO Q4HR PRN #30 tablet PRN Reason: cancer related pain FentaNYL PATCH [Duragesic] 1 each TD Q72H #10 patch.td72 LORazepam [Ativan] 0.5 mg PO TID PRN #30 tablet PRN Reason: Anxiety Home Medications: Promethazine [Phenergan] 25 mg PO Q6HR PRN #60 tablet 05/19/17 [Rx] Ascorbic Acid [Vitamin C] 500 mg PO BID 07/15/17 [History] B Complex W-C No.20/Folic Acid [Nephrocaps Softgel] 1 mg PO DAILY 07/15/17 [ History] Rifaximin [Xifaxan] 550 mg PO BID 07/15/17 [History] Omeprazole [PriLOSEC] 40 mg PO DAILY #30 cap 07/19/17 [Rx] OxyCODONE Immed Rel [Roxicodone 5 MG] 5 mg PO Q4HR PRN #120 tablet 07/19/17 [Rx] Ranitidine HCl [Zantac] 150 mg PO BID #60 tablet 07/19/17 [Rx] FentaNYL PATCH [Duragesic] 1 each TD Q72H #10 patch.td72 08/03/17 [Rx] LORazepam [Ativan] 0.5 mg PO TID PRN #30 tablet 08/03/17 [Rx] OxyCODONE Immed Rel [Roxicodone 5 MG] 5 mg PO Q4HR PRN #30 tablet 08/03/17 [Rx] Allergies/Adverse Reactions: 3 Allergy/AdvReac Type Severity Reaction Status Date / Time Hydromorphone [From Dilaudid] Allergy Itching Verified 07/15/17 14:47 heparin AdvReac See Verified 07/15/17 14:51 Comments Date of admission: 07/23/17 11:23 Primary care physician: Alicia Pastrana, Consults: 07/25/17 10:41 Consult to Palliative Care [CONS] Routine Comment: Consulting Provider: Palliative Care [place] Reason for Consult: Golas of care Call Completed: Yes 07/26/17 08:15 Consult to Dialysis [CONS] ONCE 07/27/17 08:52 Consult to Speech Therapy [CONS] Routine Comment: Evaluate, develop and implement POC Reason for Consult: bedside swallow study Call Completed: No 07/29/17 08:45 Consult to Dialysis [CONS] ONCE 08/01/17 08:15 Consult to Dialysis [CONS] ONCE 08/02/17 09:50 Consult to Occupational Therapy [CONS] Routine Comment: Evaluate, develop and implement POC Reason for Consult: DC PLANNING Consult to Physical Therapy [CONS] Routine Comment: Evaluate, develop and implement POC Reason for Consult: DC PLANNING 08/03/17 08:00 Consult to Dialysis [CONS] ONCE 08/05/17 08:15 Consult to Dialysis [CONS] ONCE 08/07/17 12:39 Consult to Pulmonology [CONS] Routine Consulting Provider: [facility] [place] Reason for Consult: Pleural effusion Time Notified: 12:39 Call Completed: Yes Discharging clinician: Sirena Le Anticipated date of discharge: 08/08/17 - Patient Status Disposition: Hospice - Medical Facility Condition: Serious Functional capacity at discharge: bed bound Overall status at discharge: patient is not back to baseline - Discharge Instructions Follow Up With: Alicia Pastrana MD [Primary Care Provider] - (Patient going home with hospice) - Diet and Activity Activity: wear oxygen at all times Diet: other Hospital course: Mr. Dixon is a 66 year old male with past medical history of end-stage renal disease also with hepatocellular carcinoma, end-stage renal disease status post hemodialysis , history of liver cirrhosis associated with ascites. Patient is currently on scheduled paracentesis, patient admitted to the hospital with severe shortness of breath secondary to his fluid overload ascites. Patient was on acute on chronic respiratory failure his pH was 7.29. Patient was admitted at the beginning to ICU, pulmonary nephrology as well as an oncology evaluated patient during ICU stay. Very poor prognosis with his comorbidity, Poor Candidate for any further treatment. Patient has worsening of his shortness of breath, patient had pleural effusion which required thoracocentesis. Patient wishes doesnot want to proceed with dialysis or any more invasive procedure. Plan discussed with family at bedside, discussed with hospice physician The patient has no further options available with regard to the liver cancer. The patient has also decided against any further dialysis. The patient is completely 100% dialysis dependent with no urine output in addition the patient has a large right pleural effusion for which she does not wish to have it tapped , or any other aggressive care therefore I agree with hospice team These findings support a life expectancy of 6 months or less.. - Time Spent with Patient Total time spent providing and/or coordinating discharge services: Greater than 30 minutes - Constitutional Vitals: Temp Pulse Resp BP Pulse Ox 99.0 F 98 10 79/43 89 08/08/17 11:00 08/08/17 11:00 08/08/17 07:00 08/08/17 11:00 08/08/17 11:00 General appearance: Present: severe distress - Respiratory Respiratory exam: Present: decreased breath sounds, respiratory distress, rhonchi, wheezes - VTE Documentation of Mechanical Device: Graduated compression elastic hosiery
[2017-08-08] MEDS: *HR* Morphine 2 MG/ML SYRINGE IVP PRN ×2 (13:22→15:28)
--- NOTE | 2017-08-08 15:13 | Event Note ---
Date of Encounter: 08/08/17 Time of Encounter: 15:11 Hospice medical collections specialist certification of terminal illness: Hospice benefit. Start: 08/08/2017 Hospice benefit. In: +90 days Palliative performance scale: 20-30% History: Patient with history of end-stage renal disease also with hepatocellular carcinoma. The patient has no further options available with regard to the liver cancer. The patient has also decided against any further dialysis. The patient is completely 100% dialysis dependent with no urine output in addition the patient has a large right pleural effusion for which she does not wish to have it tapped, or any other aggressive care therefore I find that These findings support a life expectancy of 6 months or less. I attest that I have compose the above narrative based on my review of the patient's medical records, and or on my examination of the patient. Harry Barron M.D. Associate medical editor. [facility]
[2017-08-08 15:15] VITALS: BP 86/52
== END 2017-08-08 18:35 | disposition hospice, inpatient (51) | DRG 207 ==
LOC: 2ANU 17:26 → EMEROO 17:26 → 2NNU 23:07 → ICNU 07-23 04:29 → SUATTDRO 07-23 11:23 → 2ANU 07-28 08:38 → 2NNU 07-29 01:56 → 2ANU 08-07 08:03
PROVIDERS: ADMIT Hospitalist; ATTEND Internal Medicine

== ENCOUNTER 2017-08-08 13:38 | Inpatient (IN) ==
[2017-08-08] MEDS ORDERED: *HR* LORazepam 2 MG/ML VIAL IVP PRN (13:54)
[2017-08-08] MEDS ORDERED: *HR* Morphine 2 MG/ML SYRINGE IVP PRN ×3 (13:54→15:02)
[2017-08-08] MEDS ORDERED: Atropine Sulfate 1% 40 DROP/2 ML BOTTLE SL PRN (13:54)
[2017-08-08] MEDS ORDERED: Haloperidol Lactate 5 MG/ML VIAL IVP PRN (13:54)
[2017-08-08] MEDS ORDERED: Ipratropium/Albuterol Neb 3 ML IH PRN (13:57)
[2017-08-08] MEDS ORDERED: Ondansetron 4 MG/2 ML VIAL IVP PRN (13:58)
[2017-08-08] MEDS ORDERED: Scopolamine Patch 1.5 MG PATCH.TD72 TD SCH (14:00)
[2017-08-08] MEDS ORDERED: *HR* FentaNYL PATCH 12 MCG PATCH TD SCH (14:00)
--- NOTE | 2017-08-08 14:02 | Palliative - Consult Note ---
Date of Encounter: 08/08/17 Time of Encounter: 13:45 - Assessment and Plan (1) Generalized pain Status: Acute Assessment and plan: Continue Fentanyl patch and Morphine PRN and adjust as needed. (2) Dyspnea Status: Acute Assessment and plan: Continue supportive oxygen and Duonebs PRN. Utilize opioids for dyspnea and titrate as needed. Qualifiers: Dyspnea type: shortness of breath Qualified Code(s): R06.02 - Shortness of breath; R06.00 - Dyspnea, unspecified; R06.01 - Orthopnea (3) Congestion of upper airway Status: Acute Assessment and plan: Add scopolamine patch and continue Atropine drops PRN. (4) Anxiety Status: Acute Assessment and plan: Can no longer take po medication. Will transition to IV Lorazepam and monitor (5) Acute respiratory failure with hypoxia Status: Chronic (6) HCC (hepatocellular carcinoma) Status: Chronic (7) ESRD (end stage renal disease) on dialysis Status: Chronic (8) Goals of care, counseling/discussion Status: Acute Assessment and plan: long discussions today with family, pt no longer able to participate in discussions or make medical decisions. Dialysis will be discontinued as pt condition is declining. Will be admitted as general in hospice for symptom management. Palliative-CN HPI - Data of Consult Consult date: 08/08/17 Requesting Physician: Harry Barron MD - Consult Narrative History of present illness: Mr. Dixon is a 66 year old male who has had a prolonged hospital stay with respiratory distress/resp failure/probably pneumonia, who was originally home with [facility]. With resp distress, he was anjelica to hospital and changed his code status and desired intubation. He ultimately was extubated successfully, and again decided against re-intubation, but desired other aggressive measures, such as dialysis and pressor support for hypotension continued. Eventually, the pressors were able to be stopped, and pt was started on Midodrine. He has also struggled with stage IV decubitus ulcers which have worsened r/t malnutrition, organ failure, and pt immobility. Over this past weekend, pt again began to decline with increasing respiratory distress - CXR demonstrated complete opacification of right lung most likely r/ t pleural effusion. Patient declined thoracentesis. He has had decreased mental status since last pm, and is currently minimally responsive. Upon my visit, he appears in mild respiratory distress - nurse preparing med administration. He opens eyes when name called, but no other response. and daughter at bedside. CC: Harry Barron MD Past Med Surg Social Fam HX - Past Medical History Medical history: cancer, diabetes, dialysis, hyperlipidemia, other Psychiatric history: no psych history - Past Surgical History Surgical History: hip replacement, other - Social History Smoking Status: Former smoker Smokeless Tobacco Status: No Alcohol use: none Drug use: none - Family History Father Living Status: Hx Family Cardiac Disorders: Yes Mother Living Status: Hx Family Cancer: Yes Medications and Allergies Promethazine [Phenergan] 25 mg PO Q6HR PRN #60 tablet 05/19/17 [Rx] Ascorbic Acid [Vitamin C] 500 mg PO BID 07/15/17 [History] B Complex W-C No.20/Folic Acid [Nephrocaps Softgel] 1 mg PO DAILY 07/15/17 [ History] Rifaximin [Xifaxan] 550 mg PO BID 07/15/17 [History] Omeprazole [PriLOSEC] 40 mg PO DAILY #30 cap 07/19/17 [Rx] OxyCODONE Immed Rel [Roxicodone 5 MG] 5 mg PO Q4HR PRN #120 tablet 07/19/17 [Rx] Ranitidine HCl [Zantac] 150 mg PO BID #60 tablet 07/19/17 [Rx] FentaNYL PATCH [Duragesic] 1 each TD Q72H #10 patch.td72 08/03/17 [Rx] LORazepam [Ativan] 0.5 mg PO TID PRN #30 tablet 08/03/17 [Rx] OxyCODONE Immed Rel [Roxicodone 5 MG] 5 mg PO Q4HR PRN #30 tablet 08/03/17 [Rx] 3 Allergy/AdvReac Type Severity Reaction Status Date / Time Hydromorphone [From Dilaudid] Allergy Itching Verified 07/15/17 14:47 heparin AdvReac See Verified 07/15/17 14:51 Comments ROS unobtainable: due to mental status Palliative Care-Exam - Constitutional General appearance: Present: mild distress - Head Head Exam: Present: normal inspection, normocephalic - Eye Eye exam: Present: normal appearance, PERRL - Respiratory Respiratory exam: Present: decreased breath sounds, rhonchi Additional comments: Decreased breath sounds bilateral lower lobes. Rhonchi upper airway bilaterally - Cardiovascular Cardiovascular exam: Present: irregular rhythm, tachycardia - GI/Abdominal Exam GI/Abdominal exam: Present: diminished bowel sounds, distended additional comments: Pleurx cath RLQ - Extremities Exam Additional comments: 4+ edema bilateral lower extremities - Neurological Exam Additional comments: Minimally responsive, does open eyes when name called. No verbal response - Skin Skin exam: Present: dry, pallor, warm Additional comments: stage 4 decubitus ulcers to buttocks Palliative Quality Palliative Quality: Screen for Code Status: Yes, Screen for Goals of Care: Yes, Screen for Pain: Yes, If Pain Regimen Started, Initiate Bowel Regimen: Yes, Screen for Nausea/Vomitting: Yes Code Status: 08/08/17 13:54 Resuscitation Status: Active [RES] Routine Resuscitation Status: DNR-Comfort Care Comment:
[2017-08-08 19:04] VITALS: BP 93/56
--- NOTE | 2017-08-09 11:50 | Pallative History & Physical ---
Date of Encounter: 08/09/17 Time of Encounter: 11:49 Internal Medicine - H&P: HPI Admitted From: Intrahospital Transfer Plans for Post Hospital Care: Hospice - Home History of present illness: Mr. Dixon is a 66 year old male She was admitted GIP via the palliative care service please see the consult note which will serve as the H&P. The patient was seen by the palliative care service however and not directly by me. Her for the consult will service the H& P. Past Med Surg Social Fam HX - Past Medical History Medical history: cancer, diabetes, dialysis, hyperlipidemia, other Psychiatric history: no psych history - Past Surgical History Surgical History: hip replacement, other - Social History Smoking Status: Former smoker Smokeless Tobacco Status: No Alcohol use: none Drug use: none - Family History Father Living Status: Hx Family Cardiac Disorders: Yes Mother Living Status: Hx Family Cancer: Yes Internal Medicine - H&P: Meds Promethazine [Phenergan] 25 mg PO Q6HR PRN #60 tablet 05/19/17 [Rx] Ascorbic Acid [Vitamin C] 500 mg PO BID 07/15/17 [History] B Complex W-C No.20/Folic Acid [Nephrocaps Softgel] 1 mg PO DAILY 07/15/17 [ History] Rifaximin [Xifaxan] 550 mg PO BID 07/15/17 [History] Omeprazole [PriLOSEC] 40 mg PO DAILY #30 cap 07/19/17 [Rx] OxyCODONE Immed Rel [Roxicodone 5 MG] 5 mg PO Q4HR PRN #120 tablet 07/19/17 [Rx] Ranitidine HCl [Zantac] 150 mg PO BID #60 tablet 07/19/17 [Rx] FentaNYL PATCH [Duragesic] 1 each TD Q72H #10 patch.[id number] 08/03/17 [Rx] LORazepam [Ativan] 0.5 mg PO TID PRN #30 tablet 08/03/17 [Rx] OxyCODONE Immed Rel [Roxicodone 5 MG] 5 mg PO Q4HR PRN #30 tablet 08/03/17 [Rx] 3 Allergy/AdvReac Type Severity Reaction Status Date / Time Hydromorphone [From Dilaudid] Allergy Itching Verified 07/15/17 14:47 heparin AdvReac See Verified 07/15/17 14:51 Comments Palliative Care-Exam - Constitutional Vitals: Temp Pulse Resp BP Pulse Ox 98.0 F 100 12 93/56 86 08/08/17 19:03 08/08/17 19:03 08/08/17 19:03 08/08/17 19:03 08/08/17 19:03 General appearance: Present: mild distress Palliative Quality Palliative Quality: Screen for Code Status: Yes, Screen for Goals of Care: Yes, Screen for Pain: Yes, If Pain Regimen Started, Initiate Bowel Regimen: Yes, Screen for Nausea/Vomitting: Yes Code Status: 08/08/17 13:54 Resuscitation Status: Active [RES] Routine Comment: Resuscitation Status: DNR-Comfort Care
--- NOTE | 2017-08-09 11:52 | Death Note ---
Discharge Sum: Summary - Date and Time Date of admission: 08/08/17 18:44 Date of : 08/09/17 Time of : 02:30 - Summary Details: The patient was on general inpatient hospice for symptom management after the patient finally decided to stop doing dialysis for his end-stage renal disease. Patient also was having trouble with hypoxemic Respiratory failure with 8 out of the right lung. Patient passed quietly and comfortably early this morning at 0230 hrs. Family was not in attendance. Cause of was respiratory failure secondary to overload this was present for weeks. Secondary to end-stage renal disease which is present for years Garrick factors diabetes, hyperlipidemia and hepatocellular carcinoma. She was a former smoker. This probably did contribute to his . - Additional Data Confirmation of as documented by pronouncing clinician: no pulse, no respirations, no heart sounds Family: contacted Attending/PCP notified?: Yes Attending physician: Harry Barron MD Was code activated?: No Autopsy requested?: No architectural examiner notified?: No Organ bank notified?: Yes Advance directives: Yes Hospice patient?: Yes Discharge Sum: Diag - PCOD Probable Cause of : Respiratory arrest Discharge Sum: Prov - Provider Primary care physician: Alicia Pastrana, Consults: 08/08/17 13:54 Consult to Palliative Care [CONS] Routine Comment: Consulting Provider: [facility] Reason for Consult: inpt hospice Time Notified: 13:00 Call Completed: No
== END 2017-08-09 02:30 | disposition expired | DRG 189 ==
LOC: 2ANU 18:44
PROVIDERS: ADMIT Family Medicine Hospice and Palliative Medicine; ATTEND Family Medicine Hospice and Palliative Medicine